=== PATIENT | male | born 1935 | race Caucasian/White ===

== ENCOUNTER 2023-10-07 10:07 | Outpatient (AMB) | payer MEDICARE, OTHER, SELFPAY ==
--- NOTE | 2023-10-07 10:08 | HO.NEPHOV_ITS ---
HPI HPI Comments History of Present Illness Details I had the privilege of seeing Basilio accompanied by his , in the office today in follow-up of his chronic kidney disease on a background of acquired solitary kidney following nephrectomy. He has had history of nosebleeds needing admission. His aspirin was discontinued at that time. He is off Eliquis as well. He has had Procrit injections in the past. He also follows up with Jayden in [facility]. He has no orthostatic symptoms, chest tightness, abdominal distention, weight gain, shortness of breath, paroxysmal nocturnal dyspnea, orthopnea, pedal edema or urinary symptoms. His isosorbide dosage was increased to 90 mg by his cardiology team recently. He is unsure why that was done. He does not consume excessive sodium in the diet. He has no hematuria, night sweats or weight loss. He feels well. 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 Hypertension Chronic kidney disease, stage 3b Vital Signs 10/07/23 10:09 Height 6 ft Weight 160 lb BMI 21.7 BP 108/50 L Blood Pressure Location Lt brachial Position Sitting Pulse 45 L Pulse Source Pulse Oximeter Pulse Oximetry (%) 99 Oxygen Delivery Method Room Air Physical Exam Vital Signs: Last Vital Signs Pulse 45 L 10/07/23 10:09 BP 108/50 L 10/07/23 10:09 Pulse Ox 99 10/07/23 10:09 Oxygen Delivery Method Room Air 10/07/23 10:09 BMI result Body Mass Index 21.7 Const General: comfortable and no acute distress Orientation/consciousness: patient oriented x3 HEENT Head: Yes normocephalic Mouth: Normal oral and palatal mucosa present Eyes EOM: EOMs intact bilaterally Neck Neck: Yes supple Resp Auscultation: clear to auscultation bilaterally Cardio Jugular venous distension: no JVD Rate: regular rate GI Palpation (GI): Soft to palpation Auscultation: normal bowel sounds General: Yes no CVA tenderness Back/Spine/Pelvis Back: no CVA tenderness Skin General skin exam: no rashes or lesions noted Neuro General: patient oriented x3 and moves all extremities Extrem General: Yes no pedal edema Assessment & Plan Assessment & Plan (1) Acquired solitary kidney: Code(s): Z90.5 - Acquired absence of kidney (2) Chronic kidney disease, stage 3b: Code(s): N18.32 - Chronic kidney disease, stage 3b (3) Hypertension: Code(s): I10 - Essential (primary) hypertension Qualifiers: Hypertension type: primary hypertension Qualified Code(s): I10 - Essential (primary) hypertension (4) Anemia in chronic kidney disease: Code(s): N18.9 - Chronic kidney disease, unspecified; D63.1 - Anemia in chronic kidney disease Qualifiers: Chronic kidney disease stage: stage 3 (moderate) Chronic kidney disease stage 3 subtype: stage 3b (GFR 30-44) Qualified Code(s): N18.32 - Chronic kidney disease, stage 3b; D63.1 - Anemia in chronic kidney disease Alyson Richmond had undergone nephrectomy for renal cell cancer. His renal functions had been stable for a long time. He does not have any clinical signs of heart failure. He does not consume excessive sodium in the diet. We shall avoid ZULEMA inhibitor or ARB for now which we could consider reinitiating with time. He had been getting Procrit injections in the past. He does not want any iron infusion or tablets. He is hemodynamically stable and clinically euvolemic. I ordered follow-up blood work and answered all questions. I did not make any medication changes today. Follow-up appointment given. Orders: Orders Calcium Today D63.1 - Anemia in chronic kidney disease, I10 - Essential (primary) hypertension, N18.32 - Chronic kidney disease, stage 3b, N18.9 - Chronic kidney disease, unspecified, Z90.5 - Acquired absence of kidney Blood Urea Nitrogen Today D63.1 - Anemia in chronic kidney disease, I10 - Essential (primary) hypertension, N18.32 - Chronic kidney disease, stage 3b, N18.9 - Chronic kidney disease, unspecified, Z90.5 - Acquired absence of kidney Electrolytes Today D63.1 - Anemia in chronic kidney disease, I10 - Essential (primary) hypertension, N18.32 - Chronic kidney disease, stage 3b, N18.9 - Chronic kidney disease, unspecified, Z90.5 - Acquired absence of kidney Complete Blood Count Auto Diff 2 Months D63.1 - Anemia in chronic kidney disease, I10 - Essential (primary) hypertension, N18.32 - Chronic kidney disease, stage 3b, N18.9 - Chronic kidney disease, unspecified, Z90.5 - Acquired absence of kidney Ferritin Today D63.1 - Anemia in chronic kidney disease, I10 - Essential (primary) hypertension, N18.32 - Chronic kidney disease, stage 3b, N18.9 - Chronic kidney disease, unspecified, Z90.5 - Acquired absence of kidney Vitamin D 25-OH Total Today D63.1 - Anemia in chronic kidney disease, I10 - Essential (primary) hypertension, N18.32 - Chronic kidney disease, stage 3b, N18.9 - Chronic kidney disease, unspecified, Z90.5 - Acquired absence of kidney Phosphorus Today D63.1 - Anemia in chronic kidney disease, I10 - Essential (primary) hypertension, N18.32 - Chronic kidney disease, stage 3b, N18.9 - Chronic kidney disease, unspecified, Z90.5 - Acquired absence of kidney Complete Blood Count Auto Diff Today D63.1 - Anemia in chronic kidney disease, I10 - Essential (primary) hypertension, N18.32 - Chronic kidney disease, stage 3b, N18.9 - Chronic kidney disease, unspecified, Z90.5 - Acquired absence of kidney Creatinine Today D63.1 - Anemia in chronic kidney disease, I10 - Essential (primary) hypertension, N18.32 - Chronic kidney disease, stage 3b, N18.9 - Chronic kidney disease, unspecified, Z90.5 - Acquired absence of kidney IRON PROFILE Today D63.1 - Anemia in chronic kidney disease, I10 - Essential (primary) hypertension, N18.32 - Chronic kidney disease, stage 3b, N18.9 - Chronic kidney disease, unspecified, Z90.5 - Acquired absence of kidney Coding Level of Care Code Est Pt Level 4 (49984) Diagnoses Acquired solitary kidney Z90.5 Chronic kidney disease, stage 3b N18.32 Primary hypertension I10 Hypertension type: primary hypertension Anemia in stage 3b chronic kidney disease N18.32; D63.1 Chronic kidney disease stage: stage 3 (moderate) Chronic kidney disease stage 3 subtype: stage 3b (GFR 30-44)
[2023-10-07 10:09] VITALS: BP 108/50; PULSE 45; O2SAT 99; BMI 21.7
== END 2023-10-07 10:53 | disposition home or self-care (01) ==
PROVIDERS: PCP Internal Medicine Interventional Cardiology; Visit Provider Internal Medicine Nephrology
DX: Z90.5 Acquired absence of kidney (principal); N18.32 Chronic kidney disease, stage 3b; I10 Essential (primary) hypertension; D63.1 Anemia in chronic kidney disease
CPT/HCPCS: 99214

== ENCOUNTER → 2023-10-07 10:07 | Outpatient (BNVA) | payer MEDICARE, OTHER, SELFPAY | PROVIDERS: PCP Internal Medicine Interventional Cardiology; Visit Provider Internal Medicine Nephrology | DX: I11.0 Hypertensive heart disease with heart failure (principal); N18.32 Chronic kidney disease, stage 3b; D63.1 Anemia in chronic kidney disease; Z90.5 Acquired absence of kidney | CPT/HCPCS: 99212 ==

== ENCOUNTER 2023-11-20 11:31 | Outpatient (REF) | payer MEDICARE, OTHER, SELFPAY ==
[2023-11-20 13:05] LABS: Basophils Percent Auto 0.6 % (0-2); Mean Corpuscular Volume 87.4 fL (80.0-98.0); Neutrophils Percent Auto 70.5 % (45-73)
[2023-11-20 13:07] LABS: Eosinophils Absolute Auto 0.1 X10*3/uL (0.0-0.4); Eosinophils Percent Auto 2.6 % (0-4); Hematocrit 38.9 % (42.0-52.0); Hemoglobin 12.6 g/dl (14.0-18.0); Lymphocytes Absolute Auto 0.6 X10*3/uL (1.2-4.9); Mean Corpuscular HGB Conc 32.4 g/dl (31.0-36.0); Mean Corpuscular Hemoglobin 28.3 pg (27.0-33.0); Mean Platelet Volume 11.3 fL (9.4-12.4); Monocytes Absolute Auto 0.4 X10*3/uL (0.1-1.2); Monocytes Percent Auto 10.3 % (2-11); Neutrophils Absolute Auto 2.5 x10*3/uL (2.0-8.3); Red Blood Count 4.45 X10*6/uL (4.60-5.80); Red Cell Distribution Width 17.8 % (11.0-16.0)
[2023-11-20 13:10] LABS: White Blood Count 3.5 X10*3/uL (4.8-10.8)
[2023-11-20 13:11] LABS: Platelet Count 92 X10*3/uL (160-400)
[2023-11-20 13:44] LABS: Anion Gap 11 (12-20); Blood Urea Nitrogen 56 mg/dL (9-16); Calcium 8.9 mg/dL (8.4-10.2); Carbon Dioxide 27 mmol/L (22-29); Chloride 106 mmol/L (96-108); Estimated Glomerular Filt Rate 31; Ferritin 18 ng/mL (20-250); Iron 61 mcg/dL (45-160); Percent Iron Saturation 21 % (15-50); Phosphorus 4.2 mg/dL (2.7-4.5); Potassium 5.1 mmol/L (3.3-5.1); Sodium 139 mmol/L (135-145); Total Iron Binding Capacity 295 mcg/dL (228-428); Unsaturated Iron Binding 234 ug/dL; Vitamin D 25-OH Total 22.3 ng/mL (>30)
== END 2023-11-20 11:32 | disposition home or self-care (01) ==
LOC: HO.10HDL 11:31
PROVIDERS: Visit Provider Internal Medicine Nephrology
DX: I12.9 Hypertensive chronic kidney disease with stage 1 through stage 4 chronic kidney disease, or unspecified chronic kidney disease (principal); N18.32 Chronic kidney disease, stage 3b; D63.1 Anemia in chronic kidney disease; Z90.5 Acquired absence of kidney
CPT/HCPCS: 36415; 80051; 82306; 82310; 82565; 82728; 83540; 84100; 84520; 85025

== ENCOUNTER 2023-11-25 12:10 | Outpatient (AMB) | payer MEDICARE, OTHER, SELFPAY ==
--- NOTE | 2023-11-25 12:23 | HO.NEPHOV ---
HPI HPI Comments History of Present Illness Details I had the privilege of seeing Basilio accompanied by his , in the office today in follow-up of his chronic kidney disease on a background of acquired solitary kidney following nephrectomy. He is on Eliquis for A Fib. He has had Procrit injections in the past. He also follows up with Jayden in [facility]. He has no orthostatic symptoms, chest tightness, abdominal distention, weight gain, shortness of breath, paroxysmal nocturnal dyspnea, orthopnea, pedal edema or urinary symptoms. His isosorbide dosage was increased to 90 mg by his cardiology team recently. He does not consume excessive sodium in the diet. He has no hematuria, night sweats or weight loss. He feels well except for vision issues. 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 Hypertension Chronic kidney disease, stage 3b Vital Signs 11/25/23 12:26 Height 6 ft Weight 161 lb 2 oz BMI 21.9 BP 108/50 L Blood Pressure Location Rt brachial Position Sitting Pulse 45 L Pulse Source Pulse Oximeter Pulse Oximetry (%) 97 Oxygen Delivery Method Room Air Physical Exam Vital Signs: Last Vital Signs Pulse 45 L 11/25/23 12:26 BP 108/50 L 11/25/23 12:26 Pulse Ox 97 11/25/23 12:26 Oxygen Delivery Method Room Air 11/25/23 12:26 BMI result Body Mass Index 21.9 Const General: comfortable and no acute distress Orientation/consciousness: patient oriented x3 HEENT Head: Yes normocephalic Mouth: Normal oral and palatal mucosa present Eyes EOM: EOMs intact bilaterally Neck Neck: Yes supple Resp Auscultation: clear to auscultation bilaterally Cardio Jugular venous distension: no JVD Rate: regular rate Heart sounds: Murmur heart sound present GI Palpation (GI): Soft to palpation Auscultation: normal bowel sounds General: Yes no CVA tenderness Back/Spine/Pelvis Back: no CVA tenderness Skin General skin exam: no rashes or lesions noted Neuro General: patient oriented x3 and moves all extremities Extrem General: Yes no pedal edema Assessment & Plan Assessment & Plan (1) Chronic kidney disease, stage 3b: Code(s): N18.32 - Chronic kidney disease, stage 3b (2) Hypertension: Code(s): I10 - Essential (primary) hypertension Qualifiers: Hypertension type: primary hypertension Qualified Code(s): I10 - Essential (primary) hypertension (3) Anemia in chronic kidney disease: Code(s): N18.9 - Chronic kidney disease, unspecified; D63.1 - Anemia in chronic kidney disease Qualifiers: Chronic kidney disease stage: stage 3 (moderate) Chronic kidney disease stage 3 subtype: stage 3b (GFR 30-44) Qualified Code(s): N18.32 - Chronic kidney disease, stage 3b; D63.1 - Anemia in chronic kidney disease (4) Acquired solitary kidney: Code(s): Z90.5 - Acquired absence of kidney Plan Basilio had undergone nephrectomy for renal cell cancer. His renal functions had been stable for a long time. He does not have any clinical signs of heart failure. He does not consume excessive sodium in the diet. We shall avoid ZULEMA inhibitor or ARB for now( BP borderline with serum creatinine of 2). He had gotten Procrit injections in the past. He does not want any iron infusion or tablets even though there is no indication now. He is hemodynamically stable and clinically euvolemic. I ordered follow-up blood work and answered all questions. I did not make any medication changes today. Follow-up appointment given. Orders: Orders Complete Blood Count Auto Diff Today D63.1 - Anemia in chronic kidney disease, I10 - Essential (primary) hypertension, N18.32 - Chronic kidney disease, stage 3b, Z90.5 - Acquired absence of kidney Creatinine Today D63.1 - Anemia in chronic kidney disease, I10 - Essential (primary) hypertension, N18.32 - Chronic kidney disease, stage 3b, Z90.5 - Acquired absence of kidney Electrolytes Today D63.1 - Anemia in chronic kidney disease, I10 - Essential (primary) hypertension, N18.32 - Chronic kidney disease, stage 3b, Z90.5 - Acquired absence of kidney Blood Urea Nitrogen Today D63.1 - Anemia in chronic kidney disease, I10 - Essential (primary) hypertension, N18.32 - Chronic kidney disease, stage 3b, Z90.5 - Acquired absence of kidney Coding Level of Care Code Est Pt Level 4 (79855) Diagnoses Chronic kidney disease, stage 3b N18.32 Primary hypertension I10 Hypertension type: primary hypertension Anemia in stage 3b chronic kidney disease N18.32; D63.1 Chronic kidney disease stage: stage 3 (moderate) Chronic kidney disease stage 3 subtype: stage 3b (GFR 30-44) Acquired solitary kidney Z90.5 Results Reviewed Nephrology Results: Hgb 12.6 g/dl (14.0-18.0) L 11/20/23 WBC 3.5 X10*3/uL (4.8-10.8) L 11/20/23 Plt Count 92 X10*3/uL (160-400) L 11/20/23 Sodium 139 mmol/L (135-145) 11/20/23 Potassium 5.1 mmol/L (3.3-5.1) 11/20/23 Chloride 106 mmol/L (96-108) 11/20/23 Carbon Dioxide 27 mmol/L (22-29) 11/20/23 BUN 56 mg/dL (9-16) H 11/20/23 Creatinine 2.04 mg/dL (0.5-1.4) H 11/20/23 Calcium 8.9 mg/dL (8.4-10.2) 11/20/23 Phosphorus 4.2 mg/dL (2.7-4.5) 11/20/23
[2023-11-25 12:26] VITALS: BP 108/50; PULSE 45; O2SAT 97; BMI 21.9
== END 2023-11-25 13:11 | disposition home or self-care (01) ==
PROVIDERS: PCP Internal Medicine Interventional Cardiology; Visit Provider Internal Medicine Nephrology
DX: N18.32 Chronic kidney disease, stage 3b (principal); I10 Essential (primary) hypertension; D63.1 Anemia in chronic kidney disease; Z90.5 Acquired absence of kidney
CPT/HCPCS: 99214

== ENCOUNTER → 2023-11-25 12:10 | Outpatient (BNVA) | payer MEDICARE, OTHER, SELFPAY | PROVIDERS: PCP Internal Medicine Interventional Cardiology; Visit Provider Internal Medicine Nephrology | DX: I12.9 Hypertensive chronic kidney disease with stage 1 through stage 4 chronic kidney disease, or unspecified chronic kidney disease (principal); N18.32 Chronic kidney disease, stage 3b; D63.1 Anemia in chronic kidney disease; Z90.5 Acquired absence of kidney | CPT/HCPCS: 99212 ==

== ENCOUNTER 2024-03-17 11:50 | Outpatient (REF) | payer MEDICARE, OTHER, SELFPAY ==
[2024-03-17 13:09] LABS: MANUAL DIFF FLAG NO
[2024-03-17 13:27] LABS: Basophils Percent Auto 0.6 % (0-2); Eosinophils Absolute Auto 0.1 X10*3/uL (0.0-0.4); Eosinophils Percent Auto 3.2 % (0-4); Hematocrit 40.3 % (42.0-52.0); Hemoglobin 12.8 g/dl (14.0-18.0); Imm Gran Abs Auto 0.01 X10*3/uL (0.00-0.03); Imm Gran Pct Auto 0.3 % (0.0-0.4); Lymphocytes Absolute Auto 0.7 X10*3/uL (1.2-4.9); Lymphocytes Percent Auto 21.3 % (20-40); Mean Corpuscular HGB Conc 31.8 g/dl (31.0-36.0); Mean Corpuscular Hemoglobin 28.3 pg (27.0-33.0); Mean Corpuscular Volume 89.2 fL (80.0-98.0); Mean Platelet Volume 10.9 fL (9.4-12.4); Monocytes Absolute Auto 0.4 X10*3/uL (0.1-1.2); Monocytes Percent Auto 11.4 % (2-11); Neutrophils Absolute Auto 2.2 x10*3/uL (2.0-8.3); Neutrophils Percent Auto 63.2 % (45-73); Red Blood Count 4.52 X10*6/uL (4.60-5.80); Red Cell Distribution Width 16.1 % (11.0-16.0); White Blood Count 3.4 X10*3/uL (4.8-10.8)
[2024-03-17 13:29] LABS: Platelet Count 99 X10*3/uL (160-400)
[2024-03-17 13:42] LABS: Anion Gap 10 (12-20); Blood Urea Nitrogen 41 mg/dL (9-16); Carbon Dioxide 29 mmol/L (22-29); Chloride 105 mmol/L (96-108); Estimated Glomerular Filt Rate 32; Potassium 5.1 mmol/L (3.3-5.1); Sodium 139 mmol/L (135-145)
== END 2024-03-17 11:51 | disposition home or self-care (01) ==
LOC: HO.10HDL 11:50
PROVIDERS: Visit Provider Internal Medicine Nephrology
DX: N18.32 Chronic kidney disease, stage 3b (principal); I10 Essential (primary) hypertension; D63.1 Anemia in chronic kidney disease; Z90.5 Acquired absence of kidney
CPT/HCPCS: 36415; 80051; 82565; 84520; 85025

== ENCOUNTER 2024-03-23 10:14 | Outpatient (AMB) | payer MEDICARE, OTHER, SELFPAY ==
--- NOTE | 2024-03-23 10:36 | HO.NEPHOV ---
Vital Signs 03/23/24 10:37 Height 6 ft Weight 159 lb 8 oz BMI 21.6 BP 118/62 Blood Pressure Location Lt brachial Position Sitting Pulse 41 L Pulse Source Pulse Oximeter Pulse Oximetry (%) 95 Oxygen Delivery Method Room Air Intake Visit Reasons: 4 mo w/ labs -CKD / LVM [employer] Technician Required: No Accompanied by: Spouse Allergies No Known Allergies [No Known Allergies*] Allergy (Verified 03/23/24 10:40) HPI Comments Details: I had the privilege of seeing Basilio accompanied by his , in the office today in follow-up of his chronic kidney disease on a background of acquired solitary kidney following nephrectomy. He is on Eliquis for A Fib. He has had Procrit injections in the past. He also follows [place] with Jayden in [facility] He has no orthostatic symptoms, chest tightness, abdominal distention, weight gain, shortness of breath, paroxysmal nocturnal dyspnea, orthopnea, pedal edema or urinary symptoms. He does not consume excessive sodium in the diet. He has no hematuria, night sweats or weight loss. He feels well except for vision issues. 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 Hypertension Chronic kidney disease, stage 3b Review of Systems Const All systems reviewed & are unremarkable except as noted in HPI and below Physical Exam Vital Signs: Last Vital Signs Pulse 41 L 03/23/24 10:37 BP 118/62 03/23/24 10:37 Pulse Ox 95 03/23/24 10:37 Oxygen Delivery Method Room Air 03/23/24 10:37 BMI result Body Mass Index 21.6 Const General: comfortable and no acute distress Orientation/consciousness: patient oriented x3 HEENT Head: Yes normocephalic Mouth: Normal oral and palatal mucosa present Eyes EOM: EOMs intact bilaterally Neck Neck: Yes supple Resp Auscultation: clear to auscultation bilaterally Cardio Jugular venous distension: no JVD Rate: regular rate GI Palpation (GI): Soft to palpation Auscultation: normal bowel sounds General: Yes no CVA tenderness Back/Spine/Pelvis Back: no CVA tenderness Skin General skin exam: no rashes or lesions noted Neuro General: patient oriented x3 and moves all extremities Extrem General: Yes no pedal edema Results Reviewed Nephrology Results: Hgb 12.8 g/dl (14.0-18.0) L 03/17/24 WBC 3.4 X10*3/uL (4.8-10.8) L 03/17/24 Plt Count 99 X10*3/uL (160-400) L 03/17/24 Sodium 139 mmol/L (135-145) 03/17/24 Potassium 5.1 mmol/L (3.3-5.1) 03/17/24 Chloride 105 mmol/L (96-108) 03/17/24 Carbon Dioxide 29 mmol/L (22-29) 03/17/24 BUN 41 mg/dL (9-16) H 03/17/24 Creatinine 2.00 mg/dL (0.5-1.4) H 03/17/24 Calcium 8.9 mg/dL (8.4-10.2) 11/20/23 Phosphorus 4.2 mg/dL (2.7-4.5) 11/20/23 Assessment & Plan Assessment & Plan (1) Chronic kidney disease, stage 3b: Code(s): N18.32 - Chronic kidney disease, stage 3b Category: Medical (2) Hypertension: Code(s): I10 - Essential (primary) hypertension Category: Medical Qualifiers: Hypertension type: primary hypertension Qualified Code(s): I10 - Essential (primary) hypertension (3) Acquired solitary kidney: Code(s): Z90.5 - Acquired absence of kidney Category: Medical Plan Basilio had undergone nephrectomy for renal cell cancer. His renal functions had been stable for a long time. He does not have any clinical signs of heart failure. He does not consume excessive sodium in the diet. We shall avoid ZULEMA inhibitor or ARB for now( BP borderline with serum creatinine of 2). He had gotten Procrit injections in the past. He is hemodynamically stable and clinically euvolemic. I ordered follow-up blood work and answered all questions. I did not make any medication changes today. Follow-up appointment given. Orders: Orders Creatinine 4 Months I10 - Essential (primary) hypertension, N18.32 - Chronic kidney disease, stage 3b, Z90.5 - Acquired absence of kidney Blood Urea Nitrogen 4 Months I10 - Essential (primary) hypertension, N18.32 - Chronic kidney disease, stage 3b, Z90.5 - Acquired absence of kidney Electrolytes 4 Months I10 - Essential (primary) hypertension, N18.32 - Chronic kidney disease, stage 3b, Z90.5 - Acquired absence of kidney Coding Level of Care Code Est Pt Level 4 (80732) Diagnoses Chronic kidney disease, stage 3b N18.32 Primary hypertension I10 Hypertension type: primary hypertension Acquired solitary kidney Z90.5
[2024-03-23 10:37] VITALS: BP 118/62; PULSE 41; O2SAT 95; BMI 21.6
== END 2024-03-23 10:59 | disposition home or self-care (01) ==
PROVIDERS: PCP Internal Medicine Interventional Cardiology; Visit Provider Internal Medicine Nephrology
DX: N18.32 Chronic kidney disease, stage 3b (principal); I10 Essential (primary) hypertension; Z90.5 Acquired absence of kidney
CPT/HCPCS: 99214

== ENCOUNTER → 2024-03-23 10:14 | Outpatient (BNVA) | payer MEDICARE, OTHER, SELFPAY | PROVIDERS: PCP Internal Medicine Interventional Cardiology; Visit Provider Internal Medicine Nephrology | DX: I12.9 Hypertensive chronic kidney disease with stage 1 through stage 4 chronic kidney disease, or unspecified chronic kidney disease (principal); N18.32 Chronic kidney disease, stage 3b; I48.91 Unspecified atrial fibrillation; Z90.5 Acquired absence of kidney; Z79.01 Long term (current) use of anticoagulants | CPT/HCPCS: 99212 ==

== ENCOUNTER 2024-07-15 09:50 | Outpatient (REF) | payer MEDICARE, OTHER, SELFPAY ==
[2024-07-15 10:06] LABS: MANUAL DIFF FLAG NO
[2024-07-15 10:38] LABS: Basophils Percent Auto 0.7 % (0-2); Eosinophils Absolute Auto 0.1 X10*3/uL (0.0-0.4); Eosinophils Percent Auto 2.6 % (0-4); Hematocrit 42.8 % (42.0-52.0); Hemoglobin 13.6 g/dl (14.0-18.0); Imm Gran Abs Auto 0.01 X10*3/uL (0.00-0.03); Imm Gran Pct Auto 0.3 % (0.0-0.4); Lymphocytes Absolute Auto 0.8 X10*3/uL (1.2-4.9); Lymphocytes Percent Auto 24.5 % (20-40); Mean Corpuscular HGB Conc 31.8 g/dl (31.0-36.0); Mean Corpuscular Hemoglobin 28.8 pg (27.0-33.0); Mean Corpuscular Volume 90.5 fL (80.0-98.0); Mean Platelet Volume 10.8 fL (9.4-12.4); Monocytes Absolute Auto 0.4 X10*3/uL (0.1-1.2); Monocytes Percent Auto 11.8 % (2-11); Neutrophils Absolute Auto 1.8 x10*3/uL (2.0-8.3); Neutrophils Percent Auto 60.1 % (45-73); Platelet Count 107 X10*3/uL (160-400); Red Blood Count 4.73 X10*6/uL (4.60-5.80); Red Cell Distribution Width 15.8 % (11.0-16.0); White Blood Count 3.1 X10*3/uL (4.8-10.8)
[2024-07-15 12:03] LABS: Anion Gap 10 (12-20); Blood Urea Nitrogen 48 mg/dL (9-16); Carbon Dioxide 27 mmol/L (22-29); Chloride 108 mmol/L (96-108); Estimated Glomerular Filt Rate 29; Potassium 5.1 mmol/L (3.3-5.1); Sodium 140 mmol/L (135-145)
== END 2024-07-15 09:51 | disposition home or self-care (01) ==
LOC: HO.LAB 09:50
PROVIDERS: Visit Provider Internal Medicine Nephrology
DX: I12.9 Hypertensive chronic kidney disease with stage 1 through stage 4 chronic kidney disease, or unspecified chronic kidney disease (principal); N18.32 Chronic kidney disease, stage 3b; D63.1 Anemia in chronic kidney disease; Z90.5 Acquired absence of kidney
CPT/HCPCS: 36415; 80051; 82565; 84520; 85025

== ENCOUNTER 2024-07-20 10:22 | Outpatient (AMB) | payer MEDICARE, OTHER, SELFPAY ==
--- NOTE | 2024-07-20 10:30 | HO.NEPHOV ---
Vital Signs 07/20/24 10:31 Height 6 ft Weight 167 lb 8 oz BMI 22.7 BP 110/60 Blood Pressure Location Lt brachial Position Sitting Intake Visit Reasons: CKD/ LVM Accompanied by: Spouse Allergies No Known Allergies [No Known Allergies*] Allergy (Verified 07/20/24 10:31) HPI Comments Details: Basilio who was accompanied by his in the office today was seen in follow-up of his chronic kidney disease on a background of acquired solitary kidney following nephrectomy. He is on Eliquis for A Fib. He has had Procrit injections in the past. He has no orthostatic symptoms, chest tightness, abdominal distention, weight gain, shortness of breath, paroxysmal nocturnal dyspnea, orthopnea, pedal edema or urinary symptoms. He does not consume excessive sodium in the diet. He has no hematuria, night sweats or weight loss. He feels well except for vision issues. 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 Hypertension Chronic kidney disease, stage 3b Review of Systems Const All systems reviewed & are unremarkable except as noted in HPI and below Physical Exam Vital Signs: Last Vital Signs BP 110/60 07/20/24 10:31 BMI result Body Mass Index 22.7 Const General: comfortable and no acute distress Orientation/consciousness: patient oriented x3 HEENT Head: Yes normocephalic Mouth: Normal oral and palatal mucosa present Eyes EOM: EOMs intact bilaterally Neck Neck: Yes supple Resp Auscultation: clear to auscultation bilaterally Cardio Jugular venous distension: no JVD Rate: regular rate GI Palpation (GI): Soft to palpation Auscultation: normal bowel sounds General: Yes no CVA tenderness Back/Spine/Pelvis Back: no CVA tenderness Skin General skin exam: no rashes or lesions noted Neuro General: patient oriented x3 and moves all extremities Extrem General: Yes no pedal edema Results Reviewed Nephrology Results: Hgb 13.6 g/dl (14.0-18.0) L 07/15/24 WBC 3.1 X10*3/uL (4.8-10.8) L 07/15/24 Plt Count 107 X10*3/uL (160-400) L 07/15/24 Sodium 140 mmol/L (135-145) 07/15/24 Potassium 5.1 mmol/L (3.3-5.1) 07/15/24 Chloride 108 mmol/L (96-108) 07/15/24 Carbon Dioxide 27 mmol/L (22-29) 07/15/24 BUN 48 mg/dL (9-16) H 07/15/24 Creatinine 2.16 mg/dL (0.5-1.4) H 07/15/24 Calcium 8.9 mg/dL (8.4-10.2) 11/20/23 Phosphorus 4.2 mg/dL (2.7-4.5) 11/20/23 Assessment & Plan Assessment & Plan (1) Chronic kidney disease, stage 3b: Code(s): N18.32 - Chronic kidney disease, stage 3b Category: Medical (2) Hypertension: Code(s): I10 - Essential (primary) hypertension Category: Medical Qualifiers: Hypertension type: primary hypertension Qualified Code(s): I10 - Essential (primary) hypertension (3) Anemia in chronic kidney disease: Code(s): N18.9 - Chronic kidney disease, unspecified; D63.1 - Anemia in chronic kidney disease Category: Medical Qualifiers: Chronic kidney disease stage: stage 3 (moderate) Chronic kidney disease stage 3 subtype: stage 3b (GFR 30-44) Qualified Code(s): N18.32 - Chronic kidney disease, stage 3b; D63.1 - Anemia in chronic kidney disease (4) Acquired solitary kidney: Code(s): Z90.5 - Acquired absence of kidney Category: Medical Plan Basilio had undergone nephrectomy for renal cell cancer. His renal functions had been stable for a long time. He does not have any clinical signs of heart failure. He does not consume excessive sodium in the diet. We shall avoid ZULEMA inhibitor or ARB for now( BP borderline with serum creatinine of 2). He had gotten Procrit injections in the past. He is hemodynamically stable and clinically euvolemic. I ordered follow-up blood work and answered all questions. I did not make any medication changes today. Follow-up appointment given Orders: Orders Blood Urea Nitrogen 4 Months D63.1 - Anemia in chronic kidney disease, I10 - Essential (primary) hypertension, N18.32 - Chronic kidney disease, stage 3b, Z90.5 - Acquired absence of kidney Creatinine 4 Months D63.1 - Anemia in chronic kidney disease, I10 - Essential (primary) hypertension, N18.32 - Chronic kidney disease, stage 3b, Z90.5 - Acquired absence of kidney Electrolytes 4 Months D63.1 - Anemia in chronic kidney disease, I10 - Essential (primary) hypertension, N18.32 - Chronic kidney disease, stage 3b, Z90.5 - Acquired absence of kidney Coding Level of Care Code Est Pt Level 4 (51184) Diagnoses Chronic kidney disease, stage 3b N18.32 Primary hypertension I10 Hypertension type: primary hypertension Anemia in stage 3b chronic kidney disease N18.32; D63.1 Chronic kidney disease stage: stage 3 (moderate) Chronic kidney disease stage 3 subtype: stage 3b (GFR 30-44) Acquired solitary kidney Z90.5
[2024-07-20 10:31] VITALS: BP 110/60; BMI 22.7
--- OUTSIDE RECORDS SUMMARY | 2024-07-21 00:21 | XMS_ITS | Encounter Summary ---
Author Name [facility] [place] [facility] [place] [facility] [place] Address [address] [place] [id number] Care Team Providers Care Digital Photographer Name Role Phone SAUL PEREZ Primary Care [...] PART A Sep 10, 2001 PART A [id number] YENIFER CUI PATIENT MEDICARE (WNR) MEDICARE (M) PART B Sep 10, 2001 PART B [id number] YENIFER CUI PATIENT MEDICARE (WNR) MEDICARE (M) PART A Sep 10, 2001 PART A [id number] [phone] BOBBYAMADOYENIFER CONTRERAS PATIENT MEDICARE (WNR) MEDICARE (M) PART B Sep 10, 2001 PART B [id number] JACKBEN YENIFER PATIENT [facility] MEDICAL EXPENSE (OPT/PROF ) [facility] INDEM N Feb 08, 2012 [id number] RONA CUI SPOUSE [facility] MEDICAL EXPENSE (OPT/PROF ) WELLMelanie OINT Feb 08, 2012 [id number] RONA CUI SPOUSE Selected Encounter This section includes the information on record at [place] for the Encounter. Date/Time Encounter Type Encounter Description Reason Provider Source Nov 23, 2023 08:27 AM QNHP OL DIG ASSMT&MGMT 5-10 CLINICAL PHARMACY ICD-10-CM Z04.89 Encounter for examination and observation for oth reasons MISTI NGUYEN [facility] Encounter Template Text not used by [place] Assessments - Encounter Diagnoses This section includes the primary and secondary diagnoses documented for the Encounter. Date/Time Primary/Secondary Diagnosis Diagnosis Name Provider Source Nov 23, 2023 08:30 AM PRIMARY Encounter for examination and observation for oth reasons [facility] Plan of Treatment: Future Appointments (+ 6 months) and Future Tests (+/- 45 days) The Plan of Treatment section includes future care activities for the patient [facility] [place] [facility] This section includes future appointments and future orders which are active, pending or scheduled. Future Appointments This section includes appointments that were scheduled to occur 6 months from the date of the Encounter, up to a maximum of 20 appointments. The data comes from all [place] treatment facilities. Appointment Date/Time Appointment Type Appointme nt Facility Name Nov 26, 2023 11:00 AM AMBULATORY - MEDICINE [facility] December 24, 2023 01:00 PM [facility] [place] [facility] Jan 13, 2024 11:30 AM [facility]UL[facility] - MEDICINE [facility] Active, Pending, and Scheduled Orders This section includes a listing of several types of active, pending, and scheduled orders, including clinic medications orders, diagnostic test orders, procedure orders and consult orders; where the start date of the order is 45 days before the date of the Encounter or 45 days after the date of theEncounter. The data comes from all [facility]. Test Date/Time Test Type Test Details Facility Name Nov 20, 2023 12:00 AM Laboratory - Chemi stry Order HEPATITIS C ANTIBODY (HCV)-[facility] BLOOD (MARBLED-TOP SERUM) [facility] Lab Results: +/- 30 days of the encounter This section includes the Chemistry and Hematology Lab Results on record with [place] for the patient. Radiology Reports and Pathology Reports are provided separately, in subsequent sections. Lab Results This section contains the Chemistry/Hematology Results that were resulted 30 days before or 30 daysafter the date of the Encounter. Date/Time Source Result Type Result - Unit Interpretation Reference Range Comment Nov 20, 2023 10:55 AM [facility] LIVER FUNCTION Specimen Type: SERUM No comment entered. Ordering Provider: LISA MERCADO Report Released Date/Time: Nov 20, 2023 10:16 AM Reporting Lab: [address] [address] Performing Lab: [address] [address] PROTEIN,TOTAL 7.1 g/dL 6.0-8.3 ALBUMIN 3.5 g/dL 3.5-5.0 ALKALINE PHOSPHATASE 48 U/L 40-150 AST 15 U/L 5-34 ALT 10 U/L BILIRUBIN, TOTAL 0.7 mg/dL 0.2-1.2 Nov 20, 2023 10:55 AM [facility] BASIC METABOLIC PANEL (non-fasting) Spe cimen Type: SERUM No comment entered. Ordering Provider: LISA MERCADO Report Released Date/Time: Nov 20, 2023 10:16 AM Reporting Lab: [address] [address] Performing Lab: [address] [address] UREA NITROGEN 58 mg/dL H 7-25 GLUCOSE 118 mg/dL H 65-100 SODIUM 140 mmol/L 135-145 POTASSIUM 5.1 mmol/L H 3.5-5.0 CHLORIDE 104 mmol/L 100-110 CO2 26 meq/L 20-30 CREATININE, Serum 2.26 mg/dL H 0.50-1.40 eGFR(CKD-EPI 2020) 27 mL/min L >60 Nov 20, 2023 10:55 AM [facility] TSH Specimen Type: SERUM No comment entered. Ordering Provider: LISA MERCADO Report Released Date/Time: Nov 20, 2023 10:16 AM Reporting Lab: [address] [address] Performing Lab: [facility] [address] [address] TSH 3.37 u[IU]/mL 0.35-5.00 Nov 20, 2023 10:55 AM [place] LIPID PANEL, NON FASTING Specimen Type: SERUM No comment entered. Ordering Provider: LISA MERCADO Report Released Date/Time: Nov 20, 2023 10:16 AM Reporting Lab: [facility] [address] [address] Performing Lab: [facility] [address] [address] CHOLESTEROL 188 mg/dL TRIGLYCERIDE 102 mg/dL 0-150 LDL calculated 120 mg/dL 0-129 CHOL/HDL 3.9 HDL CHOLESTEROL 48 mg/dL 40-60 Nov 20, 2023 10:55 AM [facility] HEMOGLOBIN A1C PANEL Specimen Type: BLOOD Comment: Values obtained from A1C measurements can vary. For atypical A1C assays, a reported value of 7.0 could actually be between 6.72 and 7.28 if measured by a reference method. A reported value of 9.0 could actually be between 8.73 and 9.27. Ref: http://www.ngsp. org/CAPdata.asp Ordering Provider: LISA MERCADO Report Released Date/Time: Nov 20, 2023 10:16 AM Reporting Lab: [facility] [address] [address] Performing Lab: [facility] [address] [address] HEMOGLOBIN A1C 5.3 4.0-5.6 Nov 20, 2023 10:55 AM [facility] IRON & TIBC PANEL Specimen Type: SERUM No comment entered. Ordering Provider: LISA MERCADO Report Released Date/Time: Nov 20, 2023 10:16 AM Reporting Lab: [facility] [address] [address] Performing Lab: [facility] [address] [address] TIBC 363 ug/dL 204-475 IRON 66 ug/dL 40-160 Transferrin Saturation 18.2 L 20.0-50.0 Nov 20, 2023 10:55 AM [facility] FERRITIN Specimen Type: SERUM No comment entered. Ordering Provider: LISA MERCADO Report Released Date/Time: Nov 20, 2023 10:16 AM Reporting Lab: [address] [address] Performing Lab: [address] [address] FERRITIN 28 ng/mL 20-300 Nov 20, 2023 10:55 AM [facility] VITAMIN D (25-OH) Specimen Type: SERUM No comment entered. Ordering Provider: LISA MERCADO Report Released Date/Time: Nov 20, 2023 10:16 AM Reporting Lab: [address] [address] Performing Lab: [address] [address] VITAMIN D (25-OH) 22 ng/mL 20-50 Nov 20, 2023 10:55 AM [facility] CBC AND DIFF (AUTO) Specimen Type: BLOOD No comment entered. Ordering Provider: LISA MERCADO Report Released Date/Time: Nov 20, 2023 10:16 AM Reporting Lab: [address] [address] Performing Lab: [address] [address] WBC 3.41 10*3/uL L 4.50-11.00 RBC 4.63 10*6/uL 4.23-5.66 HGB 13.0 g/dL 12.8-17 HCT 40.2 39.2-50.4 MCV 86.8 fL 82-99 MCHC 32.3 g/dL 30.8-35.1 PLT 99 10*3/uL L 140-360 RDW-CV 17.9 H 12.0-16.0 Stafford, Abs 0.33 10*3/uL 0.30-1.10 MCH 28.1 pg 26.2-32.6 Neut % 71.3 43.7-75.8 Lymph % 15.8 14.0-42.3 Stafford % 9.7 5.1-13.7 Eos % 2.6 0.4-6.8 Baso % 0.3 0.1-2.0 Neut, Abs 2.43 10*3/uL 2.20-7.60 Lymph, Abs 0.54 10*3/uL L 1.00-3.20 Eos, Abs 0.09 10*3/uL 0.03-0.44 Baso, Abs 0.01 10*3/uL 0.01-0.13 Immature Gran % 0.3 0.0-0.7 Immature Gran, Abs 0.01 10*3/uL 0.00-0.06 Nov 20, 2023 10:55 AM [facility] METHYLMALONIC ACID (SERUM-QU) Specimen Type: SERUM Comment: This test was developed and its analytical performance characteristics have been determined by [facility] [place], [place]. It has not been cleared or approved by the U.S. Food and Drug Administration. This assay has been validated pursuant to the CLIA regulations and is used for clinical purposes. Test Performed by [facility], [facility], [address] [place] [address] Elliott Calvillo M.D., Ph.D., Director of Laboratories , CLIA [id number] TEST PERFORMED AT: , Ordering Provider: LISA MERCADO Report Released Date/Time: Nov 20, 2023 02:59 PM Reporting Lab: [facility] [address] [facility] [address] Performing Lab: [facility] [address] [address] METHYLMALONIC ACID (SERUM-QU) 555 nmol/L H 87-318 Nov 20, 2023 10:55 AM [facility] FOLATE (WROX) Specimen Type: SERUM No comment entered. Ordering Provider: LISA MERCADO Report Released Date/Time: Nov 20, 2023 02:59 PM Reporting Lab: [facility] [address] [facility] [address] Performing Lab: [facility] [address] [facility] [address] FOLATE (WROX) 8.39 ng/mL >5.2 Nov 20, 2023 10:55 AM [place] VITAMIN B12 Specimen Type: SERUM No comment entered. Ordering Provider: LISA MERCADO Report Released Date/Time: Nov 20, 2023 02:59 PM Reporting Lab: [facility] [address] [facility] [address] Performing Lab: [facility] [address] [facility] [address] VITAMIN B12 438 pg/mL 200-900 Encounter Notes: All associated encounter notes This section contains the clinical notes associated to the Encounter. Date/Time Encounter Note(s) Provider Source Nov 23, 2023 08:27 AM PHARMACY MEDICATIO N MGT NOTE: LOCAL TITLE: PHARMACY ANTICOAGULATION NOTE STANDARD TITLE: PHARMACY MEDICATION MGT NOTE DATE OF NOTE: NOV 23, 2023@08:27 ENTRY DATE: NOV 23, 2023@08:27:57 AUTHOR: HELEN NGUYEN EXP COSIGNER: URGENCY: STATUS: COMPLETED ANTICOAGULATION DOAC MONITORING NOTE SUBJECTIVE: Patient identified through the DOAC population Management Tool based on the following criteria: [ ] Dosing Issue [ ] Critical Drug Interaction [ ] Cancer Treatment [ ] Active NSAID [ ] Labs Overdue [ ] Prosthetic Valve Replacement [ X ] Notable Lab Value [ ] Overdue for Refill [ ] Other: Comments: Pt flagged for review of PLT <100K --------- OBJECTIVE: Indication for anticoagulation: [ X ] Atrial fibrilation [ ] Atrial flutter [ ] VTE (DVT or PE) [ ] Post-op DVT prophylaxis [ ] Other: Most recent lab values include the following: HGB: HGB Collection DT Specimen Test Name Result Units Ref Range 11/20/2023 10:55 BLOOD HGB 13.0 g/dL 12.8 - 17 PLT: WBC Collection DT Specimen Test Name Result Units Ref Range 11/20/2023 10:55 BLOOD WBC 3.41 L K/cmm 4.50 - 11.00 Liver Function Tests Collection DT Spec AST ALT ALK YAMILETH ALBUMIN T BILI T. PROT 11/20/2023 10:55 SERUM 15 10 48 3.5 0.7 7.1 HEIGHT: 72 in [182.9 cm] (05/20/2023 13:40) WEIGHT: 158.2 lb [71.76 kg] (11/20/2023 10:10) BMI: BMI: 21.5 CREATININE-EGFR 11/20/23 10:55 2.26 H 05/20/23 14:23 1.73 H CRCL IBW: CrCl(est): 23.4 mL/min (Creat:2.26 11/20/23) CRCL ACT: 23.42 mL/min CRCL ADJ: 23.4 mL/min (11/20/23) --------- ASSESSMENT: Action required? [ ] Yes [ X ] No Comments: Pt with leukemia, seen by PCP 11/20/23 with labs updated at that time for PCP to review. Pt to continue DOAC therapy without change at this time. --------- PLAN: [ X ] No action required, dismiss flag [ ] Will intervene: [ ] Patient education via phone/letter [ ] Schedule phone/[id number] follow up [ ] Lab ordered [ ] Discontinue interacting medication [ ] Discontinue DOAC [ ] Change to alternative DOAC [ ] Change DOAC dose [ ] Notify PCP [ ] Consult cardiology/hematology [ ] Other: Time spent: 9 mins /damien/ Helen Nguyen, PharmD, BCPS Clinical Barge Engineer Signed: 11/23/2023 08:30 HELEN NGUYEN [facility]
--- OUTSIDE RECORDS SUMMARY | 2024-07-21 00:21 | XMS_ITS ---
Author Name [facility] [place] [facility] [place] Address [address] [place] [address] Care Team Providers Care Meter Attendant Name Role Phone SAUL PEREZ Primary Care [...] PART A Sep 10, 2001 PART A [id number] [phone] YENIFER CUI PATIENT MEDICARE (WNR) MEDICARE (M) PART B Sep 10, 2001 PART B [id number] [phone] YENIFER CUI PATIENT MEDICARE (WNR) MEDICARE (M) PART A Sep 10, 2001 PART A [id number] YENIFER CUI PATIENT MEDICARE (WNR) MEDICARE (M) PART B Sep 10, 2001 PART B [id number] YENIFER CUI PATIENT FORMERLY [facility], [facility] MEDICAL EXPENSE (OPT/PROF ) [facility] IN[facility] N Feb 08, 2012 [id number] RONA [facility]UI [facility]OPT/PROF ) MILI ERNANDEZNT Feb 08, 2012 [id number] RONA CUI SPOUSE Selected Encounter This section includes the information on record at [place] for the Encounter. 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, bi, adv atrpc with subfoveal invl MERHAR,SVETA B [facility] [place] [facility] December 21, 2023 06:03 AM SECONDARY Combined forms of age-related cataract, bilateral MERHAR,SVETA B [facility] [place] [facility] December 21, 2023 06:03 AM SECONDARY Dry eye syndrome of bilateral lacrimal glands MERHAR,SVETA B [facility] [place] [facility] December 21, 2023 06:03 AM SECONDARY Unqualified visual loss, both eyes MERHAR,SVETA B [facility] [place] [facility] Plan of Treatment: Future Appointments (+ 6 months) and Future Tests (+/- 45 days) The Plan of Treatment section includes future care activities for the patient from all [place] treatmentfacilities. This section includes future appointments and future orders which are active, pending or scheduled. Future Appointments This section includes appointments that were scheduled to occur 6 months from the date of the Encounter, up to a maximum of 20 appointments. The data comes from all [place] treatment facilities. Appointment Date/Time Appointment Type Appointme nt Facility Name December 24, 2023 01:00 PM AMBULATORY - REHAB MEDICIN E [facility] [place] [facility] Jan 13, 2024 11:30 AM AMBULATORY - MEDICINE [place] Active, Pending, and Scheduled Orders This section includes a listing of several types of active, pending, and scheduled orders, including clinic medications orders, diagnostic test orders, procedure orders and consult orders; where the start date of the order is 45 days before the date of the Encounter or 45 days after the date of theEncounter. The data comes from all [place] treatment facilities. Test Date/Time Test Type Test Details Facility Name Nov 20, 2023 12:00 AM Laboratory - Chemi stry Order HEPATITIS C ANTIBODY (HCV)-ARC BLOOD (MARBLED-TOP SERUM) [facility] Lab Results: +/- 30 days of the encounter This section includes the Chemistry and Hematology Lab Results on record with [place] for the patient. Radiology Reports and Pathology Reports are provided separately, in subsequent sections. Lab Results This section contains the Chemistry/Hematology Results that were resulted 30 days before or 30 daysafter the date of the Encounter. Date/Time Source Result Type Result - Unit Interpretation Reference Range Comment Nov 20, 2023 10:55 AM [facility] BASIC METABOLIC PANEL (non-fasting) Spe cimen Type: SERUM No comment entered. Ordering Provider: LISA MERCADO Report Released Date/Time: Nov 20, 2023 10:16 AM Reporting Lab: [address] [address] Performing Lab: [address] [address] UREA NITROGEN 58 mg/dL H 7-25 GLUCOSE 118 mg/dL H 65-100 SODIUM 140 mmol/L 135-145 POTASSIUM 5.1 mmol/L H 3.5-5.0 CHLORIDE 104 mmol/L 100-110 CO2 26 meq/L 20-30 CREATININE, Serum 2.26 mg/dL H 0.50-1.40 eGFR(CKD-EPI 2020) 27 mL/min L >60 Nov 20, 2023 10:55 AM [facility] LIVER FUNCTION Specimen Type: SERUM No comment entered. Ordering Provider: LISA MERCADO Report Released Date/Time: Nov 20, 2023 10:16 AM Reporting Lab: [address] [address] Performing Lab: [address] [address] PROTEIN,TOTAL 7.1 g/dL 6.0-8.3 ALBUMIN 3.5 g/dL 3.5-5.0 ALKALINE PHOSPHATASE 48 U/L 40-150 AST 15 U/L 5-34 ALT 10 U/L BILIRUBIN, TOTAL 0.7 mg/dL 0.2-1.2 Nov 20, 2023 10:55 AM [facility] TSH Specimen Type: SERUM No comment entered. Ordering Provider: LISA MERCADO Report Released Date/Time: Nov 20, 2023 10:16 AM Reporting Lab: [facility] [address] [facility] [address] Performing Lab: [address] [address] TSH 3.37 u[IU]/mL 0.35-5.00 Nov 20, 2023 10:55 AM [facility] LIPID PANEL, NON FASTING Specimen Type: SERUM No comment entered. Ordering Provider: LISA MERCADO Report Released Date/Time: Nov 20, 2023 10:16 AM Reporting Lab: [address] [address] Performing Lab: [address] [address] CHOLESTEROL 188 mg/dL TRIGLYCERIDE 102 mg/dL 0-150 LDL calculated 120 mg/dL 0-129 CHOL/HDL 3.9 HDL CHOLESTEROL 48 mg/dL 40-60 Nov 20, 2023 10:55 AM [facility] HEMOGLOBIN A1C PANEL Specimen Type: BLOOD Comment: Values obtained from A1C measurements can vary. For atypical A1C assays, a reported value of 7.0 could actually be between 6.72 and 7.28 if measured by a reference method. A reported value of 9.0 could actually be between 8.73 and 9.27. Ref: http://www.ngsp. org/CAPdata.asp Ordering Provider: LISA MRECADO Report Released Date/Time: Nov 20, 2023 10:16 AM Reporting Lab: [address] [address] Performing Lab: [address] [address] HEMOGLOBIN A1C 5.3 4.0-5.6 Nov 20, 2023 10:55 AM [facility] IRON & TIBC PANEL Specimen Type: SERUM No comment entered. Ordering Provider: LISA MERCADO Report Released Date/Time: Nov 20, 2023 10:16 AM Reporting Lab: [facility] [address] [facility] [address] Performing Lab: [facility] [address] TIBC 363 ug/dL 204-475 IRON 66 ug/dL 40-160 Transferrin Saturation 18.2 L 20.0-50.0 Nov 20, 2023 10:55 AM [facility] FERRITIN Specimen Type: SERUM No comment entered. Ordering Provider: LISA MERCADO Report Released Date/Time: Nov 20, 2023 10:16 AM Reporting Lab: [facility] [address] [address] Performing Lab: [facility] [address] [address] FERRITIN 28 ng/mL 20-300 Nov 20, 2023 10:55 AM [facility] VITAMIN D (25-OH) Specimen Type: SERUM No comment entered. Ordering Provider: LISA MERCADO Report Released Date/Time: Nov 20, 2023 10:16 AM Reporting [facility]: [facility] [address] [address] Performing [facility]: [facility] [address] [address] VITAMIN D (25-OH) 22 ng/mL 20-50 Nov 20, 2023 10:55 AM [facility] CBC AND DIFF (AUTO) Specimen Type: BLOOD No comment entered. Ordering Provider: LISA MERCADO Report Released Date/Time: Nov 20, 2023 10:16 AM Reporting Lab: [facility] [address] Performing Lab: [facility] [address] WBC 3.41 10*3/uL L 4.50-11.00 RBC 4.63 10*6/uL 4.23-5.66 HGB 13.0 g/dL 12.8-17 HCT 40.2 39.2-50.4 MCV 86.8 fL 82-99 MCHC 32.3 g/dL 30.8-35.1 PLT 99 10*3/uL L 140-360 RDW-CV 17.9 H 12.0-16.0 Twiggs, Abs 0.33 10*3/uL 0.30-1.10 MCH 28.1 pg 26.2-32.6 Neut % 71.3 43.7-75.8 Lymph % 15.8 14.0-42.3 Twiggs % 9.7 5.1-13.7 Eos % 2.6 0.4-6.8 Baso % 0.3 0.1-2.0 Neut, Abs 2.43 10*3/uL 2.20-7.60 Lymph, Abs 0.54 10*3/uL L 1.00-3.20 Eos, Abs 0.09 10*3/uL 0.03-0.44 Baso, Abs 0.01 10*3/uL 0.01-0.13 Immature Gran % 0.3 0.0-0.7 Immature Gran, Abs 0.01 10*3/uL 0.00-0.06 Nov 20, 2023 10:55 AM [facility] METHYLMALONIC ACID (SERUM-QU) Specimen Type: SERUM Comment: This test was developed and its analytical performance characteristics have been determined by [employer] [place], [place]. It has not been cleared or approved by the U.S. Food and Drug Administration. This assay has been validated pursuant to the CLIA regulations and is used for clinical purposes. Test Performed by [facility], [employer] [facility], [address] [place], [place] Elliott Calvillo M.D., Ph.D., Director of Laboratories , CLIA [id number] TEST PERFORMED AT: , Ordering Provider: LISA MERCADO Report Released Date/Time: Nov 20, 2023 02:59 PM Reporting Lab: [facility] [address] [facility] [address] Performing Lab: [facility] [address] [address] METHYLMALONIC ACID (SERUM-QU) 555 nmol/L H 87-318 Nov 20, 2023 10:55 AM [facility] FOLATE (WROX) Specimen Type: SERUM No comment entered. Ordering Provider: LISA MERCADO Report Released Date/Time: Nov 20, 2023 02:59 PM Reporting Lab: [facility] [address] [facility] [address] Performing Lab: [facility] [address] [facility] [address] FOLATE (WROX) 8.39 ng/mL >5.2 Nov 20, 2023 10:55 AM [facility] VITAMIN B12 Specimen Type: SERUM No comment entered. Ordering Provider: LISA MERCADO Report Released Date/Time: Nov 20, 2023 02:59 PM Reporting Lab: [facility] [address] [facility] [address] Performing Lab: [address] [address] VITAMIN B12 438 pg/mL 200-900 Social History: Smoking Status (Most current) and Tobacco Use (All prior to encounter date) This section includes the most current, and the historical, smoking and tobacco- related health factors from the [place] facility where the Encounter took place. Current Smoking Status This section includes the most current smoking, or tobacco-related health factor, from the [place] facility where the Encounter took place. Date/Time Current Smoking Status Comment Malinda lopez Nov 20, 2023 10:11 AM [place]-TOBACCO FORMER USER [facility] Tobacco Use History This section includes a history of the smoking, or tobacco-related health factors, that were collected on or before the date of the Encounter. The data comes from the [place] facility where the Encounter took place. Date/Time Smoking Status/Tobacco Use Comment Mg acletha Nov 20, 2023 10:11 AM [place]-TOBACCO QUIT 15 YRS OR MORE [facility] May 27, 2011 12:54 PM QUIT TOBACCO USE 1 -7 YEARS AGO quit 2006 [facility] May 09, 2010 03:17 PM QUIT TOBACCO USE 1 -7 YEARS AGO [facility] Encounter Notes: All associated encounter notes This section contains the clinical notes associated to the Encounter. Date/Time Encounter Note(s) Provider Source Nov 26, 2023 09:07 AM OPTOMETRY NOTE: LOCAL TITLE: OPTOMETRY NOTE STANDARD TITLE: OPTOMETRY NOTE DATE OF NOTE: NOV 26, 2023@09:07 ENTRY DATE: NOV 26, 2023@09:08:07 AUTHOR: ALBA DILL COSIGNER: SVETA FUENTES URGENCY: STATUS: COMPLETED OPTOMETRY NOTE Has ADDENDA Active problems - Computerized Problem List is the source for the followin. Leukopenia 2. Age related macular degeneration 3. Lipoma of knee and popliteal area 4. Exposure to potentially hazardous substance 5. Long-term current use of anticoagulant 6. CAD - Coronary Artery Disease ([facility] [id number]) 7. Neoplasm of kidney 8. HTN - Hypertension ([facility] [id number]) 9. Anemia ([facility] [id number]) 10. AF- Atrial Fibrillation ([facility] [id number]) 11. Hyperlipidemia ([facility] [id number]) 12. Chronic renal failure 13. Depression ([facility] [id number]) 14. History of artificial heart valve 15. Cataract, Unspecified 16. 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 Outpatient Medications (including Supplies): Active Outpatient Medications Status 1) APIXABAN 5MG TAB TAKE ONE-HALF TABLET BY MOUTH TWICE ACTIVE DAILY 2) TORSEMIDE 10MG TAB TAKE ONE TABLET BY MOUTH ONCE ACTIVE DAILY FOR VISIBLE WATER RETENTION Active Non-VA Medications Status 1) Non-VA CARVEDILOL 12.5MG TAB 12.5MG BY MOUTH TWICE ACTIVE DAILY 2) Non-VA ISOSORBIDE MONONITRATE 60MG SA TAB 60MG BY ACTIVE MOUTH ONCE DAILY 3) Non-VA SPIRONOLACTONE 25MG TAB 25MG BY MOUTH ONCE ACTIVE DAILY 5 Total Medications Allergies: Patient has answered NKA All medications including those prescribed by outside VA's, community providers,and all OTC meds were reviewed and reconciled with patient to the best of their abilities. This 88 year old MALE is seen today for comprehensive eye exam Chief Complaint: Patient saw Julieta Parker MA in the fall for new pair of reading glasses and was told about the progression of his cataracts. Patient uses ATs QID for dry eye relief. Patient takes AREDS 2 BID PO. Patient does not wear any form of correction for driving, and he sometimes closes his left eye when driving which seems to help. He was given specialty glasses in low vision clinic but do not like them because they do not make a difference with or without correction. OHx: 1. 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 Combined cataracts OU 3. Refractive error with presbyopia OU (-) Pain: (-) [place]: (-) Diplopia: (-) Flashes: (-) Floaters: (-) Amaurosis Fugax/Tia's: (-) Eye Injury: (+) Eye Surgery: h/o injections (-) TBI FOHx: (-) Glaucoma/ARMD/Blindness (-) Smoker/Length of Time/PPD: Last eye exam: 09-25-21 Current Rx with last BCVA: OD: +0.25 - 0.50 x 090 20/30- OS: [place] sphere CF Add: +2.75 DVA ( x )sc ( x )cc - [place] OD: 20/60 20/50-2, PH: NI OS: 5/400 Pupils: PERRL (-)APD EOMs: SAFE OU, (-)Pain/Diplopia CVF (facial, peripheral): FTFC OU Subjective Refraction: no improvement All the above performed by student, reviewed by attending Anterior segment: Performed by student, repeated by attending Lids: Dermatochalasis OU Conj: white and quiet OU Cornea: clear OU, reduced TBUT OU AC: 4x4 OU Iris: flat and clear OU Lens: 2+ NSC, 2+ ACC OD 3+ NSC 2-3+ ACC OS Tonometry: iCare Performed by student, reviewed by attending OD: 13 mmHg OS: 12 mmHg Time: 11: 20am Last IOP: OD: 18 mmHg OS: 18 mmHg Fundus exam: Dilated: 11:22am Dilating Drops: 1GTT 1 % Tropicamide OU & 1GTT 2.5% Phenylephrine OU (Pt. ed. on side effects, dilation warning given and verbal consent obtained) Patient advised not to drive if they feel they have any symptoms which could affect their ability to drive safely. Patient advised not to engage in any activities which could put themselves or others at risk if they feel they have any symptoms which could affect their ability to perform those activities safely. Performed by student, repeated by attending Vit: PVD OU C/D: 0.35/0.35 with PPA OD, 0.35/0.35 with PPA OS Macula: small patches of geographic atrophy sup nasal and inf alida with pigment mottling OD, large geographic mottling with pigment mottling OS- no SRF/SRH OU PPole: clear A/V: 2/3 Vessels: normal caliber OU Periph: flat and intact (-)holes, tears, detachments 360 OU Assessment/Plan: 1. 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 -Monitor at next visit 2. Combined cataracts OU - mildly visually significant -Pt ed re today's findings and the importance of UV protection -Pt ed cataracts may cause reduction of BCVA and symptoms of glare -RTC sooner if vision declines or interferes with ADLs -[place] repeated back the plan and education. -Monitor 3. Dry eye syndrome OU - Patient was educated and understanding on findings. Currently symptomatic therefore, the use of lubricating drops BID-QID OU, warm compresses and lid hygiene were recommended. - Monitor during next CEE. 3. 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 -Patient advised of future concerns for driving as macular degeneration and cataracst progresses -Referral for low vision consult -No new RX ordered -Monitor Return to Clinic 6 months or earlier PRN Patient Education: Macular Degeneration: Patient was educated regarding macular degeneration including both wet and dry varieties as well as the natural history and prognosis of this condition. Education included the role of amsler grid testing , ocular nutraceutical therapy as well as diet and healthy lifestyle choices when applicable. Exclusion criteria includes extremely reduced acuity or cognitive decline for amsler grid testing and other coexisting systemic contraindication for supplements, diet and exercise. /damien/ ALBA DILL OPTOMETRY STUDENT Signed: 11/26/2023 16:11 /damien/ SVETA FUENTES OD Clear Coat Sprayer Cosigned: 11/27/2023 10:23 11/27/2023 ADDENDUM STATUS: COMPLETED The optometry internet technology manager participated in this exam, I saw this in conjunction with the optometry student. The entrance tests and refraction were performed by the student and reviewed by me. I personally met with the patient, confirmed the history, complaints and the student's findings, and performed slit lamp and fundus evaluation as indicated. I reviewed and agree with the stated findings, assessment and plan. I have added/edited the documentation to reflect my exam findings and changes to the assessment and plan. Discussed that he does not meet state requirements for nighttime driving and should limit driving to daylight hours only. Discussed that he should not be driving with one eye closed due to loss of peripheral vision on that side and he should discontinue driving if he is unable to drive with both eyes open. Discussed that based on progression of AMD in better seeing eye, at some point he may not meet the requirements for daytime only driving. Discussed cataracts and AMD - cataract is more advanced in left eye which also has more extensive geographic atrophy so I agree that at this point to defer surgery. Right eye the cataract is maybe mildly significant and cataract surgery would help with brightness and contrast but would not likely improve acuity. Patient in agreement. Discussed new low vision consult which he agrees to. patient offered and declined printed medication list Medication Reconciliation: Outpatient: Has the patient been taking medications as documented in the EMLR? YES: The patient has been taking medications as documented in the EMLR. Essential Medication List for Review used to complete this medication reconciliation. INCLUDED IN THIS LIST: Alphabetical list of active outpatient prescriptions dispensed from this [facility] (local) and dispensed from another [place] or [facility] facility (remote) as well as inpatient orders (local, pending and active), local clinic medications, locally documented non-VA medications, and local prescriptions that have or been discontinued in the past 90 days. - All changes in medications, including all non-VA/Herbal/OTC medications were entered into CPRS. - If there were any medications the patient should no longer take, they were discontinued. - The patient/caregiver was instructed to update this list, discard old lists, and take this list to the next appointment, whether with a VA or non-VA provider. JLV Link Data on this list may not be complete. Please check JLV. Allergies/ADRs (Tool #5) FACILITY ALLERGY/ADR -------- No Remote Allergy/ADR Data available for this patient [facility] [place] [facility] No Known Allergies Med Recon NoGlossary (Tool #1) INCLUDED IN THIS LIST: Alphabetical list of active outpatient prescriptions dispensed from this [facility] (local) and dispensed from another [place] or [facility] facility (remote) as well as inpatient orders (local pending and active), local clinic medications, locally documented non-VA medications, and local prescriptions that have or been discontinued in the past 90 days. Non-VA Meds Last Documented On: Jun 20, 2021 NOTE The display of VA prescriptions dispensed from another [place] or [facility] facility (remote) is limited to active outpatient prescription entries matched to National Drug File at the originating site and may not include some items such as investigational drugs, compounds, etc. NOT INCLUDED IN THIS LIST: Medications self-entered by the patient into personal health records (i.e. [employer]) are NOT included in this list. Non-VA medications documented outside this [place], remote inpatient orders (regardless of status) and remote clinic medications are NOT included in this list. The patient and provider must always discuss medications the patient is taking, regardless of where the medication was dispensed or obtained. OUTPT APIXABAN 5MG TAB (Status = Active) TAKE ONE-HALF TABLET BY MOUTH TWICE DAILY Rx# [id number] Last Released: 08/25/23 Qty/Days Supply: 90 Rx Expiration Date: 03/03/24 Refills Remainin Non-VA CARVEDILOL 12.5MG TAB TAKE ONE TABLET BY MOUTH TWICE DAILY OUTPT CHLORHEXIDINE GLUCONATE 4% TOP LIQUID (Status = ) APPLY SMALL AMOUNT TOPICALLY TWICE DAILY FOR SKIN CLEANSING Rx# [id number] Last Released: 10/24/22 Qty/Days Supply: 240/30 Rx Expiration Date: 10/25/23 Refills Remainin Indication: FOR SKIN CLEANSING Non-VA ISOSORBIDE MONONITRATE 60MG SA TAB TAKE ONE TABLET BY MOUTH ONCE DAILY OUTPT MUPIROCIN 2% OINT (Status = ) APPLY THIN LAYER TOPICALLY TWICE DAILY FOR SKIN INFECTION Rx# [id number] Last Released: 10/24/22 Qty/Days Supply: Rx Expiration Date: 10/25/23 Refills Remainin Indication: FOR SKIN INFECTION Non-VA SPIRONOLACTONE 25MG TAB TAKE ONE TABLET BY MOUTH ONCE DAILY OUTPT TORSEMIDE 10MG TAB (Status = Active) TAKE ONE TABLET BY MOUTH ONCE DAILY FOR VISIBLE WATER RETENTION Rx# [id number] Last Released: 08/14/23 Qty/Days Supply: Rx Expiration Date: 08/12/24 Refills Remainin Indication: FOR VISIBLE WATER RETENTION SUPPLIES /yissel FUENTES OD Clear Coat Sprayer Signed: 11/27/2023 10:31 ALBA DILL [facility]
--- OUTSIDE RECORDS SUMMARY | 2024-07-21 00:21 | XMS_ITS | Encounter Summary ---
Author Name [facility] [place] Organization [facility] [place] Address [address] [place] [address] Care Team Providers Care Wind Development Director Name Role Phone SAUL PEREZ Primary Care [...] PART A Sep 10, 2001 PART A [id number] YENIFER CUI PATIENT MEDICARE (WNR) MEDICARE (M) PART B Sep 10, 2001 PART B [id number] YENIFER CUI PATIENT MEDICARE (WNR) MEDICARE (M) PART A Sep 10, 2001 PART A [id number] [phone] YENIFER CUI PATIENT MEDICARE (WNR) MEDICARE (M) PART B Sep 10, 2001 PART B [id number] SHAQUILLE CUIMIL [facility]OF ) [facility] N Feb 08, 2012 [id number] RONA CUI SPOUSE [facility] IConnor MEDICAL EXPENSE (OPT/PROF ) MILI WALLER Feb 08, 2012 [id number] RONA CUI SPOUSE Selected Encounter This section includes the information on record at [place] for the Encounter. Date/Time Encounter Type Encounter Description Reason Provider Source Nov 20, 2023 10:00 AM OFFICE O/P EST HI 40 MIN PRIMARY CARE/MEDICINE ICD-10-CM H90.3 Sensorineural hearing loss, bilateral MERCADO,ADIA Richardson Sawyer Encounter Template Text not used by [place] Assessments - Encounter Diagnoses This section includes the primary and secondary diagnoses documented for the Encounter. Date/Time Primary/Secondary Diagnosis Diagnosis Name Provider Source Nov 20, 2023 11:00 AM PRIMARY Sensorineural hearing loss, bilateral MERCADOLISA [facility] Nov 20, 2023 11:00 AM SECONDARY Anemia, unspecified MERCADOLISA [facility] Nov 20, 2023 11:00 AM SECONDARY Athscl heart disease of [place] coronary artery w/o ang pctrs LISA MERCADO [facility] Nov 20, 2023 11:00 AM SECONDARY Chronic kidney disease, stage 3 unspecified MERCADOLISA SANTOS [place] Nov 20, 2023 11:00 AM SECONDARY Decreased white blood cell count, unspecified MERCADOLISA [facility] Nov 20, 2023 11:00 AM SECONDARY Depression, unspecified MERCADOLISA [facility] Nov 20, 2023 11:00 AM SECONDARY Essential (primary) hypertension LISA MERCADO [place] Nov 20, 2023 11:00 AM SECONDARY Hyperlipidemia, unspecified MERCADOLISA [facility] Nov 20, 2023 11:00 AM 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 This section includes future appointments and future orders which are active, pending or scheduled. Future Appointments This section includes appointments that were scheduled to occur 6 months from the date of the Encounter, up to a maximum of 20 appointments. The data comes from all [place] treatment [facility]. Appointment Date/Time Appointment Type Appointme nt Facility Name Nov 26, 2023 11:00 AM [facility] December 24, 2023 01:00 PM [facility] Jan 13, 2024 11:30 AM [facility] - MEDICINE [facility] Active, Pending, and Scheduled Orders This section includes a listing of several types of active, pending, and scheduled orders, including clinic medications orders, diagnostic test orders, procedure orders and consult orders; where the start date of the order is 45 days before the date of the Encounter or 45 days after the date of theEncounter. The data comes from all [facility]. Test Date/Time Test Type Test Details Facility Name Nov 20, 2023 12:00 AM Laboratory - Chemi stry Order HEPATITIS C ANTIBODY (HCV)-ARC BLOOD (MARBLED-TOP SERUM) [facility] Lab Results: +/- 30 days of the encounter This section includes the Chemistry and Hematology Lab Results on record with [place] for the patient. Radiology Reports and Pathology Reports are provided separately, in subsequent sections. Lab Results This section contains the Chemistry/Hematology Results that were resulted 30 days before or 30 daysafter the date of the Encounter. Date/Time Source Result Type Result - Unit Interpretation Reference Range Comment Nov 20, 2023 10:55 AM [place] LIVER FUNCTION Specimen Type: SERUM No comment entered. Ordering Provider: LISA MERCADO Report Released Date/Time: Nov 20, 2023 10:16 AM Reporting Lab: [address] [address] Performing Lab: [address] [address] PROTEIN,TOTAL 7.1 g/dL 6.0-8.3 ALBUMIN 3.5 g/dL 3.5-5.0 ALKALINE PHOSPHATASE 48 U/L 40-150 AST 15 U/L 5-34 ALT 10 U/L BILIRUBIN, TOTAL 0.7 mg/dL 0.2-1.2 Nov 20, 2023 10:55 AM [place] BASIC METABOLIC PANEL (non-fasting) Spe cimen Type: SERUM No comment entered. Ordering Provider: LISA MERCADO Report Released Date/Time: Nov 20, 2023 10:16 AM Reporting Lab: [address] [address] Performing Lab: [address] [address] UREA NITROGEN 58 mg/dL H 7-25 GLUCOSE 118 mg/dL H 65-100 SODIUM 140 mmol/L 135-145 POTASSIUM 5.1 mmol/L H 3.5-5.0 CHLORIDE 104 mmol/L 100-110 CO2 26 meq/L 20-30 CREATININE, Serum 2.26 mg/dL H 0.50-1.40 eGFR(CKD-EPI 2020) 27 mL/min L >60 Nov 20, 2023 10:55 AM [place] TSH Specimen Type: SERUM No comment entered. Ordering Provider: LISA MERCADO Report Released Date/Time: Nov 20, 2023 10:16 AM Reporting Lab: [address] [address] Performing Lab: [address] [address] TSH 3.37 u[IU]/mL 0.35-5.00 Nov 20, 2023 10:55 AM [place] LIPID PANEL, NON FASTING Specimen Type: SERUM No comment entered. Ordering Provider: LISA MERCADO Report Released Date/Time: Nov 20, 2023 10:16 AM Reporting Lab: [address] [address] Performing Lab: [address] [address] CHOLESTEROL 188 mg/dL TRIGLYCERIDE 102 mg/dL 0-150 LDL calculated 120 mg/dL 0-129 CHOL/HDL 3.9 HDL CHOLESTEROL 48 mg/dL 40-60 Nov 20, 2023 10:55 AM [place] HEMOGLOBIN A1C PANEL Specimen Type: BLOOD Comment: [...] Nov 20, 2023 10:16 AM Reporting Lab: [facility] [address] [address] Performing Lab: [facility] [address] HEMOGLOBIN A1C 5.3 4.0-5.6 Nov 20, 2023 10:55 AM [place] IRON & TIBC PANEL Specimen Type: SERUM No comment entered. Ordering Provider: LISA MERCADO Report Released Date/Time: Nov 20, 2023 10:16 AM Reporting Lab: [facility] [address] Performing Lab: [facility] [address] TIBC 363 ug/dL 204-475 IRON 66 ug/dL 40-160 Transferrin Saturation 18.2 L 20.0-50.0 Nov 20, 2023 10:55 AM [place] FERRITIN Specimen Type: SERUM No comment entered. Ordering Provider: LISA MERCADO Report Released Date/Time: Nov 20, 2023 10:16 AM Reporting Lab: [facility] [address] Performing Lab: [facility]ITAL[facility] [address] [address] FERRITIN 28 ng/mL 20-300 Nov 20, 2023 10:55 AM [place] VITAMIN D (25-OH) Specimen Type: SERUM No comment entered. Ordering Provider: LISA MERCADO Report Released Date/Time: Nov 20, 2023 10:16 AM Reporting Lab: [facility] [address] Performing Lab: [facility] [address] VITAMIN D (25-OH) 22 ng/mL 20-50 Nov 20, 2023 10:55 AM [place] CBC AND DIFF (AUTO) Specimen Type: BLOOD No comment entered. Ordering Provider: LISA MERCADO Report Released Date/Time: Nov 20, 2023 10:16 AM Reporting Lab: [facility]ITAL[facility]N [facility] [address] [facility] [address] Performing Lab: [place] CNTRL WSN [facility] [address] [facility] [address] WBC 3.41 10*3/uL L 4.50-11.00 RBC 4.63 10*6/uL 4.23-5.66 HGB 13.0 g/dL 12.8-17 HCT 40.2 39.2-50.4 MCV 86.8 fL 82-99 MCHC 32.3 g/dL 30.8-35.1 PLT 99 10*3/uL L 140-360 RDW-CV 17.9 H 12.0-16.0 [place], Abs 0.33 10*3/uL 0.30-1.10 MCH 28.1 pg 26.2-32.6 Neut % 71.3 43.7-75.8 Lymph % 15.8 14.0-42.3 [place] % 9.7 5.1-13.7 Eos % 2.6 0.4-6.8 Baso % 0.3 0.1-2.0 Neut, Abs 2.43 10*3/uL 2.20-7.60 Lymph, Abs 0.54 10*3/uL L 1.00-3.20 Eos, Abs 0.09 10*3/uL 0.03-0.44 Baso, Abs 0.01 10*3/uL 0.01-0.13 Immature Gran % 0.3 0.0-0.7 Immature Gran, Abs 0.01 10*3/uL 0.00-0.06 Nov 20, 2023 10:55 AM [place] METHYLMALONIC ACID (SERUM-QU) Specimen Type: SERUM Comment: This test was developed and its analytical performance characteristics have been determined by [facility] [place]. It has not been cleared or approved by the U.S. Food and Drug Administration. This assay has been validated pursuant to the CLIA regulations and is used for clinical purposes. Test Performed by Yanna Mendes, [facility] [place], [address] [place] [address] Elliott Calvillo M.D., Ph.D., Director of Laboratories , CLIA [id number] TEST PERFORMED AT: , Ordering Provider: LISA MERCADO Report Released Date/Time: Nov 20, 2023 02:59 PM Reporting Lab: [facility] [address] [facility] [address] Performing Lab: [facility] [address] [place] [address] METHYLMALONIC ACID (SERUM-QU) 555 nmol/L H 87-318 Nov 20, 2023 10:55 AM [place] FOLATE (WROX) Specimen Type: SERUM No comment entered. Ordering Provider: LISA MERCADO Report Released Date/Time: Nov 20, 2023 02:59 PM Reporting Lab: [facility] [address] [facility] [address] Performing Lab: [facility] [address] [facility] [address] FOLATE (WROX) 8.39 ng/mL >5.2 Nov 20, 2023 10:55 AM [place] VITAMIN B12 Specimen Type: SERUM No comment entered. Ordering Provider: LISA MERCADO Report Released Date/Time: Nov 20, 2023 02:59 PM Reporting Lab: [facility] [address] [facility] [address] Performing Lab: [address] [address] VITAMIN B12 438 pg/mL 200-900 Vital Signs: All taken on the encounter date This section contains inpatient and outpatient Vital Signs collected on the date of the Encounter. Date/Time Temperature Pulse Blood Pressure Respiratory Rate SP02 Pain Height Weight Body Mass Index Source Nov 20, 2023 10:10 AM 95.4 65 122/54 95 158.2 22 [place] Social History: Smoking Status (Most current) and Tobacco Use (All prior to encounter date) This section includes the most current, and the historical, smoking and tobacco- related health factors from the [place] facility where the Encounter took place. Current Smoking Status This section includes the most current smoking, or tobacco-related health factor, from the [place] facility where the Encounter took place. Date/Time Current Smoking Status Comment Malinda lopez Nov 17, 2022 01:30 PM PA-TOBACCO QUIT 15 YRS OR MORE [facility] Tobacco Use History This section includes a history of the smoking, or tobacco-related health factors, that were collected on or before the date of the Encounter. The data comes from the [place] facility where the Encounter took place. Date/Time Smoking Status/Tobacco Use Comment Mg estevez Nov 17, 2022 01:30 PM VA-TOBACCO QUIT 15 YRS OR MORE [facility] Jun 19, 2021 11:00 AM VA-TOBACCO FORMER USER [facility] Jun 19, 2021 11:00 AM VA-TOBACCO QUIT 5 TO < 15 YRS [facility] Encounter Notes: All associated encounter notes This section contains the clinical notes associated to the Encounter. Date/Time Encounter Note(s) Provider Source December 17, 2023 06:27 PM PHYSICIAN NOTE: LOCAL TITLE: NOTE STANDARD TITLE: PHYSICIAN NOTE DATE OF NOTE: DECEMBER 17, 2023@18:27 ENTRY DATE: DECEMBER 17, 2023@18:27:30 AUTHOR: LISA MERCADO EXP COSIGNER: URGENCY: STATUS: COMPLETED NOTE Has ADDENDA PLEASE SET UP VISIT TO REVIEW ABNORMAL LAB RESULTS, WITHIN THE NEXT 4-6 WEEKS. IN OFFICE OR VVC IS [facility]ARR[facility] /damien/ LISA MERCADO MD PHYSICIAN Signed: 12/17/2023 18:28 Receipt Acknowledged By: 12/18/2023 12:40 /damien/ JONY RODRIGUEZ 12/18/2023 ADDENDUM STATUS: COMPLETED [facility] unable to reach the [place]. Left message on voicemail to contact PC to schedule appointment in 4/6 weeks to review lab results. Letter sent to the . /damien/ JONY RODRIGUEZ Signed: 12/18/2023 12:28 LISA MERCADO LAITH Nov 20, 2023 10:17 AM PHYSICIAN NOTE: LOCAL TITLE: NOTE STANDARD TITLE: PHYSICIAN NOTE DATE OF NOTE: NOV 20, 2023@10:17 ENTRY DATE: NOV 20, 2023@10:17:45 AUTHOR: LISA MERCADO EXP COSIGNER: URGENCY: STATUS: COMPLETED PRIMARY CARE VISIT EDMIL ETIENNE CUI, is a 88 yo WHITE MALE TYPE OF VISIT: Face to face CHART REVIEWED, PATIENT EXAMINED. HPI: NEW PATIENT TO MY CLINIC very [place] with Cognitive issues. Independent historian present at today's visit to provide information. present reports memory issues wonders if he had a stroke c/o decreasing vision due to Macular degeneration wants to see eye doc at [place] did see general ophth in community back in the fall, ? Dr. Newman? BP good today no longer on atorvastatin or amlodipine no PCP in the community denies cardiopulm sxs Most Recent labs reviewed and all medications were reconciled during this visit. Service Connection/Rated Disabilities: Service Connected Disabilities with % Eligibility: SERVICE CONNECTED 50% to 100% VERIFIED Total S/C %: 60 TINNITUS 10% S/C IMPAIRED HEARING 60% S/C HISTORY: PERIOD OF SERVICE - [employer] FROM May TO Mar COMBAT SERVICE INDICATED: No VITAL SIGNS: Temperature 95.4 F [35.2 C] (11/20/2023 10:10) Blood Pressure 122/54 (11/20/2023 10:10) Pulse 65 (11/20/2023 10:10) Respiration 19 (05/20/2023 13:40) Pain 0 (05/20/2023 13:40) BMI BMI: 21.5 Weight 158.2 lb [71.76 kg] (11/20/2023 10:10) Pulse Oximetry 95% (11/20/2023 10:10) ASSISTIVE DEVICES: REVIEW OF SYSTEMS: All systems are reviewed and are otherwise negative, unless specified in the HPI. PHYSICAL EXAMINATION: General: Well-appearing, in no obvious distress. Mental Status: Alert and oriented x 3. Head: Normocephalic, atraumatic. Eyes: PERRL. EOMI. Anicteric sclerae. ENT: Moist oral mucosa. dentition Neck: Supple. FROM. No JVD. No LAD. No bruit. Thyroid unremarkable. Lungs: CTAB. Normal chest excursion. Eupneic respirations. CV: Heart tones S1, S2. RRR. No M/G/R. No peripheral edema GI: Abdomen is soft and nontender. No palpable mass or organomegaly. Ext: No cyanosis or clubbing. No gross deformities. Neuro: CN II through XII grossly intact. Normal speech. Normal gait. Integument: Skin warm and dry. No rashes or lesions on visible areas. Psych: Normal mood and affect. Normal judgment. Cooperative with exam, follows commands. ALLERGIES: Patient has answered [facility]TENAN[facility] PREVENTIVE MEDICINE GOALS Advance Directive Screen MH AD Nov 18 Hepatitis C Testing DUE NOW Pneumococcal Conjugate Vaccine (PCV15/PCNov Medication Reconciliation DUE NOW COVID-19 Immunization DUE NOW Herpes Zoster (Shingles) Vaccine Aug 14 ASSESSMENT/PLAN: Active problems - Computerized Problem List is the source for the followin. Leukopenia-chronic unclear if stable check labs 2. MCI- discussed with vet and his today could be early dementia vs. other discuss work up for dementia including lab work and Head CT vet declines Head CT will check labs 3. Long-term current use of anticoagulant- denies s/s bleeding 5. CAD - Coronary Artery Disease ([facility] [id number])- stable per vet managed by Cardiology 6. HTN - Hypertension ([facility] [id number])- well controlled on current meds 8. Anemia ([facility] [id number])- Unclear if stable, check lab or test, as discussed. 9. AF- Atrial Fibrillation ([facility] [id number])- h/o Afib. Currently in sinus and stable. denies any current issues. Vet on blood-thinner and aware of risks. 10. Hyperlipidemia ([facility] [id number])- Unclear if stable, check lab or test, as discussed. 11. Chronic renal failure- Followed by Dr. Fry Nephjana in the community Unclear if stable, check lab or test, as discussed. 12. Depression ([facility] [id number])- mild, not interested in MAT 13. Vision, abnormal- MACULAR DEGENERATION WORSENING SXS REFER TO OPHTH PER VET REQUEST 16. Heart Murmurs-? STABLE FOLLOWED REGULARLY BY CARDIOLOGY Total time I spent on this visit was 40 minutes and included a review of chart, labs, notes, physical exam and discussion/education of patient. LAB ORDERS FOR NEXT VISIT: NURSING: PLEASE ORDER APPROPRIATE CHRONIC DISEASE LAB ORDERS FOLLOW UP: Return to clinic as noted below and/or sooner PRN UPCOMING APPOINTMENTS: No data available All medications were reconciled during this visit. No barriers noted; patient understands and agrees to current treatment plan. If patient has any questions, concerns or changes in current health status he/she will call or come in to the VA. PACT TEAM INSTRUCTIONS: Hepatitis C Testing: Patient has given verbal consent for HCV antibody testing. An HCV lab test has been ordered - see orders tab. Medication Reconciliation: Outpatient: Has the patient been taking medications as documented in the EMLR? No: Discrepencies were identified. See below. Essential Medication List for Review used to complete this medication reconciliation. INCLUDED IN THIS LIST: Alphabetical list of active outpatient prescriptions dispensed from this [facility] (local) and dispensed from another [place] or [facility] facility (remote) as well as inpatient orders (local, pending and active), local clinic medications, locally documented non-VA medications, and local prescriptions that have or been discontinued in the past 90 days. - Discrepancies were identified, addressed, and discussed with the patient/caregiver at this encounter. Discrepancies: not on atorvastatin or amlodipine - All changes in medications, including all non-VA/Herbal/OTC medications were entered into CPRS. - If there were any medications the patient should no longer take, they were discontinued. - The patient/caregiver was instructed to update this list, discard old lists, and take this list to the next appointment, whether with a VA or non-VA provider. /damien/ LISA MERCADO MD PHYSICIAN Signed: 11/20/2023 11:00 LISA MERCADO [place] Nov 13, 2023 10:34 AM ADMINISTRATIVE NOT E: LOCAL TITLE: ADMINISTRATIVE NOTE STANDARD TITLE: ADMINISTRATIVE NOTE DATE OF NOTE: NOV 13, 2023@10:34 ENTRY DATE: NOV 13, 2023@10:34:54 AUTHOR: JONY CAPONE COSIGNER: URGENCY: STATUS: COMPLETED [facility] [address] [place] [phone] * YENFIER ETIENNE BOBBYJUANROSHAN [address], [place] [address] Date: NOV 13, 2023 re: This is a reminder of your upcoming PCP appt with LISA MERCADO Appointment Date: Nov@10:00 Appointment Type: In-person visit Fasting blood work NON fasting blood work CONFIRMED WITH THE Sincerely, Office Staff for: LISA MERCADO Primary Care Provider [facility] [address] [address] T [phone] Upcoming Appointments: 11/20/2023 10:00 CWM/SO/PACT 2 APPOINTMENT ABBREVIATION COSTELLO (SPOPC OR SO = [address]) (GOPC OR GO = [address]) ([facility] or NO = [facility]) ([facility] - Video Call) (Tel-X Telephone Visit) (TH - Telehealth) /damien/ JONY RODRIGUEZ Signed: 11/13/2023 10:35 JONY CAPONE [facility]
--- OUTSIDE RECORDS SUMMARY | 2024-07-21 00:21 | XMS_ITS | Continuity of Care Document ---
Author Name [facility] Organization [facility] Care Team Providers Care Cloud Services Architect Name Role Phone [facility] Unavailable Unavailable Problems Combined list of problems from Department of Defense and Veterans Affairs facilities. It does not include entries that were removed or entered in error. Problem Status Onset Date Problem Type Date of Resolution Comments Source Heart Murmurs Active 08/10/19 10 Condition [facility] [place] [facility] Vision, abnormal Active 08/10/19 10 Condition [facility] [place] [facility] AF- Atrial Fibrillation ([facility] [id number]) Active Condition Jun 20, 2021 Entered By: MACO BETANCOURT Comment: on apixaban. 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 Camden Sharif Nephrology [place] Depression ([facility] [id number]) Active Condition [place] Exposure to potentially hazardous substance Active Condition [facility] [place] [facility] History of artificial heart valve Active Condition Jun 20, 2021 Entered By: MACO BETANCOURT Comment: replaced 2006--but pt does not know which valve. Bioprosthetic. 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, 2021 Entered By: MACO BETANCOURT Comment: Right nephrectomy [place] Vitamin D Deficiency ([facility] [id number]) Active Condition [place] Diagnosis: ICD-10-CM R00.1 Bradycardia, unspecified [facility] [place] [facility] Diagnosis: ICD-10-CM Z13.6 Encounter for screening for cardiovascular disorders Active Diagnosis [facility] Diagnosis: ICD-10-CM I25.10 Athscl heart disease of [place] coronary artery w/o ang pctrs Active Diagnosis [place] Diagnosis: ICD-10-CM E55.9 Vitamin D deficiency, unspecified Active Diagnosis [place] Diagnosis: ICD-10-CM Z46.0 Encounter for fit/adjst of spectacles and contact lenses Active Diagnosis [facility] [place] [facility] Diagnosis: ICD-10-CM 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, both eyes Active Diagnosis [facility] [place] [facility] Diagnosis: ICD-10-CM 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, bi, adv atrpc with subfoveal invl Active Diagnosis [facility] Diagnosis: ICD-10-CM Z04.89 Encounter for examination and observation for oth reasons Active Diagnosis [facility] Diagnosis: ICD-10-CM H90.3 Sensorineural hearing loss, bilateral Active Diagnosis [place] Diagnosis: ICD-10-CM 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 Medication Details Route Status Patient Instructions Prescription Expires Prescription Number Last Dispense Date Ordering Provider Order Date Order Qty Source APIXABAN 5MG TAB TAKE ONE-HALF TABLET BY MOUTH TWICE DAILY ORAL SUSPEND ED 07/03/2025 [id number] Robin PEREZ 2024 90 [facility] APIXABAN 5MG TAB TAKE ONE-HALF TABLET BY MOUTH TWICE DAILY ORAL DISCONT INUED 01/13/2025 [id number] ROBERT MERCADO 2023 90 [place] APIXABAN 5MG TAB TAKE ONE-HALF TABLET BY MOUTH TWICE DAILY ORAL DISCONT INUED 03/03/2024 [id number] HELGA SHULTZ RMEN F 2022 90 [facility] CARBOXYMETH YLCELLULOSE NA 0.5% SOLN,OPH INSTILL 1 DROP INTO EACH EYE FOUR TIMES DAILY NEEDED FOR DRY EYE OPHTHA LMIC ACTIVE 03/10/2025 [id number] Vishnu GARCIA ICHELE 2023 45 [facility] CARVEDILOL 12.5MG TAB TAKE ONE TABLET BY MOUTH TWICE DAILY FOR HIGH BLOOD PRESSURE ORAL ACTIVE 06/04/2025 [id number] Robin PEREZD A 2023 180 [place] IPRATROPIUM BR 0.06% SOLN,SPRAY, NASAL INSTILL 1 SPRAY INTO EACH NOSTRIL ONCE DAILY FOR RUNNY NOSE NASAL ACTIVE 06/04/2025 [id number] Robin PEREZ AVID A 2023 15 [facility] ISOSORBIDE MONONITRATE 30MG TAB,SA TAKE THREE TABLETS BY MOUTH ONCE DAILY TO PREVENT ANGINA ORAL ACTIVE 06/04/2025 [id number] Robin PEREZ AVID A 2023 270 [facility] MULTIVIT/OP HTH AREDS2/LUTE IN/ZEAXANTH IN CAP/TAB TAKE 1 CAPSULE BY MOUTH TWICE DAILY IN THE MORNING AND EVENING, WITH FOOD ORAL ACTIVE 11/27/2024 [id number] GRISELDA FUENTES AH B 2023 120 [facility] SPIRONOLACT ONE 25MG TAB TAKE ONE-HALF TABLET BY MOUTH ONCE DAILY FOR FLUID ACCUMULA TION ORAL ACTIVE 06/04/2025 [id number] Robin PEREZ AVID A 2023 45 [place] TORSEMIDE 10MG TAB TAKE ONE TABLET BY MOUTH ONCE DAILY FOR VISIBLE WATER RETENTIO N ORAL ACTIVE 08/12/2024 [id number] ROBERT MERCADO 2023 90 [facility] VITAMIN B COMPLEX CAP TAKE 1 CAPSULE BY MOUTH ONCE DAILY FOR VITAMIN SUPPLEME NTATION ORAL ACTIVE 01/13/2025 [id number] ROBERT MERCADO 2023 100 [facility] Immunizations Combined list of available immunizations from the Department of Defense and Veterans Affairs facilities. Immunization Series Date Given Administered By Site Reaction Lot Number CVX Code Drug Dental Surgeon Status Comments Source INFLUENZA, HIGH-DOSE, TRIVALENT, PF 2023 SHAILA CAIN LEFT DELTO ID [id number] 135 complet ed [facility] INFLUENZA, UNSPECIFIED FORMULATION 2022 88 complet ed [facility] COVID-19 (MODERNA), MRNA, LNP-S, PF, 100 MCG OR 50 MCG DOSE 3 2021 207 complet ed MOD; [id number]; 2 [facility] TDAP 2020 115 complet ed [facility] ZOSTER RECOMBINANT 1 2020 187 complet ed [facility] COVID-19 (MODERNA), MRNA, LNP-S, PF, 100 MCG/0.5 ML DOSE 2 2020 207 complet ed MOD; [id number]; 1 [facility] COVID-19 (MODERNA), MRNA, LNP-S, PF, 100 MCG/0.5 ML DOSE 1 2020 207 complet ed MOD; [id number]; 1 [facility] FLU,3 YRS (HISTORICAL) 2010 88 complet ed [facility] PNEUMOCOCCAL, UNSPECIFIED FORMULATION 2007 109 complet ed [facility] TD(ADULT) UNSPECIFIED FORMULATION 2005 139 [facility] Results Combined list of recent chemistry, hematology and other laboratory results from Department of Defense and Veterans Affairs, ranging from 15 months to all on record, depending upon the facility. Order Name Results Value Reference Range Date Interpretation Specimen Comments Source BASIC METABOLIC PANEL (non-fast ing) UREA NITROGEN [MASS/VOLUM E] IN SERUM OR PLASMA 58 mg/dL 7 - 25 11/19 H Specimen Type: SERUM No comment entered. Ordering Provider: DENTON MERCADO Report Released Date/Time: Nov 20, 2023 10:16 AM Reporting Lab: [address] [address] Performing Lab: [address] [address] [place] BASIC METABOLIC PANEL (non-fast ing) GLUCOSE [MASS/VOLUM E] IN SERUM OR PLASMA 118 mg/dL 65 - 100 11/19 H Specimen Type: SERUM No comment entered. Ordering Provider: DENTON MERCADO Report Released Date/Time: Nov 20, 2023 10:16 AM Reporting Lab: [address] [address] Performing Lab: [address] [address] [place] BASIC METABOLIC PANEL (non-fast ing) SODIUM [MOLES/VOLU ME] IN SERUM OR PLASMA 140 mmol/L 135 - 145 11/19 Specimen Type: SERUM No comment entered. Ordering Provider: DENTON MERCADO J Report Released Date/Time: Nov 20, 2023 10:16 AM Reporting Lab: [address] [address] Performing Lab: [address] [address] [place] BASIC METABOLIC PANEL (non-fast ing) POTASSIUM [MOLES/VOLU ME] IN SERUM OR PLASMA 5.1 mmol/L 3.5 - 5.0 11/19 H Specimen Type: SERUM No comment entered. Ordering Provider: DENTON MERCADO J Report Released Date/Time: Nov 20, 2023 10:16 AM Reporting [facility]: [facility] [address] [facility] [address] Performing [facility]: [facility] [address] [facility] [address] [place] BASIC METABOLIC PANEL (non-fast ing) CHLORIDE [MOLES/VOLU ME] IN SERUM OR PLASMA 104 mmol/L 100 - 110 11/19 Specimen Type: SERUM No comment entered. Ordering Provider: DENTON MERCADO Report Released Date/Time: Nov 20, 2023 10:16 AM Reporting Lab: [address] [address] Performing Lab: [facility] [address] [address] [place] BASIC METABOLIC PANEL (non-fast ing) CARBON DIOXIDE, TOTAL [MOLES/VOLU ME] IN SERUM OR PLASMA 26 meq/L 20 - 30 11/19 Specimen Type: SERUM No comment entered. Ordering Provider: DENTON MERCADO Report Released Date/Time: Nov 20, 2023 10:16 AM Reporting Lab: [address] [address] Performing Lab: [facility] [address] [address] [place] BASIC METABOLIC PANEL (non-fast ing) CREATININE [MASS/VOLUM E] IN SERUM OR PLASMA 2.26 mg/dL 0.50 - 1.40 11/19 H Specimen Type: SERUM No comment entered. Ordering Provider: DENTON MERCADO EVELIN Dylan Report Released Date/Time: Nov 20, 2023 10:16 AM Reporting Lab: [facility] [address] [address] Performing Lab: [address] [address] [place] BASIC METABOLIC PANEL (non-fast ing) GLOMERULAR FILTRATION RATE/1.73 SQ M.PREDICTED [VOLUME RATE/AREA] IN SERUM, PLASMA OR BLOOD BY CREATININE- BASED FORMULA (CKD-EPI 2020) 27 mL/min 60 11/19 L Specimen Type: SERUM No comment entered. Ordering Provider: DENTON MERCADO Report Released Date/Time: Nov 20, 2023 10:16 AM Reporting Lab: [facility] [address] [address] Performing Lab: [address] [address] [place] CBC AND DIFF (AUTO) LEUKOCYTES [#/VOLUME] IN BLOOD BY AUTOMATED COUNT 3.41 10*3/u L 4.50 - 11.00 11/19 L Specimen Type: BLOOD No comment entered. Ordering Provider: DENTON MERCADO Report Released Date/Time: Nov 20, 2023 10:16 AM Reporting Lab: [address] [address] Performing Lab: [facility] [address] [address] [place] CBC AND DIFF (AUTO) ERYTHROCYTE S [#/VOLUME] IN BLOOD BY AUTOMATED COUNT 4.63 10*6/u L 4.23 - 5.66 11/19 Specimen Type: BLOOD No comment entered. Ordering Provider: DENTON MERCADO Report Released Date/Time: Nov 20, 2023 10:16 AM Reporting Lab: [address] [address] Performing Lab: [facility] [address] [address] [place] CBC AND DIFF (AUTO) HEMOGLOBIN [MASS/VOLUM E] IN BLOOD 13.0 g/dL 12.8 - 17 11/19 Specimen Type: BLOOD No comment entered. Ordering Provider: DENTON MERCADO Report Released Date/Time: Nov 20, 2023 10:16 AM Reporting Lab: [facility] [address] [address] Performing Lab: [address] [address] [place] CBC AND DIFF (AUTO) HEMATOCRIT [VOLUME FRACTION] OF BLOOD BY AUTOMATED COUNT 40.2 39.2 - 50.4 11/19 Specimen Type: BLOOD No comment entered. Ordering Provider: DENTON MERCADO Report Released Date/Time: Nov 20, 2023 10:16 AM Reporting Lab: [facility] [address] [address] Performing Lab: [facility] [address] [address] [place] CBC AND DIFF (AUTO) MCV [ENTITIC VOLUME] BY AUTOMATED COUNT 86.8 fL 82 - 99 11/19 Specimen Type: BLOOD No comment entered. Ordering Provider: DENTON MERCADO Report Released Date/Time: Nov 20, 2023 10:16 AM Reporting Lab: [address] [address] Performing Lab: [facility] [address] [address] [place] CBC AND DIFF (AUTO) MCHC [MASS/VOLUM E] BY AUTOMATED COUNT 32.3 g/dL 30.8 - 35.1 11/19 Specimen Type: BLOOD No comment entered. Ordering Provider: DENTON MERCADO Report Released Date/Time: Nov 20, 2023 10:16 AM Reporting Lab: [facility] [address] [address] Performing Lab: [facility] [address] [address] [place] CBC AND DIFF (AUTO) PLATELETS [#/VOLUME] IN BLOOD BY AUTOMATED COUNT 99 10*3/u L 140 - 360 11/19 L Specimen Type: BLOOD No comment entered. Ordering Provider: DENTON MERCADO Report Released Date/Time: Nov 20, 2023 10:16 AM Reporting Lab: [facility] [address] [address] Performing Lab: [facility] [address] [address] [place] CBC AND DIFF (AUTO) ERYTHROCYTE DISTRIBUTIO N WIDTH [RATIO] BY AUTOMATED COUNT 17.9 12.0 - 16.0 11/19 H Specimen Type: BLOOD No comment entered. Ordering Provider: DENTON MERCADO Report Released Date/Time: Nov 20, 2023 10:16 AM Reporting Lab: [facility] [address] [address] Performing Lab: [facility] [address] [address] [place] CBC AND DIFF (AUTO) MONOCYTES [#/VOLUME] IN BLOOD BY AUTOMATED COUNT 0.33 10*3/u L 0.30 - 1.10 11/19 Specimen Type: BLOOD No comment entered. Ordering Provider: DENTON MERCADO Report Released Date/Time: Nov 20, 2023 10:16 AM Reporting Lab: [address] [address] Performing Lab: [address] [address] [place] CBC AND DIFF (AUTO) MCH [ENTITIC MASS] BY AUTOMATED COUNT 28.1 pg 26.2 - 32.6 11/19 Specimen Type: BLOOD No comment entered. Ordering Provider: DENTON MERCADO Report Released Date/Time: Nov 20, 2023 10:16 AM Reporting Lab: [address] [address] Performing Lab: [facility] [address] [address] [place] CBC AND DIFF (AUTO) NEUTROPHILS /100 LEUKOCYTES IN BLOOD BY AUTOMATED COUNT 71.3 43.7 - 75.8 11/19 Specimen Type: BLOOD No comment entered. Ordering Provider: DENTON MERCADO Report Released Date/Time: Nov 20, 2023 10:16 AM Reporting Lab: [facility] [address] [address] Performing Lab: [facility] [address] [address] [place] CBC AND DIFF (AUTO) LYMPHOCYTES /100 LEUKOCYTES IN BLOOD BY AUTOMATED COUNT 15.8 14.0 - 42.3 11/19 Specimen Type: BLOOD No comment entered. Ordering Provider: DENTON MERCADO Report Released Date/Time: Nov 20, 2023 10:16 AM Reporting Lab: [facility] [address] [address] Performing Lab: [facility] [address] [address] [place] CBC AND DIFF (AUTO) MONOCYTES/1 00 LEUKOCYTES IN BLOOD BY AUTOMATED COUNT 9.7 5.1 - 13.7 11/19 Specimen Type: BLOOD No comment entered. Ordering Provider: DENTON MERCADO Report Released Date/Time: Nov 20, 2023 10:16 AM Reporting Lab: [facility] [address] [address] Performing Lab: [facility] [address] [address] [place] CBC AND DIFF (AUTO) EOSINOPHILS /100 LEUKOCYTES IN BLOOD BY AUTOMATED COUNT 2.6 0.4 - 6.8 11/19 Specimen Type: BLOOD No comment entered. Ordering Provider: DENTON MERCADO Report Released Date/Time: Nov 20, 2023 10:16 AM Reporting Lab: [facility] [address] [address] Performing Lab: [facility] [address] [place] CBC AND DIFF (AUTO) BASOPHILS/1 00 LEUKOCYTES IN BLOOD BY AUTOMATED COUNT 0.3 0.1 - 2.0 11/19 Specimen Type: BLOOD No comment entered. Ordering Provider: DENTON MERCADO Report Released Date/Time: Nov 20, 2023 10:16 AM Reporting Lab: [facility] [address] [address] Performing Lab: [facility] [address] [address] [place] CBC AND DIFF (AUTO) NEUTROPHILS [#/VOLUME] IN BLOOD BY AUTOMATED COUNT 2.43 10*3/u L 2.20 - 7.60 11/19 Specimen Type: BLOOD No comment entered. Ordering Provider: DENTON MERCADO Report Released Date/Time: Nov 20, 2023 10:16 AM Reporting Lab: [facility] [address] [address] Performing Lab: [facility] [address] [address] [place] CBC AND DIFF (AUTO) LYMPHOCYTES [#/VOLUME] IN BLOOD BY AUTOMATED COUNT 0.54 10*3/u L 1.00 - 3.20 11/19 L Specimen Type: BLOOD No comment entered. Ordering Provider: DENTON MERCADO Report Released Date/Time: Nov 20, 2023 10:16 AM Reporting Lab: [facility] [address] [address] Performing Lab: [facility] [address] [address] [place] CBC AND DIFF (AUTO) EOSINOPHILS [#/VOLUME] IN BLOOD BY AUTOMATED COUNT 0.09 10*3/u L 0.03 - 0.44 11/19 Specimen Type: BLOOD No comment entered. Ordering Provider: DENTON MERCADO Report Released Date/Time: Nov 20, 2023 10:16 AM Reporting Lab: [facility] [address] [address] Performing Lab: [facility] [address] [address] [place] CBC AND DIFF (AUTO) BASOPHILS [#/VOLUME] IN BLOOD BY AUTOMATED COUNT 0.01 10*3/u L 0.01 - 0.13 11/19 Specimen Type: BLOOD No comment entered. Ordering Provider: DENTON MERCADO Report Released Date/Time: Nov 20, 2023 10:16 AM Reporting Lab: [facility] [address] [address] Performing Lab: [facility] [address] [address] [place] CBC AND DIFF (AUTO) IMMATURE GRANULOCYTE S/100 LEUKOCYTES IN BLOOD BY AUTOMATED COUNT 0.3 0.0 - 0.7 11/19 Specimen Type: BLOOD No comment entered. Ordering Provider: DENTON MERCADO Report Released Date/Time: Nov 20, 2023 10:16 AM Reporting Lab: [address] [address] Performing Lab: [place] [address] [place] CBC AND DIFF (AUTO) IMMATURE GRANULOCYTE S [#/VOLUME] IN BLOOD 0.01 10*3/u L 0.00 - 0.06 11/19 Specimen Type: BLOOD No comment entered. Ordering Provider: DENTON MERCADO Report Released Date/Time: Nov 20, 2023 10:16 AM Reporting Lab: [address] [address] Performing Lab: [address] [address] [place] FERRITIN FERRITIN [MASS/VOLUM E] IN SERUM OR PLASMA 28 ng/mL 20 - 300 11/19 Specimen Type: SERUM No comment entered. Ordering Provider: DENTON MERCADO Report Released Date/Time: Nov 20, 2023 10:16 AM Reporting Lab: [address] [address] Performing Lab: [address] [address] [place] HEMOGLOBI N A1C PANEL HEMOGLOBIN A1C/HEMOGLO BIN.TOTAL IN BLOOD BY HPLC 5.3 4.0 - 5.6 11/19 Specimen Type: BLOOD Comment: Values obtained from A1C measurement s can vary. For atypical A1C assays, a reported value of 7.0 could actually be between 6.72 and 7.28 if measured by a reference method. A reported value of 9.0 could actually be between 8.73 and 9.27. Ref: http://www. ngsp.org/[place] Pdata.asp Ordering Provider: DENTON MERCADO Report Released Date/Time: Nov 20, 2023 10:16 AM Reporting Lab: [facility] [address] [facility] [address] Performing Lab: [facility] [address] [facility] [address] [place] IRON & TIBC PANEL IRON BINDING CAPACITY [MASS/VOLUM E] IN SERUM OR PLASMA 363 ug/dL 204 - 475 11/19 Specimen Type: SERUM No comment entered. Ordering Provider: DENTON MERCADO Report Released Date/Time: Nov 20, 2023 10:16 AM Reporting Lab: [facility] [address] [facility] [address] Performing Lab: [address] [address] [place] IRON & TIBC PANEL IRON [MASS/VOLUM E] IN SERUM OR PLASMA 66 ug/dL 40 - 160 11/19 Specimen Type: SERUM No comment entered. Ordering Provider: DENTON MERCADO Report Released Date/Time: Nov 20, 2023 10:16 AM Reporting Lab: [address] [address] Performing Lab: [address] [address] [place] IRON & TIBC PANEL IRON/IRON BINDING CAPACITY.TO NOLAN [MASS RATIO] IN SERUM OR PLASMA 18.2 20.0 - 50.0 11/19 L Specimen Type: SERUM No comment entered. Ordering Provider: DENTON MERCADO Report Released Date/Time: Nov 20, 2023 10:16 AM Reporting Lab: [address] [address] Performing Lab: [address] [address] [place] LIPID PANEL, NON FASTING CHOLESTEROL [MASS/VOLUM E] IN SERUM OR PLASMA 188 mg/dL 11/19 Specimen Type: SERUM No comment entered. Ordering Provider: DENTON MERCADO Report Released Date/Time: Nov 20, 2023 10:16 AM Reporting Lab: [facility] [address] [facility] [address] Performing Lab: [facility] [address] [address] [place] LIPID PANEL, NON FASTING TRIGLYCERID E [MASS/VOLUM E] IN SERUM OR PLASMA 102 mg/dL 0 - 150 11/19 Specimen Type: SERUM No comment entered. Ordering Provider: DENTON MERCADO Report Released Date/Time: Nov 20, 2023 10:16 AM Reporting Lab: [facility] [address] [facility] [address] Performing Lab: [facility] [address] [address] [place] LIPID PANEL, NON FASTING CHOLESTEROL IN LDL [MASS/VOLUM E] IN SERUM OR PLASMA BY CALCULATION 120 mg/dL 0 - 129 11/19 Specimen Type: SERUM No comment entered. Ordering Provider: DENTON MERCADO Report Released Date/Time: Nov 20, 2023 10:16 AM Reporting Lab: [facility] [address] [address] Performing Lab: [facility] [address] [address] [place] LIPID PANEL, NON FASTING CHOLESTEROL .TOTAL/CHOL ESTEROL IN HDL [MASS RATIO] IN SERUM OR PLASMA 3.9 11/19 Specimen Type: SERUM No comment entered. Ordering Provider: DENTON MERCADO Report Released Date/Time: Nov 20, 2023 10:16 AM Reporting Lab: [facility] [address] [facility] [address] Performing Lab: [facility] [address] [address] [place] LIPID PANEL, NON FASTING CHOLESTEROL IN HDL [MASS/VOLUM E] IN SERUM OR PLASMA 48 mg/dL 40 - 60 11/19 Specimen Type: SERUM No comment entered. Ordering Provider: DENTON MERCADO Report Released Date/Time: Nov 20, 2023 10:16 AM Reporting Lab: [facility] [facility] [address] [facility] [id number] Performing Lab: [facility] [place] [facility] [address] [facility] [address] [place] LIVER FUNCTION PROTEIN [MASS/VOLUM E] IN SERUM OR PLASMA 7.1 g/dL 6.0 - 8.3 11/19 Specimen Type: SERUM No comment entered. Ordering Provider: DENTON MERCADO Report Released Date/Time: Nov 20, 2023 10:16 AM Reporting Lab: [facility] [facility] [address] [facility] [address] Performing Lab: [facility] [address] [place] LIVER FUNCTION ALBUMIN [MASS/VOLUM E] IN SERUM OR PLASMA 3.5 g/dL 3.5 - 5.0 11/19 Specimen Type: SERUM No comment entered. Ordering Provider: DENTON MERCADO Report Released Date/Time: Nov 20, 2023 10:16 AM Reporting Lab: [facility] [address] Performing Lab: [facility] [address] [place] LIVER FUNCTION ALKALINE PHOSPHATASE [ENZYMATIC ACTIVITY/VO LUME] IN SERUM OR PLASMA 48 U/L 40 - 150 11/19 Specimen Type: SERUM No comment entered. Ordering Provider: DENTON MERCADO Report Released Date/Time: Nov 20, 2023 10:16 AM Reporting Lab: [facility] [place] [address] [address] Performing Lab: [facility] [address] [place] LIVER FUNCTION ASPARTATE AMINOTRANSF ERASE [ENZYMATIC ACTIVITY/VO LUME] IN SERUM OR PLASMA 15 U/L 5 - 34 11/19 Specimen Type: SERUM No comment entered. Ordering Provider: DENTON MERCADO EVELIN Dylan Report Released Date/Time: Nov 20, 2023 10:16 AM Reporting Lab: [facility] [place] [facility] [address] [facility] [address] Performing Lab: [facility] [address] [facility] [address] [place] LIVER FUNCTION ALANINE AMINOTRANSF ERASE [ENZYMATIC ACTIVITY/VO LUME] IN SERUM OR PLASMA 10 U/L 11/19 Specimen Type: SERUM No comment entered. Ordering Provider: DENTON MERCADO EVELIN J Report Released Date/Time: Nov 20, 2023 10:16 AM Reporting Lab: [place] [facility] [address] [address] Performing Lab: [facility] [address] [address] [place] LIVER FUNCTION BILIRUBIN.T OTAL [MASS/VOLUM E] IN SERUM OR PLASMA 0.7 mg/dL 0.2 - 1.2 11/19 Specimen Type: SERUM No comment entered. Ordering Provider: DENTON MERCADO Report Released Date/Time: Nov 20, 2023 10:16 AM Reporting Lab: [facility] [address] [address] Performing Lab: [facility] [address] [place] TSH THYROTROPIN [UNITS/VOLU ME] IN SERUM OR PLASMA 3.37 u[IU]/ mL 0.35 - 5.00 11/19 Specimen Type: SERUM No comment entered. Ordering Provider: DENTON MERCADO Report Released Date/Time: Nov 20, 2023 10:16 AM Reporting Lab: [facility] [address] Performing Lab: [facility] [address] [place] VITAMIN D (25-OH) 25-HYDROXYV ITAMIN D3 [MASS/VOLUM E] IN SERUM OR PLASMA 22 ng/mL 20 - 50 11/19 Specimen Type: SERUM No comment entered. Ordering Provider: DENTON MERCADO EVELIN J Report Released Date/Time: Nov 20, 2023 10:16 AM Reporting Lab: [facility] [place] [address] [facility] [address] Performing Lab: [facility] [address] [facility] [address] [facility] METHYLMAL ONIC ACID (SERUM-QU ) METHYLMALON ATE [MOLES/VOLU ME] IN SERUM OR PLASMA 555 nmol/L 87 - 318 11/19 H Specimen Type: SERUM Comment: This test was developed and its analytical performance characteris tics have been determined by [facility] [place]. It has not been cleared or approved by the U.S. Food and Drug Administrat ion. This assay has been validated pursuant to the CLIA regulations and is used for clinical purposes. Test Performed by [facility], [facility], [address] [place] [address] Elliott Calvillo M.D., Ph.D., Director of Laboratorie s , CLIA [id number] TEST PERFORMED AT: , Ordering Provider: DENTON MERCDAO Report Released Date/Time: Nov 20, 2023 02:59 PM Reporting Lab: [facility] [address] [facility] [address] Performing Lab: [facility] [address] [address] [facility] Vital Signs Combined list of inpatient and outpatient Vital Signs from Department of Defense and Veterans Affairs, ranging from 12 months to all on record, depending upon the facility. Vital Sign Value Date Comments Source SYSTOLIC BLOOD PRESSURE 139 06/03/2024 10:37:43 [place] DIASTOLIC BLOOD PRESSURE 63 06/03/2024 10:37:43 [place] PULSE OXIMETRY 97 06/03/2024 10:37:43 [facility] 164.4 06/03/2024 10:37:43 [facility] [facility] BMI 22kg/m2 06/03/2024 10:37:43 [facility] [facility] TEMPERATURE 97.7 06/03/2024 10:37:43 [facility] 45 06/03/2024 10:37:43 [facility] SYSTOLIC BLOOD PRESSURE 140 01/13/2024 12:03:12 [place] DIASTOLIC BLOOD PRESSURE 67 01/13/2024 12:03:12 [place] PULSE OXIMETRY 95 01/13/2024 12:03:12 [place] WEIGHT 163 01/13/2024 12:03:12 [place] BMI 22kg/m2 01/13/2024 12:03:12 [place] PAIN 0 01/13/2024 12:03:12 [place] HEIGHT 72 01/13/2024 12:03:12 [place] TEMPERATURE 97 01/13/2024 12:03:12 [place] PULSE 44 01/13/2024 12:03:12 [place] RESPIRATION 19 01/13/2024 12:03:12 [place] SYSTOLIC BLOOD PRESSURE 122 11/20/2023 10:10:53 [place] DIASTOLIC BLOOD PRESSURE 54 11/20/2023 10:10:53 [place] PULSE OXIMETRY 95 11/20/2023 10:10:53 [place] WEIGHT 158.2 11/20/2023 10:10:53 [place] BMI 22kg/m2 11/20/2023 10:10:53 [place] TEMPERATURE 95.4 11/20/2023 10:10:53 [place] PULSE 65 11/20/2023 10:10:53 [place] Encounters Combined list of: 1) Encounters from Department of Veterans Affairs facilities going back up to thelast 18 months. 2) Encounters from the Department of Defense facilities going back up to 280 months. Location Location Details Encounter Type Encounter Number Reason For Visit Attending Provider ADM Date DC Date Status Disposition Source [facility] En[facility] [id number] 01[facility]20 [facility] En[facility] [id number] 03/02 [facility] Encounter [id number] 03/25 [facility] [place] Outpatient Encounter [id number] 05/04 [place] [facility] En[facility] [id number] 05/10 [facility] QNHP OL DIG ASSMT&MGMT 5-10 [id number] Diagnos is: ICD-10- CM Z51.81 Encount er for therape utic drug level monitor ing<br/ > JAMSHID,CHR ISTINE F 05/15 [facility] Outpatient Encounter [id number] 05/20 [facility] [place] OFF[place] O/P EST MOD 30-39 MIN [id number] Diagnos is: ICD-10- CM 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
MERCADO,VICT ORIA J 11/19 [facility] [place] [facility] Outpatient Encounter [id number] 11/19 [facility] QNHP OL DIG ASSMT&MGMT 5-10 [id number] Diagnos is: ICD-10- CM Z04.89 Encount er for examina tion and observa tion for oth reasons
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
MANTILLA,LACE Y J 12/23 [facility] FIT SPECTACLES BIFOCAL [id number] Diagnos is: ICD-10- CM Z46.0 Encount er for fit/adj st of spectac les and contact lenses< br/> MANTILLA,LACE Y J 12/23 [facility] [place] [facility] [place] OFFICE O/P EST MOD 30 MIN [id number] Diagnos is: ICD-10- CM E55.9 Vitamin D deficie ncy, unspeci fied
MERCADO,VICT ORIA J 01/12 [place] [facility] Outpatient Encounter [id number] 03/08 [facility] [place] [facility] [place] OFFICE O/P EST MOD 30 MIN [id number] Diagnos is: ICD-10- CM I25.10 Athscl heart disease of [place] coronar y artery w/o ang pctrs<b r/> PEREZ,DA VID A 06/03 [facility] [place] [facility] [place] [facility] [place]MMUNIZATI [place] ADMIN [id number] 1. PEREZ,DA VID A 06/03 [facility] [place] [facility] ELECTR[facility]AR DIOGRAM REPORT [id number] Diagnos is: ICD-10- CM Z13.6 Encount er for screeni ng for cardiov ascular disorde rs
Vishnu SARAHN 06/03 [facility] [place] [facility] ELECTROCAR DIOGRAM TRACING [id number] Diagnos is: ICD-10- CM R00.1 Bradyca rdia, unspeci fied
CATHY PEREZ VID A 06/03 [place] [facility] [place] [facility] [place] [facility] Outpatient Encounter [id number] 06[facility]29 [facility] [place] [facility] Social History Combined list of available smoking, tobacco, and other social history from Department of Defense and Veterans Affairs facilities. Social History Type Response Date Comment Sour e Tobacco smoking status [facility]-TOBACCO FORMER USER 11/20/2023 [facility] [place] [facility] [place] [facility] History of tobacco use [place] FORMER [facility] 11/17/2022 [place] History of tobacco use [place] FORMER USER 06/19/2021 [place] History of tobacco use QUIT TOBACCO USE 1-7 YEARS AGO 05/27/2011 quit [facility] History of tobacco use QUIT TOBACCO USE 1-7 YEARS AGO 05/09/2010 [facility] Plan of Care List of future care activities from Department of [facility] Affairs facilities. Additional future care activities may be listed in the Assessment and Plan section. Date/Time Care Activity Care Activity Detail Malindai ty 08/08/2024 AMBULATORY - MEDICINE AMBULATORY - MEDICI [facility] 11/03/2024 AMBULATORY - MEDICINE AMBULATORY - MEDICI [facility]
--- OUTSIDE RECORDS SUMMARY | 2024-07-21 00:21 | XMS_ITS ---
Author Name [facility] [place] Address [address] [place] [id number] Care Team Providers Care Shipping And Receiving Operator Name Role Phone SAUL PEREZ Primary Care [...] PART A Sep 10, 2001 PART A [id number] [phone] SHAQUILLE CUIMIL PATIENT MEDICARE (WNR) MEDICARE (M) PART B Sep 10, 2001 PART B [id number] YENIFER CUI PATIENT MEDICARE (WNR) MEDICARE (M) PART A Sep 10, 2001 PART A [id number] [id number] [phone] BOBBYAMADOSHAQUILLE CONTRERASMIL PATIENT MEDICARE (WNR) MEDICARE (M) PART B Sep 10, 2001 PART B [id number] JACKBEN YENIFER PATIENT [facility] MEDICAL EXPENSE (OPT/PROF ) [facility] Feb 08, 2012 [id number] RONA CUI SPOUSE [facility] MEDICAL EXPENSE (OPT/PROF ) [facility] Feb 08, 2012 [id number] RONA CUI SPOUSE Selected Encounter This section includes the information on record at [place] for the Encounter. Date/Time Encounter Type Encounter Description Reason Pro vider Source Nov 20, 2023 10:11 AM Outpatient Encounter PRIMARY CARE/MEDICINE IHE Encounter Template Text not used by [place] Plan of Treatment: Future Appointments (+ 6 months) and Future Tests (+/- 45 days) The Plan of Treatment section includes future care activities for the patient from all [place] treatmentfacilities. This section includes future appointments and future orders which are active, pending or scheduled. Future Appointments This section includes appointments that were scheduled to occur 6 months from the date of the Encounter, up to a maximum of 20 appointments. The data comes from all [place] treatment facilities. Appointment Date/Time Appointment Type Appointme nt Facility Name Nov 26, 2023 11:00 AM [facility] [place] [facility] December 24, 2023 01[facility]00 PM [facility] Jan 13, 2024 11:30 AM [facility] Active, Pending, and Scheduled Orders This section includes a listing of several types of active, pending, and scheduled orders, including clinic medications orders, diagnostic test orders, procedure orders and consult orders; where the start date of the order is 45 days before the date of the Encounter or 45 days after the date of theEncounter. The data comes from all [place] treatment facilities. Test Date/Time Test Type Test Details Facility Name Nov 20, 2023 12:00 AM Laboratory - Chemi stry Order HEPATITIS C ANTIBODY (HCV)-ARC BLOOD (MARBLED-TOP SERUM) [facility] Lab Results: +/- 30 days of the encounter This section includes the Chemistry and Hematology Lab Results on record with [place] for the patient. Radiology Reports and Pathology Reports are provided separately, in subsequent sections. Lab Results This section contains the Chemistry/Hematology Results that were resulted 30 days before or 30 daysafter the date of the Encounter. Date/Time Source Result Type Result - Unit Interpretation Reference Range Comment Nov 20, 2023 10:55 AM [facility] BASIC METABOLIC PANEL (non-fasting) Spe cimen Type: SERUM No comment entered. Ordering Provider: LISA MERCADO Report Released Date/Time: Nov 20, 2023 10:16 AM Reporting Lab: [address] [address] Performing Lab: [address] [address] UREA NITROGEN 58 mg/dL H 7-25 GLUCOSE 118 mg/dL H 65-100 SODIUM 140 mmol/L 135-145 POTASSIUM 5.1 mmol/L H 3.5-5.0 CHLORIDE 104 mmol/L 100-110 CO2 26 meq/L 20-30 CREATININE, Serum 2.26 mg/dL H 0.50-1.40 eGFR(CKD-EPI 2020) 27 mL/min L >60 Nov 20, 2023 10:55 AM [facility] LIVER FUNCTION Specimen Type: SERUM No comment entered. Ordering Provider: LISA MERCADO Report Released Date/Time: Nov 20, 2023 10:16 AM Reporting Lab: [address] [address] Performing Lab: [address] [address] PROTEIN,TOTAL 7.1 g/dL 6.0-8.3 ALBUMIN 3.5 g/dL 3.5-5.0 ALKALINE PHOSPHATASE 48 U/L 40-150 AST 15 U/L 5-34 ALT 10 U/L BILIRUBIN, TOTAL 0.7 mg/dL 0.2-1.2 Nov 20, 2023 10:55 AM [facility] LIPID PANEL, NON FASTING Specimen Type: SERUM No comment entered. Ordering Provider: LISA MERCADO Report Released Date/Time: Nov 20, 2023 10:16 AM Reporting Lab: [address] [address] Performing Lab: [address] [address] CHOLESTEROL 188 mg/dL TRIGLYCERIDE 102 mg/dL 0-150 LDL calculated 120 mg/dL 0-129 CHOL/HDL 3.9 HDL CHOLESTEROL 48 mg/dL 40-60 Nov 20, 2023 10:55 AM [facility] TSH Specimen Type: SERUM No comment entered. Ordering Provider: LISA MERCADO Report Released Date/Time: Nov 20, 2023 10:16 AM Reporting Lab: [address] [address] Performing Lab: [place] [address] TSH 3.37 u[IU]/mL 0.35-5.00 Nov 20, 2023 10:55 AM [facility] HEMOGLOBIN A1C PANEL Specimen Type: BLOOD Comment: [...] Nov 20, 2023 10:16 AM Reporting Lab: [address] Performing Lab: [place] [address] HEMOGLOBIN A1C 5.3 4.0-5.6 Nov 20, 2023 10:55 AM [facility] IRON & TIBC PANEL Specimen Type: SERUM No comment entered. Ordering Provider: LISA MERCADO Report Released Date/Time: Nov 20, 2023 10:16 AM Reporting Lab: [address] [address] Performing Lab: [address] [address] TIBC 363 ug/dL 204-475 IRON 66 ug/dL 40-160 Transferrin Saturation 18.2 L 20.0-50.0 Nov 20, 2023 10:55 AM [facility] VITAMIN D (25-OH) Specimen Type: SERUM No comment entered. Ordering Provider: LISA MERCADO Report Released Date/Time: Nov 20, 2023 10:16 AM Reporting Lab: [address] [address] Performing Lab: [facility] [address] [address] VITAMIN D (25-OH) 22 ng/mL 20-50 Nov 20, 2023 10:55 AM [facility] FERRITIN Specimen Type: SERUM No comment entered. Ordering Provider: LISA MERCADO Report Released Date/Time: Nov 20, 2023 10:16 AM Reporting Lab: [address] [address] Performing Lab: [address] [address] FERRITIN 28 ng/mL 20-300 Nov 20, 2023 10:55 AM [facility] CBC AND DIFF (AUTO) Specimen Type: BLOOD No comment entered. Ordering Provider: LISA MERCADO Report Released Date/Time: Nov 20, 2023 10:16 AM Reporting Lab: [address] [address] Performing Lab: [address] [address] WBC 3.41 10*3/uL L 4.50-11.00 RBC 4.63 10*6/uL 4.23-5.66 HGB 13.0 g/dL 12.8-17 HCT 40.2 39.2-50.4 MCV 86.8 fL 82-99 MCHC 32.3 g/dL 30.8-35.1 PLT 99 10*3/uL L 140-360 RDW-CV 17.9 H 12.0-16.0 [place], Abs 0.33 10*3/uL 0.30-1.10 MCH 28.1 pg 26.2-32.6 Neut % 71.3 43.7-75.8 Lymph % 15.8 14.0-42.3 [place] % 9.7 5.1-13.7 Eos % 2.6 0.4-6.8 Baso % 0.3 0.1-2.0 Neut, Abs 2.43 10*3/uL 2.20-7.60 Lymph, Abs 0.54 10*3/uL L 1.00-3.20 Eos, Abs 0.09 10*3/uL 0.03-0.44 Baso, Abs 0.01 10*3/uL 0.01-0.13 Immature Gran % 0.3 0.0-0.7 Immature Gran, Abs 0.01 10*3/uL 0.00-0.06 Nov 20, 2023 10:55 AM [facility] METHYLMALONIC ACID (SERUM-QU) Specimen Type: SERUM Comment: This test was developed and its analytical performance characteristics have been determined by [facility] [place], [place]. It has not been cleared or approved by the U.S. Food and Drug Administration. This assay has been validated pursuant to the CLIA regulations and is used for clinical purposes. Test Performed by [facility], [facility], [address] [place] [address] Elliott Calvillo M.D., Ph.D., Director of Laboratories , CLIA [id number] TEST PERFORMED AT: , Ordering Provider: LISA MERCADO Report Released Date/Time: Nov 20, 2023 02:59 PM Reporting Lab: [facility] [address] [facility] [address] Performing Lab: [facility] [address] [address] METHYLMALONIC ACID (SERUM-QU) 555 nmol/L H 87-318 Nov 20, 2023 10:55 AM [facility] FOLATE (WROX) Specimen Type: SERUM No comment entered. Ordering Provider: LISA MERCADO Report Released Date/Time: Nov 20, 2023 02:59 PM Reporting Lab: [facility] [address] [facility] [address] Performing Lab: [facility] [address] [facility] [address] FOLATE (WROX) 8.39 ng/mL >5.2 Nov 20, 2023 10:55 AM [facility] VITAMIN B12 Specimen Type: SERUM No comment entered. Ordering Provider: LISA MERCADO Report Released Date/Time: Nov 20, 2023 02:59 PM Reporting Lab: [facility] [address] [facility] [address] Performing Lab: [address] [place] [address] VITAMIN B12 438 pg/mL 200-900 Social History: Smoking Status (Most current) and Tobacco Use (All prior to encounter date) This section includes the most current, and the historical, smoking and tobacco- related health factors from the [place] facility where the Encounter took place. Current Smoking Status This section includes the most current smoking, or tobacco-related health factor, from the [place] facility where the Encounter took place. Date/Time Current Smoking Status Comment Malinda lopez Nov 20, 2023 10:11 AM [place]-TOBACCO FORMER USER [facility] Tobacco Use History This section includes a history of the smoking, or tobacco-related health factors, that were collected on or before the date of the Encounter. The data comes from the [place] facility where the Encounter took place. Date/Time Smoking Status/Tobacco Use Comment Mg estevez Nov 20, 2023 10:11 AM [place]-TOBACCO QUIT 15 YRS OR MORE [facility] May 27, 2011 12:54 PM QUIT TOBACCO USE 1 -7 YEARS AGO quit 2006 [facility] May 09, 2010 03:17 PM QUIT TOBACCO USE 1 -7 YEARS AGO [facility] Encounter Notes: All associated encounter notes This section contains the clinical notes associated to the Encounter. Date/Time Encounter Note(s) Provider Source Nov 20, 2023 10:11 AM PREVENTIVE MEDICIN E NURSING NOTE: LOCAL TITLE: CLINICAL REMINDERS/NURSING STANDARD TITLE: PREVENTIVE MEDICINE NURSING NOTE DATE OF NOTE: NOV 20, 2023@10:11 ENTRY DATE: NOV 20, 2023@10:11:57 AUTHOR: GABINO CAIN COSIGNER: URGENCY: STATUS: COMPLETED Suicide Screen: C-SSRS Screening [place] Suicide Severity Rating Scale (C-SSRS) screener 1. Over the past month, have you wished you were or wished you could go to sleep and not wake up? No 2. Over the past month, have you had any actual thoughts of killing yourself? No 3. Over the past month, have you been thinking about how you might do this? Response not required due to responses to other questions. 4. Over the past month, have you had these thoughts and had some intention of acting on them? Response not required due to responses to other questions. 5. Over the past month, have you started to work out or worked out the details of how to kill yourself? Response not required due to responses to other questions. 6. If yes, at any time in the past month did you intend to carry out this plan? Response not required due to responses to other questions. 7. In your lifetime, have you ever done anything, started to do anything, or prepared to do anything to end your life (for example, collected pills, obtained a gun, gave away valuables, went to the roof but didn't jump)? No 8. If YES, was this within the past 3 months? Response not required due to responses to other questions. Toxic Exposure Screening: The /caregiver was asked if they believe the experienced any toxic exposure(s), such as Airborne Hazards and Open Burn [place], [place] War related exposures, Agent [place], Radiation, contaminated water at [place] or other such exposures, while serving in the [employer]. has no concerns about toxic exposure(s) while serving in the [employer]. The [place]/caregiver was informed that we will continue to ask this screening question every 5 years. They can contact their provider/healthcare team if they have concerns about exposures and would like to be screened sooner. Printed information was offered and provided if desired. Homelessness/Food Insecurity Screen: In the past 2 months, have you been living in stable housing that you own, rent, or stay in as part of a household? Yes - Living in stable housing. Are you worried or concerned that in the next 2 months you may NOT have stable housing that you own, rent, or stay in as part of a household? No - Not worried about housing near future The [place] reports the following: Within the past 12 months, you worried whether your food would run out before you got money to buy more. Never true Within the past 12 months, the food you bought just didn't last and you didn't have money to get more. Never true Depression Screening: Perform PHQ-2 A PHQ-2 screen was performed. The score was 0 which is a negative screen for depression. Over the past two weeks, how often have you been bothered by the following problems? 1. Little interest or pleasure in doing things Not at all 2. Feeling down, depressed, or hopeless Not at all Falls & Incontinence Screen: Falls Screen: During the past 12 months, did the patient report any falls? 4. No falls within the past year. Incontinence Screen: During the past 12 months, has the patient has any characteristics of incontinence (ability, voiding, leakage, etc.)? No incontinence. Pneumococcal Conjugate Vaccine (PCV15/PCV20): Patient educated on the need for receiving Pneumococcal conjugate vaccine either at [place] or outside facility. Tobacco Use Screening: The patient is a former tobacco user. The patient quit fifteen or more years ago. Influenza Immunization: The patient has received the seasonal influenza vaccine for the current season at another location. Documented: INFLUENZA, UNSPECIFIED FORMULATION Historical Date Administered: May 2023 Exact date unknown Information Source: FROM PATIENT'S RECALL Alcohol Use Screen (AUDIT-C): Alcohol Screen: SCREEN FOR ALCOHOL (AUDIT-C) An alcohol screening test (AUDIT-C) was negative (score=0). 1. How often did you have a drink containing alcohol in the past year? Consider a drink to be a 12 ounce can or bottle of regular beer, 8 ounces of malt liquor, a 5 ounce glass of table wine, or a 1.5 ounce shot of liquor (like scotch, gin, or vodka). Never 2. How many drinks containing alcohol did you have on a typical day when you were drinking in the past year? Response not required due to responses to other questions. 3. How often did you have six or more drinks on one occasion in the past year? Response not required due to responses to other questions. COVID-19 Immunization: Patient educated on the need for receiving COVID-19 (SARS-CoV-2) immunization either at [place] or outside facility. Herpes Zoster (Shingles) Vaccine: Patient educated on the need for receiving Herpes Zoster (Shingles) immunization either at [place] or outside facility. Sexual Orientation: The patient thinks of their sexual orientation as: Straight or Heterosexual RHS Screen: RHS Screen Environmental Check Upon inquiry, the individual reports that the environment is safe to proceed. Informed Consent to Screen and Document The individual consents to proceed with screening. The individual consents to documentation of responses. PRIMARY SCREEN: In the past 12 months, how often did a current or former intimate partner (e.g., boyfriend, girlfriend, , , sexual partner): 1. Scream or curse at you Never 2. Insult or talk down to you Never 3. Threaten you with harm Never 4. Physically hurt you Never 5. Force or pressure you to have sexual contact against your will, or when you were unable to say no Never ?? The HITS tool (items 1-4 above) is [place] copyright protected by Klaus Santos MD, and the user has full rights to use it throughout the [facility] system. PRIMARY SCREEN RESULT: The Primary Screen is NEGATIVE. The individual answered never to all forms of IPV above (i.e., answered never to all 5 items) The individual accepts education and/or resources: No EDUCATION: The individual indicated readiness to learn. Education offered during this session as noted above. The individual indicated understanding by asking relevant questions and making appropriate comments. No barriers to learning were observed or identified. 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 Narr. - Atherosclerotic Heart Disease of [place] Coronary A Action: Referral Ordered: Tele-Eye Screening /damien/ GABINO CAIN LPN LPN Signed: 11/20/2023 10:15 GABINO CAIN [facility]
--- OUTSIDE RECORDS SUMMARY | 2024-07-21 00:22 | XMS_ITS | Encounter Summary ---
Author Name [facility] [place] Organization [place] Address [address] [place] [address] Care Team Providers Care Dough Molder Hand Name Role Phone SAUL PEREZ Primary Care [...] PART A Sep 10, 2001 PART A [id number] [phone] YENIFER CUI PATIENT MEDICARE (WNR) MEDICARE (M) PART B Sep 10, 2001 PART B [id number] YENIFER CUI PATIENT MEDICARE (WNR) MEDICARE (M) PART A Sep 10, 2001 PART A [id number] [phone] YENIFER CUI PATIENT MEDICARE (WNR) MEDICARE (M) PART B Sep 10, 2001 PART B [id number] YENIFER CUI PATIENT [facility] MEDICAL EXPENSE (OPT/PROF ) [facility] Feb 08, 2012 [id number] RONA CUI SPOUSE [facility] MEDICAL EXP[facility] (OPT/PROF ) [facility] Feb 08, 2012 [id number] RONA CUI SPOUSE Selected Encounter This section includes the information on record at [place] for the Encounter. Date/Time Encounter Type Encounter Description Reason Pro vider Source Mar 08, 2024 08:05 PM Outpatient Encounter ADMIN PAT ACTIVTIES (MASNONCT) IHE Encounter Template Text not used by [place] Plan of Treatment: Future Appointments (+ 6 months) and Future Tests (+/- 45 days) The Plan of Treatment section includes future care activities for the patient from all [place] treatment[place]ilities. This section includes future appointments and future orders which are active, pending or scheduled. Future Appointments This section includes appointments that were scheduled to occur 6 months from the date of the Encounter, up to a maximum of 20 appointments. The data comes from all [place] treatment facilities. Appointment Date/Time Appointment Type Appointme nt Facility Name Jun 03, 2024 10:00 AM [facility] Aug 08, 2024 11:00 AM AMBULATORY - MEDICINE [facility] Social History: Smoking Status (Most current) and Tobacco Use (All prior to encounter date) This section includes the most current, and the historical, smoking and tobacco- related health factors from the [place] facility where the Encounter took place. Current Smoking Status This section includes the most current smoking, or tobacco-related health factor, from the [place] facility where the Encounter took place. Date/Time Current Smoking Status Comment Malinda ity Nov 20, 2023 10:11 AM [place]-TOBACCO FORMER USER [facility] Tobacco Use History This section includes a history of the smoking, or tobacco-related health factors, that were collected on or before the date of the Encounter. The data comes from the [place] facility where the Encounter took place. Date/Time Smoking Status/Tobacco Use Comment F acility Nov 20, 2023 10:11 AM [place]-TOBACCO [facility] 15 YRS OR MORE [facility] May 27, 2011 12:54 PM QUIT TOBACCO USE 1 -7 YEARS AGO quit 2006 [facility] May 09, 2010 03:17 PM QUIT TOBACCO USE 1 -7 YEARS AGO [facility] Encounter Notes: All associated encounter notes This section contains the clinical notes associated to the Encounter. Date/Time Encounter Note(s) Provider Source Mar 08, 2024 08:05 PM PHARMACY NOTE: LOCAL TITLE: V1 PHARMACY CUSTOMER CARE MEDICATION RENEWAL STANDARD TITLE: PHARMACY NOTE DATE OF NOTE: MAR 08, 2024@20:05 ENTRY DATE: MAR 08, 2024@20:06 AUTHOR: LALITHA COX EXP COSIGNER: URGENCY: STATUS: COMPLETED Date: Feb Division: [place] Pt referred by Pharmacy Call Center for medication renewal: Non-controlled/maintenance medication Medications requested: [id number] CARBOXYMETHYLCELLULOSE NA 0.5% OPH SOLN Defer to specialty clinic To be mailed . Please review and renew if appropriate. *This note was generated by [facility] Pharmacy Customer Care. If you have any questions or need assistance, do not contact this author. Please refer all questions to your local, on-site pharmacy departments. /damien/ LALITHA COX CPhT [employer], [place]/Pharmacy Customer Care Signed: 03/08/2024 20:06 Receipt Acknowledged By: 03/09/2024 07:56 /damien/ Nathan Taylor OD CHIEF OF OPTOMETRY for LALITHA GONZALEZ [facility]
--- OUTSIDE RECORDS SUMMARY | 2024-07-21 00:22 | XMS_ITS | Encounter Summary ---
Author Name [facility] [place] [facility] [place] Organization [facility] [place] Address [address] [place] [address] Care Team Providers Care External Relations Director Name Role Phone SAUL PEREZ Primary [...] PART A Sep 10, 2001 PART A [id number] [phone] SHAQUILLE CUIMIL PATIENT MEDICARE (WNR) MEDICARE (M) PART B Sep 10, 2001 PART B [id number] YENIFER CUI PATIENT MEDICARE (WNR) MEDICARE (M) PART A Sep 10, 2001 PART A [id number] BOBBYAMADOSHAQUILLE CONTRERASMIL PATIENT MEDICARE (WNR) MEDICARE (M) PART B Sep 10, 2001 PART B [id number] [phone] JACKBEN YENIFER PATIENT [facility]MERLY [facility] MEDICAL EXPENSE (OPT/PROF ) [facility] IN[facility] N Feb 08, 2012 [id number] RONA CUI SPOUSE [facility] MEDICAL EXPENSE (OPT/PROF ) [facility] Feb 08, 2012 [id number] RONA CUI SPOUSE Selected Encounter This section includes the information on record at [place] for the Encounter. Date/Time Encounter Type Encounter Description Reason Pro vider Source December 18, 2023 12:30 PM Outpatient Encounter PRIMARY CARE/MEDICINE IHE Encounter Template Text not used by [place] Plan of Treatment: Future Appointments (+ 6 months) and Future Tests (+/- 45 days) The Plan of Treatment section includes future care activities for the patient from all [place] treatmentfacilities. This section includes future appointments and future orders which are active, pending or scheduled. Future Appointments This section includes appointments that were scheduled to occur 6 months from the date of the Encounter, up to a maximum of 20 appointments. The data comes from all [place] treatment facilities. Appointment Date/Time Appointment Type Appointme nt Facility Name December 24, 2023 01:00 PM AMBULATORY - [place] [facility]IC[facility] [place] [facility] Jan 13, 2024 11:30 AM [facility] - MEDICINE [facility] [place] Jun 03, 2024 10:00 AM [facility] Active, Pending, and Scheduled Orders This section includes a listing of several types of active, pending, and scheduled orders, including clinic medications orders, diagnostic test orders, procedure orders and consult orders; where the start date of the order is 45 days before the date of the Encounter or 45 days after the date of theEncounter. The data comes from all [place] treatment facilities. Test Date/Time Test Type Test Details Facility Name Nov 20, 2023 12:00 AM Laboratory - Chemi stry Order HEPATITIS C ANTIBODY (HCV)-ARC BLOOD (MARBLED-TOP SERUM) [facility] Lab Results: +/- 30 days of the encounter This section includes the Chemistry and Hematology Lab Results on record with [place] for the patient. Radiology Reports and Pathology Reports are provided separately, in subsequent sections. Lab Results This section contains the Chemistry/Hematology Results that were resulted 30 days before or 30 daysafter the date of the Encounter. Date/Time Source Result Type Result - Unit Interpretation Reference Range Comment Nov 20, 2023 10:55 AM [facility] BASIC METABOLIC PANEL (non-fasting) Spe cimen Type: SERUM No comment entered. Ordering Provider: LISA MERCADO Report Released Date/Time: Nov 20, 2023 10:16 AM Reporting Lab: [address] [address] Performing Lab: [address] [address] UREA NITROGEN 58 mg/dL H 7-25 GLUCOSE 118 mg/dL H 65-100 SODIUM 140 mmol/L 135-145 POTASSIUM 5.1 mmol/L H 3.5-5.0 CHLORIDE 104 mmol/L 100-110 CO2 26 meq/L 20-30 CREATININE, Serum 2.26 mg/dL H 0.50-1.40 eGFR(CKD-EPI 2020) 27 mL/min L >60 Nov 20, 2023 10:55 AM [facility] LIVER FUNCTION Specimen Type: SERUM No comment entered. Ordering Provider: LISA MERCADO Report Released Date/Time: Nov 20, 2023 10:16 AM Reporting Lab: [address] [address] Performing Lab: [address] [address] PROTEIN,TOTAL 7.1 g/dL 6.0-8.3 ALBUMIN 3.5 g/dL 3.5-5.0 ALKALINE PHOSPHATASE 48 U/L 40-150 AST 15 U/L 5-34 ALT 10 U/L BILIRUBIN, TOTAL 0.7 mg/dL 0.2-1.2 Nov 20, 2023 10:55 AM [facility] TSH Specimen Type: SERUM No comment entered. Ordering Provider: LISA MERCADO Report Released Date/Time: Nov 20, 2023 10:16 AM Reporting Lab: [address] [address] Performing Lab: [address] [address] TSH 3.37 u[IU]/mL 0.35-5.00 Nov 20, 2023 10:55 AM [facility] LIPID PANEL, NON FASTING Specimen Type: SERUM No comment entered. Ordering Provider: LISA MERCADO Report Released Date/Time: Nov 20, 2023 10:16 AM Reporting Lab: [facility] [address] [address] Performing Lab: [address] [address] CHOLESTEROL 188 mg/dL TRIGLYCERIDE 102 mg/dL 0-150 LDL calculated 120 mg/dL 0-129 CHOL/HDL 3.9 HDL CHOLESTEROL 48 mg/dL 40-60 Nov 20, 2023 10:55 AM [facility] HEMOGLOBIN A1C PANEL Specimen Type: BLOOD Comment: [...] Nov 20, 2023 10:16 AM Reporting Lab: [address] [address] Performing Lab: [address] [address] HEMOGLOBIN A1C 5.3 4.0-5.6 Nov 20, 2023 10:55 AM [facility] IRON & TIBC PANEL Specimen Type: SERUM No comment entered. Ordering Provider: LISA MERCADO Report Released Date/Time: Nov 20, 2023 10:16 AM Reporting Lab: [address] [address] Performing Lab: [address] [address] TIBC 363 ug/dL 204-475 IRON 66 ug/dL 40-160 Transferrin Saturation 18.2 L 20.0-50.0 Nov 20, 2023 10:55 AM [facility] FERRITIN Specimen Type: SERUM No comment entered. Ordering Provider: LISA MERCADO Report Released Date/Time: Nov 20, 2023 10:16 AM Reporting Lab: [address] [address] Performing Lab: [address] [address] FERRITIN 28 ng/mL 20-300 Nov 20, 2023 10:55 AM [facility] VITAMIN D (25-OH) Specimen Type: SERUM No comment entered. Ordering Provider: LISA MERCADO Report Released Date/Time: Nov 20, 2023 10:16 AM Reporting Lab: [address] [address] Performing Lab: [address] [address] VITAMIN D (25-OH) 22 ng/mL 20-50 Nov 20, 2023 10:55 AM [facility] CBC AND DIFF (AUTO) Specimen Type: BLOOD No comment entered. Ordering Provider: LISA MERCADO Report Released Date/Time: Nov 20, 2023 10:16 AM Reporting Lab: [address] [address] Performing Lab: [address] [address] WBC 3.41 10*3/uL L 4.50-11.00 RBC 4.63 10*6/uL 4.23-5.66 HGB 13.0 g/dL 12.8-17 HCT 40.2 39.2-50.4 MCV 86.8 fL 82-99 MCHC 32.3 g/dL 30.8-35.1 PLT 99 10*3/uL L 140-360 RDW-CV 17.9 H 12.0-16.0 [place], Abs 0.33 10*3/uL 0.30-1.10 MCH 28.1 pg 26.2-32.6 Neut % 71.3 43.7-75.8 Lymph % 15.8 14.0-42.3 [place] % 9.7 5.1-13.7 Eos % 2.6 0.4-6.8 Baso % 0.3 0.1-2.0 Neut, Abs 2.43 10*3/uL 2.20-7.60 Lymph, Abs 0.54 10*3/uL L 1.00-3.20 Eos, Abs 0.09 10*3/uL 0.03-0.44 Baso, Abs 0.01 10*3/uL 0.01-0.13 Immature Gran % 0.3 0.0-0.7 Immature Gran, Abs 0.01 10*3/uL 0.00-0.06 Nov 20, 2023 10:55 AM [facility] METHYLMALONIC ACID (SERUM-QU) Specimen Type: SERUM Comment: This test was developed and its analytical performance characteristics have been determined by [facility] [employer] [place], [place]. It has not been cleared or approved by the U.S. Food and Drug Administration. This assay has been validated pursuant to the CLIA regulations and is used for clinical purposes. Test Performed by [facility], [facility], [address] [place] [address] Elliott Calvillo M.D., Ph.D., Director of Laboratories , CLIA [id number] TEST PERFORMED AT: , Ordering Provider: LISA MERCADO Report Released Date/Time: Nov 20, 2023 02:59 PM Reporting Lab: [facility] [address] [facility] [address] Performing Lab: [facility] [address] [address] METHYLMALONIC ACID (SERUM-QU) 555 nmol/L H 87-318 Nov 20, 2023 10:55 AM [facility] FOLATE (WROX) Specimen Type: SERUM No comment entered. Ordering Provider: LISA MERCADO Report Released Date/Time: Nov 20, 2023 02:59 PM Reporting Lab: [facility] [address] [facility] [address] Performing Lab: [facility] [address] [facility] [address] FOLATE (WROX) 8.39 ng/mL >5.2 Nov 20, 2023 10:55 AM [facility] VITAMIN B12 Specimen Type: SERUM No comment entered. Ordering Provider: LISA MERCADO Report Released Date/Time: Nov 20, 2023 02:59 PM Reporting Lab: [facility] [address] [facility] [address] Performing Lab: [facility] [address] [facility] [address] VITAMIN B12 438 pg/mL 200-900 Social History: Smoking Status (Most current) and Tobacco Use (All prior to encounter date) This section includes the most current, and the historical, smoking and tobacco- related health factors from the [place] facility where the Encounter took place. Current Smoking Status This section includes the most current smoking, or tobacco-related health factor, from the [place] facility where the Encounter took place. Date/Time Current Smoking Status Comment Facil ity Nov 20, 2023 10:11 AM [place]-TOBACCO FORMER USER [facility] Tobacco Use History This section includes a history of the smoking, or tobacco-related health factors, that were collected on or before the date of the Encounter. The data comes from the [place] facility where the Encounter took place. Date/Time Smoking Status/Tobacco Use Comment F acletha Nov 20, 2023 10:11 AM VA-TOBACCO QUIT 15 YRS OR MORE [facility] May 27, 2011 12:54 PM QUIT TOBACCO USE 1 -7 YEARS AGO quit 2006 [facility] May 09, 2010 03:17 PM QUIT TOBACCO USE 1 -7 YEARS AGO [facility] Encounter Notes: All associated encounter notes This section contains the clinical notes associated to the Encounter. Date/Time Encounter Note(s) Provider Source December 18, 2023 12:30 PM LETTERS: LOCAL TITLE: PATIENT LETTER (T) STANDARD TITLE: LETTERS DATE OF NOTE: DECEMBER 18, 2023@12:30 ENTRY DATE: DECEMBER 18, 2023@12:30:07 AUTHOR: JONY CAPONE EXP COSIGNER: URGENCY: STATUS: COMPLETED DEPARTMENT OF [facility] [place] Toll Free Number Primary Care Telephone Assistance can be reached at extension [phone] [facility] scheduling can be reached at extension [phone] [facility] scheduling can be reached at ext [phone] YENIFER CUI [address] [place] [address], [address] Date: 12/18/2023 Dear : SEE Thank you for choosing [facility] as your primary choice for health care. As a partner in your health care, we are attempting to contact you because we have been unsuccessful in reaching you by phone. WE ARE ATTEMPTING TO REACH YOU TO SCHEDULE AN APPOINTMENT WITH YOUR PROVIDER TO GO OVER LAB RESULTS. YOU CAN EITHER COME INTO THE CLINIC, OR SCHEDULE A VIDEO APPT, WHICHEVER YOU WOULD LIKE. We want to assure you that we are doing everything possible to schedule veterans for their appointments. Please call us at [phone] to speak with a staff member who can assist you with SCHEDULING your appointment. Thank you for your service and we look forward to hearing from you soon. Sincerely; [facility] staff Primary Care Provider : LISA MERCADO M.D. [address] [place] [address] [phone] Sincerely, Your Primary Care Team [facility] [address] [address] [place] [address] [phone] [facility] [address] [place] [address] [place] [address] [phone] [facility] [address] [facility] [place] [address] [place] [address] [phone] JONY CAPONE [facility]
--- OUTSIDE RECORDS SUMMARY | 2024-07-21 00:22 | XMS_ITS | Encounter Summary ---
Author Name [facility] [place] Address [address] [place] [address] Care Team Providers Care Policeman Name Role Phone SAUL PEREZ Primary Care [...] PART A Sep 10, 2001 PART A [id number] YENIFER CUI PATIENT MEDICARE (WNR) MEDICARE (M) PART B Sep 10, 2001 PART B [id number] YENIFER CUI PATIENT MEDICARE (WNR) MEDICARE (M) PART A Sep 10, 2001 PART A [id number] YENIFER CUI PATIENT MEDICARE (WNR) MEDICARE (M) PART B Sep 10, 2001 PART B [id number] JACKSHAQUILLE CONTRERASMIL PATIENT COUNT INCLUDES THE [facility] MEDICAL EXPENSE (OPT/PROF ) [facility] IN[facility] N Feb 08, 2012 [id number] RONA [facility]SE [facility] MILI WALLER Feb 08, 2012 [id number] RONA CUI SPOUSE Selected Encounter This section includes the information on record at [place] for the Encounter. Date/Time Encounter Type Encounter Description Reason Provider Source December 24, 2023 03:24 PM FIT SPECTACLES BIFOCAL OPTOMETRY ICD-10-CM Z46.0 Encounter for fit/adjst of spectacles and contact lenses LEO MANTILLA Sawyer Encounter Template Text not used by [place] Assessments - Encounter Diagnoses This section includes the primary and secondary diagnoses documented for the Encounter. Date/Time Primary/Secondary Diagnosis Diagnosis Name Provider Source December 24, 2023 03:24 PM PRIMARY Encounter for fit/adjst of spectacles and contact lenses LAURIE CHA [place] [facility] Plan of Treatment: Future Appointments (+ 6 months) and Future Tests (+/- 45 days) The Plan of Treatment section includes future care activities for the patient from all [place] treatmentfacilities. This section includes future appointments and future orders which are active, pending or scheduled. Future Appointments This section includes appointments that were scheduled to occur 6 months from the date of the Encounter, up to a maximum of 20 appointments. The data comes from all [place] treatment facilities. Appointment Date/Time Appointment Type Appointme nt Facility Name Jan 13, 2024 11:30 AM AMBULATORY - MEDICINE [facility] Jun 03, 2024 10:00 AM AMBULATORY [facility] MEDICINE [facility] Active, Pending, and Scheduled Orders This section includes a listing of several types of active, pending, and scheduled orders, including clinic medications orders, diagnostic test orders, procedure orders and consult orders; where the start date of the order is 45 days before the date of the Encounter or 45 days after the date of theEncounter. The data comes from all [place] treatment facilities. Test Date/Time Test Type Test Details Facility Name Nov 20, 2023 12:00 AM Laboratory - Chemi stry Order HEPATITIS C ANTIBODY (HCV)-ARC BLOOD (MARBLED-TOP SERUM) [facility] Social History: Smoking Status (Most current) and Tobacco Use (All prior to encounter date) This section includes the most current, and the historical, smoking and tobacco- related health factors from the [place] facility where the Encounter took place. Current Smoking Status This section includes the most current smoking, or tobacco-related health factor, from the [place] facility where the Encounter took place. Date/Time Current Smoking Status Comment Malinda lopez Nov 20, 2023 10:11 AM VA-TOBACCO FORMER USER [facility] Tobacco Use History This section includes a history of the smoking, or tobacco-related health factors, that were collected on or before the date of the Encounter. The data comes from the [place] facility where the Encounter took place. Date/Time Smoking Status/Tobacco Use Comment Mg estevez Nov 20, 2023 10:11 AM [place]-TOBACCO QUIT 15 YRS OR MORE [facility] May 27, 2011 12:54 PM QUIT TOBACCO USE 1 -7 YEARS AGO quit 2006 [facility] May 09, 2010 03:17 PM QUIT TOBACCO USE 1 -7 YEARS AGO [facility] Encounter Notes: All associated encounter notes This section contains the clinical notes associated to the Encounter. Date/Time Encounter Note(s) Provider Source December 24, 2023 03:24 PM OPTOMETRY NOTE: LOCAL TITLE: OPTOMETRY NOTE STANDARD TITLE: OPTOMETRY NOTE DATE OF NOTE: DECEMBER 24, 2023@15:24 ENTRY DATE: DECEMBER 24, 2023@15:24:12 AUTHOR: GABINO SHIN COSIGNER: URGENCY: STATUS: COMPLETED OPTOMETRY NOTE Has ADDENDA The quote provided below is for informational purposes only. Please verify prior to the creation of a purchase order. YENIFER MORANROSHAN 1518 RX INFORMATION OD +0.25 -1.00 X95 Add:+3.00 Pzm:0.00 Dir: Prz2:0.00 Dir2: OS 0.00 0.00 X Add:+3.00 Pzm:0.00 Dir: Prz2:0.00 Dir2: FITTING INFORMATION FPD:64 NPD:61 [place]:R: L: SEG HT:R:20 L:20 Tint:MARCO ANTONIO Shade:2.5 [place] Billable Items FRAME: FX10 BLACK [id number] Right Lens: PLASTIC BIFOCAL FT28 1.498 PLASTIC CR39 Left Lens: PLASTIC BIFOCAL FT28 1.498 PLASTIC CR39 UV400 BACKSIDE AR SOLID TINT The quote provided below is for informational purposes only. Please verify prior to the creation of a purchase order. YENIFER CUI 1518 RX INFORMATION OD +0.25 -1.00 X95 Add:+3.00 Pzm:0.00 Dir: Prz2:0.00 Dir2: OS 0.00 0.00 X Add:+3.00 Pzm:0.00 Dir: Prz2:0.00 Dir2: FITTING INFORMATION FPD:64 NPD:61 [place]:R: L: SEG HT:R:20 L:20 Tint:None Shade:None [place] Billable Items FRAME: FX10 BLACK [id number] Right Lens: TRIVEX BIFOCAL FT28 TRIVEX Left Lens: TRIVEX BIFOCAL FT28 TRIVEX KLEAR ANTI-REFLECTIVE COATING /damien/ GABINO SHIN TUBE BACKER Signed: 12/24/2023 15:24 Receipt Acknowledged By: 12/25/2023 14:29 /damien/ LAURIE CHA OPTOMETRY TECH 12/25/2023 ADDENDUM STATUS: COMPLETED PDS Courtroom Reporter fit patient with 2 pair(s) of ft28 eyeglasses on 12/24/2023. OPT HT entered consult(s) as requested for provider signature. /damien/ LAURIE CHA OPTOMETRY TECH Signed: 12/25/2023 14:31 GABINO SHIN [place] [facility]
--- OUTSIDE RECORDS SUMMARY | 2024-07-21 00:22 | XMS_ITS ---
Author Name [facility] [place] Organization [facility] [place] Address [address] [place] [id number] Care Team Providers Care Barge Engineer Name Role Phone SAUL PEREZ Primary Care [...] PART A Sep 10, 2001 PART A [id number] YENIFER CUI PATIENT MEDICARE (WNR) MEDICARE (M) PART B Sep 10, 2001 PART B [id number] YENIFER CUI PATIENT MEDICARE (WNR) MEDICARE (M) PART A Sep 10, 2001 PART A [id number] YENIFER CUI PATIENT MEDICARE (WNR) MEDICARE (M) PART B Sep 10, 2001 PART B [id number] YENIFER CUI PATIENT [facility] MED[facility] (OPT/PROF ) [facility] N Feb 08, 2012 [id number] BELLA CUI SPOUSE [facility] MED[facility] (OPT/PROF ) MILI OINT Feb 08, 2012 [id number] BELLA CUI SPOUSE Selected Encounter This section includes the information on record at [place] for the Encounter. Date/Time Encounter Type Encounter Description Reason Provider Source December 24, 2023 01:00 PM OFFICE O/P EST HI 40 MIN LOW VISION CARE ICD-10-CM 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, both eyes LEO MANTILLA Sawyer Encounter Template Text not used by [place] Assessments - Encounter Diagnoses This section includes the primary and secondary diagnoses documented for the Encounter. Date/Time Primary/Secondary Diagnosis Diagnosis Name Provider Source Jan 21, 2024 10:07 AM PRIMARY Unqualified visual loss, both eyes MANTILLA,LEO Richardson [place] [facility] [place] [facility] Jan 21, 2024 10:07 AM SECONDARY Combined forms of age-related cataract, bilateral MANTILLA,LEO Richardson [place] [facility] [place] [facility] Jan 21, 2024 10:07 AM SECONDARY Exudative age-rel mclr degn, left eye, with inactive scar MANTILLA,LEO Richardson [place] [facility] [place] 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 Plan of Treatment: Future Appointments (+ [...] 2024 10:00 AM AMBULATORY - MEDICINE [facility] Active, Pending, and Scheduled Orders This section includes a listing of several types of active, pending, and scheduled orders, including clinic medications orders, diagnostic test orders, procedure orders and consult orders; where the start date of the order is 45 days before the date of the Encounter or 45 days after the date of theEncounter. The data comes from all [place] treatment facilities. Test Date/Time Test Type Test Details Facility Name Nov 20, 2023 12:00 AM Laboratory - Chemi stry Order HEPATITIS C ANTIBODY (HCV)-ARC BLOOD (MARBLED-TOP SERUM) [facility] Social History: Smoking Status (Most current) [...] Facil ity Nov 20, 2023 10:11 AM [place]-TOBACCO FORMER USER [facility] Tobacco Use History This section includes a history of the smoking, or tobacco-related health factors, that were collected on or before the date of the Encounter. The data comes from the [place] facility where the Encounter took place. Date/Time Smoking Status/Tobacco Use Comment F acility Nov 20, 2023 10:11 AM [place]-TOBACCO QUIT 15 YRS OR MORE [facility] May 27, 2011 12:54 PM QUIT TOBACCO USE 1 -7 YEARS AGO quit 2006 [facility] May 09, 2010 03:17 PM QUIT TOBACCO USE 1 -7 YEARS AGO [facility] Encounter Notes: All associated encounter notes This section contains the clinical notes associated to the Encounter. Date/Time Encounter Note(s) Provider Source December 24, 2023 07:19 AM OPTOMETRY CONSULT: LOCAL TITLE: CONSULT REPORT/LOW VISION STANDARD TITLE: OPTOMETRY CONSULT DATE OF NOTE: DECEMBER 24, 2023@07:19 ENTRY DATE: DECEMBER 24, 2023@07:19:56 AUTHOR: LEO MANTILLA EXP COSIGNER: URGENCY: STATUS: COMPLETED Ocular Diagnosis: (x) Unqualified visual loss, both eyes (ICD-10-CM H54.3) (x) Additional: Non-Exudative ARMD,OD,Advanced with subfvl invlv (ICD-10-CM H35.3114) Exudative age-related macular degeneration, left eye, with inactive scar (ICD-10-CM H35.3223) Cataract,Combined Nucl/Cortical,Bilateral (ICD-10-CM H25.813) Appointment Information: (x) Ykdh-np-vfps Verified two identifications: (x) Full name (x) Date of (x)Yes ()No ()No Family/Friends present - Received verbal permission to speak in front of family/friend from Relationship to : Bella, Moss-co-Movp Time documentation: Start time: 1:00pm End time: 2:30pm Total time: 90 minutes minus Refraction time: (-) 3 min minus Special procedures time: (-) 0 min = 87 minutes total time spent with patient *Greater than 50% of the visit spent bzec-vj-apnb with patient was used for patient education and counselling. Patient was educated about permanent nature of vision loss and specific visual limitation from patient's specific etiology. Realistic outcomes of exam discussed at length. Patient educated at length on importance of full-time protection and safety concerns with each recommendation. Patient educated on best use of remaining vision and visual prognosis. Patient educated re proper use and purpose of each device and spectacle. Patient educated on purpose of low vision evaluation and that this does not replace ocular health examinations. Further details of specific education as described above.* Coordination of Care: Prolonged time spent on coordination of care. Extensive record review performed in relation to prior ocular, systemic and mental health as well as VIST/BROS records both at this VA facility and all documentation available from outside providers as well as other VA locations to determine any physical, emotional, cognitive and visual events that may impact patient regarding the low vision evaluation and potential device recommendations. Total time spent (not gqip-zm-scmk): 30 minutes Total Time (Direct + Non-Direct): 87 + 30 = 117 minutes Procedure Codes: Established Patient (1 time) 92718 Est Patient (40-54 minutes) Extended time Procedure Codes Established Patients Prolonged Office or other Outpatient Evaluation and Management Service(s) Beyond the Minimum Required Time of the Primary Procedure which has been Selected using Total Time, Requiring Total Time with or without Direct Patient Contact Beyond the Usual Service, on the Date of the Primary Service, each 15 minutes of Total Time (List Separately in addition to Codes 53128, 83525 for Office or other Outpatient Evaluation and Management Services) (5 times) 22803 (115-129 minutes) Other: (1 time) 04773 Refraction Chief Complaint(s): 1. Low Vision History Review 2. Mnoi-wp-Kqgh Evaluation a. Habitual Rx c comments b. Visual Acuity c. Static Retinoscopy d. Subjective Refraction e. Final RX f. Tint Evaluation g. Near Evaluation: i. Practical Near Evaluation: h. Intermediate Evaluation: i. Optivisor: 3. Ocular Pathology Education 4. Final Recommendations 5. Future LVOD Appointments/RTC Instruction Provided: 1. Low Vision History Review Low Vision Evaluation for: YENIFER CUI, 88 year old MALE Examiner: Leo Mantilla, OD, FAAO Ocular Diagnosis: see above BRIANA: Location: 11.26.23 [facility] 01.23.22 [facility] (x[facility] ()[facility] Low vision instructor: Severino DOBSON Chief Complaint: Reports he can still see pretty good, denies having difficulty doing anything with his vision. Then reports small things like putting a bulb in is difficult to see when to turn it, difficulty with household repairs. Enjoys gardening, denies visual difficulty. Cleans his room and vacuums, no visual difficulty. Chronology of Vision Loss: see prior report Per last ocular health note: Discussed that he does not meet state [...] low vision consult which he agrees to. Adjustment to vision loss: gets frustrated about vision loss and/or blindness? (x) Daily - when driving Driving (x) Drives local streets, daylight, and good weather only. Difficulty when it rains and window fogs up and has to open all windows to clear it. (x) No reported h/o auto accidents or close calls in the past 12 months MISC: Eye Dominancy: OD Hand Dominancy: Right Color Vision: Denies difficulty Ocular Inventory: (+) Photophobia: outside, not using sunglasses currently. Reports sunglasseshe received made vision too dark and needs a director religious education pair. (-) Asthenopia (-) Headaches (-) TBI (-) Raffy Bonnet Syndrome Pt ed re CBS causes and signs. Pt ed to report these symptoms. No olfactory, auditory or gustatory sensation associated. 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 HTN - Hypertension (SCT 63487345) D64.9 Anemia (SCT 648748898) I48.91 AF- Atrial Fibrillation (SCT 42054188) E78.5 Hyperlipidemia (SCT 75044319) N18.30 Chronic renal failure (SCT 84800588) F32.A Depression (SCT 51209153) R69. History of artificial heart valve (SCT 143831722) 366.9 Cataract, Unspecified (ICD-9-CM 366.9) 368.9 Vision, abnormal (ICD-9-CM 368.9) 785.2 Heart Murmurs (ICD-9-CM 785.2) Systemic Medications: Active Outpatient Medications (including Supplies): Active Outpatient Medications Status 1) APIXABAN 5MG TAB TAKE ONE-HALF TABLET BY MOUTH TWICE ACTIVE DAILY 2) MULTIVIT/OPHTH AREDS2/LUTE/ZEAX CAP/TAB TAKE 1 ACTIVE CAPSULE BY MOUTH TWICE DAILY IN THE MORNING AND EVENING, WITH FOOD 3) TORSEMIDE 10MG TAB TAKE ONE TABLET BY MOUTH ONCE ACTIVE DAILY FOR VISIBLE WATER RETENTION Active Non-VA Medications Status 1) Non-VA CARVEDILOL 12.5MG TAB 12.5MG BY MOUTH TWICE ACTIVE DAILY 2) Non-VA ISOSORBIDE MONONITRATE 60MG SA TAB 60MG BY ACTIVE MOUTH ONCE DAILY 3) Non-VA SPIRONOLACTONE 25MG TAB 25MG BY MOUTH ONCE ACTIVE DAILY 6 Total Medications ALLERGIES: Patient has answered NKA PREVIOUS OPTICAL DEVICES 1. Constant Wear Spec.: How Old: 3 mos Where From: Dr. Newman Rx: unknown, did not bring Description: bifocal Tint: none Subjective Comments: only uses when trying to read something, doesn't wear while driving. Reports glasses do not help at distance. 1. Constant Wear Spec.: How Old: 01.23.22 Where From: [facility] OD: +0.25-0.50j558 OS: plano Description: SV Tint: 70% Transmission BLUE Subjective Comments: not using 1. Constant Wear Spec.: How Old: 09.25.21 Where From: [facility] OD: +0.25-0.71g542 OS: plano Add: +2.75 Description: bifocal Tint: none Subjective Comments: not using *Prior Tints: 2. Reading Spec.: 3. Intermediate Spec.: 4. Non-Illuminated HHM: 5. Illuminated HHM: Description: POWERMAG+ 2.5X/6D BRIGHT WHITE How Old: 2021 Where From: [facility] Subjective Comments: uses to help with any small print 6. Monocular/Binocular Telescopes: 7. Spectacle Mounted Telescopes: 8. Sunwear: 30% Transmission BLUE - too dark *Prior Tints: 9. Non-optical Devices: 10. Other Spectacles or Devices: () Optivisor () LuxoMag Lamp () Stand Magnifier () CCTV with/without OCR () Portable Video Magnifier () Head borne Video Magnifier () Other: ILLUMINATION: Indoors/Home: (x) Patient reports lighting in home is comfortable without issue Outdoors: (x) Patient reports vision best on overcast day (x) Patient reports not utilizing sunglasses to reduce glare MOBILITY: In Patient's Home: (x) Patient denies difficulty or recent falls Outdoors: (x) Patient denies difficulty or recent falls GENERAL INFORMATION Marital Status: (x) Living situation: (x) Live with spouse/significant other Living Environment: (x) Multi-level home - 2 family but stays on 1 level Educational Background: (x) Some HS (x) Trade School Employment History: [employer] (x) Retired age 65 DAILY LIVING SKILLS: Continuous Text and Spot Reading: reports not an avid reader and current HHM is meeting spotting needs. Grocery shopping: (x) Not involved; managed by Cooking: (x) All of the meal prep is managed by Cleaning, laundry: cleans his room, manages the rest Household repair: increased difficulty Grooming: (x) Remains independent with all self-care, bathing, dressing, shaving (x) Shaves by feel (x) Reports using electric shaver Medication Management (x) Meds are managed by (x) Reports utilizing pill box Finances: (x) Family and Personal finances are managed by . Will go to back to withdraw money for spending money. Denies difficulty identifying paper and coin money Lawn care/outdoor: (x) Denies difficulty gardening, maintains lawn, hires help for snow removal CO-MORBIDITIES: (for rehab potential purposes) () Severe Arthritis () Hand tremors () Cognition impairment (x) Hearing loss () Depression/anxiety () Physical limitations () Memory loss () Other: INTERESTS/HOBBIES: (x) Reading: (x) Fall tags (x) Labels (x) Intermediate Tasks: (x) Gardening (x) Other: household repairs (x) Distance Viewing (television, theater, sports, etc.) (x) Television watching: Screen Size: 30 Viewing Distance: 8-9' Can see big picture items: yes Can see fine detail and print: yes GOALS (PRIORITIZED): 1. Tint update for sunglasses, current sunglasses too dark 2. Household repairs 2. Snbu-xs-Spig Evaluation a. Habitual Rx c comments: DVAcc: 11.26.23 OD: sc 20/60, cc 20/50-2 PHNI OS: cc LVOD 01.23.22 Final RX VA: EV: Illum: OD: +0.25-0.03E343 20/20-1 PG MOD OS: PLANO 10/600 12 MOD b. Visual acuity Feinbloom/Snellen cc Eccentric View: Illumination: OD: 20/50-1 PG mod OS: 10/600 12 mod Comments: very difficult to prompt into EV and unable to hold for refraction OS. c. Static Retinoscopy VA: EV: Illum: OD: -0.50-0.09v936 20/60-1+2 PG mod OS: n/a d. Subjective Refraction VA: EV: Illum: OD: +0.25-1.60k552 20/40-1 PG mod OS: defer e. Final RX VA: EV: Illum: OD: +0.25-1.92y258 20/40-1 PG mod OS: plano 10/600 12 mod Comments: Patient educated extensively that constant wear glasses and sunglasses will reduce glare and provide protection but will not improve clarity from current glasses and that for best clarity must use PRL. Patient educated multiple times on the importance of full-time protective eyewear. Discussed with the patient the realistic expectations and goal of low vision services in maximizing remaining vision to best meet his visual goals. f. Tint Evaluation Tints trialed: orange, zo, yellow, plum, pickard, blue Tint preferred: Reading: none Constant: none Sun: Zo #2.5 Comments: Patient educated at length regarding the benefit of tints including the benefit of custom tint colors/transmissions based on each individual's ocular and systemic history as well as specific goals and difficulties. Patient educated on purpose of tints in glasses including reducing glare and photophobia as well as increased comfort. Discussed blue-wen tints and benefit based on patient's etiology and that the blue wavelengths of light are shortest causing most scatter and glare. g. Near Evaluation: i. Practical Near Evaluation: Eye: OU Typoscope: N Add [place] +3.00 10Pt c no improvement with increased add Comments: For gross detail at typical working distance and continued use of bifocals will proceed but understands this is not for reading and has no volume reading goals. h. Intermediate Evaluation: i. Optivisor: 2D lenses with 10D loupe and LED light attachments Comments: trialed and despite ability to utilize for simulated home repairs reports he would not utilize device and not interested in utilizing other type of device for this goal currently. 3. Ocular Pathology Education: Patient educated at length regarding natural history of ocular pathology, purpose of treatment, and the impact on functional vision. Patient educated on the importance of continued follow-up with ocular health providers and that low vision rehabilitation in no way replaces ocular health exams. Patient educated on importance of alerting ocular health provider of any changes in vision or new symptoms. Patient educated on permanent nature of vision loss associated with ocular pathology. Patient educated on the differences in refractive error and the impact of ocular pathology. Patient educated on purpose of glasses and adaptive aids. 4. Final Recommendations 1. Constant Wear Spectacles: OD: +0.25-1.08n130 OS: plano Add: +3.00 Tint: NONE -PATIENT WAS EDUCATED TO WEAR CONSTANT WEAR PRESCRIPTION AT ALL TIMES WHILE INDOORS FOR BEST VISION AND PROTECTION. PATIENT WAS EDUCATED REGARDING SAFETY ISSUES WHILE AMBULATING IN THE BIFOCAL DOWN STAIRS AND OFF CURBS. 2. Sunwear Spectacles: OD: +0.25-1.49k804 OS: plano Add: +3.00 Tint: Zo #2.5 -PATIENT WAS EDUCATED TO WEAR HIS SUNWEAR PRESCRIPTION AT ALL TIMES WHILE OUTDOORS FOR BEST VISION AND PROTECTION. PATIENT WAS EDUCATED REGARDING SAFETY ISSUES WHILE AMBULATING IN THE BIFOCAL DOWN STAIRS AND OFF CURBS. 5. Future LVOD Appointments/RTC (x)Low vision evaluation completed at this time, no scheduled follow-up indicated at present RTC as needed Prosthetics Ordered: 1. See Above Next Lesson Objective / Recommendations: 1. The evaluation and training on the use of the recommended aids, processes, and/or techniques is complete, no additional instruction is necessary at this time. 2. The [place] has been provided large print contact information and is aware that he can contact the LVOD, VIST or BROS with any questions from todays lesson or about his vision loss. Comments: How does the patient/client best learn? (x) Observation (x) Repetition () Large Print Directions () Standard Print Directions (x) Audible Directions Does the patient/client have any cultural and yazidi beliefs, emotional barriers, physical or cognitive limitations, and communication barriers which may impact his/her ability to learn? Barrier to Patient Education identified: None() Non-Montserratian speaking() Cognitive () Hearing Impaired (x) Emotional () Spiritual Practices () Visually Impaired (x) Inability to read () Preferred method of learning: x()Verbal ()Written ()Demonstration Patient's response: (x)Could repeat significant material (x)Asked pertinent questions (x)Able to demonstrate skills learned Desire and motivation to learn? () Excellent () Moderate (x) Low Not receptive to learning () Patient Education Education provided on the following topics: see above Education provided to: P Response to Education: VU, RD, PI Rolle Patient P Family F Significant Other SO Verbalizes Understanding VU Returns Demonstration RD Performs Independently PI Lacks Comprehension LC Refused Education RE Not Applicable NA Disclaimer: Because the acuities and cotto in this evaluation were taken using special techniques and lighting NOT contained in the [place] Physician Guide Disability Evaluation Examination, they CANNOT be used for rating purposes. Medication Reconciliation: Outpatient: Has the patient been taking medications as documented in the EMLR? YES: The patient has been taking medications as documented in the EMLR. Essential Medication List for Review used to complete this medication reconciliation. INCLUDED IN THIS LIST: Alphabetical list of active outpatient prescriptions dispensed from this [place] (local) and dispensed from another [place] or DoD facility (remote) as well as [...] whether with a VA or non-VA provider. Medication List: JLV Link Data on this list may not be complete. Please check JLV. Allergies/ADRs (Tool #5) FACILITY ALLERGY/ADR -------- No Remote Allergy/ADR Data available for this patient [facility] [place] [facility] No Known Allergies Med. Reconciliation (Tool #1) INCLUDED IN THIS LIST: Alphabetical list of active outpatient prescriptions dispensed from this VA (local) and dispensed from another VA or DoD facility (remote) as well as inpatient orders (local pending and active), local clinic medications, locally documented non-VA medications, and local prescriptions that have or been discontinued in the past 90 days. Non-VA Meds Last Documented On: Jun 20, 2021 NOTE The display of VA prescriptions dispensed from another VA or DoD facility (remote) is limited to active outpatient prescription entries matched to National Drug File at the originating site and may not include some items such as investigational drugs, compounds, etc. NOT INCLUDED IN THIS LIST: Medications self-entered by the patient into personal health records (i.e. Ideabove) are NOT included in this list. Non-VA medications documented outside this [place], remote inpatient orders (regardless of status) and remote clinic medications are NOT included in this list. The patient and provider must always discuss medications the patient is taking, regardless of where the medication was dispensed or obtained. OUTPT APIXABAN 5MG TAB (Status = Active) TAKE ONE-HALF TABLET BY MOUTH TWICE DAILY Rx# [id number] Last Released: 08/25/23 Qty/Days Supply: 90 Rx Expiration Date: 03/03/24 Refills Remainin Non-VA CARVEDILOL 12.5MG TAB TAKE ONE TABLET BY MOUTH TWICE DAILY OUTPT CHLORHEXIDINE GLUCONATE 4% TOP LIQUID (Status = ) APPLY SMALL AMOUNT TOPICALLY TWICE DAILY FOR SKIN CLEANSING Rx# [id number] Last Released: 10/24/22 Qty/Days Supply: 240/30 Rx Expiration Date: 10/25/23 Refills Remainin Indication: FOR SKIN CLEANSING Non-VA ISOSORBIDE MONONITRATE 60MG SA TAB TAKE ONE TABLET BY MOUTH ONCE DAILY OUTPT MULTIVIT/OPHTH AREDS2/LUTE/ZEAX CAP/TAB (Status = Active) TAKE 1 CAPSULE BY MOUTH TWICE DAILY IN THE MORNING AND EVENING, WITH FOOD Rx# [id number] Last Released: 11/28/23 Qty/Days Supply: 120/60 Rx Expiration Date: 11/27/24 Refills Remainin Indication: FOR VITAMIN SUPPLEMENTATION OUTPT MUPIROCIN 2% OINT (Status = ) APPLY THIN LAYER TOPICALLY TWICE DAILY FOR SKIN INFECTION Rx# [id number] Last Released: 10/24/22 Qty/Days Supply: 44/30 Rx Expiration Date: 10/25/23 Refills Remainin Indication: FOR SKIN INFECTION Non-VA SPIRONOLACTONE 25MG TAB TAKE ONE TABLET BY MOUTH ONCE DAILY OUTPT TORSEMIDE 10MG TAB (Status = Active) TAKE ONE TABLET BY MOUTH ONCE DAILY FOR VISIBLE WATER RETENTION Rx# [id number] Last Released: 08/14/23 Qty/Days Supply: 90 Rx Expiration Date: 08/12/24 Refills Remainin Indication: FOR VISIBLE WATER RETENTION SUPPLIES PHARMACY TERMS AND POSSIBLE PATIENT ACTIONS INPT = [place] inpatient order IV = [place] intravenous medication OUTPT = [place] outpatient prescription PHARMACY POSSIBLE PATIENT TERMS EXPLANATION ACTIONS -------- ----- ACTIVE A prescription that can be If you have refills, filled at the local [place] pharmacy. you may request a refill of this prescription from your [place] pharmacy. CLINIC A medication you received during If you have questions a visit to a [place] clinic or about this medication emergency department. contact your [place] healthcare team. DISCONTINUED A prescription your provider has Contact your VA stopped. It is no longer healthcare team if you available to be sent to you or need more of this picked up at the [place] pharmacy medication. window. A prescription which is too old Contact your VA to fill. This does not refer to healthcare team if you the expiration date of the need more of this medication in the container. medication. NON-VA A medication that came from If this medication someplace other than a VA information is pharmacy. This may be a incorrect or out of prescription from either the VA date, please tell your or non VA providers that was VA healthcare team. filled outside the VA. Or, it may be an ynpn-wuv-vbyogmk (OTC), herbal, dietary supplements or sample medication. ON HOLD An active prescription that will Contact your VA not be filled until pharmacy pharmacy when you need resolves the issue. more of this medication. PARKED An active prescription that will Contact your VA not be filled until the patient pharmacy when you need requests it. this medication. PENDING This prescription order has been If you have been sent to the pharmacy for review instructed to start and is not ready yet. this medication now, contact your VA pharmacy. SUSPENDED An active prescription that is Contact your VA not scheduled to be filled yet. pharmacy if you need You should receive it before this medication now. you run out. 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
--- OUTSIDE RECORDS SUMMARY | 2024-07-21 00:22 | XMS_ITS | Encounter Summary ---
Author Name Department of [facility] Affairs ([place]) Organization [facility] Address [address] [place] [address] Care Team Providers Care Health Care Marketing Specialist Name Role Phone SAUL PEREZ Primary Care [...] Policy [place] MEDICARE (WNR) MEDICARE (M) PART B Sep 10, 2001 PART B [id number] [phone] YENIFER CUI PATIENT MEDICARE (WNR) MEDICARE (M) PART A Sep 10, 2001 PART A [id number] YENIFER CUI PATIENT MEDICARE (WNR) MEDICARE (M) PART A Sep 10, 2001 PART A [id number] YENIFER CUI PATIENT MEDICARE (WNR) MEDICARE (M) PART B Sep 10, 2001 PART B [id number] [phone] SHAQUILLE CUIMIL PATIENT [facility] (OPT/PROF ) [facility] Feb 08, 2012 [id number] RONA CUI SPOUSE [facility] I.. MEDICAL EXPENSE (OPT/PROF ) MILI WALLER Feb 08, 2012 [id number] RONA CUI SPOUSE Selected Encounter This section includes the information on record at MD for the Encounter. Date/Time Encounter Type Encounter Description Reason Provider Source Jan 13, 2024 11:30 AM OFFICE O/P EST MOD 30 MIN PRIMARY CARE/MEDICINE ICD-10-CM E55.9 Vitamin D deficiency, unspecified LISA MERCADO [place] Encounter Template Text not used by MD Assessments - Encounter Diagnoses This section includes the primary and secondary diagnoses documented for the Encounter. 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 This section includes future appointments and future orders which are active, pending or scheduled. Future Appointments This section includes appointments that were scheduled to occur 6 months from the date of the Encounter, up to a maximum of 20 appointments. The data comes from all MD treatment facilities. Appointment Date/Time Appointment Type Appointme nt Facility Name Jun 03, 2024 10:00 AM [facility] Vital Signs: All taken on the encounter date This section contains inpatient and outpatient Vital Signs collected on the date of the Encounter. Date/Time Temperature Pulse Blood Pressure Respiratory Rate SP02 Pain Height Weight Body Mass Index Source Jan 13, 2024 12:03 PM 97 44 140/67 19 95 0 72 163 22 [place] Social History: Smoking Status (Most current) and Tobacco Use (All prior to encounter date) This section includes the most current, and the historical, smoking and tobacco- related health factors from the MD facility where the Encounter took place. Current Smoking Status This section includes the most current smoking, or tobacco-related health factor, from the MD facility where the Encounter took place. Date/Time Current Smoking Status Comment Facil ity Nov 17, 2022 01:30 PM VA-TOBACCO QUIT 15 YRS OR MORE [place] Tobacco Use History This section includes a history of the smoking, or tobacco-related health factors, that were collected on or before the date of the Encounter. The data comes from the MD facility where the Encounter took place. Date/Time Smoking Status/Tobacco Use Comment F acility Nov 17, 2022 01:30 PM VA-TOBACCO QUIT 15 YRS OR MORE [place] Jun 19, 2021 11:00 AM VA-TOBACCO FORMER USER [place] Jun 19, 2021 11:00 AM VA-TOBACCO QUIT 5 TO < 15 YRS [place] Encounter Notes: All associated encounter notes This section contains the clinical notes associated to the Encounter. Date/Time Encounter Note(s) Provider Source Jan 13, 2024 12:09 PM PHYSICIAN NOTE: LOCAL TITLE: MD NOTE STANDARD TITLE: PHYSICIAN NOTE DATE OF NOTE: JAN 13, 2024@12:09 ENTRY DATE: JAN 13, 2024@12:09:40 AUTHOR: LISA MERCADO COSIGNER: URGENCY: STATUS: COMPLETED PRIMARY CARE VISIT YENIFER CUI, is a 88 yo WHITE MALE TYPE OF VISIT: Face to face CHART REVIEWED, PATIENT EXAMINED. HPI: reviewed labs with today +dementia [place] with Cognitive issues. Independent historian present at today's visit to provide information. present at visit today reportedly dx'd with vitamin d def at renal appt approx 3 weeks ago started on daily vitamin d renal func mildly worse platelets lower but denies bleeding Methylmalonic acid elev not on vitam b complex he needs refill of eliquis completely out Most Recent labs reviewed and all medications were reconciled during this visit. Service Connection/Rated Disabilities: Service Connected Disabilities with % Eligibility: SERVICE CONNECTED 50% to 100% VERIFIED Total S/C %: 60 IMPAIRED HEARING 60% S/C TINNITUS 10% S/C HISTORY: PERIOD OF SERVICE - [employer] FROM May TO Mar COMBAT SERVICE INDICATED: No VITAL SIGNS: Temperature 97 F [36.1 C] (01/13/2024 12:03) Blood Pressure 140/67 (01/13/2024 12:03) Pulse 44 (01/13/2024 12:03) Respiration 19 (01/13/2024 12:03) Pain 0 (01/13/2024 12:03) BMI BMI: 22.2 Weight 163 lb [73.94 kg] (01/13/2024 12:03) Pulse Oximetry 95% (01/13/2024 12:03) ASSISTIVE DEVICES: REVIEW OF SYSTEMS: All systems are reviewed and are otherwise negative, unless specified in the HPI. PHYSICAL EXAMINATION: General: Well-appearing, in no obvious distress. Mental Status: Alert Head: Normocephalic, atraumatic. Eyes: PERRL. EOMI. Anicteric sclerae. ENT: Moist oral mucosa. dentition Neck: Supple. FROM. Ext: No cyanosis or clubbing. No gross deformities. Neuro: CN II through XII grossly intact. Normal speech. Normal gait. Integument: Skin warm and dry. No rashes or lesions on visible areas. Psych: Normal mood and affect. Normal judgment. Cooperative with exam, follows commands. ALLERGIES: Patient has answered [facility] PREVENTIVE MEDICINE GOALS Hepatitis C Testing DUE NOW Pneumococcal Conjugate Vaccine (PCV15/PCNov Medication Reconciliation DUE NOW Herpes Zoster (Shingles) Vaccine Aug 14 (Optional) Whole Health Documentation DUE NOW ASSESSMENT/PLAN: Active problems - Computerized Problem List is the source for the followin. Impaired Fasting Glucose ([facility] [id number])-stable 2. Vitamin D Deficiency ([facility] [id number]) now on 1000 iu daily 3. Leukopenia-chronic, stable 4. Long-term current use of anticoagulant- denies s/s bleeding 8. CAD - Coronary Artery Disease ([facility] [id number])- stable 9. HTN - Hypertension ([facility] [id number]) managed by Renal 11. Anemia ([facility] [id number])- presumed due to CKD 12. AF- Atrial Fibrillation ([facility] [id number]) stable 13. Hyperlipidemia ([facility] [id number])- controlled on meds 14. Vitamin B Def- start B complex 15. MCI- given age and co-morbidities this is not unexpected mild sxs start B complex daily re-eval at next visit Total time I spent on this visit was 25 minutes and included a review of chart, labs, notes, physical exam and discussion/education of patient. LAB ORDERS FOR NEXT VISIT: NURSING: PLEASE ORDER APPROPRIATE CHRONIC DISEASE LAB ORDERS FOLLOW UP: Return to clinic as noted below and/or sooner PRN UPCOMING APPOINTMENTS: 05/16/2024 10:00 CWM/SO/PACT 2 08/08/2024 11:00 CWM/NO/OPTOMETRY/MERHAR All medications were reconciled during this visit. No barriers noted; patient understands and agrees to current treatment plan. If patient has any questions, concerns or changes in current health status he/she will call or come in to the [facility]. PACT TEAM INSTRUCTIONS: Medication Reconciliation: Outpatient: Has the patient been taking medications as documented in the EMLR? No: Discrepencies were identified. See below. Essential Medication List for Review used to complete this medication reconciliation. INCLUDED IN THIS LIST: Alphabetical list of active outpatient prescriptions dispensed from this MD (local) and dispensed from another MD or [facility] facility (remote) as well as inpatient orders (local, pending and active), local clinic medications, locally documented non-VA medications, and local prescriptions that have or been discontinued in the past 90 days. - Discrepancies were identified, addressed, and discussed with the patient/caregiver at this encounter. Discrepancies: now on daily vitamin d - All changes in medications, including all non-VA/Herbal/OTC medications were entered into CPRS. - If there were any medications the patient should no longer take, they were discontinued. - The patient/caregiver was instructed to update this list, discard old lists, and take this list to the next appointment, whether with a VA or non-VA provider. /damien/ LISA MERCADO MD PHYSICIAN Signed: 01/13/2024 12:34 LISA MERCADO Jan 13, 2024 12:04 PM PREVENTIVE MEDICIN E NURSING NOTE: LOCAL TITLE: CLINICAL REMINDERS/NURSING STANDARD TITLE: PREVENTIVE MEDICINE NURSING NOTE DATE OF NOTE: JAN 13, 2024@12:04 ENTRY DATE: JAN 13, 2024@12:04:27 AUTHOR: FAITH COUCH EXP COSIGNER: URGENCY: STATUS: COMPLETED Advance Directive Screen MH AD: Patient has an up-to-date Advance Directive at an outside, non-va facility and was asked to forward a copy to his/her clinician. The Med Rec will be completed by the PCP. COVID-19 Immunization: Refused Moderna Monovalent COVID-19 vaccine Immunization: COVID-19 (MODERNA), MRNA, LNP-S, PF, 50 MCG/0.5 ML (AGES 12+ YEARS) Refusal Reason: PATIENT DECISION Patient refuses all immunization(s) in the COVID-19 group Date Documented: 01/13/24 12:08 /damien/ FAITH COUCH LPN LICENSED PRACTICAL NURSE Signed: 02/01/2024 08:07 FAITH COUCH
--- OUTSIDE RECORDS SUMMARY | 2024-07-21 00:22 | XMS_ITS | Encounter Summary ---
Author Name [facility] of [facility] [place] Organization [facility] [place] Address [address] [place] [id number] Care Team Providers Care Audio Visual Engineer Name Role Phone SAUL PEREZ Primary [...] PART A Sep 10, 2001 PART A [id number] SHAQUILLE CUIMIL PATIENT MEDICARE (WNR) MEDICARE (M) PART B Sep 10, 2001 PART B [id number] LUISAYENIFER ISLAS PATIENT MEDICARE (WNR) MEDICARE (M) PART A Sep 10, 2001 PART A [id number] JACKBEN YENIFER PATIENT MEDICARE (WNR) MEDICARE (M) PART B Sep 10, 2001 PART B [id number] SEE YENIFER PATIENT [facility] MEDICAL EXPENSE (OPT/PROF ) [facility] Feb 08, 2012 [id number] [facility]ONA [facility]SE [facility] Feb 08, 2012 [id number] RONA CUI SPOUSE Selected Encounter This section includes the information on record at NE for the Encounter. Date/Time Encounter Type Encounter Description Reason Pro vider Source December 23, 2023 01:42 PM Outpatient Encounter [facility] Encounter Template Text not used by NE Plan of Treatment: Future Appointments (+ 6 months) and Future Tests (+/- 45 days) The Plan of Treatment section includes future care activities for the patient from all [place] treatmentfacilities. This section includes future appointments and future orders which are active, pending or scheduled. Future Appointments This section includes appointments that were scheduled to occur 6 months from the date of the Encounter, up to a maximum of 20 appointments. The data comes from all [place] treatment facilities. Appointment Date/Time Appointment Type Appointme nt Facility Name December 24, 2023 01:00 PM AMBULATORY - [facility] Jan 13, 2024 11:30 AM AM[facility]ORY - MEDICINE [place] Jun 03, 2024 10:00 AM AMBULATORY - MEDICINE [facility] [place] [facility] Active, Pending, and Scheduled Orders This section includes a listing of several types of active, pending, and scheduled orders, including clinic medications orders, diagnostic test orders, procedure orders and consult orders; where the start date of the order is 45 days before the date of the Encounter or 45 days after the date of theEncounter. The data comes from all [place] treatment facilities. Test Date/Time Test Type Test Details Facility Name Nov 20, 2023 12:00 AM Laboratory - Chemi stry Order HEPATITIS C ANTIBODY (HCV)-ARC BLOOD ([facility]) [facility] Social History: Smoking Status (Most current) and Tobacco Use (All prior to encounter date) This section includes the most current, and the historical, smoking and tobacco- related health factors from the NE facility where the Encounter took place. Current Smoking Status This section includes the most current smoking, or tobacco-related health factor, from the [place] facility where the Encounter took place. Date/Time Current Smoking Status Comment Malinda lopez Nov 20, 2023 10:11 AM [facility] Tobacco Use History This section includes a history of the smoking, or tobacco-related health factors, that were collected on or before the date of the Encounter. The data comes from the NE facility where the Encounter took place. Date/Time Smoking Status/Tobacco Use Comment F acility Nov 20, 2023 10:11 AM NE-TOBACCO QUIT 15 YRS OR MORE [facility] May 27, 2011 12:54 PM QUIT TOBACCO USE 1 -7 YEARS AGO quit 2006 [facility] May 09, 2010 03:17 PM QUIT TOBACCO USE 1 -7 YEARS AGO [facility] Encounter Notes: All associated encounter notes This section contains the clinical notes associated to the Encounter. Date/Time Encounter Note(s) Provider Source December 23, 2023 01:42 PM ADMINISTRATIVE NOT E: LOCAL TITLE: ADMINISTRATIVE NOTE STANDARD TITLE: ADMINISTRATIVE NOTE DATE OF NOTE: DECEMBER 23, 2023@13:42 ENTRY DATE: DECEMBER 23, 2023@13:42:46 AUTHOR: GABRIELLE BROWN EXP COSIGNER: URGENCY: STATUS: COMPLETED has been contacted via telephone: () contacted directly () Spoke to caregiver/ (X) Left message to remind pt of appointment () Unable to leave message [place] reminded of the date and time for the following [place] appointment(s): 12/24/2023@1PM CWM/NO/OPTOMETRY LOW VISION Location of appointment(s) verified as: [address](second floor specialty clinic) It was explained that mask wearing is a requirement. [place] advised to come to appointment alone if possible. [place] reminded to bring glasses and portable low vision aids and equipment to this appointment. was encouraged to contact the LOW VISION DEPARTMENT at [phone] if there are additional questions or if they are unable to attend their scheduled appointments. /damien/ GABRIELLE BROWN LEAD ADVANCED RELAY ENGINEER Signed: 12/23/2023 13:43 Receipt Acknowledged By: 12/23/2023 14:17 /es/ LEO MANTILLA OD BUILD AND RELEASE MANAGER GABRIELLE BROWN [facility]
--- OUTSIDE RECORDS SUMMARY | 2024-07-21 00:22 | XMS_ITS ---
Author Name [facility] [place] Organization [place] Address [address] [place] [address] Care Team Providers Care Engagement Executive Name Role Phone SAUL PEREZ Primary Care [...] PART A Sep 10, 2001 PART A [id number] SHAQUILLE CUIMIL PATIENT MEDICARE (WNR) MEDICARE (M) PART B Sep 10, 2001 PART B [id number] LUISAYENIFER ISLAS PATIENT MEDICARE (WNR) MEDICARE (M) PART A Sep 10, 2001 PART A [id number] [phone] JACKBEN YENIFER PATIENT MEDICARE (WNR) MEDICARE (M) PART B Sep 10, 2001 PART B [id number] SEE YENIFER PATIENT FORMERLY [facility] MEDICAL EXPENSE (OPT/PROF ) [facility] Feb 08, 2012 [id number] RONA CUI [facility] (OPT/PROF ) [facility] Feb 08, 2012 [id number] RONA CUI SPOUSE Selected Encounter This section includes the information on record at [place] for the Encounter. Date/Time Encounter Type Encounter Description Reason Pro vider Source Dec 07, 2023 11:30 AM Outpatient Encounter [facility] Encounter Template Text not used by [place] Plan of Treatment: Future Appointments (+ 6 months) and Future Tests (+/- 45 days) The Plan of Treatment section includes future care activities for the patient from all [place] treatmentfacilities. This section includes future appointments and future orders which are active, pending or scheduled. Future Appointments This section includes appointments that were scheduled to occur 6 months from the date of the Encounter, up to a maximum of 20 appointments. The data comes from all [place] treatment facilities. Appointment Date/Time Appointment Type Appointme nt Facility Name December 24, 2023 01:00 PM AMBULATORY - [facility] [place] [facility] Jan 13, 2024 11:30 AM [facility] Jun 03, 2024 10:00 AM [facility] Active, Pending, [...] of theEncounter. The data comes from all [place] treatment facilities. Test Date/Time Test Type Test Details Facility Name Nov 20, 2023 12:00 AM Laboratory - Chemi stry Order HEPATITIS C ANTIBODY (HCV)-ARC BLOOD (MARBLED-TOP SERUM) [facility] Lab Results: +/- 30 days of the encounter This section includes the Chemistry and Hematology Lab Results on record with [place] for the patient. Radiology Reports and Pathology Reports are provided separately, in subsequent sections. Lab Results This section contains the Chemistry/Hematology Results that were resulted 30 days before or 30 daysafter the date of the Encounter. Date/Time Source Result Type Result - Unit Interpretation Reference Range Comment Nov 20, 2023 10:55 AM [facility] BASIC METABOLIC PANEL (non-fasting) Spe cimen Type: SERUM No comment entered. Ordering Provider: LISA MERCADO Report Released Date/Time: Nov 20, 2023 10:16 AM Reporting Lab: [address] [address] Performing Lab: [address] [address] UREA NITROGEN 58 mg/dL H 7-25 GLUCOSE 118 mg/dL H 65-100 SODIUM 140 mmol/L 135-145 POTASSIUM 5.1 mmol/L H 3.5-5.0 CHLORIDE 104 mmol/L 100-110 CO2 26 meq/L 20-30 CREATININE, Serum 2.26 mg/dL H 0.50-1.40 eGFR(CKD-EPI 2020) 27 mL/min L >60 Nov 20, 2023 10:55 AM [facility] LIVER FUNCTION Specimen Type: SERUM No comment entered. Ordering Provider: LISA MERCADO Report Released Date/Time: Nov 20, 2023 10:16 AM Reporting Lab: [address] [address] Performing Lab: [address] [address] PROTEIN,TOTAL 7.1 g/dL 6.0-8.3 ALBUMIN 3.5 g/dL 3.5-5.0 ALKALINE PHOSPHATASE 48 U/L 40-150 AST 15 U/L 5-34 ALT 10 U/L BILIRUBIN, TOTAL 0.7 mg/dL 0.2-1.2 Nov 20, 2023 10:55 AM [facility] LIPID PANEL, NON FASTING Specimen Type: SERUM No comment entered. Ordering Provider: LISA MERCADO Report Released Date/Time: Nov 20, 2023 10:16 AM Reporting Lab: [address] [address] Performing Lab: [address] [address] CHOLESTEROL 188 mg/dL TRIGLYCERIDE 102 mg/dL 0-150 LDL calculated 120 mg/dL 0-129 CHOL/HDL 3.9 HDL CHOLESTEROL 48 mg/dL 40-60 Nov 20, 2023 10:55 AM [facility] TSH Specimen Type: SERUM No comment entered. Ordering Provider: LISA MERCADO Report Released Date/Time: Nov 20, 2023 10:16 AM Reporting Lab: [facility] [address] [address] Performing Lab: [facility] [address] TSH 3.37 u[IU]/mL 0.35-5.00 Nov 20, 2023 10:55 AM [facility] HEMOGLOBIN A1C PANEL Specimen Type: BLOOD Comment: [...] Nov 20, 2023 10:16 AM Reporting Lab: [address] [address] Performing Lab: [facility] [address] [address] HEMOGLOBIN A1C 5.3 4.0-5.6 Nov 20, 2023 10:55 AM [facility] FERRITIN Specimen Type: SERUM No comment entered. Ordering Provider: LISA MERCADO Report Released Date/Time: Nov 20, 2023 10:16 AM Reporting Lab: [facility] [address] [address] Performing Lab: [facility] [address] [address] FERRITIN 28 ng/mL 20-300 Nov 20, 2023 10:55 AM [facility] IRON & TIBC PANEL Specimen Type: SERUM No comment entered. Ordering Provider: LISA MERCADO Report Released Date/Time: Nov 20, 2023 10:16 AM Reporting Lab: [facility] [address] [address] Performing Lab: [facility] [address] [address] TIBC 363 ug/dL 204-475 IRON 66 ug/dL 40-160 Transferrin Saturation 18.2 L 20.0-50.0 Nov 20, 2023 10:55 AM [facility] VITAMIN D (25-OH) Specimen Type: SERUM No comment entered. Ordering Provider: LISA MERCADO Report Released Date/Time: Nov 20, 2023 10:16 AM Reporting Lab: [address] [address] Performing Lab: [address] [address] VITAMIN D (25-OH) 22 ng/mL 20-50 Nov 20, 2023 10:55 AM [facility] CBC AND DIFF (AUTO) Specimen Type: BLOOD No comment entered. Ordering Provider: LISA MERCADO Report Released Date/Time: Nov 20, 2023 10:16 AM Reporting Lab: [address] [address] Performing Lab: [address] [address] WBC 3.41 10*3/uL L 4.50-11.00 RBC 4.63 10*6/uL 4.23-5.66 HGB 13.0 g/dL 12.8-17 HCT 40.2 39.2-50.4 MCV 86.8 fL 82-99 MCHC 32.3 g/dL 30.8-35.1 PLT 99 10*3/uL L 140-360 RDW-CV 17.9 H 12.0-16.0 [place], Abs 0.33 10*3/uL 0.30-1.10 MCH 28.1 pg 26.2-32.6 Neut % 71.3 43.7-75.8 Lymph % 15.8 14.0-42.3 [place] % 9.7 5.1-13.7 Eos % 2.6 0.4-6.8 Baso % 0.3 0.1-2.0 Neut, Abs 2.43 10*3/uL 2.20-7.60 Lymph, Abs 0.54 10*3/uL L 1.00-3.20 Eos, Abs 0.09 10*3/uL 0.03-0.44 Baso, Abs 0.01 10*3/uL 0.01-0.13 Immature Gran % 0.3 0.0-0.7 Immature Gran, Abs 0.01 10*3/uL 0.00-0.06 Nov 20, 2023 10:55 AM [facility] METHYLMALONIC ACID (SERUM-QU) Specimen Type: SERUM Comment: This test was developed and its analytical performance characteristics have been determined by [employer] [place], [place]. It has not been cleared or approved by the U.S. Food and Drug Administration. This assay has been validated pursuant to the CLIA regulations and is used for clinical purposes. Test Performed by [facility], [employer] [facility], [address] [place] [address] Elliott Calvillo M.D., Ph.D., Director of Laboratories , CLIA [id number] TEST PERFORMED AT: , Ordering Provider: LISA MERCADO Report Released Date/Time: Nov 20, 2023 02:59 PM Reporting Lab: [facility] [address] [facility] [address] Performing Lab: [facility] [address] [address] METHYLMALONIC ACID (SERUM-QU) 555 nmol/L H 87-318 Nov 20, 2023 10:55 AM [facility] FOLATE (WROX) Specimen Type: SERUM No comment entered. Ordering Provider: LISA MERCADO Report Released Date/Time: Nov 20, 2023 02:59 PM Reporting Lab: [facility] [address] [facility] [address] Performing Lab: [facility] [address] [facility] [address] FOLATE (WROX) 8.39 ng/mL >5.2 Nov 20, 2023 10:55 AM [facility] VITAMIN B12 Specimen Type: SERUM No comment entered. Ordering Provider: LISA MERCADO Report Released Date/Time: Nov 20, 2023 02:59 PM Reporting Lab: [facility] [address] [facility] [address] Performing Lab: [facility] [address] [facility] [address] VITAMIN B12 438 pg/mL 200-900 Social History: Smoking Status (Most current) and Tobacco Use (All prior to encounter date) This section includes the most current, and the historical, smoking and tobacco- related health factors from the [place] facility where the Encounter took place. Current Smoking Status This section includes the most current smoking, or tobacco-related health factor, from the [place] facility where the Encounter took place. Date/Time Current Smoking Status Comment Malinda ity Nov 20, 2023 10:11 AM [place]-TOBACCO FORMER USER [facility] Tobacco Use History This section includes a history of the smoking, or tobacco-related health factors, that were collected on or before the date of the Encounter. The data comes from the [place] facility where the Encounter took place. Date/Time Smoking Status/Tobacco Use Comment F acletha Nov 20, 2023 10:11 AM VA-TOBACCO QUIT 15 YRS OR MORE [facility] May 27, 2011 12:54 PM QUIT TOBACCO USE 1 -7 YEARS AGO quit 2006 [facility] May 09, 2010 03:17 PM QUIT TOBACCO USE 1 -7 YEARS AGO [facility] Encounter Notes: All associated encounter notes This section contains the clinical notes associated to the Encounter. Date/Time Encounter Note(s) Provider Source Dec 07, 2023 11:30 AM LETTERS: LOCAL TITLE: PATIENT LETTER (B) STANDARD TITLE: LETTERS DATE OF NOTE: DEC 07, 2023@11:30 ENTRY DATE: DEC 07, 2023@11:30:31 AUTHOR: JOSE CRAIG COSIGNER: URGENCY: STATUS: COMPLETED [facility] Toll Free Number [facility] scheduling can be reached at ext. [phone] [facility]- ext. [phone] [facility]- ext. [phone] [facility]- ext. [phone] DEC 07, 2023 YENIFER CUI [address] [place] [address] Dear YENIFER CUI Thank you for choosing [facility] primary choice for health care. As a partner in your health care, we are contacting you in writing since we have been unsuccessful in our attempts to reach you to date. We want to assure you we are doing everything possible to schedule Veterans for their [place] medical care appointments. Our records indicate you are due for an appointment in [facility]. If you would like to be seen, please contact [facility], [facility], and [facility] at ext. [phone] to schedule an appointment. Thank you for your service to our nation, and we look forward to hearing from you soon. JOSE CRAIG [facility]
--- OUTSIDE RECORDS SUMMARY | 2024-07-21 00:23 | XMS_ITS ---
Author Name [facility] [place] Organization [place] Address [address] [place] [address] Care Team Providers Care Leather Sprayer Name Role Phone SAUL PEREZ Primary Care [...] PART B Sep 10, 2001 PART B [id number] [phone] YENIFER CUI PATIENT MEDICARE (WNR) MEDICARE (M) PART A Sep 10, 2001 PART A [id number] YENIFER CUI PATIENT MEDICARE (WNR) MEDICARE (M) PART A Sep 10, 2001 PART A [id number] [phone] YENIFER CUI PATIENT MEDICARE (WNR) MEDICARE (M) PART B Sep 10, 2001 PART B [id number] JACKBEN YENIFER [facility]IENT [facility] MED[facility] (OPT/PROF ) [facility] Feb 08, 2012 [id number] RONA CUI SPOUSE [facility] MEDICAL EXP[facility] (OPT/PROF ) [facility] Feb 08, 2012 [id number] RONA CUI SPOUSE Selected Encounter This section includes the information on record at [place] for the Encounter. Date/Time Encounter Type Encounter Description Reason Provider Source Jun 03, 2024 10:54 AM ELECTROCARDIOGRAM TRACING PRIMARY CARE/MEDICINE ICD-10-CM R00.1 Bradycardia, unspecified MARGAUX PEREZ [facility] Encounter Template Text not used by [place] Assessments - Encounter Diagnoses This section includes the primary and secondary diagnoses documented for the Encounter. Date/Time Primary/Secondary Diagnosis Diagnosis Name Provider Source Jun 03, 2024 10:54 AM PRIMARY Bradycardia, unspecified GABINO CAIN [facility] Plan of Treatment: Future Appointments (+ 6 months) and Future Tests (+/- 45 days) The Plan of Treatment section includes future care activities for the patient from all [place] treatmentfacilities. This section includes future appointments and future orders which are active, pending or scheduled. Future Appointments This section includes appointments that were scheduled to occur 6 months from the date of the Encounter, up to a maximum of 20 appointments. The data comes from all [place] treatment facilities. Appointment Date/Time Appointment Type Appointme nt Facility Name Aug 08, 2024 11:00 AM AMBULATORY - MEDICINE [facility] Nov 03, 2024 11:00 AM AMBULATORY - MEDICINE [facility] Social History: Smoking Status (Most current) and Tobacco Use (All prior to encounter date) This section includes the most current, and the historical, smoking and tobacco- related health factors from the [place] facility where the Encounter took place. Current Smoking Status This section includes the most current smoking, or tobacco-related health factor, from the [place] facility where the Encounter took place. Date/Time Current Smoking Status Comment Facil ity Nov 20, 2023 10:11 AM [place]-TOBACCO FORMER USER [facility] Tobacco Use History This section includes a history of the smoking, or tobacco-related health factors, that were collected on or before the date of the Encounter. The data comes from the [place] facility where the Encounter took place. Date/Time Smoking Status/Tobacco Use Comment F acility Nov 20, 2023 10:11 AM VA-TOBACCO QUIT 15 YRS OR MORE [facility] May 27, 2011 12:54 PM QUIT TOBACCO USE 1 -7 YEARS AGO quit 2006 [facility] May 09, 2010 03:17 PM QUIT TOBACCO USE 1 -7 YEARS AGO [facility] Encounter Notes: All associated encounter notes This section contains the clinical notes associated to the Encounter. Date/Time Encounter Note(s) Provider Source Jun 03, 2024 10:55 AM CARDIOLOGY DIAGNOS TIC STUDY CONSULT: LOCAL TITLE: CONSULT REPORT/EKG STANDARD TITLE: CARDIOLOGY DIAGNOSTIC STUDY CONSULT DATE OF NOTE: JUN 03, 2024@10:55 ENTRY DATE: JUN 03, 2024@10:55:09 AUTHOR: GABINO CAIN COSIGNER: URGENCY: STATUS: COMPLETED EKG tracing was performed for diagnosis of bradycardia ordered by SAUL PEREZ. Current PC Provider: SAUL PEREZ Current PC Team: SO PACT 1 Current Pat. 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 Date: Jun 03, 2024 DST ID: Orderable Item: EKG TRACING/SPOPC OUTPT Consult: Consult Request Provisional Diagnosis: Bradycardia, unspecified(ICD-10-CM R00.1) Reason For Request: Reason for EKG: Bradycardia Age:88 [place] Height:72 in [182.9 cm] (01/13/2024 12:03) [place] Weight:163 lb [73.94 kg] (01/13/2024 12:03) Inter-facility Information This is not an inter-facility consult request. /damien/ GABINO CAIN LPN LPN Signed: 06/03/2024 10:57 GABINO CAIN [place]
--- OUTSIDE RECORDS SUMMARY | 2024-07-21 00:23 | XMS_ITS | Encounter Summary ---
Author Name [facility] [place] Organization [place] Address [address] [place] [address] Care Team Providers Care Human Services Professional Name Role Phone SAUL PEREZ Primary Care [...] PART B Sep 10, 2001 PART B [id number] [phone] YENIFER CUI PATIENT MEDICARE (WNR) MEDICARE (M) PART A Sep 10, 2001 PART A [id number] YENIFER CUI PATIENT MEDICARE (WNR) MEDICARE (M) PART A Sep 10, 2001 PART A [id number] YENIFER CUI PATIENT MEDICARE (WNR) MEDICARE (M) PART B Sep 10, 2001 PART B [id number] [phone] JACKBEN YENIFER [facility]OPT[facility]PROF ) [facility] Feb 08, 2012 [id number] RONA CUI SPOUSE [facility] MED[facility] (OPT/PROF ) [facility] Feb 08, 2012 [id number] RONA CUI SPOUSE Selected Encounter This section includes the information on record at [place] for the Encounter. Date/Time Encounter Type Encounter Description Reason Provider Source Jun 03, 2024 10:38 AM IMMUNIZATION ADMIN PRIMARY CARE/MEDICINE ICD-10-CM Z23. Encounter for immunization SAUL PEREZ [facility] Encounter Template Text not used by [place] Assessments - Encounter Diagnoses This section includes the primary and secondary diagnoses documented for the Encounter. Date/Time Primary/Secondary Diagnosis Diagnosis Name Provider Source Jun 03, 2024 10:38 AM SECONDARY Encounter for immunization SHAILA CAIN [facility] Plan of Treatment: Future Appointments (+ 6 months) and Future Tests (+/- 45 days) The Plan of Treatment section includes future care activities for the patient from all [place] treatmentfacilities. This section includes future appointments and future orders which are active, pending or scheduled. Future Appointments This section includes appointments that were scheduled to occur 6 months from the date of the Encounter, up to a maximum of 20 appointments. The data comes from all [place] treatment facilities. Appointment Date/Time Appointment Type Appointme nt Facility Name Aug 08, 2024 11:00 AM AMBULATORY - MEDICINE [facility] Nov 03, 2024 11:00 AM [facility] Immunizations: All administered on the encounter date This section contains immunizations associated to the Encounter. Immunization Series Date Issued Reaction Comments INFLUENZA, HIGH-DOSE, TRIVALENT, PF Jun 03 Social History: Smoking Status (Most current) and Tobacco Use (All prior to encounter date) This section includes the most current, and the historical, smoking and tobacco- related health factors from the [place] facility where the Encounter took place. Current Smoking Status This section includes the most current smoking, or tobacco-related health factor, from the [place] facility where the Encounter took place. Date/Time Current Smoking Status Comment Malinda lopez Nov 20, 2023 10:11 AM [place]-TOBACCO FORMER USER [facility] Tobacco Use History This section includes a history of the smoking, or tobacco-related health factors, that were collected on or before the date of the Encounter. The data comes from the [place] facility where the Encounter took place. Date/Time Smoking Status/Tobacco Use Comment F acility Nov 20, 2023 10:11 AM [place]-TOBACCO QUIT 15 YRS OR MORE [facility] May 27, 2011 12:54 PM QUIT TOBACCO USE 1 -7 YEARS AGO quit 2006 [facility] May 09, 2010 03:17 PM QUIT TOBACCO USE 1 -7 YEARS AGO [facility] Encounter Notes: All associated encounter notes This section contains the clinical notes associated to the Encounter. Date/Time Encounter Note(s) Provider Source Jun 03, 2024 10:38 AM PREVENTIVE MEDICIN E NURSING NOTE: LOCAL TITLE: CLINICAL REMINDERS/NURSING STANDARD TITLE: PREVENTIVE MEDICINE NURSING NOTE DATE OF NOTE: JUN 03, 2024@10:38 ENTRY DATE: JUN 03, 2024@10:39 AUTHOR: LAZARA CAIN EXP COSIGNER: URGENCY: STATUS: COMPLETED Hepatitis C Testing: Patient declines HCV lab test. Reason: patient choice Pneumococcal Conjugate Vaccine (PCV15/PCV20): Refuses PCV vaccine Immunization: PNEUMOCOCCAL CONJUGATE, UNSPECIFIED FORMULATION Refusal Reason: PATIENT DECISION Patient refuses all immunization(s) in the PneumoPCV group Date Documented: 06/03/24 10:39 Influenza Immunization: Influenza, High-Dose, Trivalent, Preservative Free (Fluzone-Syringe) Administered: INFLUENZA, HIGH-DOSE, TRIVALENT, PF Date Administered: Jun 03, 2024 10:39 Waiter/Waitress Dining Car: SANOFI PASTEUR Lot: [id number] Exp Date: Feb 06, 2025 [facility]: [phone] Admin Route/Site: INTRAMUSCULAR/LEFT DELTOID Dosage: 0.5mL Vaccine Information Statement(s): INFLUENZA(FLU) VACC(INACTIVATED OR RECOMBINANT)VIS Mar 15, 2021 (PERSIAN) Order By: Policy Administered By: Lazara Cain The Influenza Vaccine Information Statement (VIS) was reviewed with the patient/caregiver which lists the benefits and risks of the vaccine and the risks of not receiving the Influenza vaccine. The patient/caregiver denied any prior severe reaction to this vaccine or its components or a severe allergic reaction, such as anaphylaxis, to any vaccine or any injectable therapy. The patient/caregiver gave verbal consent to receive the vaccine. COVID-19 Immunization: Refused Moderna Monovalent COVID-19 vaccine Immunization: COVID-19 (MODERNA), MRNA, LNP-S, PF, 50 MCG/0.5 ML (AGES 12+ YEARS) Refusal Reason: PATIENT DECISION Patient refuses all immunization(s) in the COVID-19 group Date Documented: 06/03/24 10:40 Herpes Zoster (Shingles) Vaccine: The patient declines to receive the recommended dose of zoster (shingles) vaccine. Immunization: ZOSTER RECOMBINANT Refusal Reason: PATIENT DECISION Patient refuses all immunization(s) in the ZOSTER group Date Documented: 06/03/24 10:40 /damien/ LAZARA CAIN LPN DIRECTOR INFORMATICS Signed: 06/03/2024 10:40 LAZARA CAIN [place]
--- OUTSIDE RECORDS SUMMARY | 2024-07-21 00:23 | XMS_ITS | Encounter Summary ---
Author Name [facility] [place] [facility] [place] [facility] [place] [place] Address [address] [place] [id number] Care Team Providers Care Body Coverer Name Role Phone SAUL PEREZ Primary Care [...] PART A Sep 10, 2001 PART A [id number] [phone] YENIFER CUI PATIENT MEDICARE (WNR) MEDICARE (M) PART B Sep 10, 2001 PART B [id number] YENIFER CUI PATIENT MEDICARE (WNR) MEDICARE (M) PART A Sep 10, 2001 PART A [id number] [phone] YENIFER CUI PATIENT MEDICARE (WNR) MEDICARE (M) PART B Sep 10, 2001 PART B [id number] YENIFER CUI PATIENT [facility] MEDICAL EXPENSE (OPT/PROF ) [facility] IN[facility] N Feb 08, 2012 [id number] RONA CUI SPOUSE [facility] MEDICAL EXPENSE (OPT/PROF ) MILI WALLER Feb 08, 2012 [id number] RONA CUI SPOUSE Selected Encounter This section includes the information on record at [place] for the Encounter. Date/Time Encounter Type Encounter Description Reason Provider Source Jun 03, 2024 10:51 AM ELECTROCARDIOGRAM REPORT EKG ICD-10-CM Z13.6 Encounter for screening for cardiovascular disorders ME JONATHAN SARAH Sawyer Encounter Template Text not used by [place] Assessments - Encounter Diagnoses This section includes the primary and secondary diagnoses documented for the Encounter. Date/Time Primary/Secondary Diagnosis Diagnosis Name Provider Source Jun 16, 2024 11:18 AM PRIMARY Encounter for screening for cardiovascular disorders DINO MACIEL [facility] Plan of Treatment: Future Appointments (+ 6 months) and Future Tests (+/- 45 days) The Plan of Treatment section includes future care activities for the patient from all [place] treatmentfacilities. This section includes future appointments and future orders which are active, pending or scheduled. Future Appointments This section includes appointments that were scheduled to occur 6 months from the date of the Encounter, up to a maximum of 20 appointments. The data comes from all [place] treatment facilities. Appointment Date/Time Appointment Type Appointme nt Facility Name Aug 08, 2024 11:00 AM AMBULATORY - MEDICINE [facility] Nov 03, 2024 11:00 AM AMBULATORY - MEDICINE [facility] Encounter Notes: All associated encounter notes This section contains the clinical notes associated to the Encounter. Date/Time Encounter Note(s) Provider Source Jun 16, 2024 11:17 AM CARDIOLOGY PROCEDU RE NOTE: LOCAL TITLE: EKG OUTPATIENT RESULT STANDARD TITLE: CARDIOLOGY PROCEDURE NOTE DATE OF NOTE: JUN 16, 2024@11:17 ENTRY DATE: JUN 16, 2024@11:17:34 AUTHOR: DINO MACILE EXP COSIGNER: URGENCY: STATUS: COMPLETED An EKG was done on: May Please see [facility] for the EKG result. /damien/ DINO MACIEL [employer] COUNTER ASSOCIATE Signed: 06/16/2024 11:18 DINO MACIEL [facility]
--- OUTSIDE RECORDS SUMMARY | 2024-07-21 00:23 | XMS_ITS | Encounter Summary ---
Author Name [facility] [place] [facility] Address [address] [place] [address] Care Team Providers Care Linen Manager Name Role Phone SAUL PEREZ Primary Care [...] PART A Sep 10, 2001 PART A [id number] [id number] [phone] YENIFER CUI PATIENT MEDICARE (WNR) MEDICARE (M) PART B Sep 10, 2001 PART B [id number] YENIFER CUI PATIENT MEDICARE (WNR) MEDICARE (M) PART A Sep 10, 2001 PART A [id number] [phone] YENIFER CUI PATIENT MEDICARE (WNR) MEDICARE (M) PART B Sep 10, 2001 PART B [id number] [id number] [phone] SHAQUILLE CUIMIL [facility] IN[facility] N Feb 08, 2012 [id number] RONA CUI SPOUSE [facility] MEDICAL EXPENSE (OPT/PROF ) MILI WALLER Feb 08, 2012 [id number] RONA CUI SPOUSE Selected Encounter This section includes the information on record at [place] for the Encounter. Date/Time Encounter Type Encounter Description Reason Provider Source Jun 03, 2024 10:00 AM OFFICE O/P EST MOD 30 MIN PRIMARY CARE/MEDICINE ICD-10-CM I25.10 [facility] heart disease of [place] coronary artery w/o SAUL Cruz Sawyer Encounter Template Text not used by [place] Assessments - Encounter Diagnoses This section includes the primary and secondary diagnoses documented for the Encounter. Date/Time Primary/Secondary Diagnosis Diagnosis Name Provider Source Jun 17, 2024 12:18 PM PRIMARY [facility] heart disease of [place] coronary artery w/o SAUL Cruz [place] Jun 17, 2024 12:18 PM SECONDARY Anemia, unspecified SAUL PEREZ [place] Jun 17, 2024 12:18 PM SECONDARY Chronic kidney disease, stage 3b SAUL PEREZ [place] Jun 17, 2024 12:18 PM SECONDARY Decreased white blood cell count, unspecified SAUL PEREZ [place] Jun 17, 2024 12:18 PM SECONDARY Essential (primary) hypertension SAUL PEREZ [place] Jun 17, 2024 12:18 PM SECONDARY Hyperlipidemia, unspecified SAUL PEREZ [place] Jun 17, 2024 12:18 PM SECONDARY Impaired fasting glucose SUAL PEREZ [place] Jun 17, 2024 12:18 PM SECONDARY half-way (current) use of anticoagulants SAUL PEREZ [place] Jun 17, 2024 12:18 PM SECONDARY Unspecified atrial fibrillation SAUL PEREZ [place] Jun 17, 2024 12:18 PM SECONDARY Unspecified macular degeneration SAUL PEREZ [place] Jun 17, 2024 12:18 PM SECONDARY Vitamin D deficiency, unspecified SAUL PEREZ [place] Plan of Treatment: Future Appointments (+ 6 months) and Future Tests (+/- 45 days) The Plan of Treatment section includes future care activities for the patient from all [place] treatmentfacilities. This section includes future appointments and future orders which are active, pending or scheduled. Future Appointments This section includes appointments that were scheduled to occur 6 months from the date of the Encounter, up to a maximum of 20 appointments. The data comes from all [place] treatment facilities. Appointment Date/Time Appointment Type Appointme nt Facility Name Aug 08, 2024 11:00 AM AMBULATORY - MEDICINE [place] C NTRL WILBERT SPENCER [facility] Nov 03, 2024 11:00 AM AMBULATORY - MEDICINE [facility] Vital Signs: All taken on the encounter date This section contains inpatient and outpatient Vital Signs collected on the date of the Encounter. Date/Time Temperature Pulse Blood Pressure Respiratory Rate SP02 Pain Height Weight Body Mass Index Source Jun 03, 2024 10:37 AM 97.7 45 139/63 97 164.4 22 [place] Social History: Smoking Status (Most current) and Tobacco Use (All prior to encounter date) This section includes the most current, and the historical, smoking and tobacco- related health factors from the [place] facility where the Encounter took place. Current Smoking Status This section includes the most current smoking, or tobacco-related health factor, from the [place] facility where the Encounter took place. Date/Time Current Smoking Status Comment Facil ity Nov 17, 2022 01:30 PM VA-TOBACCO QUIT 15 YRS OR MORE [place] Tobacco Use History This section includes a history of the smoking, or tobacco-related health factors, that were collected on or before the date of the Encounter. The data comes from the [place] facility where the Encounter took place. Date/Time Smoking Status/Tobacco Use Comment F acility Nov 17, 2022 01:30 PM VA-TOBACCO QUIT 15 YRS OR MORE [place] Jun 19, 2021 11:00 AM VA-TOBACCO FORMER USER [place] Jun 19, 2021 11:00 AM VA-TOBACCO QUIT 5 TO < 15 YRS [place] Encounter Notes: All associated encounter notes This section contains the clinical notes associated to the Encounter. Date/Time Encounter Note(s) Provider Source Jun 03, 2024 11:35 AM PRIMARY CARE NURSE PRACTITIONER OUTPATIENT NOTE: LOCAL TITLE: NURSE PRACTITIONER OUTPATIENT NOTE STANDARD TITLE: PRIMARY CARE NURSE PRACTITIONER OUTPATIENT NOTE DATE OF NOTE: JUN 03, 2024@11:35 ENTRY DATE: JUN 03, 2024@11:35:50 AUTHOR: SAUL PEREZ COSIGNER: URGENCY: STATUS: COMPLETED PRIMARY CARE VISIT EDMIL CUI, is a 88 yo WHITE MALE [place] who presents at the [place] [facility]. TYPE OF VISIT: Face to face 88-year-old with dementia, CAD, HTN, HLD, CKD stage IIIb, and chronic atrial fibrillation on DOAC presented to the outpatient clinic in regular follow-up. He was last seen here by Dr. Olson in January. He is accompanied by his today who provides much of the background information. No concerns today. No recent illnesses. No falls or ED/UC visits. Labs from November were reviewed with the [place] All medications were reconciled during this visit. HEALTHCARE PROVIDERS: PCP: [place] Cardiology: Dr. Carpenter Nephrology: Dr. Camden Sharif Ophthalmology: [place] Social Hx: He is and lives with his . No tobacco, alcohol, MJ. No regular exercise. 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 06/20/2021 MACO BETANCOURT HTN - Hypertension ([facility]CT 07718905) I 06/20/2021 MACO BETANCOURT Anemia ([facility]CT 956176768) D64.9 06/20/2021 MACO BETANCOURT AF- Atrial Fibrillation (SCT 399479 11/20/2023 MACO BETANCOURT Hyperlipidemia (SCT 03260769) E78.5 06/20/2021 MACO BETANCOURT Chronic renal failure N18.30 11/20/2023 LISA OLSON Depression ([facility] 81843790) F32.A 06/20/2021 MACO BETANCOURT History of artificial heart valve R 06/20/2021 MACO BETANCOURT Cataract, Unspecified 366.9 06/05/2010 LALITHA PEDRAZA Vision, abnormal 368.9, Onset 05/09/2010 IZA MENDEZ Heart Murmurs 785.2, Onset 05/09/2010 IZA MENDEZ VITAL SIGNS: Temperature 97.7 F [36.5 C] (06/03/2024 10:37) Blood Pressure 139/63 (06/03/2024 10:37) Pulse 45 (06/03/2024 10:37) Respiration 19 (01/13/2024 12:03) Pain 0 (01/13/2024 12:03) BMI BMI: 22.3 Weight 164.4 lb [74.57 kg] (06/03/2024 10:37) Pulse Oximetry 97% (06/03/2024 10:37) ASSISTIVE DEVICES: None REVIEW OF SYSTEMS: CONSTITUTIONAL: No fevers, chills, weight loss/gain ENT: No sore throat, sneezing, congestion, rhinorrhea, anosmia, or ageusia. CARDIOVASCULAR: No chest pain, palpitations, or increased pedal edema RESPIRATORY: No SOB, cough, sputum, wheeze. GASTROINTESTINAL: Denies abd pain, N/V/D. No melena or hematochezia. No tenesmus or constipation. GENITOURINARY: No burning micturition. No urinary frequency or urgency. No nocturia. MUSCULOSKELETAL: No myalgias or arthralgias. PSYCHIATRIC: No new anxiety or depression. No sleep disturbance. NEUROLOGIC: No headaches, dizziness, numbness or tingling in the extremities, or unilateral weakness. EXAMINATION General: Older Marks in no obvious distress. Mental Status: Alert, participatory. Head: Normocephalic. Eyes: PERRLA. EOMI. Anicteric sclerae. ENT: Moist oral mucosa. Posterior pharynx unremarkable Neck: Supple. No JVD. No LAD. No bruit appreciated. Lungs: CTA. Normal chest excursion. Eupneic respirations. CV: Heart tones S1, S2. RRR. Grade 3/6 ABDIEL. No peripheral edema. GI: Abdomen is soft and nontender. No HSM or mass. : No CVA tenderness. Ext: No cyanosis or clubbing. No gross deformities. Neuro: CN II through XII grossly intact. Normal speech. Integument: Skin warm and dry. No concerning lesions or rashes. Psych: Normal mood and affect. Judgment somewhat impaired due to underlying dementia. ALLERGIES: ========= Patient has answered NKA >> HEALTH MAINTENANCE PREVENTIVE MEDICINE GOALS Medication Reconciliation DUE NOW (Optional) Whole Health Documentation DUE NOW ASSESSMENT/PLAN: Active problems - Computerized Problem List is the source for the following: Impaired Fasting Glucose ([facility] 842612045): Serum glucose 118 in November, likely nonfasting sample. HbA1c normal. Vitamin D Deficiency ([facility] 38958425): Vitamin D level 22 in November. Not on a supplement but does take a multivitamin at home and drinks cows milk. Leukopenia: Mild. Stable. Age related macular degeneration: Follows with [place] ophthalmology. CAD - Coronary Artery Disease ([facility] 44470757): Long-term current use of anticoagulant: AF- Atrial Fibrillation ([facility] 75793020): Follows with Dr. Carpenter. Requesting recent office visit note and diagnostics. Maintained on apixaban for primary risk reduction and carvedilol for ventricular rate control. Continue. Also continue isosorbide and spironolactone prescribed by him. endorses he takes all medications as prescribed. She manages his medicines. HTN - Hypertension ([facility] 89840328): Blood pressure within target today 139/63. Endorses taking meds as prescribed. Continue torsemide, carvedilol, spironolactone. Anemia ([facility] 262923660): H/H 13/40. Denies any melena or hematochezia. Hyperlipidemia ([facility] 82677401): Lipid panel WNL. LDL 120. Not maintained on a statin. states he is on intolerant. Chronic renal failure: CKD stage IIIb-IV. eGFR 27 in November. Following with Dr. Sharif. Avoid nephrotoxic agents. Drink plenty of water. Continue spironolactone. Not on an ZULEMA or ARB. Upcoming appointment with Dr. Sharif. FOLLOW UP: RTC Below & sooner PRN UPCOMING APPOINTMENTS: 08/08/2024 11:00 CWM/NO/OPTOMETRY/MERHAR 11/03/2024 11:00 CWM/SO/PACT 1 SALES ROUTE DRIVER HELPER 40 minutes spent in patient evaluation, data review, and patient education. All medications were reconciled during this visit. No barriers; Patient understands and agrees to current treatment plan. If pt has any questions, concerns, or changes in current health status he/she will call or come in to the [facility]. Medication Reconciliation: Outpatient: Has the patient been taking medications as documented in the EMLR? YES: The patient has been taking medications as documented in the EMLR. Essential Medication List for Review used to complete this medication reconciliation. INCLUDED IN THIS LIST: Alphabetical list of active outpatient prescriptions dispensed from this [facility] (local) and dispensed from another [place] or [facility] facility (remote) as well as [...] with a VA or non-VA provider. /damien/ SAUL PEREZ NP NURSE PRACTITIONER Signed: 06/05/2024 10:50 SAUL PEREZ
--- OUTSIDE RECORDS SUMMARY | 2024-07-21 00:23 | XMS_ITS | Encounter Summary ---
Author Name [facility] [place] [facility] [place] Address [address] [place] [address] Care Team Providers Care Quality [facility] Assoc Name Role Phone SAUL PEREZ Primary Care [...] PART A Sep 10, 2001 PART A [id number] [phone] YENIFER CUI PATIENT MEDICARE (WNR) MEDICARE (M) PART B Sep 10, 2001 PART B [id number] YENIFER CUI PATIENT MEDICARE (WNR) MEDICARE (M) PART A Sep 10, 2001 PART A [id number] [phone] YENIFER CUI PATIENT MEDICARE (WNR) MEDICARE (M) PART B Sep 10, 2001 PART B [id number] YENIFER CUI PATIENT [facility] MEDICAL EXPENSE (OPT/PROF ) [facility] IN[facility]M N Feb 08, 2012 [id number] RONA CUI SPOUSE [employer] MEDICAL EXPENSE (OPT/PROF ) WELL[facility] Feb 08, 2012 [id number] RONA CUI SPOUSE Selected Encounter This section includes the information on record at [place] for the Encounter. Date/Time Encounter Type Encounter Description Reason Pro vider Source Jun 29, 2024 06:19 PM Outpatient Encounter ADMIN PAT ACTIVTIES ([facility]ASNON[facility]) IHE Encounter Template Text not used by [place] Plan of Treatment: Future Appointments (+ 6 months) and Future Tests (+/- 45 days) The Plan of Treatment section includes future care activities for the patient from all [place] treatmentfacilities. This section includes future appointments and future orders which are active, pending or scheduled. Future Appointments This section includes appointments that were scheduled to occur 6 months from the date of the Encounter, up to a maximum of 20 appointments. The data comes from all [place] treatment facilities. Appointment Date/Time Appointment Type Appointme nt Facility Name Aug 08, 2024 11:00 AM AMBULATORY - MEDICINE [facility] Nov 03, 2024 11:00 AM AMBULATORY - MEDICINE [facility] Social History: Smoking Status (Most current) and Tobacco Use (All prior to encounter date) This section includes the most current, and the historical, smoking and tobacco- related health factors from the [place] facility where the Encounter took place. Current Smoking Status This section includes the most current smoking, or tobacco-related health factor, from the [place] facility where the Encounter took place. Date/Time Current Smoking Status Comment Malinda ity Nov 20, 2023 10:11 AM NH-TOBACCO QUIT 15 YRS OR MORE [facility] Tobacco Use History This section includes a history of the smoking, or tobacco-related health factors, that were collected on or before the date of the Encounter. The data comes from the [place] facility where the Encounter took place. Date/Time Smoking Status/Tobacco Use Comment F acletha Nov 20, 2023 10:11 AM NH-TOBACCO QUIT 15 YRS OR MORE [facility] May 27, 2011 12:54 PM QUIT TOBACCO USE 1 -7 YEARS AGO quit 2006 [facility] May 09, 2010 03:17 PM QUIT TOBACCO USE 1 -7 YEARS AGO [facility] Encounter Notes: All associated encounter notes This section contains the clinical notes associated to the Encounter. Date/Time Encounter Note(s) Provider Source Jun 29, 2024 06:19 PM PHARMACY NOTE: LOCAL TITLE: V1 PHARMACY CUSTOMER CARE MEDICATION RENEWAL STANDARD TITLE: PHARMACY NOTE DATE OF NOTE: JUN 29, 2024@18:19 ENTRY DATE: JUN 29, 2024@18:19:57 AUTHOR: RACHELE FLORES EXP COSIGNER: URGENCY: STATUS: COMPLETED Date: Jun Division: [facility] referred by Pharmacy Call Center for medication renewal: Non-controlled/maintenanc e medication Medications requested: [id number] APIXABAN 5MG TAB Defer to primary care provider To be mailed . Please review and renew if appropriate. *This note was generated by [facility] Customer Care. If you have any questions or need assistance, do not contact this author. Please refer all questions to your local, on-site pharmacy departments. /damien/ RACHELE FLORES CPhT Production [place], [place]/Pharm[facility] Customer Care Signed: 06/29/2024 18:20 Receipt Acknowledged By: 06/30/2024 14:12 /es/ YEIMY OSUNA REGISTERED NURSE 07/02/2024 15:59 /es/ SAUL PEREZ NP NURSE PRACTITIONER RACHELE FLORES [facility]
== END 2024-07-20 11:10 | disposition home or self-care (01) ==
PROVIDERS: PCP Internal Medicine Interventional Cardiology; Visit Provider Internal Medicine Nephrology
DX: I12.9 Hypertensive chronic kidney disease with stage 1 through stage 4 chronic kidney disease, or unspecified chronic kidney disease (principal); N18.32 Chronic kidney disease, stage 3b; D63.1 Anemia in chronic kidney disease; Z90.5 Acquired absence of kidney
CPT/HCPCS: 99214

== ENCOUNTER → 2024-07-20 10:22 | Outpatient (BNVA) | payer MEDICARE, OTHER, SELFPAY | PROVIDERS: PCP Internal Medicine Interventional Cardiology; Visit Provider Internal Medicine Nephrology | DX: I12.9 Hypertensive chronic kidney disease with stage 1 through stage 4 chronic kidney disease, or unspecified chronic kidney disease (principal); N18.32 Chronic kidney disease, stage 3b; D63.1 Anemia in chronic kidney disease; I48.91 Unspecified atrial fibrillation; Z90.5 Acquired absence of kidney; Z79.01 Long term (current) use of anticoagulants | CPT/HCPCS: 99212 ==

== ENCOUNTER 2024-11-10 11:26 | Outpatient (REF) | payer MEDICARE, OTHER, SELFPAY ==
--- OUTSIDE RECORDS SUMMARY | 2024-11-10 12:45 | XMS_ITS | Encounter Summary ---
Author Name [facility] Address [address] [place] [address] Care Team Providers Care Medical Transcription Name Role Phone SAUL PEREZ Primary Care [...] PART A Sep 10, 2001 PART A [id number] YENIFER CUI PATIENT MEDICARE (WNR) MEDICARE (M) PART B Sep 10, 2001 PART B [id number] YENIFER CUI PATIENT MEDICARE (WNR) MEDICARE (M) PART A Sep 10, 2001 PART A [id number] YENIFER CUI PATIENT MEDICARE (WNR) MEDICARE (M) PART B Sep 10, 2001 PART B [id number] YENIFER CUI PATIENT [facility] MEDICAL EXPENSE (OPT/PROF ) WELL[facility] OIFLETCHER Feb 08, 2012 [id number] [phone] RONA CUI SPOUSE [facility] MEDICAL EXPENSE (OPT/PROF ) [facility] N Feb 08, 2012 [id number] RONA CUI SPOUSE [facility] MEDICAL EXP[facility] (OPT/PROF ) JAREDP [place] Feb 08, 2012 [id number] RONA CUI SPOUSE Selected Encounter This [...] PRIMARY Vitamin D deficiency, unspecified LISA MERCADO [place] Feb 06, 2024 07:55 AM SECONDARY Anemia, unspecified MERCADOLISA [place] Feb 06, 2024 07:55 AM SECONDARY Chronic kidney disease, stage 3 unspecified LISA MERCADO [place] Feb 06, 2024 07:55 AM SECONDARY Essential (primary) hypertension LISA MERCADO [place] Feb 06, 2024 07:55 AM SECONDARY Hyperlipidemia, unspecified MERCADOLISA SANTOS [place] Feb 06, 2024 07:55 AM SECONDARY skilled nursing (current) use of anticoagulants LISA MERCADO [place] Feb 06, 2024 07:55 AM SECONDARY Unspecified atrial fibrillation LISA MERCADO [place] Plan of Treatment: Future Appointments (+ 6 [...] [facility] Vital Signs: All taken on the encounter date This section contains inpatient and outpatient Vital Signs collected on the date of the Encounter. Date/Time Temperature Pulse Blood Pressure Respiratory Rate SP02 Pain Height Weight Body Mass Index Source Jan 13, 2024 12:03 PM 97 44 140/67 19 95 0 72 163 22 [facility] [place] Social History: Smoking Status (Most current) and Tobacco Use (All prior to encounter date) This section includes the most current, and the historical, smoking and tobacco- related health factors from the [place] facility where the Encounter took place. Current Smoking Status This section includes the most current smoking, or tobacco-related health factor, from the [place] facility where the Encounter took place. Date/Time Current Smoking Status Comment Facil ity Nov 17, 2022 01:30 PM VA-TOBACCO FORMER USER [place] Tobacco Use History This section includes a history of the smoking, or tobacco-related health factors, that were collected on or before the date of the Encounter. The data comes from the [place] facility where the Encounter took place. Date/Time Smoking Status/Tobacco Use Comment F acility Nov 17, 2022 01:30 PM VA-TOBACCO QUIT 15 YRS OR MORE [place] Jun 19, 2021 11:00 AM VA-TOBACCO FORMER USER [place] Jun 19, 2021 11:00 AM VA-TOBACCO QUIT 5 TO < 15 YRS [place] Encounter Notes: All associated encounter notes This section contains the clinical notes associated to the Encounter. Date/Time Encounter Note(s) Provider Source Jan 13, 2024 12:09 PM PHYSICIAN NOTE: LOCAL TITLE: MD NOTE STANDARD TITLE: PHYSICIAN NOTE DATE OF NOTE: JAN 13, 2024@12:09 ENTRY DATE: JAN 13, 2024@12:09:40 AUTHOR: LISA MERCADO EXP COSIGNER: URGENCY: STATUS: COMPLETED PRIMARY CARE VISIT EDMIL CUI, is a 88 yo WHITE MALE TYPE OF VISIT: Face to face CHART REVIEWED, PATIENT EXAMINED. HPI: reviewed labs with today +dementia with Cognitive issues. Independent historian present at [...] source for the followin. Impaired Fasting Glucose ([facility] 915264835)-stable 2. Vitamin D Deficiency ([facility] 72046227) now on 1000 iu daily 3. Leukopenia-chronic, stable 4. Long-term current use of anticoagulant- denies s/s bleeding 8. CAD - Coronary Artery Disease ([facility] 40591764)- stable 9. HTN - Hypertension ([facility] 56364184) managed by Renal 11. Anemia ([facility] 852533719)- presumed due to CKD 12. AF- Atrial Fibrillation ([facility] 63126719) stable 13. Hyperlipidemia ([facility] 55126714)- controlled on meds 14. Vitamin B Def- [...]
--- OUTSIDE RECORDS SUMMARY | 2024-11-10 12:46 | XMS_ITS | Encounter Summary ---
Author Name [facility] [place] Organization [facility] [place] Address [address] [place] [address] Care Team Providers Care Rig Operator Name Role Phone SAUL PEREZ Primary [...] PART A Sep 10, 2001 PART A [id number] YENIFER CUI PATIENT MEDICARE (WNR) MEDICARE (M) PART B Sep 10, 2001 PART B [id number] YENIFER CUI PATIENT MEDICARE (WNR) MEDICARE (M) PART A Sep 10, 2001 PART A [id number] [phone] YENIFER CUI PATIENT MEDICARE (WNR) MEDICARE (M) PART B Sep 10, 2001 PART B [id number] [id number] [phone] YENIFER CUI PATIENT UNICARE-G. I.C. MEDICAL EXPENSE (OPT/PROF ) WELLP [place] Feb 08, 2012 [id number] RONA CUI SPOUSE [employer] MEDICAL EXPENSE (OPT/PROF ) [place] RE STATE INDEM N Feb 08, 2012 [id number] RONA CUI SPOUSE [employer] MEDICAL EXPENSE (OPT/PROF ) WE[facility]P [place] Feb 08, 2012 [id number] RONA CUI SPOUSE Selected Encounter This section includes the information on record at [place] for the Encounter. Date/Time Encounter Type Encounter Description Reason Pro vider Source Nov 07, 2024 11:55 AM Outpatient Encounter PRIMARY CARE/MEDICINE IHE Encounter Template Text not used by [place] Plan of Treatment: Future Appointments (+ 6 months) and Future Tests (+/- 45 days) The Plan of Treatment section includes future care activities for the patient from all [place] treatmentfacilities. This section includes future appointments and future orders which are active, pending or scheduled. Future Appointments This section includes appointments that were scheduled to occur 6 months from the date of the Encounter, up to a maximum of 20 appointments. The data comes from all [place] treatment facilities. Appointment Date/Time Appointment Type Appointme nt Facility Name Mar 09, 2025 11:30 AM AMBULATORY - MEDICINE [facility] Apr 06, 2025 11:00 AM AMBULATORY - MEDICINE [place] [facility] [place] [facility] Active, Pending, and Scheduled Orders This section includes a listing of several types of active, pending, and scheduled orders, including clinic medications orders, diagnostic test orders, procedure orders and consult orders; where the start date of the order is 45 days before the date of the Encounter or 45 days after the date of theEncounter. The data comes from all [place] treatment facilities. Test Date/Time Test Type Test Details Facility Name Nov 03, 2024 12:37 PM Consult Order [facility]-CARDIOLOGY Cons Embedded Software Developer's Choice [facility] Nov 10, 2024 10:35 AM Laboratory - Chemi stry Order BASIC METABOLIC PANEL (non-fasting) BLOOD (SST-SERUM) [facility] Nov 10, 2024 10:35 AM Laboratory - Chemi stry Order CALCIUM BLOOD (SST-SERUM) [facility] Nov 10, 2024 10:35 AM Laboratory - Chemi stry Order MAGNESIUM BLOOD (SST-SERUM) [facility] Nov 10, 2024 10:35 AM Laboratory - Chemi stry Order PO4 BLOOD (SST-SERUM) [facility] Lab Results: +/- 30 days of the encounter This section includes the Chemistry and Hematology Lab Results on record with [place] for the patient. Radiology Reports and Pathology Reports are provided separately, in subsequent sections. Lab Results This section contains the Chemistry/Hematology Results that were resulted 30 days before or 30 daysafter the date of the Encounter. Date/Time Source Result Type Result - Unit Interpretation Reference Range Comment Oct 28, 2024 10:19 AM [facility] BASIC METABOLIC PANEL (non-fasting) Spe cimen Type: SERUM No comment entered. Ordering Provider: SAUL PEREZ Report Released Date/Time: Oct 28, 2024 10:18 AM Reporting Lab: [address] [address] Performing Lab: [address] [address] UREA NITROGEN 69 mg/dL H 7-25 GLUCOSE 122 mg/dL H 65-100 SODIUM 137 mmol/L 135-145 POTASSIUM 5.8 mmol/L H 3.5-5.0 CHLORIDE 110 mmol/L 100-110 CO2 22 meq/L 20-30 CALCIUM 8.2 mg/dL L 8.5-10.2 CREATININE, Serum 2.35 mg/dL H 0.50-1.40 eGFR(CKD-EPI 2020) 26 mL/min L >60 Oct 28, 2024 10:19 AM [facility] [facility] LIPID PANEL, NON FASTING Specimen Type: SERUM No comment entered. Ordering Provider: SAUL PEREZ Report Released Date/Time: Oct 28, 2024 10:18 AM Reporting Lab: [address] [address] Performing Lab: [address] [address] CHOLESTEROL 159 mg/dL TRIGLYCERIDE 108 mg/dL 0-150 LDL calculated 101 mg/dL 0-129 CHOL/HDL 4.4 HDL CHOLESTEROL 36 mg/dL L 40-60 Oct 28, 2024 10:19 AM [facility] LIVER FUNCTION Specimen Type: SERUM No comment entered. Ordering Provider: SAUL PEREZ Report Released Date/Time: Oct 28, 2024 10:18 AM Reporting Lab: [facility] [address] [address] Performing Lab: [facility] [address] [address] PROTEIN,TOTAL 7.0 g/dL 6.0-8.3 ALBUMIN 3.4 g/dL L 3.5-5.0 ALKALINE PHOSPHATASE 53 U/L 40-150 AST 15 U/L 5-34 ALT 13 U/L BILIRUBIN, TOTAL 0.7 mg/dL 0.2-1.2 Oct 28, 2024 10:19 AM [facility] [facility] HEMOGLOBIN A1C PANEL Specimen Type: BLOOD Comment: Values obtained from A1C measurements can vary. For atypical A1C assays, a reported value of 7.0 could actually be between 6.72 and 7.28 if measured by a reference method. A reported value of 9.0 could actually be between 8.73 and 9.27. Ref: http://www.ngs p.org/CAPdata. asp Ordering Provider: SAUL PEREZ Report Released Date/Time: Oct 28, 2024 10:18 AM Reporting [facility]: [facility] [address] [address] Performing Lab: [facility] [address] [address] HEMOGLOBIN A1C 5.5 4.0-5.6 Oct 28, 2024 10:19 AM [facility] [facility] TSH Specimen Type: SERUM No comment entered. Ordering Provider: SAUL PEREZ Report Released Date/Time: Oct 28, 2024 10:18 AM Reporting [facility]: [facility] [address] [address] [facility]forming [facility] [address] TSH 4.07 u[IU]/mL 0.35-5.00 Oct 28, 2024 10:19 AM [facility] CBC AND DIFF (AUTO) Specimen Type: BLOOD No comment entered. Ordering Provider: SAUL PEREZ Report Released Date/Time: Oct 28, 2024 10:18 AM Reporting Lab: [facility] [address] [address] Performing Lab: [facility] [address] [address] WBC 2.84 10*3/uL L 4.50-11.00 RBC 4.30 10*6/uL 4.23-5.66 HGB 12.7 g/dL L 12.8-17 HCT 39.7 39.2-50.4 MCV 92.3 fL 82-99 MCHC 32.0 g/dL 30.8-35.1 PLT 81 10*3/uL L 140-360 RDW-CV 15.2 12.0-16.0 MONO, ABS 0.33 10*3/uL 0.30-1.10 MCH 29.5 pg 26.2-32.6 NEUT % 61.6 43.7-75.8 LYMPH % 22.9 14.0-42.3 MONO % 11.6 5.1-13.7 EOS % 2.8 0.4-6.8 BASO % 0.4 0.1-2.0 NEUT, ABS 1.75 10*3/uL L 2.20-7.60 LYMPH, ABS 0.65 10*3/uL L 1.00-3.20 EOS, ABS 0.08 10*3/uL 0.03-0.44 BASO, ABS 0.01 10*3/uL 0.01-0.13 IMMATURE GRAN % 0.7 0.0-0.7 IMMATURE GRAN, ABS 0.02 10*3/uL 0.00-0.06 NRBC % 0.0 0.0-0.0 NRBC, ABS 0.00 10*3/uL 0.00-0.00 Social History: Smoking Status (Most current) and Tobacco Use (All prior to encounter date) This section includes the most current, and the historical, smoking and tobacco- related health factors from the [place] facility where the Encounter took place. Current Smoking Status This section includes the most current smoking, or tobacco-related health factor, from the [place] facility where the Encounter took place. Date/Time Current Smoking Status Comment Facil ity Nov 03, 2024 11:09 AM [place]-TOBACCO USE FOR JAQUELINE CIGARETTES [facility] Tobacco Use History This section includes a history of the smoking, or tobacco-related health factors, that were collected on or before the date of the Encounter. The data comes from the [place] facility where the Encounter took place. Date/Time Smoking Status/Tobacco Use Comment F acility Nov 03, 2024 11:09 AM VA-TOBACCO USE FOR JAQUELINE CIGARETTES [facility] Nov 20, 2023 10:11 AM [facility] Nov 20, 2023 10:11 AM [place]-TOBACCO QUIT 15 YRS OR MORE [facility] May 27, 2011 12:54 PM QUIT TOBACCO USE 1 -7 YEARS AGO quit 2006 [facility] May 09, 2010 03:17 PM QUIT TOBACCO USE 1 -7 YEARS AGO [facility] Encounter Notes: All associated encounter notes This section contains the clinical notes associated to the Encounter. Date/Time Encounter Note(s) Provider Source Nov 07, 2024 11:55 AM ADMINISTRATIVE NOT E: LOCAL TITLE: ADMINISTRATIVE NOTE STANDARD TITLE: ADMINISTRATIVE NOTE DATE OF NOTE: NOV 07, 2024@11:55 ENTRY DATE: NOV 07, 2024@11:55:29 AUTHOR: YEIMY OSUNA EXP COSIGNER: URGENCY: STATUS: COMPLETED [facility] Notes placed in HIMS folder to scan into 's chart. /damien/ YEIMY OSUNA REGISTERED NURSE Signed: 11/07/2024 12:01 YEIMY OSUNA
--- OUTSIDE RECORDS SUMMARY | 2024-11-10 12:46 | XMS_ITS | Encounter Summary ---
Author Name [facility] Organization [facility] [place] Address [address] [place] [address] Care Team Providers Care Record Center Coordinator Name Role Phone SAUL PEREZ Primary Care [...] PART A Sep 10, 2001 PART A [id number] [phone] YENIFER CUI PATIENT MEDICARE (WNR) MEDICARE (M) PART B Sep 10, 2001 PART B [id number] YENIFER CUI PATIENT MEDICARE (WNR) MEDICARE (M) PART A Sep 10, 2001 PART A [id number] [phone] YENIFER CUI PATIENT MEDICARE (WNR) MEDICARE (M) PART B Sep 10, 2001 PART B [id number] [phone] YENIFER CUI PATIENT UNICARE-G. I.C. MEDICAL EXPENSE (OPT/PROF ) WELLP [place] Feb 08, 2012 [id number] RONA CUI SPOUSE [employer] MEDICAL EXPENSE (OPT/PROF ) [place] RE [employer] INDEM N Feb 08, 2012 [id number] RONA CUI SPOUSE [employer] MEDICAL EXPENSE (OPT/PROF ) WE[employer] [place] Feb 08, 2012 [id number] RONA CUI SPOUSE Selected Encounter This section includes the information on record at [place] for the Encounter. 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 SAUL Cruz [place] Jun 17, 2024 12:18 PM SECONDARY Anemia, unspecified SAUL PEREZ [place] Jun 17, 2024 12:18 PM SECONDARY Chronic kidney disease, stage 3b SAUL PEREZ [place] Jun 17, 2024 12:18 PM SECONDARY Decreased white blood cell count, unspecified SAUL PEREZ [place] Jun 17, 2024 12:18 PM SECONDARY Essential (primary) hypertension SAUL PEREZ [place] Jun 17, 2024 12:18 PM SECONDARY Hyperlipidemia, unspecified SAUL PEREZ [place] Jun 17, 2024 12:18 PM SECONDARY Impaired fasting glucose SAUL PEREZ [place] Jun 17, 2024 12:18 PM SECONDARY senior living (current) use of anticoagulants SAUL PEREZ [place] Jun 17, 2024 12:18 PM SECONDARY Unspecified atrial fibrillation SAUL PEREZ [place] Jun 17, 2024 12:18 PM SECONDARY Unspecified macular degeneration SAUL PEREZ [place] Jun 17, 2024 12:18 PM SECONDARY Vitamin D deficiency, unspecified SAUL PEREZ [place] Plan of Treatment: Future Appointments (+ 6 months) and Future Tests (+/- 45 days) The Plan of Treatment section includes future care activities for the [facility] [place] [facility] This section includes future appointments and future orders which are active, pending or scheduled. Future Appointments This section includes appointments that were scheduled to occur 6 months from the date of the Encounter, up to a maximum of 20 appointments. The data comes from all [facility] facilities. Appointment Date/Time Appointment Type Appointme nt Facility Name Aug 08, 2024 11:00 AM AMBULATORY - [place]ICINE [place] [facility] [place] [facility] Aug 08, 2024 01:00 PM AM[place]ULATORY - [place]ICINE [place] [facility] [place] [facility] Sep 05, 2024 12:30 PM AM[place]ULATORY - MEDICINE [place] [facility] [place] [facility] Sep 05, 2024 01:00 PM AM[place]ORY - [place]ICINE [place] [facility] [place] [facility] Nov 03, 2024 11:00 AM [facility] Vital Signs: All [...] and tobacco- related health factors from the [place] facility where the Encounter took place. Current Smoking Status This section includes the most current smoking, or tobacco-related health factor, from the [place] facility where the Encounter took place. Date/Time Current Smoking Status Comment Facil ity Nov 17, 2022 01:30 PM VA-TOBACCO FORMER USER [place] Tobacco Use History This section includes a history of the smoking, or tobacco-related health factors, that were collected on or before the date of the Encounter. The data comes from the [place] facility where the Encounter took place. Date/Time Smoking Status/Tobacco Use Comment F acility Nov 17, 2022 01:30 PM VA-TOBACCO QUIT 15 YRS OR MORE [place] Jun 19, 2021 11:00 AM VA-TOBACCO FORMER USER [place] Jun 19, 2021 11:00 AM [place]-TOBACCO QUIT 5 TO < 15 YRS [place] Encounter Notes: All associated encounter notes This [...] CUI, is a 88 yo WHITE MALE [place] who [facility] the [place] [facility]. TYPE OF VISIT: Face to face [...] Labs from November were reviewed with the All medications were reconciled during this visit. HEALTHCARE PROVIDERS: PCP: [place] Cardiology: Dr. Carpenter Nephrology: Dr. Camden Sharif Ophthalmology: [place] Social Hx: He is and lives with his . No tobacco, alcohol, MJ. No regular exercise. HISTORY: PERIOD OF SERVICE - [employer] FROM May TO Mar COMBAT SERVICE INDICATED: No MEDICAL HISTORY Active Problem Impaired Fasting Glucose (SCT 35891 01/13/2024 LISA OLSON Vitamin D Deficiency (SCT 10688597) 01/13/2024 LISA OLSON Leukopenia D72.819 11/20/2023 LISA OLSON Age related macular degeneration H3 11/20/2023 LISA OLSON Lipoma of knee and popliteal area D 11/18/2022 BRAD WHITAKER Exposure to potentially hazardous s 11/18/2022 BRAD WHITAKER Long-term current use of anticoagul 04/15/2022 EVELIN BREEN CAD - Coronary Artery Disease ([facility] 06/20/2021 MACO BETANCOURT 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 EXAMINATION General: Older in no obvious distress. Mental Status: Alert, [...] source for the following: Impaired Fasting Glucose ([facility] [id number]): Serum glucose 118 in November, likely nonfasting sample. HbA1c normal. Vitamin D Deficiency ([facility] 96964858): Vitamin D level 22 in November. Not on a supplement but does take a multivitamin at home and drinks cows milk. Leukopenia: Mild. Stable. Age related macular degeneration: Follows with [place] ophthalmology. CAD - Coronary Artery Disease ([facility] [id number]): Long-term current use of anticoagulant: AF- Atrial Fibrillation ([facility] 20729026): Follows with Dr. Carpenter. Requesting recent office visit note and diagnostics. Maintained on apixaban for primary risk reduction and carvedilol for ventricular rate control. Continue. Also continue isosorbide and spironolactone prescribed by him. endorses he takes all medications as prescribed. She manages his medicines. HTN - Hypertension ([facility] 69930428): Blood pressure within target today 139/63. Endorses taking meds as prescribed. Continue torsemide, carvedilol, spironolactone. Anemia ([facility] 835200582): H/H 13/40. Denies any melena or hematochezia. Hyperlipidemia ([facility] 50106500): Lipid panel WNL. LDL 120. Not maintained [...] 08/08/2024 11:00 CWM/NO/OPTOMETRY/MERHAR 11/03/2024 11:00 CWM/SO/PACT 1 COMPUTER INFORMATION SCIENCE PROFESSOR 40 minutes spent in patient evaluation, data [...] NURSE PRACTITIONER Signed: 06/05/2024 10:50 SAUL PEREZ [place]
--- OUTSIDE RECORDS SUMMARY | 2024-11-10 12:46 | XMS_ITS | Encounter Summary ---
Author Name [facility] [place] Organization [facility] [place] Address [address] [place] [address] Care Team Providers Care Clinical Trial Leader Name Role Phone SAUL PEREZ Primary Care [...] PART A Sep 10, 2001 PART A [id number] [phone] YENIFER CUI PATIENT MEDICARE (WNR) MEDICARE (M) PART B Sep 10, 2001 PART B [id number] YENIFER CUI PATIENT MEDICARE (WNR) MEDICARE (M) PART A Sep 10, 2001 PART A [id number] YENIFER CUI PATIENT MEDICARE (WNR) MEDICARE (M) PART B Sep 10, 2001 PART B [id number] [phone] YENIFER CUI PATIENT UNICARE-G. I.C. MEDICAL EXPENSE (OPT/PROF ) [employer]P [place] Feb 08, 2012 [id number] RONA CUI SPOUSE [employer] MEDICAL EXPENSE (OPT/PROF ) [place] RE [employer] IN[place]M N Feb 08, 2012 [id number] RONA CUI SPOUSE [employer] MEDICAL EXPENSE (OPT/PROF ) [place] [place] Feb 08, 2012 [id number] RONA CUI SPOUSE Selected Encounter This section includes the information on record at [place] for the Encounter. Date/Time Encounter Type Encounter Description Reason Pro vider Source Mar 08, 2024 08:05 PM Outpatient Encounter ADMIN PAT ACTIVTIES (MASNONCT) IHE Encounter Template Text not used by [place] Plan of Treatment: Future Appointments (+ 6 months) and Future Tests (+/- 45 days) The Plan of Treatment section includes future care activities for the patient from all [place] treatmentfacilities. This section includes future appointments and future orders which are active, pending or scheduled. Future Appointments This section includes appointments that were scheduled to occur 6 months from the date of the Encounter, up to a maximum of 20 appointments. The data comes from all [place] treatment facilities. Appointment Date/Time Appointment Type Appointme nt Facility Name Jun 03, 2024 10:00 AM AMBULATORY - MEDICINE [facility] Aug 08, 2024 11:00 AM AMBULATORY - MEDICINE [facility] Aug 08, 2024 01:00 PM AMBULATORY - MEDICINE [facility] Sep 05, 2024 12:30 PM AMBULATORY - MEDICINE [facility] Sep 05, 2024 01:00 PM AMBULATORY - MEDICINE [facility] Social History: Smoking Status (Most current) and Tobacco Use (All prior to encounter date) This section includes the most current, and the historical, smoking and tobacco- related health factors from the [place] facility where the Encounter took place. Current Smoking Status This section includes the most current smoking, or tobacco-related health factor, from the [place] facility where the Encounter took place. Date/Time Current Smoking Status Lazaro lopez Nov 20, 2023 10:11 AM [place]-TOBACCO QUIT 15 YRS OR MORE [facility] Tobacco Use History This section includes a history of the smoking, or tobacco-related health factors, that were collected on or before the date of the Encounter. The data comes from the [place] facility where the Encounter took place. Date/Time Smoking Status/Tobacco Use Comment F acility Nov 20, 2023 10:11 AM VA-TOBACCO QUIT 15 YRS OR MORE [facility] May 27, 2011 12:54 PM QUIT TOBACCO USE 1 -7 YEARS AGO quit 2006 [facility] May 09, 2010 03:17 PM QUIT TOBACCO USE 1 -7 YEARS AGO [facility] Encounter Notes: All associated encounter notes This section contains the clinical notes associated to the Encounter. Date/Time Encounter Note(s) Provider Source Mar 08, 2024 08:05 PM PHARMACY NOTE: LOCAL TITLE: PHARMACY CUSTOMER CARE MEDICATION RENEWAL STANDARD TITLE: PHARMACY NOTE DATE OF NOTE: MAR 08, 2024@20:05 ENTRY DATE: MAR 08, 2024@20:06 AUTHOR: LALITHA COX EXP COSIGNER: URGENCY: STATUS: COMPLETED Date: Feb Division: [place] Pt referred by Pharmacy Call Center for medication renewal: Non-controlled/maintenance medication Medications requested: [id number] CARBOXYMETHYLCELLULOSE NA 0.5% OPH SOLN Defer to specialty clinic To be mailed . Please review and renew if appropriate. *This note was generated by [facility] Pharmacy Customer Care. If you have any questions or need assistance, do not contact this author. Please refer all questions to your local, on-site pharmacy departments. /damien/ LALITHA COX CPhT Oracle Database Manager, [place]/Pharmacy Customer Care Signed: 03/08/2024 20:06 Receipt Acknowledged By: 03/09/2024 07:56 /damien/ Nathan Taylor OD CHIEF OF OPTOMETRY for LALITHA GONZALEZ [facility]
--- OUTSIDE RECORDS SUMMARY | 2024-11-10 12:46 | XMS_ITS ---
Author Name [facility] [place] Organization [place] Address [address] [place] [id number] Care Team Providers Care Bank Secrecy Act Officer Name Role Phone SAUL PEREZ Primary Care [...] PART A Sep 10, 2001 PART A [id number] YENIFER CUI PATIENT MEDICARE (WNR) MEDICARE (M) PART B Sep 10, 2001 PART B [id number] YENIFER CUI PATIENT MEDICARE (WNR) MEDICARE (M) PART A Sep 10, 2001 PART A [id number] YENIFER CUI PATIENT MEDICARE (WNR) MEDICARE (M) PART B Sep 10, 2001 PART B [id number] [phone] YENIFER CUI PATIENT UNICARE-G. I.C. MEDICAL EXPENSE (OPT/PROF ) WELLP [place] Feb 08, 2012 [id number] RONA CUI SPOUSE [employer] MEDICAL EXPENSE (OPT/PROF ) [place] RE STATE INDEM N Feb 08, 2012 [id number] RONA CUI SPOUSE [employer] MEDICAL EXPENSE (OPT/PROF ) [facility] [place] Feb 08, 2012 [id number] RONA CUI SPOUSE Selected Encounter This section includes the information on record at [place] for the Encounter. Date/Time Encounter Type Encounter Description Reason Pro vider Source Oct 02, 2024 11:34 PM Outpatient Encounter ADMIN PAT ACTIVTIES (MASNONCT) IHE Encounter Template Text not used by [place] Plan of Treatment: Future Appointments (+ 6 [...] Appointment Type Appointme nt Facility Name Nov 03, 2024 11:00 AM AMBULATORY - MEDICINE [facility] Mar 09, 2025 11:30 AM [facility] Active, Pending, and Scheduled Orders This section includes a listing of several types of active, pending, and scheduled orders, including clinic medications orders, diagnostic test orders, procedure orders and consult orders; where the start date of the order is 45 days before the date of the Encounter or 45 days after the date of theEncounter. The data comes from all [facility]. Test Date/Time Test Type Test Details Facility Name Nov 03, 2024 12:37 PM Consult Order COMMUNITY CARE-CARDIOLOGY Cons [employer] [facility] Nov 10, 2024 10:35 AM Laboratory - Chemi stry Order BASIC METABOLIC PANEL (non-fasting) BLOOD (SST-SERUM) [facility] Nov 10, 2024 10:35 AM Laboratory - Chemi stry Order CALCIUM BLOOD (SST-SERUM) [facility] Nov 10, 2024 10:35 AM Laboratory - Chemi stry Order MAGNESIUM BLOOD (SST-SERUM) [facility] Nov 10, 2024 10:35 AM Laboratory - Chemi stry Order PO4 BLOOD (SST-SERUM) [facility] Lab Results: +/- 30 days of [...] Range Comment Oct 28, 2024 10:19 AM [facility] BASIC METABOLIC PANEL (non-fasting) Spe cimen Type: SERUM No comment entered. Ordering Provider: SAUL PEREZ Report Released Date/Time: Oct 28, 2024 10:18 AM Reporting Lab: [address] [address] Performing Lab: [address] [address] UREA NITROGEN 69 mg/dL H 7-25 GLUCOSE 122 mg/dL H 65-100 SODIUM 137 mmol/L 135-145 POTASSIUM 5.8 mmol/L H 3.5-5.0 CHLORIDE 110 mmol/L 100-110 CO2 22 meq/L 20-30 CALCIUM 8.2 mg/dL L 8.5-10.2 CREATININE, Serum 2.35 mg/dL H 0.50-1.40 eGFR(CKD-EPI 2020) 26 mL/min L >60 Oct 28, 2024 10:19 AM [facility] LIPID PANEL, NON FASTING Specimen Type: SERUM No comment entered. Ordering Provider: SAUL PEREZ Report Released Date/Time: Oct 28, 2024 10:18 AM Reporting Lab: [address] [address] Performing Lab: [address] [address] CHOLESTEROL 159 mg/dL TRIGLYCERIDE 108 mg/dL 0-150 LDL calculated 101 mg/dL 0-129 CHOL/HDL 4.4 HDL CHOLESTEROL 36 mg/dL L 40-60 Oct 28, 2024 10:19 AM [facility] LIVER FUNCTION Specimen Type: SERUM No comment entered. Ordering Provider: SAUL PEREZ Report Released Date/Time: Oct 28, 2024 10:18 AM Reporting Lab: [facility] [facility] [address] [facility] [address] Performing [facility]: [facility] [place] [facility] [address] [facility] [address] PROTEIN,TOTAL 7.0 g/dL 6.0-8.3 ALBUMIN 3.4 g/dL L 3.5-5.0 ALKALINE PHOSPHATASE 53 U/L 40-150 AST 15 U/L 5-34 ALT 13 U/L BILIRUBIN, TOTAL 0.7 mg/dL 0.2-1.2 Oct 28, 2024 10:19 AM [facility] HEMOGLOBIN A1C PANEL Specimen Type: BLOOD Comment: [...] Oct 28, 2024 10:18 AM Reporting Lab[facility] [address] Performing Lab: [place] [facility] [place] [address] [address] HEMOGLOBIN A1C 5.5 4.0-5.6 Oct 28, 2024 10:19 AM [facility] TSH Specimen Type: SERUM No comment entered. Ordering Provider: SAUL PEREZ Report Released Date/Time: Oct 28, 2024 10:18 AM Reporting Lab: [facility] [place] [address] [address] Performing Lab: [place] [facility] [place] [address] [address] TSH 4.07 u[IU]/mL 0.35-5.00 Oct 28, 2024 10:19 AM [facility] CBC AND DIFF (AUTO) Specimen Type: BLOOD No comment entered. Ordering Provider: SAUL PEREZ Report Released Date/Time: Oct 28, 2024 10:18 AM Reporting Lab: [facility] [address] [address] Performing Lab: [facility] [address] [facility] [address] WBC 2.84 10*3/uL L 4.50-11.00 RBC 4.30 [...] 20, 2023 10:11 AM VA-TOBACCO FORMER USER [facility] Tobacco Use History This section includes a history of the smoking, or tobacco-related health factors, that were collected on or before the date of the Encounter. The data comes from the [place] facility where the Encounter took place. Date/Time Smoking Status/Tobacco Use Comment F acility Nov 20, 2023 10:11 AM VA-TOBACCO QUIT 15 YRS OR MORE [facility] May 27, 2011 12:54 PM QUIT TOBACCO USE 1 -7 YEARS AGO quit 2006 [facility] May 09, 2010 03:17 PM QUIT TOBACCO USE 1 -7 YEARS AGO [facility] Encounter Notes: All associated encounter notes This section contains the clinical notes associated to the Encounter. Date/Time Encounter Note(s) Provider Source Oct 02, 2024 11:34 PM PHARMACY NOTE: LOCAL TITLE: PHARMACY CUSTOMER CARE MEDICATION RENEWAL STANDARD TITLE: PHARMACY NOTE DATE OF NOTE: OCT 02, 2024@23:34 ENTRY DATE: OCT 02, 2024@23:34:22 AUTHOR: EMIR HERNANDEZ I EXP COSIGNER: URGENCY: STATUS: COMPLETED Date: Sep Division: [place] Pt referred by Pharmacy Call Center for medication renewal: Non-controlled/maintenanc e medication Medications requested: [id number] TORSEMIDE 10MG TAB Defer to primary care provider To be mailed . Please review and renew if appropriate. *This note was generated by [facility]/[place] Pharmacy Customer Care. If you have any questions or need assistance, do not contact this author. Please refer all questions to your local, on-site pharmacy departments. /damien/ Emir Hernandez CPhT Wound Nurse, [place]/Pharmacy Customer Care Signed: 10/02/2024 23:34 Receipt Acknowledged By: 10/04/2024 08:01 /damien/ YEIMY OSUNA REGISTERED NURSE 10/05/2024 12:08 /damien/ SAUL PEREZ NP NURSE PRACTITIONER EMIR HERNANDEZ I [facility]
--- OUTSIDE RECORDS SUMMARY | 2024-11-10 12:46 | XMS_ITS | Encounter Summary ---
Author Name [place] Address [address] [place] [address] Care Team Providers Care Pulper Tender Name Role Phone SAUL PEREZ Primary Care [...] PART A Sep 10, 2001 PART A [id number] YENIFER CUI PATIENT MEDICARE (WNR) MEDICARE (M) PART B Sep 10, 2001 PART B [id number] YENIFER CUI PATIENT MEDICARE (WNR) MEDICARE (M) PART A Sep 10, 2001 PART A [id number] [phone] YENIFER CUI PATIENT MEDICARE (WNR) MEDICARE (M) PART B Sep 10, 2001 PART B [id number] YENIFER CUI PATIENT UNICARE-G. I.C. MEDICAL EXPENSE (OPT/PROF ) WELLP O[place]ER Feb 08, 2012 [id number] RONA CUI SPOUSE [employer] MEDICAL EXPENSE (OPT/PROF ) [place] RE [employer] IN[place]M N Feb 08, 2012 [id number] RONA CUI SPOUSE [employer] MEDICAL EXPENSE (OPT/PROF ) [facility] [place] Feb 08, 2012 [id number] RONA CUI SPOUSE Selected Encounter This section includes the information on record at [place] for the Encounter. Date/Time Encounter Type Encounter Description Reason Provider Source Nov 20, 2023 10:00 AM OFFICE O/P EST HI 40 MIN PRIMARY CARE/MEDICINE ICD-10-CM H90.3 Sensorineural hearing loss, bilateral MERCADO,ADIA Richardson [facility] Encounter Template Text not used by [place] Assessments - Encounter Diagnoses This section includes the primary and secondary diagnoses documented for the Encounter. Date/Time Primary/Secondary Diagnosis Diagnosis Name Provider Source Nov 20, 2023 11:00 AM PRIMARY Sensorineural hearing loss, bilateral LISA MERCADO [facility] Nov 20, 2023 11:00 AM SECONDARY Anemia, unspecified MERCADOLISA SANTOS [facility] Nov 20, 2023 11:00 AM SECONDARY Athscl heart disease of [place] coronary artery w/o ang pctrs LISA MERCADO [facility] Nov 20, 2023 11:00 AM SECONDARY Chronic kidney disease, stage 3 unspecified LISA MERCADO [facility] Nov 20, 2023 11:00 AM SECONDARY Decreased white blood cell count, unspecified MERCADOLISA SANTOS [facility] Nov 20, 2023 11:00 AM SECONDARY Depression, unspecified MERCADOLISA [facility] Nov 20, 2023 11:00 AM SECONDARY Essential (primary) hypertension LISA MERCADO [facility] Nov 20, 2023 11:00 AM SECOND[facility] Hyperlipidemia, unspecified MERCADOLSIA [facility] Nov 20, 2023 11:00 AM 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 This section includes future appointments and [...] 26, 2023 11:00 AM AMBULATORY [facility]IC[facility] December 24, 2023 01:00 PM [facility] Jan 13, 2024 11:30 AM [facility] Active, Pending, and Scheduled Orders This section includes a listing of several types of active, pending, and scheduled orders, including clinic medications orders, diagnostic test orders, procedure orders and consult orders; where the start date of the order is 45 days before the date of the Encounter or 45 days after the date of theEncounter. The data comes from all [facility]. Test Date/Time Test Type Test Details Facility Name Nov 20, 2023 12:00 AM Laboratory - Chemi stry Order HEPATITIS C ANTIBODY (HCV)-[facility] BLOOD ([facility] SER[facility]) [facility] Lab Results: +/- 30 days of the encounter This section includes the Chemistry and Hematology Lab Results on record with [place] for the patient. Radiology Reports and Pathology Reports are provided separately, in subsequent sections. Lab Results This section contains the Chemistry/Hematology Results that were resulted 30 days before or 30 daysafter the date of the Encounter. Date/Time Source Result Type Result - Unit Interpretation Reference Range Comment Nov 20, 2023 10:55 AM [facility] BASIC METABOLIC PANEL (non-fasting) Spe cimen Type: SERUM No comment entered. Ordering Provider: LISA MERCADO Report Released Date/Time: Nov 20, 2023 10:16 AM Reporting Lab: [address] [address] Performing Lab: [address] [address] UREA NITROGEN 58 mg/dL H 7-25 GLUCOSE 118 mg/dL H 65-100 SODIUM 140 mmol/L 135-145 POTASSIUM 5.1 mmol/L H 3.5-5.0 CHLORIDE 104 mmol/L 100-110 CO2 26 meq/L 20-30 CREATININE, Serum 2.26 mg/dL H 0.50-1.40 eGFR(CKD-EPI 2020) 27 mL/min L >60 Nov 20, 2023 10:55 AM [facility] LIVER FUNCTION Specimen Type: SERUM No comment entered. Ordering Provider: LISA MERCADO Report Released Date/Time: Nov 20, 2023 10:16 AM Reporting Lab: [address] [address] Performing Lab: [address] [address] PROTEIN,TOTAL 7.1 g/dL 6.0-8.3 ALBUMIN 3.5 g/dL 3.5-5.0 ALKALINE PHOSPHATASE 48 U/L 40-150 AST 15 U/L 5-34 ALT 10 U/L BILIRUBIN, TOTAL 0.7 mg/dL 0.2-1.2 Nov 20, 2023 10:55 AM [facility] TSH Specimen Type: SERUM No comment entered. Ordering Provider: LISA MERCADO Report Released Date/Time: Nov 20, 2023 10:16 AM Reporting Lab: [address] [address] Performing Lab: [address] [address] TSH 3.37 u[IU]/mL 0.35-5.00 Nov 20, 2023 10:55 AM [facility] LIPID PANEL, NON FASTING Specimen Type: SERUM No comment entered. Ordering Provider: LISA MERCADO Report Released Date/Time: Nov 20, 2023 10:16 AM Reporting Lab: [address] [address] Performing Lab: [address] [address] CHOLESTEROL 188 mg/dL TRIGLYCERIDE 102 mg/dL 0-150 LDL calculated 120 mg/dL 0-129 CHOL/HDL 3.9 HDL CHOLESTEROL 48 mg/dL 40-60 Nov 20, 2023 10:55 AM [facility] HEMOGLOBIN A1C PANEL Specimen Type: BLOOD Comment: [...] Nov 20, 2023 10:16 AM Reporting [facility] [address] [address] Performing Lab: [facility] [address] [address] HEMOGLOBIN A1C 5.3 4.0-5.6 Nov 20, 2023 10:55 AM [facility] IRON & TIBC PANEL Specimen Type: SERUM No comment entered. Ordering Provider: LISA MERCADO Report Released Date/Time: Nov 20, 2023 10:16 AM Reporting Lab[facility] [address] [address] Performing Lab: [address] [address] TIBC 363 ug/dL 204-475 IRON 66 ug/dL 40-160 Transferrin Saturation 18.2 L 20.0-50.0 Nov 20, 2023 10:55 AM [facility] FERRITIN Specimen Type: SERUM No comment entered. Ordering Provider: LISA MERCADO Report Released Date/Time: Nov 20, 2023 10:16 AM Reporting Lab: [facility] [address] [address] Performing Lab: [address] [address] FERRITIN 28 ng/mL 20-300 Nov 20, 2023 10:55 AM [facility] VITAMIN D (25-OH) Specimen Type: SERUM No comment entered. Ordering Provider: LISA MERCADO Report Released Date/Time: Nov 20, 2023 10:16 AM Reporting Lab: [facility] [address] [address] Performing Lab: [address] [address] VITAMIN D (25-OH) 22 ng/mL 20-50 Nov 20, 2023 10:55 AM [facility] CBC AND DIFF (AUTO) Specimen Type: BLOOD No comment entered. Ordering Provider: LISA MERCADO Report Released Date/Time: Nov 20, 2023 10:16 AM Reporting Lab: [facility] [address] [facility] [address] Performing Lab: [facility] [address] [facility] [address] WBC 3.41 10*3/uL L 4.50-11.00 RBC 4.63 10*6/uL 4.23-5.66 HGB 13.0 g/dL 12.8-17 HCT 40.2 39.2-50.4 MCV 86.8 fL 82-99 MCHC 32.3 g/dL 30.8-35.1 PLT 99 10*3/uL L 140-360 RDW-CV 17.9 H 12.0-16.0 [place], Abs 0.33 10*3/uL 0.30-1.10 MCH 28.1 pg 26.2-32.6 Neut % 71.3 43.7-75.8 Lymph % 15.8 14.0-42.3 [place] % 9.7 5.1-13.7 Eos % 2.6 0.4-6.8 Baso % 0.3 0.1-2.0 Neut, Abs 2.43 10*3/uL 2.20-7.60 Lymph, Abs 0.54 10*3/uL L 1.00-3.20 Eos, Abs 0.09 10*3/uL 0.03-0.44 Baso, Abs 0.01 10*3/uL 0.01-0.13 Immature Gran % 0.3 0.0-0.7 Immature Gran, Abs 0.01 10*3/uL 0.00-0.06 Nov 20, 2023 10:55 AM [facility] METHYLMALONIC ACID (SERUM-QU) Specimen Type: SERUM Comment: This test was developed and its analytical performance characteristics have been determined by [facility]. It has not been cleared or approved by the U.S. Food and Drug Administration. This assay has been validated pursuant to the CLIA regulations and is used for clinical purposes. Test Performed by Yanna Mendes, [facility], [address] [place] [address] Elliott Calvillo M.D., Ph.D., Director of Laboratories , [place] [id number] TEST PERFORMED AT: , Ordering Provider: LISA MERCADO Report Released Date/Time: Nov 20, 2023 02:59 PM Reporting Lab: [facility] [address] [facility] [address] Performing Lab: [facility] [address] [address] METHYLMALONIC ACID (SERUM-QU) 555 nmol/L H 87-318 Nov 20, 2023 10:55 AM [facility] FOLATE (WROX) Specimen Type: SERUM No comment entered. Ordering Provider: LISA MERCADO Report Released Date/Time: Nov 20, 2023 02:59 PM Reporting Lab: [facility] [address] [facility] [address] Performing Lab: [facility] [address] [facility] [address] FOLATE (WROX) 8.39 ng/mL >5.2 Nov 20, 2023 10:55 AM [facility] VITAMIN B12 Specimen Type: SERUM No comment entered. Ordering Provider: LISA MERCADO Report Released Date/Time: Nov 20, 2023 02:59 PM Reporting Lab: [facility] [address] [facility] [address] Performing Lab: [address] [address] VITAMIN B12 438 pg/mL 200-900 Vital Signs: [...] Current Smoking Status Comment Malinda ity Nov 17, 2022 01:30 PM VA-TOBACCO FORMER USER [facility] Tobacco Use History This section includes a history of the smoking, or tobacco-related health factors, that were collected on or before the date of the Encounter. The data comes from the [place] facility where the Encounter took place. Date/Time Smoking Status/Tobacco Use Comment F acility Nov 17, 2022 01:30 PM VA-TOBACCO QUIT 15 YRS OR MORE [facility] Jun 19, 2021 11:00 AM VA-TOBACCO FORMER USER [facility] Jun 19, 2021 11:00 AM VA-TOBACCO QUIT 5 TO < 15 YRS [facility] Encounter Notes: All associated encounter notes This [...] 4-6 WEEKS. IN OFFICE OR VVC IS FINE /damien/ LISA MERCADO MD PHYSICIAN Signed: 12/17/2023 18:28 Receipt Acknowledged By: 12/18/2023 12:40 /damien/ JONY RODRIGUEZ 12/18/2023 ADDENDUM STATUS: COMPLETED [facility] unable to reach the [place]. Left message on voicemail to contact PC to schedule appointment in 4/6 weeks to review lab results. Letter sent to the . /damien/ JONY RODRIGUEZ Signed: 12/18/2023 12:28 LISA MERCADO Nov 20, 2023 10:17 AM PHYSICIAN NOTE: LOCAL TITLE: NOTE STANDARD TITLE: PHYSICIAN NOTE DATE OF NOTE: NOV 20, 2023@10:17 ENTRY DATE: NOV 20, 2023@10:17:45 AUTHOR: LISA MERCADO EXP COSIGNER: URGENCY: STATUS: COMPLETED PRIMARY CARE VISIT YENIFER CUI, is a 88 yo WHITE MALE TYPE OF VISIT: Face to face CHART REVIEWED, PATIENT EXAMINED. HPI: NEW PATIENT TO MY CLINIC very [place] with Cognitive issues. Independent historian present at today's visit to provide information. present reports memory issues wonders if he had a stroke c/o decreasing vision due to Macular degeneration wants to see eye doc at [place] did see general ophth in community back [...] bleeding 5. CAD - Coronary Artery Disease ([facility] [id number])- stable per vet managed by Cardiology 6. HTN - Hypertension ([facility] [id number])- well controlled on current meds 8. Anemia ([facility] [id number])- Unclear if stable, check lab or test, as discussed. 9. AF- Atrial Fibrillation ([facility] [id number])- h/o Afib. Currently in sinus and stable. denies any current issues. Vet on blood-thinner and aware of risks. 10. Hyperlipidemia ([facility] [id number])- Unclear if stable, check lab or test, as discussed. 11. Chronic renal failure- Followed by Miguelina Huang in the community Unclear if stable, check lab or test, as discussed. 12. Depression ([facility] [id number])- mild, not interested in MAT 13. Vision, [...] whether with a VA or non-VA provider. /es/ LISA MERCADO MD PHYSICIAN Signed: 11/20/2023 11:00 LISA MERCADO [facility] Nov 13, 2023 10:34 AM ADMINISTRATIVE NOT E: LOCAL TITLE: ADMINISTRATIVE NOTE STANDARD TITLE: ADMINISTRATIVE NOTE DATE OF NOTE: NOV 13, 2023@10:34 ENTRY DATE: NOV 13, 2023@10:34:54 AUTHOR: JONY CAPONE COSIGNER: URGENCY: STATUS: COMPLETED [facility] [address] [place] [phone] * YENIFER CUI [address] [place] [id number] Date: NOV 13, 2023 re: This is a reminder of your upcoming PCP appt with LISA MERCADO. Appointment Date: Nov@10:00 Appointment Type: In-person visit Fasting blood work NON fasting blood work CONFIRMED WITH THE Sincerely, Office Staff for: LISA MERCADO Primary Care Provider [facility] [address] [address] T [phone] F [phone] Upcoming Appointments: 11/20/2023 10:00 CWM/SO/PACT 2 APPOINTMENT ABBREVIATION COSTELLO (SPOPC OR SO = [facility] [address] [facility]) (GOPC OR GO = [address]) (OHM or NO = [facility]) (VVC - Video Call) (Tel-X Telephone Visit) (TH - Telehealth) /damien/ JONY RODRIGUEZ Signed: 11/13/2023 10:35 JONY CAPONE
--- OUTSIDE RECORDS SUMMARY | 2024-11-10 12:46 | XMS_ITS ---
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 EXPENSE (OPT/PROF ) [facility] Feb 08, 2012 [id number] RONA CUI SPOUSE [employer] (OPT/PROF ) [place] RE STATE INDEM N Feb 08, 2012 [id number] RONA CUI SPOUSE [employer] (OPT/PROF ) [facility] Feb 08, 2012 [id number] RONA CUI SPOUSE Selected Encounter This section includes the information on record at [place] for the Encounter. 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, bi, adv atrpc with subfoveal invl MERHAR,SVETA B [facility] December 21, 2023 06:03 AM SECONDARY Combined forms of age-related cataract, bilateral MERHAR,SVETA B [facility] December 21, 2023 06:03 AM SECONDARY Dry eye syndrome of bilateral lacrimal glands MERHAR,SVETA B [facility] December 21, 2023 06:03 AM SECONDARY Unqualified visual loss, both eyes MERROLANDO,SVETA B [facility] Plan of Treatment: Future Appointments (+ 6 months) and Future Tests (+/- 45 days) The Plan of Treatment section includes future care activities for the patient from all [place] treatmentfacilities. This section includes future appointments and future orders which are active, pending or scheduled. Future Appointments This section includes appointments that were scheduled to occur 6 months from the date of the Encounter, up to a maximum of 20 appointments. The data comes from all [place] treatment facilities. Appointment Date/Time Appointment Type Appointme nt Facility Name December 24, 2023 01:00 PM AMBULATORY - REHAB MEDICIN E [facility] Jan 13, 2024 11:30 AM AMBULATORY - MEDICINE [facility] Active, Pending, and Scheduled Orders This section includes a listing of several types of active, pending, and scheduled orders, including clinic medications orders, diagnostic test orders, procedure orders and consult orders; where the start date of the order is 45 days before the date of the Encounter or 45 days after the date of theEncounter. The data comes from all [place] treatment facilities. Test Date/Time Test Type Test Details Facility Name Nov 20, 2023 12:00 AM Laboratory - Chemi stry Order HEPATITIS C ANTIBODY (HCV[facility] BLOOD (MARBLED-TOP SERUM) [facility] Lab Results: +/- 30 days of the encounter This section includes the Chemistry and Hematology Lab Results on record with [place] for the patient. Radiology Reports and Pathology Reports are provided separately, in subsequent sections. Lab Results This section contains the Chemistry/Hematology Results that were resulted 30 days before or 30 daysafter the date of the Encounter. Date/Time Source Result Type Result - Unit Interpretation Reference Range Comment Nov 20, 2023 10:55 AM [facility] BASIC METABOLIC PANEL (non-fasting) Spe cimen Type: SERUM No comment entered. Ordering Provider: LISA MERCADO Report Released Date/Time: Nov 20, 2023 10:16 AM Reporting Lab: [address] [address] Performing Lab: [address] [address] UREA NITROGEN 58 mg/dL H 7-25 GLUCOSE 118 mg/dL H 65-100 SODIUM 140 mmol/L 135-145 POTASSIUM 5.1 mmol/L H 3.5-5.0 CHLORIDE 104 mmol/L 100-110 CO2 26 meq/L 20-30 CREATININE, Serum 2.26 mg/dL H 0.50-1.40 eGFR(CKD-EPI 2020) 27 mL/min L >60 Nov 20, 2023 10:55 AM [facility] LIVER FUNCTION Specimen Type: SERUM No comment entered. Ordering Provider: LISA MERCADO Report Released Date/Time: Nov 20, 2023 10:16 AM Reporting Lab: [address] [address] Performing Lab: [address] [address] PROTEIN,TOTAL 7.1 g/dL 6.0-8.3 ALBUMIN 3.5 g/dL 3.5-5.0 ALKALINE PHOSPHATASE 48 U/L 40-150 AST 15 U/L 5-34 ALT 10 U/L BILIRUBIN, TOTAL 0.7 mg/dL 0.2-1.2 Nov 20, 2023 10:55 AM [facility] TSH Specimen Type: SERUM No comment entered. Ordering Provider: LISA MERCADO Report Released Date/Time: Nov 20, 2023 10:16 AM Reporting Lab: [address] [address] Performing Lab: [address] [address] TSH 3.37 u[IU]/mL 0.35-5.00 Nov 20, 2023 10:55 AM [facility] LIPID PANEL, NON FASTING Specimen Type: SERUM No comment entered. Ordering Provider: LISA MERCADO Report Released Date/Time: Nov 20, 2023 10:16 AM Reporting Lab: [address] [address] Performing Lab: [address] [address] CHOLESTEROL 188 mg/dL TRIGLYCERIDE 102 mg/dL 0-150 LDL calculated 120 mg/dL 0-129 CHOL/HDL 3.9 HDL CHOLESTEROL 48 mg/dL 40-60 Nov 20, 2023 10:55 AM [facility] HEMOGLOBIN A1C PANEL Specimen Type: BLOOD Comment: [...] Nov 20, 2023 10:16 AM Reporting Lab: [address] [address] Performing Lab: [address] [address] HEMOGLOBIN A1C 5.3 4.0-5.6 Nov 20, 2023 10:55 AM [facility] IRON & TIBC PANEL Specimen Type: SERUM No comment entered. Ordering Provider: LISA MERCADO Report Released Date/Time: Nov 20, 2023 10:16 AM Reporting Lab: [address] [address] Performing Lab: [address] [address] TIBC 363 ug/dL 204-475 IRON 66 ug/dL 40-160 Transferrin Saturation 18.2 L 20.0-50.0 Nov 20, 2023 10:55 AM [facility] FERRITIN Specimen Type: SERUM No comment entered. Ordering Provider: LISA MERCADO Report Released Date/Time: Nov 20, 2023 10:16 AM Reporting Lab: [address] [address] Performing Lab: [address] [address] FERRITIN 28 ng/mL 20-300 Nov 20, 2023 10:55 AM [facility] VITAMIN D (25-OH) Specimen Type: SERUM No comment entered. Ordering Provider: LISA MERCADO Report Released Date/Time: Nov 20, 2023 10:16 AM Reporting Lab: [address] [address] Performing Lab: [address] [address] VITAMIN D (25-OH) 22 ng/mL 20-50 Nov 20, 2023 10:55 AM [facility] CBC AND DIFF (AUTO) Specimen Type: BLOOD No comment entered. Ordering Provider: LISA MERCADO Report Released Date/Time: Nov 20, 2023 10:16 AM Reporting Lab: [address] [address] Performing Lab: [address] [address] WBC 3.41 10*3/uL L 4.50-11.00 RBC 4.63 10*6/uL 4.23-5.66 HGB 13.0 g/dL 12.8-17 HCT 40.2 39.2-50.4 MCV 86.8 fL 82-99 MCHC 32.3 g/dL 30.8-35.1 PLT 99 10*3/uL L 140-360 RDW-CV 17.9 H 12.0-16.0 Alexander, Abs 0.33 10*3/uL 0.30-1.10 MCH 28.1 pg 26.2-32.6 Neut % 71.3 43.7-75.8 Lymph % 15.8 14.0-42.3 Alexander % 9.7 5.1-13.7 Eos % 2.6 0.4-6.8 Baso % 0.3 0.1-2.0 Neut, Abs 2.43 10*3/uL 2.20-7.60 Lymph, Abs 0.54 10*3/uL L 1.00-3.20 Eos, Abs 0.09 10*3/uL 0.03-0.44 Baso, Abs 0.01 10*3/uL 0.01-0.13 Immature Gran % 0.3 0.0-0.7 Immature Gran, Abs 0.01 10*3/uL 0.00-0.06 Nov 20, 2023 10:55 AM [facility] METHYLMALONIC ACID (SERUM-QU) Specimen Type: SERUM Comment: This test was developed and its analytical performance characteristics have been determined by [place] It has not been cleared or approved by the U.S. Food and Drug Administration. This assay has been validated pursuant to the CLIA regulations and is used for clinical purposes. Test Performed by [facility], [facility], [address] [place] [address] Elliott Calvillo M.D., Ph.D., Director of Laboratories , CLIA [id number] TEST PERFORMED AT: , Ordering Provider: LISA MERCADO Report Released Date/Time: Nov 20, 2023 02:59 PM Reporting Lab: [address] [address] Performing Lab: [facility] [address] [facility], [address] [place] [address] METHYLMALONIC ACID (SERUM-QU) 555 nmol/L H 87-318 Nov 20, 2023 10:55 AM [facility] FOLATE (WROX) Specimen Type: SERUM No comment entered. Ordering Provider: LISA MERCADO Report Released Date/Time: Nov 20, 2023 02:59 PM Reporting Lab: [facility] [address] [facility] [address] Performing Lab: [facility] [address] [facility] [address] FOLATE (WROX) 8.39 ng/mL >5.2 Nov 20, 2023 10:55 AM [facility] VITAMIN B12 Specimen Type: SERUM No comment entered. Ordering Provider: LISA MERCADO Report Released Date/Time: Nov 20, 2023 02:59 PM Reporting Lab: [facility] [address] [facility] [address] Performing Lab: [facility] [address] [facility] [address] VITAMIN B12 438 pg/mL 200-900 Social History: Smoking Status (Most current) and Tobacco Use (All prior to encounter date) This section includes the most current, and the historical, smoking and tobacco- related health factors from the [place] facility where the Encounter took place. Current Smoking Status This section includes the most current smoking, or tobacco-related health factor, from the [place] facility where the Encounter took place. Date/Time Current Smoking Status Comment Malinda lopez Nov 20, 2023 10:11 AM [facility]-TOBACCO FORMER USER [facility] Tobacco Use History This section includes a history of the smoking, or tobacco-related health factors, that were collected on or before the date of the Encounter. The data comes from the [place] facility where the Encounter took place. Date/Time Smoking Status/Tobacco Use Comment Mg estevez Nov 20, 2023 10:11 AM [place]-TOBACCO QUIT 15 YRS OR MORE [facility] May 27, 2011 12:54 PM QUIT TOBACCO USE 1 -7 YEARS AGO quit 2006 [facility] May 09, 2010 03:17 PM QUIT TOBACCO USE 1 -7 YEARS AGO [place] [facility] Encounter Notes: All associated encounter notes [...] anticoagulant 6. CAD - Coronary Artery Disease ([facility] [id number]) 7. Neoplasm of kidney 8. HTN - Hypertension ([facility] [id number]) 9. Anemia ([facility] [id number]) 10. AF- Atrial Fibrillation ([facility] [id number]) 11. Hyperlipidemia ([facility] [id number]) 12. Chronic renal failure 13. Depression ([facility] [id number]) 14. History of artificial heart valve 15. [...] +0.25 - 0.50 x 090 20/30- OS: [place] sphere CF Add: +2.75 D[facility] ( x [...] if vision declines or interferes with ADLs - repeated back the plan and education. 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 Cosigned: 11/27/2023 10:23 11/27/2023 ADDENDUM STATUS: COMPLETED The optometry hr intern participated in this exam, I saw this [...] Remote Allergy/ADR Data available for this patient [facility] No Known Allergies Med [facility] (Tool #1) INCLUDED IN THIS LIST: Alphabetical list of active outpatient prescriptions dispensed from this [place] (local) and dispensed from another [place] or [facility] facility (remote) as well as inpatient orders (local pending and active), local clinic medications, locally documented non-VA medications, and local prescriptions that have or been discontinued in the past 90 days. Non-VA Meds Last Documented On: Jun 20, 2021 NOTE The display of VA prescriptions dispensed from another [place] or [facility] facility (remote) is limited to active outpatient prescription entries matched to National Drug File at the originating site and may not include some items such as investigational drugs, compounds, etc. NOT INCLUDED IN THIS LIST: Medications self-entered by the patient into personal health records (i.e. All At Home) are NOT included in this list. Non-VA medications documented outside this [place], remote inpatient orders (regardless of status) and remote clinic medications are NOT included in this list. The patient and provider must always discuss medications the patient is taking, regardless of where the medication was dispensed or obtained. OUTPT APIXABAN 5MG TAB (Status = Active) TAKE ONE-HALF TABLET BY MOUTH TWICE DAILY Rx# [id number] Last Released: 08/25/23 Qty/Days Supply: Rx Expiration Date: 03/03/24 Refills Remainin Non-VA CARVEDILOL 12.5MG TAB TAKE ONE TABLET BY MOUTH TWICE DAILY OUTPT CHLORHEXIDINE GLUCONATE 4% TOP LIQUID (Status = ) APPLY SMALL AMOUNT TOPICALLY TWICE DAILY FOR SKIN CLEANSING Rx# [id number] Last Released: 10/24/22 Qty/Days Supply: 240/30 Rx Expiration Date: 10/25/23 Refills Remainin Indication: FOR SKIN CLEANSING Non-VA ISOSORBIDE MONONITRATE 60MG SA TAB TAKE ONE TABLET BY MOUTH ONCE DAILY OUTPT MUPIROCIN 2% OINT (Status = ) APPLY THIN LAYER TOPICALLY TWICE DAILY FOR SKIN INFECTION Rx# [id number] Last Released: 10/24/22 Qty/Days Supply: 44/30 Rx Expiration Date: 10/25/23 Refills Remainin Indication: FOR SKIN INFECTION Non-VA SPIRONOLACTONE 25MG TAB TAKE ONE TABLET BY MOUTH ONCE DAILY OUTPT TORSEMIDE 10MG TAB (Status = Active) TAKE ONE TABLET BY MOUTH ONCE DAILY FOR VISIBLE WATER RETENTION Rx# [id number] Last Released: 08/14/23 Qty/Days Supply: 9090 Rx Expiration Date: 08/12/24 Refills Remainin Indication: FOR VISIBLE WATER RETENTION SUPPLIES /damien/ 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
--- OUTSIDE RECORDS SUMMARY | 2024-11-10 12:46 | XMS_ITS | Encounter Summary ---
Author Name [facility] Organization [facility] Address [address] [place] [id number] Care Team Providers Care Boxcar Weigher Name Role Phone SAUL PEREZ Primary Care [...] PART A Sep 10, 2001 PART A [id number] [phone] YENIFER CUI PATIENT MEDICARE (WNR) MEDICARE (M) PART B Sep 10, 2001 PART B [id number] YENIFER CUI PATIENT MEDICARE (WNR) MEDICARE (M) PART A Sep 10, 2001 PART A [id number] YENIFER CUI PATIENT MEDICARE (WNR) MEDICARE (M) PART B Sep 10, 2001 PART B [id number] [phone] YENIFER CUI PATIENT [employer] MEDICAL EXPENSE (OPT/PROF ) [facility] Feb 08, 2012 [id number] [phone] BELLA CUI SPOUSE [employer] EXP[employer] (OPT/PROF ) [place] RE [facility] INDEM N Feb 08, 2012 [id number] BELLA CUI SPOUSE [employer] (OPT/PROF ) [facility] Feb 08, 2012 [id number] BELLA CUI SPOUSE Selected Encounter This section includes the information on record at [place] for the Encounter. Date/Time Encounter Type Encounter Description Reason Provider Source December 24, 2023 01:00 PM OFFICE O/P EST HI 40 MIN LOW VISION CARE ICD-10-CM 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, both eyes LEO MANTILLA Sawyer Encounter Template Text not used by [place] Assessments - Encounter Diagnoses This section includes the primary and secondary diagnoses documented for the Encounter. 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 This section includes future appointments and future orders which are active, pending or scheduled. Future Appointments This section includes appointments that were scheduled to occur 6 months from the date of the Encounter, up to a maximum of 20 appointments. The data comes from all [place] treatment facilities. Appointment Date/Time Appointment Type Appointme nt Facility Name Jan 13, 2024 11:30 AM [facility] Jun 03, 2024 10:00 AM [facility]ATORY - [facility] Active, [...] of theEncounter. The data comes from all [place] treatment facilities. Test Date/Time Test Type Test Details Facility Name Nov 20, 2023 12:00 AM Laboratory - Chemi stry Order HEPATITIS C ANTIBODY (HCV)-ARC BLOOD (MARBLED-TOP SERUM) [facility] Social History: Smoking Status (Most current) and Tobacco Use (All prior to encounter date) This section includes the most current, and the historical, smoking and tobacco- related health factors from the [place] facility where the Encounter took place. Current Smoking Status This section includes the most current smoking, or tobacco-related health factor, from the [place] facility where the Encounter took place. Date/Time Current Smoking Status Comment Facil ity Nov 20, 2023 10:11 AM VA-TOBACCO FORMER USER [facility] Tobacco Use History This section includes a history of the smoking, or tobacco-related health factors, that were collected on or before the date of the Encounter. The data comes from the [place] facility where the Encounter took place. Date/Time Smoking Status/Tobacco Use Comment F acility Nov 20, 2023 10:11 AM [place]-TOBACCO QUIT 15 YRS OR MORE [facility] May 27, 2011 12:54 PM QUIT TOBACCO USE 1 -7 YEARS AGO quit 2006 [facility] May 09, 2010 03:17 PM QUIT TOBACCO USE 1 -7 YEARS AGO [facility] Encounter Notes: All associated encounter notes This section contains the clinical notes associated to the Encounter. Date/Time Encounter Note(s) Provider Source December 24, 2023 07:19 AM OPTOMETRY CONSULT: LOCAL TITLE: CONSULT REPORT/LOW VISION STANDARD TITLE: OPTOMETRY CONSULT DATE OF NOTE: DECEMBER 24, 2023@07:19 ENTRY DATE: DECEMBER 24, 2023@07:19:56 AUTHOR: LOE MANTILLA EXP COSIGNER: URGENCY: STATUS: COMPLETED Ocular Diagnosis: (x) Unqualified visual loss, both eyes (ICD-10-CM H54.3) (x) Additional: Non-Exudative ARMD,OD,Advanced with subfvl invlv (ICD-10-CM H35.3114) Exudative age-related macular degeneration, left eye, with inactive scar (ICD-10-CM H35.3223) Cataract,Combined Nucl/Cortical,Bilateral (ICD-10-CM H25.813) Appointment Information: (x) Bbpq-fi-uzcz Verified two identifications: (x) Full name (x) Date of (x)Yes ()No ()No Family/Friends present - Received verbal permission to speak in front of family/friend from Relationship to : Bella, Lkdo-ah-Cpov Time documentation: Start time: 1:00pm End time: 2:30pm Total time: 90 minutes minus Refraction time: (-) 3 min minus Special procedures time: (-) 0 min = 87 minutes total time spent with patient *Greater than 50% of the visit spent swnt-rv-ilty with patient was used for patient education [...] potential device recommendations. Total time spent (not ejbl-yk-ymko): 30 minutes Total Time (Direct + Non-Direct): 87 + 30 = 117 minutes Procedure Codes: Established Patient (1 time) 29885 Est Patient (40-54 minutes) Extended time Procedure [...] Time (List Separately in addition to Codes 52991, 91455 for Office or other Outpatient Evaluation and Management Services) (5 times) 60548 (115-129 minutes) Other: (1 time) 29249 Refraction Chief Complaint(s): 1. Low Vision History Review 2. Cfty-wy-Xjfy Evaluation a. Habitual Rx c comments b. [...] Ocular Diagnosis: see above BRIANA: Location: 11.26.23 [facility] 01.23.22 [facility] (x)[facility] [...] he agrees to. Adjustment to vision loss: Thomson gets frustrated about vision loss and/or blindness? [...] made vision too dark and needs a dials supervisor pair. (-) Asthenopia (-) Headaches (-) TBI (-) Raffy Bonnet Syndrome Pt ed re CBS causes and signs. Pt ed to report these symptoms. No olfactory, auditory or gustatory sensation associated. 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 HTN - Hypertension ([facility] 59548801) D64.9 Anemia ([facility] 685205860) I48.91 AF- Atrial Fibrillation ([facility] 51913811) E78.5 Hyperlipidemia ([facility] 69299782) N18.30 Chronic renal failure ([facility] 97107217) F32.A Depression ([facility] 07584746) R69. History of artificial heart valve ([facility] 674272040) 366.9 Cataract, Unspecified (ICD-9-CM 366.9) 368.9 Vision, [...] Wear Spec.: How Old: 01.23.22 Where From: [facility] OD: +0.25-0.20c090 OS: plano Description: SV Tint: 70% Transmission BLUE Subjective Comments: not using 1. Constant Wear Spec.: How Old: 09.25.21 Where From: [facility] OD: +0.25-0.91l679 OS: plano Add: +2.75 Description: bifocal Tint: none Subjective Comments: not using *Prior Tints: 2. Reading Spec.: 3. Intermediate Spec.: 4. Non-Illuminated HHM: 5. 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 Household repairs 2. Ngws-ip-Ccol Evaluation a. Habitual Rx c comments: DVAcc: 4.18.24 OD: sc 20/60, cc 20/50-2 PHNI OS: cc 5/400 LVOD 6.16.22 Final RX VA: EV: Illum: OD: +0.25-0.20A153 20/20-1 PG MOD OS: PLANO 10/600 12 MOD b. Visual acuity Feinbloom/Snellen cc Eccentric View: Illumination: OD: 20/50-1 PG mod OS: 10/600 12 mod Comments: very difficult to prompt into EV and unable to hold for refraction OS. c. Static Retinoscopy VA: EV: Illum: OD: -0.50-0.71d018 20/60-1+2 PG mod OS: n/a d. Subjective Refraction VA: EV: Illum: OD: +0.25-1.82f010 20/40-1 PG mod OS: defer e. Final RX VA: EV: Illum: OD: +0.25-1.29j093 20/40-1 PG mod OS: plano 10/600 12 [...] Final Recommendations 1. Constant Wear Spectacles: OD: +0.25-1.10g097 OS: plano Add: +3.00 Tint: NONE -PATIENT WAS EDUCATED TO WEAR CONSTANT WEAR PRESCRIPTION AT ALL TIMES WHILE INDOORS FOR BEST VISION AND PROTECTION. PATIENT WAS EDUCATED REGARDING SAFETY ISSUES WHILE AMBULATING IN THE BIFOCAL DOWN STAIRS AND OFF CURBS. 2. Sunwear Spectacles: OD: +0.25-1.99x088 OS: plano Add: +3.00 Tint: Zo #2.5 [...] is necessary at this time. 2. The Thomson has been provided large print contact information and is aware that he can contact the [facility], [facility] or [facility] with any questions from todays lesson or about his vision loss. Comments: How does the patient/client best learn? (x) Observation (x) Repetition () Large Print Directions () Standard Print Directions (x) Audible Directions Does the patient/client have any cultural and taoism beliefs, emotional barriers, physical or cognitive limitations, and communication barriers which may impact his/her ability to learn? Barrier to Patient Education identified: None() Non-Romansh speaking() Cognitive () Hearing Impaired (x) Emotional [...] Education provided to: P Response to Education: JOAQUIN SHAH, PI Rolle Patient P Family F Significant Other SO Verbalizes Understanding VU Returns Demonstration RD Performs Independently PI Lacks Comprehension LC Refused Education RE Not Applicable NA Disclaimer: Because the acuities and cotto in this evaluation were taken using special techniques and lighting NOT contained in the [place] Physician Guide Disability Evaluation Examination, they CANNOT [...] this [facility] (local) and dispensed from another [place] or DoD facility (remote) as well as [...] Remote Allergy/ADR Data available for this patient [facility] [place] [facility] No Known Allergies Med. Reconciliation (Tool #1) [...] the patient into personal health records (i.e. [employer]) are NOT included in this list. Non-VA medications documented outside this [place], remote inpatient orders (regardless of status) and remote clinic medications are NOT included in this list. The patient and provider must always discuss medications the patient is taking, regardless of where the medication was dispensed or obtained. OUTPT APIXABAN 5MG TAB (Status = Active) TAKE ONE-HALF TABLET BY MOUTH TWICE DAILY Rx# [id number] Last Released: 08/25/23 Qty/Days Supply: 9090 Rx Expiration Date: 03/03/24 Refills Remainin Non-VA CARVEDILOL 12.5MG TAB TAKE ONE TABLET BY MOUTH TWICE DAILY OUTPT CHLORHEXIDINE GLUCONATE 4% TOP LIQUID (Status = ) APPLY SMALL AMOUNT TOPICALLY TWICE DAILY FOR SKIN CLEANSING Rx# [id number] Last Released: 10/24/22 Qty/Days Supply: 240/30 Rx Expiration Date: 10/25/23 Refills Remainin Indication: FOR SKIN CLEANSING Non-VA ISOSORBIDE MONONITRATE 60MG SA TAB TAKE ONE TABLET BY MOUTH ONCE DAILY OUTPT MULTIVIT/OPHTH AREDS2/LUTE/ZEAX CAP/TAB (Status = Active) TAKE 1 CAPSULE BY MOUTH TWICE DAILY IN THE MORNING AND EVENING, WITH FOOD Rx# [id number] Last Released: 11/28/23 Qty/Days Supply: 120/60 Rx Expiration Date: 11/27/24 Refills Remainin Indication: FOR VITAMIN SUPPLEMENTATION OUTPT MUPIROCIN 2% OINT (Status = ) APPLY THIN LAYER TOPICALLY TWICE DAILY FOR SKIN INFECTION Rx# [id number] Last Released: 10/24/22 Qty/Days Supply: 44/30 Rx Expiration Date: 10/25/23 Refills Remainin Indication: FOR SKIN INFECTION Non-VA SPIRONOLACTONE 25MG TAB TAKE ONE TABLET BY MOUTH ONCE DAILY OUTPT TORSEMIDE 10MG TAB (Status = Active) TAKE ONE TABLET BY MOUTH ONCE DAILY FOR VISIBLE WATER RETENTION Rx# [id number] Last Released: 08/14/23 Qty/Days Supply: 90/90 Rx Expiration Date: 08/12/24 Refills Remainin Indication: FOR VISIBLE WATER RETENTION SUPPLIES PHARMACY TERMS AND POSSIBLE PATIENT ACTIONS INPT = [place] inpatient order IV = [place] intravenous medication OUTPT = [place] outpatient prescription PHARMACY POSSIBLE PATIENT TERMS EXPLANATION ACTIONS -------- ----- ACTIVE A prescription that can be If you have refills, filled at the local [place] pharmacy. you may request a refill of this prescription from your [place] pharmacy. CLINIC A medication you received during If you have questions a visit to a [place] clinic or about this medication emergency department. contact your [place] healthcare team. DISCONTINUED A prescription your provider has Contact your [place] stopped. It is no longer healthcare team if you available to be sent to you or need more of this picked up at the [place] pharmacy medication. window. A prescription which is [...] the VA. Or, it may be an bonj-yel-kmsblml (OTC), herbal, dietary supplements or sample medication. 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
--- OUTSIDE RECORDS SUMMARY | 2024-11-10 12:46 | XMS_ITS | Encounter Summary ---
Author Name [facility] Organization [facility] Address [address] [place] [address] Care Team Providers Care Patient Resource Specialist Name Role Phone SAUL PEREZ Primary [...] PART A Sep 10, 2001 PART A [id number] YENIFER CIU PATIENT MEDICARE (WNR) MEDICARE (M) PART B Sep 10, 2001 PART B [id number] YENIFER CUI PATIENT MEDICARE (WNR) MEDICARE (M) PART A Sep 10, 2001 PART A [id number] [phone] YENIFER CUI PATIENT MEDICARE (WNR) MEDICARE (M) PART B Sep 10, 2001 PART B [id number] YENIFER CUI PATIENT UNICARE-[employer] MEDICAL EXPENSE (OPT/PROF ) WELLP OIF[place]CHER Feb 08, 2012 [id number] [phone] RONA CUI SPOUSE [employer] EXPENSE (OPT/PROF ) [place] RE [facility] INDEM N Feb 08, 2012 [id number] [phone] RONA CUI SPOUSE [employer] EXP[employer] (OPT/PROF ) WELLP O[place] Feb 08, 2012 [id number] RONA CUI SPOUSE Selected Encounter This section includes the information on record at [facility] for the Encounter. Date/Time Encounter Type Encounter Description Reason Provider Source Nov 03, 2024 11:00 AM OFFICE O/P EST [facility] 40 MIN PRIMARY CARE/MEDICINE ICD-10-CM I48.91 Unspecified atrial fibrillation SAUL PEREZ [facility] Encounter Template Text not used by [facility] Assessments - Encounter Diagnoses This section includes the primary and secondary diagnoses documented for the Encounter. Date/Time Primary/Secondary Diagnosis Diagnosis Name Provider Source Nov 03, 2024 12:37 PM PRIMARY Unspecified atrial fibrillation SAUL PEREZ [facility] Nov 03, 2024 12:37 PM SECONDARY Anemia, unspecified SAUL PEREZ [facility] Nov 03, 2024 12:37 PM SECONDARY Athscl heart disease of [place] coronary artery w/o ang pctrs SAUL PEREZ [facility] Nov 03, 2024 12:37 PM SECONDARY Chronic kidney disease, stage 3b SAUL PEREZ [facility] Nov 03, 2024 12:37 PM SECONDARY Decreased white blood cell count, unspecified SAUL PEREZ [facility] Nov 03, 2024 12:37 PM SECONDARY Essential (primary) hypertension SAUL PEREZ [facility] Nov 03, 2024 12:37 PM SECONDARY Hyperkalemia SAUL PEREZ [facility] Nov 03, 2024 12:37 PM SECONDARY Hyperlipidemia, unspecified SAUL PEREZ [facility] Nov 03, 2024 12:37 PM SECONDARY Impaired fasting glucose SAUL PEREZ [facility] Nov 03, 2024 12:37 PM SECONDARY half-way (current) use of anticoagulants SAUL PEREZ [facility] Nov 03, 2024 12:37 PM SECONDARY Vitamin D deficiency, unspecified SAUL PEREZ [facility] Plan of Treatment: Future Appointments (+ 6 months) and Future Tests (+/- 45 days) The Plan of Treatment section includes future care activities for the patient from all [facility] treatmentfacilities. This section includes future appointments and future orders which are active, pending or scheduled. Future Appointments This section includes appointments that were scheduled to occur 6 months from the date of the Encounter, up to a maximum of 20 appointments. The data comes from all [facility]. Appointment Date/Time Appointment Type Appointme nt Facility Name Mar 09, 2025 11:30 AM [facility] Apr 06, 2025 11:00 AM [facility] - MEDICINE [facility] Active, Pending, and Scheduled Orders This section includes a listing of several types of active, pending, and scheduled orders, including clinic medications orders, diagnostic test orders, procedure orders and consult orders; where thestart date of the order is 45 days before the date of the Encounter or 45 days after the date of the Encounter. The data comes from all [facility]. Test Date/Time Test Type Test Details Facility Name Nov 03, 2024 12:37 PM Consult Order [facility]-CARDIOLOG[facility] Cons Operations And Maintenance Supervisor's Choice [facility] Nov 10, 2024 10:35 AM Laboratory - Chemi stry Order BASIC METABOLIC PANEL (non-fasting) BLOOD (SST-SERUM) [facility] Nov 10, 2024 10:35 AM Laboratory - Chemi stry Order CALCIUM BLOOD (SST-SERUM) [facility] Nov 10, 2024 10:35 AM Laboratory - Chemi stry Order MAGNESIUM BLOOD (SST-SERUM) [facility] Nov 10, 2024 10:35 AM Laboratory - Chemi stry Order PO4 BLOOD (SST-SERUM) [facility] Lab Results: +/- 30 days of the encounter This section includes the Chemistry and Hematology Lab Results on record with [facility] for the patient. Radiology Reports and Pathology Reports are provided separately, in subsequent sections. Lab Results This section contains the Chemistry/Hematology Results that were resulted 30 days before or 30 daysafter the date of the Encounter. Date/Time Source Result Type Result - Unit Interpretation Reference Range Comment Oct 28, 2024 10:19 AM [facility] BASIC METABOLIC PANEL (non-fasting) Spe cimen Type: SERUM No comment entered. Ordering Provider: SAUL PEREZ Report Released Date/Time: Oct 28, 2024 10:18 AM Reporting Lab: [address] [address] Performing Lab: [address] [place] [address] UREA NITROGEN 69 mg/dL H 7-25 GLUCOSE 122 mg/dL H 65-100 SODIUM 137 mmol/L 135-145 POTASSIUM 5.8 mmol/L H 3.5-5.0 CHLORIDE 110 mmol/L 100-110 CO2 22 meq/L 20-30 CALCIUM 8.2 mg/dL L 8.5-10.2 CREATININE, Serum 2.35 mg/dL H 0.50-1.40 eGFR(CKD-EPI 2020) 26 mL/min L >60 Oct 28, 2024 10:19 AM [facility] LIPID PANEL, NON FASTING Specimen Type: SERUM No comment entered. Ordering Provider: SAUL PEREZ Report Released Date/Time: Oct 28, 2024 10:18 AM Reporting Lab: [address] [address] Performing Lab: [place] [id number] CHOLESTEROL 159 mg/dL TRIGLYCERIDE 108 mg/dL 0-150 LDL calculated 101 mg/dL 0-129 CHOL/HDL 4.4 HDL CHOLESTEROL 36 mg/dL L 40-60 Oct 28, 2024 10:19 AM [facility] LIVER FUNCTION Specimen Type: SERUM No comment entered. Ordering Provider: SAUL PEREZ Report Released Date/Time: Oct 28, 2024 10:18 AM Reporting Lab: [address] [address] Performing Lab: [address] [address] PROTEIN,TOTAL 7.0 g/dL 6.0-8.3 ALBUMIN 3.4 g/dL L 3.5-5.0 ALKALINE PHOSPHATASE 53 U/L 40-150 AST 15 U/L 5-34 ALT 13 U/L BILIRUBIN, TOTAL 0.7 mg/dL 0.2-1.2 Oct 28, 2024 10:19 AM [facility] HEMOGLOBIN A1C PANEL Specimen Type: BLOOD Comment: [...] Oct 28, 2024 10:18 AM Reporting [facility] [address] [address] Performing Lab: [address] [address] HEMOGLOBIN A1C 5.5 4.0-5.6 Oct 28, 2024 10:19 AM [facility] TSH Specimen Type: SERUM No comment entered. Ordering Provider: SAUL PEREZ Report Released Date/Time: Oct 28, 2024 10:18 AM Reporting Lab: [address] [address] Performing Lab: [address] [address] TSH 4.07 u[IU]/mL 0.35-5.00 Oct 28, 2024 10:19 AM [facility] CBC AND DIFF (AUTO) Specimen Type: BLOOD No comment entered. Ordering Provider: SAUL PEREZ Report Released Date/Time: Oct 28, 2024 10:18 AM Reporting Lab: [address] [address] Performing Lab: [address] [address] WBC 2.84 10*3/uL L 4.50-11.00 RBC 4.30 [...] 0.0 0.0-0.0 NRBC, ABS 0.00 10*3/uL 0.00-0.00 Vital Signs: All taken on the encounter date This section contains inpatient and outpatient Vital Signs collected on the date of the Encounter. Date/Time Temperature Pulse Blood Pressure Respiratory Rate SP02 Pain Height Weight Body Mass Index Source Nov 03, 2024 11:08 AM 97.3 45 112/55 94 170.8 23 [facility] Social History: Smoking Status (Most current) and Tobacco Use (All prior to encounter date) This section includes the most current, and the historical, smoking and tobacco- related health factors from the [facility] facility where the Encounter took place. Current Smoking Status This section includes the most current smoking, or tobacco-related health factor, from the [facility] facility where the Encounter took place. Date/Time Current Smoking Status Comment Facil ity Nov 17, 2022 01:30 PM VA-TOBACCO FORMER USER [facility] Tobacco Use History This section includes a history of the smoking, or tobacco-related health factors, that were collected on or before the date of the Encounter. The data comes from the [facility] facility where the Encounter took place. Date/Time Smoking Status/Tobacco Use Comment F acility Nov 17, 2022 01:30 PM VA-TOBACCO QUIT 15 YRS OR MORE [facility] Jun 19, 2021 11:00 AM VA-TOBACCO FORMER USER [facility] Jun 19, 2021 11:00 AM VA-TOBACCO QUIT 5 TO < 15 YRS [facility] Encounter Notes: All associated encounter notes This section contains the clinical notes associated to the Encounter. Date/Time Encounter Note(s) Provider Source Nov 03, 2024 12:38 PM ADDENDUM: LOCAL TITLE: Addendum STANDARD TITLE: ADDENDUM DATE OF NOTE: NOV 03, 2024@12:38:32 ENTRY DATE: NOV 03, 2024@12:38:32 AUTHOR: SAUL PEREZ EXP COSIGNER: URGENCY: STATUS: COMPLETED Please request most recent office visit note from Dr. Camden Sharif. Thank you. /damien/ SAUL PEREZ NP NURSE PRACTITIONER Signed: 11/03/2024 12:38 Receipt Acknowledged By: 11/03/2024 16:11 /damien/ DMITRY MAS [place] CHIEF OF ANESTHESIOLOGY ======== --- Original Document --- 11/03/24 NURSE PRACTITIONER OUTPATIENT NOTE: PRIMARY CARE VISIT YENIFER CUI, is a 89 yo WHITE MALE [place] who [facility]. TYPE OF VISIT: Face to face 89-year-old with dementia, CAD, HTN, HLD, CKD stage IIIb, and chronic atrial fibrillation on DOAC presented to the outpatient clinic in regular follow-up. He is accompanied by his today who provides much of the background information. He has been taking an kvsn-lrs-rfqajnj supplement for male enhancement. is requesting a prescription for sildenafil for him. Recent labs reviewed noting significantly elevated serum potassium to 5.8, rising serum creatinine now 2.35 with falling EGFR to 26 with concomitant azotemia/(BUN 69). Drinks very little so he does not have to void often. All medications were reconciled during this visit. HEALTHCARE PROVIDERS: PCP: [facility] Cardiology: Dr. Carpenter Nephrology: Dr. Camden Sharif Ophthalmology: [facility] Social Hx: He is and lives with his . No tobacco, alcohol, MJ. No regular exercise. HISTORY: PERIOD OF SERVICE - [employer] FROM May TO Mar COMBAT SERVICE INDICATED: No MEDICAL HISTORY Active Problem Impaired Fasting Glucose (SCT 09162 01/13/2024 LISA MERCADO Vitamin D Deficiency (RUST [id number]) 01/13/2024 LISA MERCADO Leukopenia D72.819 11/20/2023 LISA MERCADO Age related macular degeneration H3 11/20/2023 LISA MERCADO Lipoma of knee and popliteal area D 11/18/2022 BRAD WHITAKER Exposure to potentially hazardous s 11/18/2022 BRAD WHITAKER Long-term current use of anticoagul 04/15/2022 EVELIN BREEN CAD - Coronary Artery Disease (SCT 06/20/2021 MACO BETANCOURT Neoplasm of kidney D49.519 06/20/2021 MACO BETANCOURT HTN - Hypertension (RUST [id number]) I 06/20/2021 MACO BETANCOURT Anemia (RUST [id number]) D64.9 06/20/2021 MACO BETANCOURT AF- Atrial Fibrillation (RUST [id number] 11/20/2023 MACO BETANCOURT Hyperlipidemia (RUST [id number]) E78.5 06/20/2021 MACO BETANCOURT Chronic kidney disease stage 3B N18 06/05/2024 SAUL PEREZ Depression (RUST [id number]) F32.A 06/20/2021 MACO BETANCOURT History of artificial heart valve R 06/20/2021 MACO EBTANCOURT Cataract, Unspecified 366.9 06/05/2010 LALITHA PEDRAZA Vision, [...] the extremities, or unilateral weakness. EXAMINATION General: Well-appearing older [place] in no obvious distress. Mental Status: Alert. Oriented to self and circumstance. Head: Normocephalic. Eyes: PERRLA. EOMI. Anicteric sclerae. ENT: Moist oral mucosa. Neck: Supple. No JVD. No thyromegaly or LAD. Lungs: CTA. Normal chest excursion. Eupneic respirations. CV: Heart tones S1, S2. RRR, bradycardic. No M/G/R. No peripheral edema. Appears dry. GI: Abdomen is soft and nontender. No palpable mass. : No CVA tenderness. Ext: No cyanosis or clubbing. No gross deformities. Neuro: CN II through XII grossly intact. Normal speech. Normal gait. Integument: Skin warm and dry. Poor turgor. No concerning lesions or rashes. Psych: Normal mood and affect. ALLERGIES: ========= Patient has answered NKA >> HEALTH MAINTENANCE PREVENTIVE MEDICINE GOALS Advance Directive Screen MH AD Jul 14 Suicide Screen Nov 19 Depression Screening Nov 19 Falls & Incontinence Screen Nov 19 Pneumococcal Conjugate Vaccine (PCV15/PCNov Tobacco Use Screening Nov 19 Medication Reconciliation DUE NOW Alcohol Use Screen (AUDIT-C) Nov 19 COVID-19 Immunization DUE NOW Herpes Zoster (Shingles) Vaccine Aug 14 RSV Immunization DUE NOW Sexual Orientation Nov 19 (Optional) Whole Health Documentation DUE NOW ASSESSMENT/PLAN: Active problems - Computerized Problem List is the source for the following: Age related macular degeneration[facility] CAD - Coronary Artery Disease (RUST [id number]): Long-term current use of anticoagulant: AF- Atrial Fibrillation (RUST [id number]): Lost to follow-up with Dr. Carpenter for more than a year. We have requested office visit notes with no response. Reconsulting today. He is maintained on apixaban half dose for primary risk reduction and carvedilol for ventricular rate control. Continue. Also continue isosorbide and spironolactone originally prescribed by cardiology. endorses he takes all medications as prescribed as she manages his medicines. Given significant hyperkalemia, stop the spironolactone. Considering significant bradycardia, decrease carvedilol to 6.25 mg twice daily. Instructions are written down and provided to his who voiced understanding. HTN - Hypertension (RUST [id number]): Blood pressure within target today endorses him taking meds as prescribed. Continue torsemide and carvedilol as noted above. Discussed heart healthy diet including avoidance of added salt at the table and increased exercise as gaffney components of overall CV health. Anemia (SCT [id number]): Stable. He denies any melena or hematochezia. Hyperlipidemia (RUST [id number]): Lipid panel WNL. He is not maintained on a statin. states he is intolerant. Discussed heart healthy diet including reduction of animal fats and increased exercise as gaffney components of overall CV health. They voiced understanding. Impaired Fasting Glucose (RUST [id number]): Serum glucose 118 in November, likely nonfasting sample. HbA1c normal. Vitamin D Deficiency (RUST [id number]): Vitamin D level 22 in November. Not on a supplement but does take a multivitamin at home and drinks cow's milk. Leukopenia: Mild. Stable. Thrombocytopenia: Longstanding. Stable with PLT 81K. Denies melena or hematochezia. Chronic renal failure: CKD stage IIIb-IV. Stable renal function with EGFR now 26 from last November. There is concomitant hyperkalemia and uremia but bicarb is normal. No uremic symptoms. Following with Dr. Sharif. Knows to avoid NSAIDs and Short 2. Encouraged to drink more fluids. Stop spironolactone; continue torsemide. Not on an ZULEMA or ARB. Hyperkalemia: Serum potassium 5.8 with worsening renal function (eGFR 26). Maintained on spironolactone. Advised him to stop. Drink more water. Return to clinic next week for BMP, Phos, calcium, mag. We will share those results with nephrology. 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 No barriers; Patient understands and agrees to [...] /damien/ SAUL PEREZ NP NURSE PRACTITIONER Signed: 11/03/2024 12:35 11/03/2024 ADDENDUM STATUS: COMPLETED per [facility] last cardiology O/V at [facility] 09/17/23 seen by ARI Morris, copy and paste below: Provider Clinical Summary Primary Heart Failure Deck Officer Dr. 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 Echo TTE 07/27/23: LVEDD 4.38 centimeters LV wall thickness mildly increased with mild flattening of interventricular septum during systole consistent with RV pressure overload LVEF 55 to 60%, grade 3 severe diastolic dysfunction LA severely dilated RV moderately dilated, systolic function moderately reduced Moderate TR PASP 80-90 mmHg Echo 10/03/2019: LV low nml function, RV mildly to moderate depressed with moderate TR and severe PH with estimated PASP 85mmHg. PA pressure higher than previous echo when it was in the 45-50mmHg range. Heart Failure Specific Device Therapy Not indicated Heart Failure Specific Medical Therapy Carvedilol 12.5 mg twice daily Isosorbide mononitrate 90mg daily (60 + 30mg) Spironolactone 12.5 mg daily Torsemide 10mg daily Assessment Presents for follow-up with his after his isosorbide mononitrate was increased secondary to hypertensive urgency. BP 158/59 today, patient reports he feels relatively well. No symptoms of dizziness/lightheadedness. Appears euvolemic/dry on exam. Patient's weight slightly lower than baseline at 70 kg. Reports he took extra Eliquis by accident last night and had a bloody nose which resolved with pressure. Labs show slight increase to his creatinine at 2.4, likely related to dehydration. On exam: Irregular rhythm, controlled rate. Lungs are clear to bases. No lower extremity edema, JVD is flat. Functional Status: NYHA class III (moderate functional limitations related to heart failure) Volume Status: Hypovolemic Plan ~Decrease torsemide to 10 mg every other day Follow Up Return to see Dr. Carpenter in November 2023 (on waiting list) Billing MODERATE - chronic illness w/ exac, progression, or AE of Tx, 2+ stable chronic illnesses, 1 new prob w/ ? prognosis, 1 acute w/ systemic Sx or comp injury; 2 of (note / test / order / indep historian = 3), interpretation / discussion; MOD risk +SDOH Physical Exam Vitals & Measurements HR: 50 (Peripheral) BP: 158/59 SpO2: 100% HT: 183.0 cm WT: 70.4 kg BMI: 21.02 Weight lb/oz: 155 lb 3 oz Assessment/Plan 1. (HFpEF) heart failure with preserved ejection fraction 2. Cardiomyopathy 3. CAD (coronary artery disease) 4. Atrial fibrillation 5. Pulmonary hypertension 6. Status post aortic valve repair 7. TR (tricuspid regurgitation) 8. Anemia 9. Hypertension 10. Renal mass, right /es/ NESHA ZAMBRANO RN Referral Coordination Initiative Nurse Signed: 11/03/2024 14:25 11/03/2024 ADDENDUM STATUS: COMPLETED it appears per [facility] the last Nephrology OV with Dr. Camden Sharif was 04/14/23 /damien/ NESHA ZAMBRANO RN Referral Coordination Initiative Nurse Signed: 11/03/2024 14:31 11/03/2024 ADDENDUM STATUS: COMPLETED THIS PUBLIC TRANSIT TROLLEY DRIVER SET FAX REQUEST FOR RECORDS TO DR PAOLO ALVARADO [phone] /damien/ DMITRY MAS [facility] CHIEF OF ANESTHESIOLOGY Signed: 11/03/2024 16:11 SAUL PEREZ Nov 03, 2024 10:57 AM PRIMARY CARE NURSE PRACTITIONER OUTPATIENT NOTE: LOCAL TITLE: NURSE PRACTITIONER OUTPATIENT NOTE STANDARD TITLE: PRIMARY CARE NURSE PRACTITIONER OUTPATIENT NOTE DATE OF NOTE: NOV 03, 2024@10:57 ENTRY DATE: NOV 03, 2024@10:57:07 AUTHOR: SAUL PEREZ EXP COSIGNER: URGENCY: STATUS: COMPLETED NURSE PRACTITIONER OUTPATIENT NOTE Has ADDENDA PRIMARY CARE VISIT YENIFER CUI, is a 89 yo WHITE MALE [place] who [facility]. TYPE OF VISIT: Face to face 89-year-old with dementia, CAD, HTN, HLD, CKD stage IIIb, and chronic atrial fibrillation on DOAC presented to the outpatient clinic in regular follow-up. He is accompanied by his today who provides much of the background information. He has been taking an rqjp-fun-scuwvrg supplement for male enhancement. is requesting a prescription for sildenafil for him. Recent labs reviewed noting significantly elevated serum potassium to 5.8, rising serum creatinine now 2.35 with falling EGFR to 26 with concomitant azotemia/(BUN 69). Drinks very little so he does not have to void often. All medications were reconciled during this visit. HEALTHCARE PROVIDERS: PCP: [facility]iology: Dr. Carpenter Nephrology: Dr. Camden Sharif Ophthalmology: [facility] Social Hx: He is and lives with his . No tobacco, alcohol, MJ. No regular exercise. HISTORY: PERIOD OF SERVICE - [employer] FROM May TO Mar COMBAT SERVICE INDICATED: No MEDICAL HISTORY Active Problem Impaired Fasting Glucose (SCT 58743 01/13/2024 LISA MERCADO Vitamin D Deficiency (SCT [id number]) 01/13/2024 LISA MERCADO Leukopenia D72.819 11/20/2023 LISA MERCADO Age related macular degeneration H3 11/20/2023 LISA MERCADO Lipoma of knee and popliteal area D 11/18/2022 BRAD WHITAKER Exposure to potentially hazardous s 11/18/2022 BRAD WHITAKER Long-term current use of anticoagul 04/15/2022 EVELIN BREEN CAD - Coronary Artery Disease (SCT 06/20/2021 MACO BETANCOURT Neoplasm of kidney D49.519 06/20/2021 MACO BETANCOURT HTN - Hypertension (RUST [id number]) I 06/20/2021 MACO BETANCOURT Anemia (RUST [id number]) D64.9 06/20/2021 MACO BETANCOURT AF- Atrial Fibrillation (RUST [id number] 11/20/2023 MACO BETANCOURT Hyperlipidemia (RUST [id number]) E78.5 06/20/2021 MACO BETANCOURT Chronic kidney disease stage 3B N18 06/05/2024 SAUL PEREZ Depression (RUST [id number]) F32.A 06/20/2021 MACO BETANCOURT History of artificial [...] the extremities, or unilateral weakness. EXAMINATION General: Well-appearing older in no obvious distress. Mental Status: Alert. Oriented to self and circumstance. Head: Normocephalic. Eyes: PERRLA. EOMI. Anicteric sclerae. ENT: Moist oral mucosa. Neck: Supple. No JVD. No thyromegaly or LAD. Lungs: CTA. Normal chest excursion. Eupneic respirations. CV: Heart tones S1, S2. RRR, bradycardic. No M/G/R. No peripheral edema. Appears dry. GI: Abdomen is soft and nontender. No palpable mass. : No CVA tenderness. Ext: No cyanosis or clubbing. No gross deformities. Neuro: CN II through XII grossly intact. Normal speech. Normal gait. Integument: Skin warm and dry. Poor turgor. No concerning lesions or rashes. Psych: Normal mood and affect. ALLERGIES: ========= Patient has answered NKA >> HEALTH MAINTENANCE PREVENTIVE MEDICINE GOALS Advance Directive Screen AD Jul 14 Suicide Screen Nov 19 Depression Screening Nov 19 Falls & Incontinence Screen Nov 19 Pneumococcal Conjugate Vaccine (PCV15/PCNov Tobacco Use Screening Nov 19 Medication Reconciliation DUE NOW Alcohol Use Screen (AUDIT-C) Nov 19 COVID-19 Immunization DUE NOW Herpes Zoster (Shingles) Vaccine Aug 14 RSV Immunization DUE NOW Sexual Orientation Nov 19 (Optional) Whole Health Documentation DUE NOW ASSESSMENT/PLAN: Active problems - Computerized Problem List is the source for the following: Age related macular degeneration: [facility] CAD - Coronary Artery Disease (RUST [id number]): Long-term current use of anticoagulant: AF- Atrial Fibrillation (SCT [id number]): Lost to follow-up with Dr. Carpenter for more than a year. We have requested office visit notes with no response. Reconsulting today. He is maintained on apixaban half dose for primary risk reduction and carvedilol for ventricular rate control. Continue. Also continue isosorbide and spironolactone originally prescribed by cardiology. endorses he takes all medications as prescribed as she manages his medicines. Given significant hyperkalemia, stop the spironolactone. Considering significant bradycardia, decrease carvedilol to 6.25 mg twice daily. Instructions are written down and provided to his who voiced understanding. HTN - Hypertension (RUST [id number]): Blood pressure within target today endorses him taking meds as prescribed. Continue torsemide and carvedilol as noted above. Discussed heart healthy diet including avoidance of added salt at the table and increased exercise as gaffney components of overall CV health. Anemia (SCT [id number]): Stable. He denies any melena or hematochezia. Hyperlipidemia (RUST [id number]): Lipid panel WNL. He is not maintained on a statin. states he is intolerant. Discussed heart healthy diet including reduction of animal fats and increased exercise as gaffney components of overall CV health. They voiced understanding. Impaired Fasting Glucose (RUST [id number]): Serum glucose 118 in November, likely nonfasting sample. HbA1c normal. Vitamin D Deficiency (RUST [id number]): Vitamin D level 22 in November. Not on a supplement but does take a multivitamin at home and drinks cow's milk. Leukopenia: Mild. Stable. Thrombocytopenia: Longstanding. Stable with PLT 81K. Denies melena or hematochezia. Chronic renal failure: CKD stage IIIb-IV. Stable renal function with EGFR now 26 from November. There is concomitant hyperkalemia and uremia but bicarb is normal. No uremic symptoms. Following with Dr. Sharif. Knows to avoid NSAIDs and Short 2. Encouraged to drink more fluids. Stop spironolactone; continue torsemide. Not on an ZULEMA or ARB. Hyperkalemia: Serum potassium 5.8 with worsening renal function (eGFR 26). Maintained on spironolactone. Advised him to stop. Drink more water. Return to clinic next week for BMP, Phos, calcium, mag. We will share those results with nephrology. 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 No barriers; Patient understands and agrees to [...] /damien/ SAUL PEREZ NP NURSE PRACTITIONER Signed: 11/03/2024 12:35 11/03/2024 ADDENDUM STATUS: COMPLETED Please request most recent office visit note from Dr. Camden Sharif. Thank you. /damien/ SAUL PEREZ NP NURSE PRACTITIONER Signed: 11/03/2024 12:38 Receipt Acknowledged By: 11/03/2024 16:11 /damien/ DMITRY MAS [facility] CHIEF OF ANESTHESIOLOGY 11/03/2024 ADDENDUM STATUS: COMPLETED per [facility] cardiology O/V at [facility] 09/17/23 seen by ARI Morris, copy and paste below: Provider Clinical Summary Primary Heart Failure Deck Officer Dr. 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 Echo TTE 07/27/23: LVEDD 4.38 centimeters LV wall thickness mildly increased with mild flattening of interventricular septum during systole consistent with RV pressure overload LVEF 55 to 60%, grade 3 severe diastolic dysfunction LA severely dilated RV moderately dilated, systolic function moderately reduced Moderate TR PASP 80-90 mmHg Echo 10/03/2019: LV low nml function, RV mildly to moderate depressed with moderate TR and severe PH with estimated PASP 85mmHg. PA pressure higher than previous echo when it was in the 45-50mmHg range. Heart Failure Specific Device Therapy Not indicated Heart Failure Specific Medical Therapy Carvedilol 12.5 mg twice daily Isosorbide mononitrate 90mg daily (60 + 30mg) Spironolactone 12.5 mg daily Torsemide 10mg daily Assessment Presents for follow-up with his after his isosorbide mononitrate was increased secondary to hypertensive urgency. BP 158/59 today, patient reports he feels relatively well. No symptoms of dizziness/lightheadedness. Appears euvolemic/dry on exam. Patient's weight slightly lower than baseline at 70 kg. Reports he took extra Eliquis by accident last night and had a bloody nose which resolved with pressure. Labs show slight increase to his creatinine at 2.4, likely related to dehydration. On exam: Irregular rhythm, controlled rate. Lungs are clear to bases. No lower extremity edema, JVD is flat. Functional Status: NYHA class III (moderate functional limitations related to heart failure) Volume Status: Hypovolemic Plan ~Decrease torsemide to 10 mg every other day Follow Up Return to see Dr. Carpenter in November 2023 (on waiting list) Billing MODERATE - chronic illness w/ exac, progression, or AE of Tx, 2+ stable chronic illnesses, 1 new prob w/ ? prognosis, 1 acute w/ systemic Sx or comp injury; 2 of (note / test / order / indep historian = 3), interpretation / discussion; MOD risk +SDOH Physical Exam Vitals & Measurements HR: 50 (Peripheral) BP: 158/59 SpO2: 100% HT: 183.0 cm WT: 70.4 kg BMI: 21.02 Weight lb/oz: 155 lb 3 oz Assessment/Plan 1. (HFpEF) heart failure with preserved ejection fraction 2. Cardiomyopathy 3. CAD (coronary artery disease) 4. Atrial fibrillation 5. Pulmonary hypertension 6. Status post aortic valve repair 7. TR (tricuspid regurgitation) 8. Anemia 9. Hypertension 10. Renal mass, right /damien/ NESHA ZAMBRANO RN Referral Coordination Initiative Nurse Signed: 11/03/2024 14:25 11/03/2024 ADDENDUM STATUS: COMPLETED it appears per [facility] the last Nephrology OV with Dr. 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
--- OUTSIDE RECORDS SUMMARY | 2024-11-10 12:46 | XMS_ITS | Encounter Summary ---
Author Name [facility] Organization [facility] Address [address] [place] [id number] Care Team Providers Care Scientific Investigator Name Role Phone SAUL PEREZ Primary Care [...] PART A Sep 10, 2001 PART A [id number] YENIFER CUI PATIENT MEDICARE (WNR) MEDICARE (M) PART B Sep 10, 2001 PART B [id number] YENIFER CUI PATIENT MEDICARE (WNR) MEDICARE (M) PART A Sep 10, 2001 PART A [id number] [phone] YENIFER CUI PATIENT MEDICARE (WNR) MEDICARE (M) PART B Sep 10, 2001 PART B [id number] YENIFER CUI PATIENT [employer] (OPT/PROF ) [employer] [employer] Feb 08, 2012 [id number] RONA CUI SPOUSE [employer] (OPT/PROF ) [employer] [employer] [facility] N Feb 08, 2012 [id number] RONA CUI SPOUSE [employer] (OPT/PROF ) [employer] Feb 08, 2012 [id number] RONA CUI SPOUSE Selected Encounter This section includes the information on record at MD for the Encounter. Date/Time Encounter Type Encounter Description Reason Pro vider Source Jun 29, 2024 06:19 PM Outpatient Encounter ADMIN PAT ACTIVTIES (MASNONCT) IHE Encounter Template Text not used by MD Plan of Treatment: Future Appointments (+ 6 [...] 08, 2024 11:00 AM AMBULATORY - MEDICINE [facility] Aug 08, 2024 01:00 PM AMBULATORY - MEDICINE [facility] Sep 05, 2024 12:30 PM [facility] Sep 05, 2024 01:00 [facility] Nov 03, 2024 11:00 AM AMBULATORY - MEDICINE [facility] Social History: Smoking Status (Most current) [...] Lazaro lopez Nov 20, 2023 10:11 AM VA-TOBACCO FORMER USER [facility] Tobacco Use History This section includes a history of the smoking, or tobacco-related health factors, that were collected on or before the date of the Encounter. The data comes from the [place] facility where the Encounter took place. Date/Time Smoking Status/Tobacco Use Comment Mg estevez Nov 20, 2023 10:11 AM VA-TOBACCO QUIT 15 YRS OR MORE [facility] May 27, 2011 12:54 PM QUIT TOBACCO USE 1 -7 YEARS AGO quit 2006 [facility] May 09, 2010 03:17 PM QUIT TOBACCO USE 1 -7 YEARS AGO [facility] Encounter Notes: All associated encounter notes This section contains the clinical notes associated to the Encounter. Date/Time Encounter Note(s) Provider Source Jun 29, 2024 06:19 PM PHARMACY NOTE: LOCAL TITLE: PHARMACY CUSTOMER CARE MEDICATION RENEWAL STANDARD TITLE: PHARMACY NOTE DATE OF NOTE: JUN 29, 2024@18:19 ENTRY DATE: JUN 29, 2024@18:19:57 AUTHOR: RACHELE FLORES EXP COSIGNER: URGENCY: STATUS: COMPLETED Date: Jun Division: [place] [facility] referred by Pharmacy Call Center for medication renewal: Non-controlled/maintenanc e medication Medications requested: [id number] APIXABAN 5MG TAB Defer to primary care provider To be mailed . Please review and renew if appropriate. *This note was generated by [facility]/[place] Pharmacy Customer Care. If you have any questions or need assistance, do not contact this author. Please refer all questions to your local, on-site pharmacy departments. /damien/ RACHELE FLORES CPhT Combine Inspector, [place]/Pharmacy Customer Care Signed: 06/29/2024 18:20 Receipt Acknowledged By: 06/30/2024 14:12 /damien/ YEIMY OSUNA REGISTERED NURSE 07/02/2024 15:59 /es/ SAUL PEREZ NP NURSE PRACTITIONER RACHELE FLORES [facility]
--- OUTSIDE RECORDS SUMMARY | 2024-11-10 12:46 | XMS_ITS | Continuity of Care Document ---
Author Name [facility] Organization [facility] Care Team Providers Care Necktie Maker Name Role Phone [facility] Unavailable Unavailable Problems Combined list of problems from Department of Defense and Veterans Affairs facilities. It does not include entries that were removed or entered in error. Problem Status Onset Date Problem Type Date of Resolution Comments Source Heart Murmurs Active 08/10/19 10 Condition [facility] Vision, abnormal Active 08/10/19 10 Condition [facility] AF- Atrial Fibrillation ([facility] [id number]) Active Condition Jun 20, 2021 Entered By: MACO BETANCOURT Comment: on apixaban. 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 Camden Sharif Nephrology [place] Depression ([facility] [id number]) Active Condition [place] Exposure to potentially hazardous substance Active Condition [facility] Frailty Active Condition [facility] History of artificial heart valve Active Condition Jun 20, 2021 Entered By: MACO BETANCOURT Comment: replaced 2006--but pt does not know which valve. Bioprosthetic. 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, 2021 Entered By: MACO BETANCOURT Comment: Right nephrectomy [place] Vitamin D Deficiency ([facility] [id number]) Active Condition [place] Diagnosis: ICD-10-CM I48.91 Unspecified atrial fibrillation Active Diagnosis [place] Diagnosis: ICD-10-CM Z02.4 Encounter for examination for driving license Active Diagnosis [facility] Diagnosis: ICD-10-CM 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, both eyes Active Diagnosis [facility] [place] [facility] Diagnosis: ICD-10-CM 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, bi, adv atrpc with subfoveal invl Active [facility] [place] [facility] Diagnosis: ICD-10-CM R00.1 Bradycardia, unspecified Active Diagnosis [facility] [place] [facility] Diagnosis: ICD-10-CM Z13.6 Encounter for screening for cardiovascular disorders Active Diagnosis [facility] Diagnosis: ICD-10-CM I25.10 Athscl heart disease of [place] coronary artery w/o ang pctrs Active Diagnosis [place] Diagnosis: ICD-10-CM E55.9 Vitamin D deficiency, unspecified Active Diagnosis [place] Diagnosis: ICD-10-CM Z46.0 Encounter for fit/adjst of spectacles and contact lenses Active Diagnosis [facility] Diagnosis: ICD-10-CM Z04.89 Encounter for examination and observation for oth reasons Active Diagnosis [facility] Diagnosis: ICD-10-CM H90.3 Sensorineural hearing loss, bilateral Active Diagnosis [place] Diagnosis: ICD-10-CM 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 Medication Details Route Status Patient Instructions Prescription Expires Prescription Number Last Dispense Date Ordering Provider Order Date Order Qty Source APIXABAN 5MG TAB TAKE ONE-HALF TABLET BY MOUTH TWICE DAILY ORAL ACTIVE 07/03/2025 [id number] Robin PEREZ A 2024 90 [place] APIXABAN 5MG TAB TAKE ONE-HALF TABLET BY MOUTH TWICE DAILY ORAL DISCONT INUED 01/13/2025 [id number] ROBERT MERCADO 2023 90 [place] APIXABAN 5MG TAB TAKE ONE-HALF TABLET BY MOUTH TWICE DAILY ORAL DISCONT INUED 03/03/2024 [id number] HELGA SHULTZ F 2022 90 [place] CARBOXYMETH YLCELLULOSE NA 0.5% SOLN,OPH INSTILL 1 DROP INTO EACH EYE FOUR TIMES DAILY NEEDED FOR DRY EYE OPHTHA LMIC ACTIVE 03/10/2025 [id number] Vishnu GARCIA ICHELE 2023 45 [facility] CARVEDILOL 12.5MG TAB TAKE ONE TABLET BY MOUTH TWICE DAILY FOR HIGH BLOOD PRESSURE ORAL DISCONT INUED (EDIT) 06/04/2025 [id number] Robin PEREZ 2023 180 [place] CARVEDILOL 6.25MG TAB TAKE ONE TABLET BY MOUTH TWICE DAILY FOR HIGH BLOOD PRESSURE ORAL ACTIVE 11/04/2025 [id number] Robin PEREZ A 2024 180 [place] CYCLOSPORIN E 0.05% (PF) EMULSION,OP H,0.4ML INSTILL 1 DROP INTO EACH EYE TWICE DAILY FOR DRY EYE OPHTHA LMIC ACTIVE 09/06/2025 [id number] GRISELDA FUENTES 2024 180 [facility] IPRATROPIUM BR 0.06% SOLN,SPRAY, NASAL INSTILL 1 SPRAY INTO EACH NOSTRIL ONCE DAILY FOR RUNNY NOSE NASAL ACTIVE 06/04/2025 [id number] Robin PEREZ A 2023 15 [facility] [place] ISOSORBIDE MONONITRATE 30MG TAB,SA TAKE THREE TABLETS BY MOUTH ONCE DAILY TO PREVENT ANGINA ORAL ACTIVE 06/04/2025 [id number] Robin PEREZ AVID A 2023 270 [facility] [place] MULTIVIT/OP HTH AREDS2/LUTE IN/ZEAXANTH IN CAP/TAB TAKE 1 CAPSULE BY MOUTH TWICE DAILY IN THE MORNING AND EVENING, WITH FOOD ORAL ACTIVE 11/27/2024 [id number] MERHAR,NO AH B 2023 120 [facility] SPIRONOLACT ONE 25MG TAB TAKE ONE-HALF TABLET BY MOUTH ONCE DAILY FOR FLUID ACCUMULA TION ORAL DISCONT INUED BY PROVIDE R 06/04/2025 [id number] Robin PEREZ AVID A 2023 45 [facility] [place] TORSEMIDE 10MG TAB TAKE ONE TABLET BY MOUTH ONCE DAILY FOR VISIBLE WATER RETENTIO N ORAL ACTIVE 10/06/2025 [id number] 5 Robin PEREZ AVID A 2024 90 [facility] [place] TORSEMIDE 10MG TAB TAKE ONE TABLET BY MOUTH ONCE DAILY FOR VISIBLE WATER RETENTIO N ORAL DISCONT INUED 08/12/2024 [id number] ROBERT MERCADO 2023 90 [facility] [place] VITAMIN B COMPLEX CAP TAKE 1 CAPSULE BY MOUTH ONCE DAILY FOR VITAMIN SUPPLEME NTATION ORAL ACTIVE 01/13/2025 [id number] ROBERT MERCADO 2023 100 [facility] [place] Immunizations Combined list of available immunizations from the Department of Defense and Veterans Affairs facilities. 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 Status Comments Source INFLUENZA, HIGH-DOSE, TRIVALENT, PF 2023 SHAILA CAIN LEFT DELTO ID [id number] 135 complet ed [facility] INFLUENZA, UNSPECIFIED FORMULATION 2022 88 complet ed [facility] COVID-19 (MODERNA), MRNA, LNP-S, PF, 100 MCG OR 50 MCG DOSE 3 2021 207 complet ed MOD; [id number]; 2 [facility] TDAP 2020 115 complet ed [facility] ZOSTER RECOMBINANT 1 2020 187 complet ed [facility] COVID-19 (MODERNA), MRNA, LNP-S, PF, 100 MCG/0.5 ML DOSE 2 2020 207 complet ed MOD; [id number]; 1 [facility] COVID-19 (MODERNA), MRNA, LNP-S, PF, 100 MCG/0.5 ML DOSE 1 2020 207 complet ed MOD; [id number]; 1 [facility] FLU,3 YRS (HISTORICAL) 2010 88 complet ed [facility] PNEUMOCOCCAL, UNSPECIFIED FORMULATION 2007 109 complet ed [facility] TD(ADULT) UNSPECIFIED FORMULATION 2005 139 complet ed [facility] Results Combined list of recent chemistry, hematology and other laboratory results from Department of Defense and Veterans Affairs, ranging from 15 months to all on record, depending upon the facility. Order Name Results Value Reference Range Date Interpretation Specimen Comments Source LIPID PANEL, NON FASTING CHOLESTEROL [MASS/VOLUM E] IN SERUM OR PLASMA 159 mg/dL 10/28 Specimen Type: SERUM No comment entered. Ordering Provider: MICHELLE PEREZ Report Released Date/Time: Oct 28, 2024 10:18 AM Reporting Lab: [facility] [address] [facility] [address] [facility]forming Lab[facility] [address] [facility] [address] [place] LIPID PANEL, NON FASTING TRIGLYCERID E [MASS/VOLUM E] IN SERUM OR PLASMA 108 mg/dL 0 - 150 10/28 Specimen Type: SERUM No comment entered. Ordering Provider: MICHELLE PEREZ A Report Released Date/Time: Oct 28, 2024 10:18 AM Reporting Lab: [facility] [address] Performing Lab: [facility] [address] [place] LIPID PANEL, NON FASTING CHOLESTEROL IN LDL [MASS/VOLUM E] IN SERUM OR PLASMA BY CALCULATION 101 mg/dL 0 - 129 10/28 Specimen Type: SERUM No comment entered. Ordering Provider: MICHELLE PEREZ A Report Released Date/Time: Oct 28, 2024 10:18 AM Reporting [facility] [address] [address] [facility]forming Lab[facility] [address] [address] [place] LIPID PANEL, NON FASTING CHOLESTEROL .TOTAL/CHOL ESTEROL IN HDL [MASS RATIO] IN SERUM OR PLASMA 4.4 10/28 Specimen Type: SERUM No comment entered. Ordering Provider: MICHELLE PEREZ A Report Released Date/Time: Oct 28, 2024 10:18 AM Reporting Lab[facility] [address] [address] Performing Lab: [facility] [address] [place] LIPID PANEL, NON FASTING CHOLESTEROL IN HDL [MASS/VOLUM E] IN SERUM OR PLASMA 36 mg/dL 40 - 60 10/28 L Specimen Type: SERUM No comment entered. Ordering Provider: MICHELLE PEREZ A Report Released Date/Time: Oct 28, 2024 10:18 AM Reporting [facility] [address] [address] Performing Lab: [facility] [address] [address] [place] BASIC METABOLIC PANEL (non-fast ing) UREA NITROGEN [MASS/VOLUM E] IN SERUM OR PLASMA 69 mg/dL 7 - 25 10/28 H Specimen Type: SERUM No comment entered. Ordering Provider: MICHELLE PEREZ A Report Released Date/Time: Oct 28, 2024 10:18 AM Reporting Lab: [facility] [address] [facility] [address] Performing Lab: [facility] [address] [facility] [address] [place] BASIC METABOLIC PANEL (non-fast ing) GLUCOSE [MASS/VOLUM E] IN SERUM OR PLASMA 122 mg/dL 65 - 100 10/28 H Specimen Type: SERUM No comment entered. Ordering Provider: MICHELLE PEREZ A Report Released Date/Time: Oct 28, 2024 10:18 AM Reporting Lab: [address] [address] Performing Lab: [address] [address] [place] BASIC METABOLIC PANEL (non-fast ing) SODIUM [MOLES/VOLU ME] IN SERUM OR PLASMA 137 mmol/L 135 - 145 10/28 Specimen Type: SERUM No comment entered. Ordering Provider: MICHELLE PEREZ A Report Released Date/Time: Oct 28, 2024 10:18 AM Reporting Lab: [facility] [address] [facility] [address] Performing Lab: [address] [address] [place] BASIC METABOLIC PANEL (non-fast ing) POTASSIUM [MOLES/VOLU ME] IN SERUM OR PLASMA 5.8 mmol/L 3.5 - 5.0 10/28 H Specimen Type: SERUM No comment entered. Ordering Provider: MICHELLE PEREZ A Report Released Date/Time: Oct 28, 2024 10:18 AM Reporting Lab: [facility] [address] [facility] [address] Performing Lab: [address] [address] [place] BASIC METABOLIC PANEL (non-fast ing) CHLORIDE [MOLES/VOLU ME] IN SERUM OR PLASMA 110 mmol/L 100 - 110 10/28 Specimen Type: SERUM No comment entered. Ordering Provider: MICHELLE PEREZ A Report Released Date/Time: Oct 28, 2024 10:18 AM Reporting Lab: [facility] [address] [facility] [address] Performing Lab: [facility] [address] [facility] [address] [place] BASIC METABOLIC PANEL (non-fast ing) CARBON DIOXIDE, TOTAL [MOLES/VOLU ME] IN SERUM OR PLASMA 22 meq/L 20 - 30 10/28 Specimen Type: SERUM No comment entered. Ordering Provider: MICHELLE PEREZ A Report Released Date/Time: Oct 28, 2024 10:18 AM Reporting [facility] [address] [address] [facility]forming Lab[facility] [address] [address] [place] BASIC METABOLIC PANEL (non-fast ing) CALCIUM [MASS/VOLUM E] IN SERUM OR PLASMA 8.2 mg/dL 8.5 - 10.2 10/28 L Specimen Type: SERUM No comment entered. Ordering Provider: MICHELLE PEREZ A Report Released Date/Time: Oct 28, 2024 10:18 AM Reporting Lab: [facility] [address] [address] Performing Lab: [facility] [address] [address] [place] BASIC METABOLIC PANEL (non-fast ing) CREATININE [MASS/VOLUM E] IN SERUM OR PLASMA 2.35 mg/dL 0.50 - 1.40 10/28 H Specimen Type: SERUM No comment entered. Ordering Provider: MICHELLE PEREZ A Report Released Date/Time: Oct 28, 2024 10:18 AM Reporting Lab: [facility] [address] [facility] [address] Performing Lab: [facility] [address] [address] [place] BASIC METABOLIC PANEL (non-fast ing) GLOMERULAR FILTRATION RATE/1.73 SQ M.PREDICTED [VOLUME RATE/AREA] IN SERUM, PLASMA OR BLOOD BY CREATININE- BASED FORMULA (CKD-EPI 2020) 26 mL/min 60 10/28 L Specimen Type: SERUM No comment entered. Ordering Provider: MICHELLE PEREZ A Report Released Date/Time: Oct 28, 2024 10:18 AM Reporting Lab: [facility] [address] [facility] [address] Performing Lab: [facility] [address] [facility] [address] [place] LIVER FUNCTION PROTEIN [MASS/VOLUM E] IN SERUM OR PLASMA 7.0 g/dL 6.0 - 8.3 10/28 Specimen Type: SERUM No comment entered. Ordering Provider: MICHELLE PEREZ A Report Released Date/Time: Oct 28, 2024 10:18 AM Reporting Lab: [facility] [address] [address] Performing Lab: [facility] [address] [address] [place] LIVER FUNCTION ALBUMIN [MASS/VOLUM E] IN SERUM OR PLASMA 3.4 g/dL 3.5 - 5.0 10/28 L Specimen Type: SERUM No comment entered. Ordering Provider: MICHELLE PEREZ A Report Released Date/Time: Oct 28, 2024 10:18 AM Reporting Lab: [facility] [address] [address] Performing Lab: [facility] [address] [address] [place] LIVER FUNCTION ALKALINE PHOSPHATASE [ENZYMATIC ACTIVITY/VO LUME] IN SERUM OR PLASMA 53 U/L 40 - 150 10/28 Specimen Type: SERUM No comment entered. Ordering Provider: MICHELLE PEREZ A Report Released Date/Time: Oct 28, 2024 10:18 AM Reporting Lab: [facility] [address] [address] Performing Lab: [facility] [address] [address] [place] LIVER FUNCTION ASPARTATE AMINOTRANSF ERASE [ENZYMATIC ACTIVITY/VO LUME] IN SERUM OR PLASMA 15 U/L 5 - 34 10/28 Specimen Type: SERUM No comment entered. Ordering Provider: MICHELLE PEREZ A Report Released Date/Time: Oct 28, 2024 10:18 AM Reporting Lab: [place] [facility] [address] [address] Performing Lab: [facility] [address] [address] [place] LIVER FUNCTION ALANINE AMINOTRANSF ERASE [ENZYMATIC ACTIVITY/VO LUME] IN SERUM OR PLASMA 13 U/L 10/28 Specimen Type: SERUM No comment entered. Ordering Provider: MICHELLE PEREZ A Report Released Date/Time: Oct 28, 2024 10:18 AM Reporting Lab: [facility] [address] [address] Performing [facility]: [facility] [address] [address] [place] FUN[place] BILIRUBIN.T OTAL [MASS/VOLUM E] IN SERUM OR PLASMA 0.7 mg/dL 0.2 - 1.2 10/28 Specimen Type: SERUM No comment entered. Ordering Provider: MICHELLE PEREZ A Report Released Date/Time: Oct 28, 2024 10:18 AM Reporting Lab: [facility] [address] [address] Performing Lab: [facility] [address] [address] [place] HEMOGLOBI N A1C PANEL HEMOGLOBIN A1C/HEMOGLO BIN.TOTAL IN BLOOD BY HPLC 5.5 4.0 - 5.6 10/28 Specimen Type: BLOOD Comment: Values obtained from A1C measurement s can vary. For atypical A1C assays, a reported value of 7.0 could actually be between 6.72 and 7.28 if measured by a reference method. A reported value of 9.0 could actually be between 8.73 and 9.27. Ref: http://www. ngsp.org/[place] Pdata.asp Ordering Provider: MICHELLE PEREZ A Report Released Date/Time: Oct 28, 2024 10:18 AM Reporting Lab: [facility] [place] [facility] [address] [facility] [address] Performing Lab: [facility] [address] [address] [place] CBC AND DIFF (AUTO) LEUKOCYTES [#/VOLUME] IN BLOOD BY AUTOMATED COUNT 2.84 10*3/u L 4.50 - 11.00 10/28 L Specimen Type: BLOOD No comment entered. Ordering Provider: MICHELLE PEREZ A Report Released Date/Time: Oct 28, 2024 10:18 AM Reporting Lab: [facility] [address] [address] Performing Lab: [facility] [address] [place] CBC AND DIFF (AUTO) ERYTHROCYTE S [#/VOLUME] IN BLOOD BY AUTOMATED COUNT 4.30 10*6/u L 4.23 - 5.66 10/28 Specimen Type: BLOOD No comment entered. Ordering Provider: MICHELLE PEREZ A Report Released Date/Time: Oct 28, 2024 10:18 AM Reporting Lab: [facility] [address] [address] Performing Lab: [facility] [address] [address] [place] CBC AND DIFF (AUTO) HEMOGLOBIN [MASS/VOLUM E] IN BLOOD 12.7 g/dL 12.8 - 17 10/28 L Specimen Type: BLOOD No comment entered. Ordering Provider: MICHELLE PEREZ A Report Released Date/Time: Oct 28, 2024 10:18 AM Reporting Lab: [facility] [place] [address] [address] Performing Lab: [facility] [address] [place] CBC AND DIFF (AUTO) HEMATOCRIT [VOLUME FRACTION] OF BLOOD BY AUTOMATED COUNT 39.7 39.2 - 50.4 10/28 Specimen Type: BLOOD No comment entered. Ordering Provider: MICHELLE PEREZ A Report Released Date/Time: Oct 28, 2024 10:18 AM Reporting Lab: [facility] [address] [facility] [address] Performing Lab: [place] [facility] [facility] [address] [facility] [address] [place] CBC AND DIFF (AUTO) MCV [ENTITIC VOLUME] BY AUTOMATED COUNT 92.3 fL 82 - 99 10/28 Specimen Type: BLOOD No comment entered. Ordering Provider: MICHELLE PEREZ A Report Released Date/Time: Oct 28, 2024 10:18 AM Reporting Lab: [facility] [address] [facility] [address] Performing Lab: [facility] [address] [place] CBC AND DIFF (AUTO) MCHC [MASS/VOLUM E] BY AUTOMATED COUNT 32.0 g/dL 30.8 - 35.1 10/28 Specimen Type: BLOOD No comment entered. Ordering Provider: MICHELLE PEREZ A Report Released Date/Time: Oct 28, 2024 10:18 AM Reporting Lab: [facility] [address] [facility] [address] Performing Lab: [facility] [address] [address] [place] CBC AND DIFF (AUTO) PLATELETS [#/VOLUME] IN BLOOD BY AUTOMATED COUNT 81 10*3/u L 140 - 360 10/28 L Specimen Type: BLOOD No comment entered. Ordering Provider: MICHELLE PEREZ A Report Released Date/Time: Oct 28, 2024 10:18 AM Reporting Lab: [facility] [address] [facility] [address] Performing Lab: [facility] [address] [address] [place] CBC AND DIFF (AUTO) ERYTHROCYTE DISTRIBUTIO N WIDTH [RATIO] BY AUTOMATED COUNT 15.2 12.0 - 16.0 10/28 Specimen Type: BLOOD No comment entered. Ordering Provider: MIHCELLE PEREZ A Report Released Date/Time: Oct 28, 2024 10:18 AM Reporting Lab: [place] [facility] [place] [facility] [address] [facility] [address] Performing Lab: [place] [facility] [place] [facility] [address] [facility] [address] [place] CBC AND DIFF (AUTO) MONOCYTES [#/VOLUME] IN BLOOD BY AUTOMATED COUNT 0.33 10*3/u L 0.30 - 1.10 10/28 Specimen Type: BLOOD No comment entered. Ordering Provider: MICHELLE PEREZ A Report Released Date/Time: Oct 28, 2024 10:18 AM Reporting Lab: [facility] [place] [facility] [address] [facility] [address] Performing Lab: [place] [facility] [place] [address] [address] [place] CBC AND DIFF (AUTO) MCH [ENTITIC MASS] BY AUTOMATED COUNT 29.5 pg 26.2 - 32.6 10/28 Specimen Type: BLOOD No comment entered. Ordering Provider: MICHELLE PEREZ A Report Released Date/Time: Oct 28, 2024 10:18 AM Reporting Lab: [facility] [place] [address] [address] Performing Lab: [place] [facility] [place] [facility] [address] [facility] [address] [place] CBC AND DIFF (AUTO) NEUTROPHILS /100 LEUKOCYTES IN BLOOD BY AUTOMATED COUNT 61.6 43.7 - 75.8 10/28 Specimen Type: BLOOD No comment entered. Ordering Provider: MICHELLE PEREZ A Report Released Date/Time: Oct 28, 2024 10:18 AM Reporting Lab: [place] [facility] [place] [facility] [address] [facility] [address] Performing Lab: [place] [facility] [place] [address] [address] [place] CBC AND DIFF (AUTO) LYMPHOCYTES /100 LEUKOCYTES IN BLOOD BY AUTOMATED COUNT 22.9 14.0 - 42.3 10/28 Specimen Type: BLOOD No comment entered. Ordering Provider: MICHELLE PEREZ A Report Released Date/Time: Oct 28, 2024 10:18 AM Reporting Lab: [place] [facility] [address] [facility] [address] Performing Lab[facility] [place] [facility] [address] [address] [place] CBC AND DIFF (AUTO) MONOCYTES/1 00 LEUKOCYTES IN BLOOD BY AUTOMATED COUNT 11.6 5.1 - 13.7 10/28 Specimen Type: BLOOD No comment entered. Ordering Provider: MICHELLE PEREZ A Report Released Date/Time: Oct 28, 2024 10:18 AM Reporting Lab: [place] [facility] [address] [address] Performing Lab: [place] [facility] [address] [address] [place] CBC AND DIFF (AUTO) EOSINOPHILS /100 LEUKOCYTES IN BLOOD BY AUTOMATED COUNT 2.8 0.4 - 6.8 10/28 Specimen Type: BLOOD No comment entered. Ordering Provider: MICHELLE PEREZ A Report Released Date/Time: Oct 28, 2024 10:18 AM Reporting Lab: [place] [facility] [address] [address] Performing Lab: [place] [facility] [address] [address] [place] CBC AND DIFF (AUTO) BASOPHILS/1 00 LEUKOCYTES IN BLOOD BY AUTOMATED COUNT 0.4 0.1 - 2.0 10/28 Specimen Type: BLOOD No comment entered. Ordering Provider: MICHELLE PEREZ A Report Released Date/Time: Oct 28, 2024 10:18 AM Reporting Lab: [place] [facility] [address] [address] Performing Lab: [place] [facility] [facility] [address] [address] [place] CBC AND DIFF (AUTO) NEUTROPHILS [#/VOLUME] IN BLOOD BY AUTOMATED COUNT 1.75 10*3/u L 2.20 - 7.60 10/28 L Specimen Type: BLOOD No comment entered. Ordering Provider: MICHELLE PEREZ A Report Released Date/Time: Oct 28, 2024 10:18 AM Reporting Lab: [place] [facility] [address] [address] Performing Lab: [place] [facility] [address] [address] [place] CBC AND DIFF (AUTO) LYMPHOCYTES [#/VOLUME] IN BLOOD BY AUTOMATED COUNT 0.65 10*3/u L 1.00 - 3.20 10/28 L Specimen Type: BLOOD No comment entered. Ordering Provider: MICHELLE PEREZ A Report Released Date/Time: Oct 28, 2024 10:18 AM Reporting [facility] [address] [address] Performing Lab: [facility] [address] [place] CBC AND DIFF (AUTO) EOSINOPHILS [#/VOLUME] IN BLOOD BY AUTOMATED COUNT 0.08 10*3/u L 0.03 - 0.44 10/28 Specimen Type: BLOOD No comment entered. Ordering Provider: MICHELLE PEREZ A Report Released Date/Time: Oct 28, 2024 10:18 AM Reporting Lab[facility] [address] [address] Performing Lab: [facility] [address] [address] [place] CBC AND DIFF (AUTO) BASOPHILS [#/VOLUME] IN BLOOD BY AUTOMATED COUNT 0.01 10*3/u L 0.01 - 0.13 10/28 Specimen Type: BLOOD No comment entered. Ordering Provider: MICHELLE PEREZ A Report Released Date/Time: Oct 28, 2024 10:18 AM Reporting Lab: [facility] [address] [address] Performing Lab: [facility] [address] [address] [place] CBC AND DIFF (AUTO) IMMATURE GRANULOCYTE S/100 LEUKOCYTES IN BLOOD BY AUTOMATED COUNT 0.7 0.0 - 0.7 10/28 Specimen Type: BLOOD No comment entered. Ordering Provider: PEREZ,MICHELLE ID A Report Released Date/Time: Oct 28, 2024 10:18 AM Reporting Lab: [place] [facility] [facility] [address] [facility] [address] Performing Lab: [facility] [address] [address] [place] CBC AND DIFF (AUTO) IMMATURE GRANULOCYTE S [#/VOLUME] IN BLOOD BY AUTOMATED COUNT 0.02 10*3/u L 0.00 - 0.06 10/28 Specimen Type: BLOOD No comment entered. Ordering Provider: MICHELLE PEREZ A Report Released Date/Time: Oct 28, 2024 10:18 AM Reporting Lab: [place] [facility] [address] [address] Performing Lab: [place] [facility] [facility] [address] [address] [place] CBC AND DIFF (AUTO) NUCLEATED ERYTHROCYTE S/100 LEUKOCYTES [RATIO] IN BLOOD BY AUTOMATED COUNT 0.0 0.0 - 0.0 10/28 Specimen Type: BLOOD No comment entered. Ordering Provider: MICHELLE PEREZ A Report Released Date/Time: Oct 28, 2024 10:18 AM Reporting Lab: [place] [facility] [facility] [address] [address] Performing Lab: [facility] [address] [address] [place] CBC AND DIFF (AUTO) NUCLEATED ERYTHROCYTE S [#/VOLUME] IN BLOOD BY AUTOMATED COUNT 0.00 10*3/u L 0.00 - 0.00 10/28 Specimen Type: BLOOD No comment entered. Ordering Provider: MICHELLE PEREZ A Report Released Date/Time: Oct 28, 2024 10:18 AM Reporting Lab: [place] [facility] [address] [address] Performing Lab: [place] [facility] [address] [address] [place] TSH THYROTROPIN [UNITS/VOLU ME] IN SERUM OR PLASMA 4.07 u[IU]/ mL 0.35 - 5.00 10/28 Specimen Type: SERUM No comment entered. Ordering Provider: MICHELLE PEREZ Report Released Date/Time: Oct 28, 2024 10:18 AM Reporting [facility] [address] [facility] [address] [facility]forming Lab[facility] [address] [facility] [address] [place] BASIC METABOLIC PANEL (non-fast ing) UREA NITROGEN [MASS/VOLUM E] IN SERUM OR PLASMA 58 mg/dL 7 - 25 11/19 H Specimen Type: SERUM No comment entered. Ordering Provider: DENTON MERCADO EVELIN J Report Released Date/Time: Nov 20, 2023 10:16 AM Reporting Lab: [address] [address] Performing Lab: [address] [address] [place] BASIC METABOLIC PANEL (non-fast ing) GLUCOSE [MASS/VOLUM E] IN SERUM OR PLASMA 118 mg/dL 65 - 100 11/19 H Specimen Type: SERUM No comment entered. Ordering Provider: DENTON MERCADO J Report Released Date/Time: Nov 20, 2023 10:16 AM Reporting Lab: [address] [address] Performing Lab: [address] [address] [place] BASIC METABOLIC PANEL (non-fast ing) SODIUM [MOLES/VOLU ME] IN SERUM OR PLASMA 140 mmol/L 135 - 145 11/19 Specimen Type: SERUM No comment entered. Ordering Provider: DENTON MERCADO EVELIN J Report Released Date/Time: Nov 20, 2023 10:16 AM Reporting Lab: [facility] [address] [address] Performing Lab: [facility] [address] [address] [place] BASIC METABOLIC PANEL (non-fast ing) POTASSIUM [MOLES/VOLU ME] IN SERUM OR PLASMA 5.1 mmol/L 3.5 - 5.0 11/19 H Specimen Type: SERUM No comment entered. Ordering Provider: DENTON MERCADO Report Released Date/Time: Nov 20, 2023 10:16 AM Reporting Lab: [address] [address] Performing Lab: [address] [address] [place] BASIC METABOLIC PANEL (non-fast ing) CHLORIDE [MOLES/VOLU ME] IN SERUM OR PLASMA 104 mmol/L 100 - 110 11/19 Specimen Type: SERUM No comment entered. Ordering Provider: DENTON MERCADO Report Released Date/Time: Nov 20, 2023 10:16 AM Reporting Lab: [address] [address] Performing Lab: [address] [address] [place] BASIC METABOLIC PANEL (non-fast ing) CARBON DIOXIDE, TOTAL [MOLES/VOLU ME] IN SERUM OR PLASMA 26 meq/L 20 - 30 11/19 Specimen Type: SERUM No comment entered. Ordering Provider: DENTON MERCADO Report Released Date/Time: Nov 20, 2023 10:16 AM Reporting Lab: [address] [address] Performing Lab: [address] [address] [place] BASIC METABOLIC PANEL (non-fast ing) CREATININE [MASS/VOLUM E] IN SERUM OR PLASMA 2.26 mg/dL 0.50 - 1.40 11/19 H Specimen Type: SERUM No comment entered. Ordering Provider: DENTON MERCADO Report Released Date/Time: Nov 20, 2023 10:16 AM Reporting Lab: [address] [address] Performing Lab: [address] [address] [place] BASIC METABOLIC PANEL (non-fast ing) GLOMERULAR FILTRATION RATE/1.73 SQ M.PREDICTED [VOLUME RATE/AREA] IN SERUM, PLASMA OR BLOOD BY CREATININE- BASED FORMULA (CKD-EPI 2020) 27 mL/min 60 11/19 L Specimen Type: SERUM No comment entered. Ordering Provider: DENTON MERCADO Report Released Date/Time: Nov 20, 2023 10:16 AM Reporting Lab: [facility] [address] [address] Performing Lab: [facility] [address] [address] [place] LIVER FUNCTION PROTEIN [MASS/VOLUM E] IN SERUM OR PLASMA 7.1 g/dL 6.0 - 8.3 11/19 Specimen Type: SERUM No comment entered. Ordering Provider: DENTON MERCADO Report Released Date/Time: Nov 20, 2023 10:16 AM Reporting Lab: [facility] [address] [address] Performing Lab: [facility] [address] [address] [place] LIVER FUNCTION ALBUMIN [MASS/VOLUM E] IN SERUM OR PLASMA 3.5 g/dL 3.5 - 5.0 11/19 Specimen Type: SERUM No comment entered. Ordering Provider: DENTON MERCADO Report Released Date/Time: Nov 20, 2023 10:16 AM Reporting Lab: [facility] [address] [address] Performing Lab: [facility] [address] [place] LIVER FUNCTION ALKALINE PHOSPHATASE [ENZYMATIC ACTIVITY/VO LUME] IN SERUM OR PLASMA 48 U/L 40 - 150 11/19 Specimen Type: SERUM No comment entered. Ordering Provider: DENTON MERCADO Report Released Date/Time: Nov 20, 2023 10:16 AM Reporting Lab: [facility] [address] [address] Performing Lab: [facility] [address] [address] [place] LIVER FUNCTION ASPARTATE AMINOTRANSF ERASE [ENZYMATIC ACTIVITY/VO LUME] IN SERUM OR PLASMA 15 U/L 5 - 34 11/19 Specimen Type: SERUM No comment entered. Ordering Provider: DENTON MERCADO Report Released Date/Time: Nov 20, 2023 10:16 AM Reporting Lab: [place] [facility] [address] [address] Performing Lab: [facility] [place] [facility] [address] [facility] [address] [place] LIVER FUNCTION ALANINE AMINOTRANSF ERASE [ENZYMATIC ACTIVITY/VO LUME] IN SERUM OR PLASMA 10 U/L 11/19 Specimen Type: SERUM No comment entered. Ordering Provider: DENTON MERCADO Report Released Date/Time: Nov 20, 2023 10:16 AM Reporting Lab: [place] [facility] [facility] [address] [address] Performing Lab: [place] [facility] [facility] [facility] [address] [place] LIVER FUNCTION BILIRUBIN.T OTAL [MASS/VOLUM E] IN SERUM OR PLASMA 0.7 mg/dL 0.2 - 1.2 11/19 Specimen Type: SERUM No comment entered. Ordering Provider: DENTON MERCADO Report Released Date/Time: Nov 20, 2023 10:16 AM Reporting Lab: [place] [facility] [facility] [address] [address] Performing Lab: [place] [facility] [facility] [address] [address] [place] TSH THYROTROPIN [UNITS/VOLU ME] IN SERUM OR PLASMA 3.37 u[IU]/ mL 0.35 - 5.00 11/19 Specimen Type: SERUM No comment entered. Ordering Provider: DENTON MERCADO Report Released Date/Time: Nov 20, 2023 10:16 AM Reporting Lab: [facility] [address] Performing Lab: [place] [facility] [address] [place] LIPID PANEL, NON FASTING CHOLESTEROL [MASS/VOLUM E] IN SERUM OR PLASMA 188 mg/dL 11/19 Specimen Type: SERUM No comment entered. Ordering Provider: DENTON MERCADO Report Released Date/Time: Nov 20, 2023 10:16 AM Reporting Lab: [facility] [address] [facility] [address] Performing Lab: [address] [address] [place] LIPID PANEL, NON FASTING TRIGLYCERID E [MASS/VOLUM E] IN SERUM OR PLASMA 102 mg/dL 0 - 150 11/19 Specimen Type: SERUM No comment entered. Ordering Provider: DENTON MERCADO Report Released Date/Time: Nov 20, 2023 10:16 AM Reporting Lab: [address] [address] Performing Lab: [address] [address] [place] LIPID PANEL, NON FASTING CHOLESTEROL IN LDL [MASS/VOLUM E] IN SERUM OR PLASMA BY CALCULATION 120 mg/dL 0 - 129 11/19 Specimen Type: SERUM No comment entered. Ordering Provider: DENTON MERCADO Report Released Date/Time: Nov 20, 2023 10:16 AM Reporting Lab: [address] [address] Performing Lab: [address] [address] [place] LIPID PANEL, NON FASTING CHOLESTEROL .TOTAL/CHOL ESTEROL IN HDL [MASS RATIO] IN SERUM OR PLASMA 3.9 11/19 Specimen Type: SERUM No comment entered. Ordering Provider: DENTON MERCADO Report Released Date/Time: Nov 20, 2023 10:16 AM Reporting Lab: [address] [address] Performing Lab: [address] [address] [place] LIPID PANEL, NON FASTING CHOLESTEROL IN HDL [MASS/VOLUM E] IN SERUM OR PLASMA 48 mg/dL 40 - 60 11/19 Specimen Type: SERUM No comment entered. Ordering Provider: DENTON MERCADO Report Released Date/Time: Nov 20, 2023 10:16 AM Reporting Lab: [facility] [address] [facility] [address] Performing Lab: [facility] [address] [facility] [address] [facility] Vital Signs Combined list of inpatient and outpatient Vital Signs from Department of Defense and Veterans Affairs, ranging from 12 months to all on record, depending upon the facility. Vital Sign Value Date Comments Source SYSTOLIC BLOOD PRESSURE 112 11/03/2024 11:08:18 [place] DIASTOLIC BLOOD PRESSURE 55 11/03/2024 11:08:18 [place] PULSE OXIMETRY 94 11/03/2024 11:08:18 [place] WEIGHT 170.8 11/03/2024 11:08:18 [place] BMI 23 kg/m2 11/03/2024 11:08:18 [place] TEMPERATURE 97.3 11/03/2024 11:08:18 [place] PULSE 45 11/03/2024 [facility] SYSTOLIC BLOOD PRESSURE 139 06/03/2024 10:37:43 [place] DIASTOLIC BLOOD PRESSURE 63 06/03/2024 10:37:43 [place] PULSE OXIMETRY 97 06/03/2024 10:37:43 [place] WEIGHT 164.4 06/03/2024 10:37:43 [place] BMI 22 kg/m2 06/03/2024 10:37:43 [place] TEMPERATURE 97.7 06/03/2024 10:37:43 [place] PULSE 45 06/03/2024 10:37:[facility] SYSTOLIC BLOOD PRESSURE 140 01/13/2024 12:03:12 [place] DIASTOLIC BLOOD PRESSURE 67 01/13/2024 12:03:12 [place] PULSE OXIMETRY 95 01/13/2024 12:03:12 [place] WEIGHT 163 01/13/2024 12:03:12 [place] BMI 22 kg/m2 01/13/2024 12:03:12 [place] PAIN 0 01/13/2024 12:03:12 [place] HEIGHT 72 01/13/2024 12:03:12 [place] TEMPERATURE 97 01/13/2024 12:03:12 [place] PULSE 44 01/13/2024 12:03:12 [place] RESPIRATION 19 01/13/2024 12:03:12 [place] SYSTOLIC BLOOD PRESSURE 122 11/20/2023 10:10:53 [place] DIASTOLIC BLOOD PRESSURE 54 11/20/2023 10:10:53 [place] PULSE OXIMETRY 95 11/20/2023 10:10:53 [place] WEIGHT 158.2 11/20/2023 10:10:53 [place] BMI 22 kg/m2 11/20/2023 10:10:53 [place] TEMPERATURE 95.4 11/20/2023 10:10:53 [place] PULSE 65 11/20/2023 10:10:53 [place] Encounters Combined list of: 1) Encounters from Department of [facility] Affairs facilities going backup to the last 18 months, not all [place] inpatient encounters are included; 2) Encounters from the Department of [facility] facilities going backup to 280 months. 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, subcu of left leg JULIANNE,MATTHEW PAO S 05/20 [facility] [place] OFFICE O/P EST HI 40 MIN [id number] Diagnos is: ICD-10- CM H90.3 Sensori neural hearing loss, bilater al MERCADO,VICT ORIA J 11/19 [place] [facility] En[facility] [id number] 11/19 [facility] QNHP OL DIG ASSMT&MGMT 5-10 [id number] Diagnos is: ICD-10- CM Z04.89 Encount er for examina tion and observa tion for oth reasons ZIKAHLIL RAMÍREZ ISTIE J 11/22 [facility] [place] 1 [id number] Diagnos is: ICD-10- CM 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, bi, adv atrpc with subfove al invl MERHAR,TRAVIS H B 11/25 [facility] En[facility] [id number] 12/06 [facility] Encounter [id number] 12/17 [facility] Encounter [id number] 12/22 [facility] OFFICE O/P EST HI 40 MIN [id number] Diagnos is: ICD-10- CM 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, both eyes MANTILLA,JEANINEE Y J 12/23 [facility] FIT SPECTACLES BIFOCAL [id number] Diagnos is: ICD-10- CM Z46.0 Encount er for fit/adj st of spectac les and contact lenses DYAN MANTILLA J 12/23 [facility] [place] [facility] MOD 30 MIN [id number] Diagnos is: ICD-10- CM E55.9 Vitamin D deficie ncy, unspeci fied MERCADO,VICT ORIA J 01/12 [place] [facility] Outpatient Encounter [id number] 1.03/08 [facility] [place] [facility] OFFICE O/P EST MOD 30 MIN [id number] Diagnos is: ICD-10- CM I25.10 Athscl heart disease of [place] coronar y artery w/o ang pctrs ANADA VID A 06/03 [place] [facility] [place]UNIZ[facility] ADMIN [id number] 1. ANADA VID A 06/03 [facility] [place] [facility] ELECTROCAR DIOGRAM REPORT [id number] Diagnos is: ICD-10- CM Z13.6 Encount er for screeni ng for cardiov ascular disorde rs Vishnu SARAH 06/03 [place] [facility] ELECTROCAR DIOGRAM TRACING [id number] Diagnos is: ICD-10- CM R00.1 Bradyca rdia, unspeci fied ANA,DA VID A 06/03 [facility] [place] [facility] [place] [facility] Outpatient Encounter [id number] 06/29 [facility] [place] [facility] [place] [facility] INTRM OPH EXAM EST PATIENT [id number] Diagnos is: ICD-10- CM 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, bi, adv atrpc with subfove al invl MERHAR,TRAVIS H B 08/08 [facility] [place] FUNDUS PHOTOGRAPH Y W/I&R [id number] Diagnos is: ICD-10- CM 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, bi, adv atrpc with subfove al invl MERHAR,TRAVIS H B 08/08 [facility] [place] [place] Outpatient Encounter [id number] 09/02 [facility] [place] [place] INTRM OPH EXAM EST PATIENT [id number] Diagnos is: ICD-10- CM 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, both eyes MERHAR,TRAVIS H B 09/05 [facility] [place] [facility] [place] [facility] LIMITED VISUAL FIELD XM [id number] Diagnos is: ICD-10- CM Z02.4 Encount er for examina tion for driving license MERROLANDO,TRAVIS H B 09/05 [facility] [place] [facility] [place] [facility] Outpatient Encounter [id number] 10/02 [facility] [place] [facility] [place] OFFICE O/P [place] HI 40 MIN [id number] Diagnos is: ICD-10- CM I48.91 Unspeci fied atrial fibrill ation PEREZ,DA VID A 11/03 [place] [facility] Outpatient Encounter [id number] 11/03 [facility] [place] [facility] [place] [facility] Outpatient Encounter [id number] 11[facility] [place] [facility] Social History Combined list of available smoking, tobacco, and other social history from Department of Defense and Veterans Affairs facilities. Social History Type Response Date Comment Sourc e Tobacco smoking status NHIS VA-TOBACCO NEVER USED OTHER TYPE 11/03/2024 [place] [facility] [place] [facility] History of tobacco use TX-TOBACCO USE FORMER CIGARETTES 11/03/2024 [facility] [place] [facility] History of tobacco use TX-TOBACCO FORMER USER 11/20/2023 [facility] [place] [facility] History of tobacco use [place]-TOBACCO FORMER USER 11/17/2022 [place] History of tobacco use [place]-TOBACCO FORMER USER 06/19/2021 [place] History of tobacco use QUIT TOBACCO USE 1-7 YEARS AGO 05/27/2011 quit 2007 [facility] [place] [facility] History of tobacco use QUIT TOBACCO USE 1-7 YEARS AGO 05/09/2010 [facility] [place] [facility] Plan of Care List of future care activities from Department of Veterans Affairs facilities. Additional future care activities may be listed in the Assessment and Plan section. Date/Time Care Activity Care Activity Detail Facili ty 03/09/2025 AMBULATORY - MEDICINE AMBULATORY - [facility]
--- OUTSIDE RECORDS SUMMARY | 2024-11-10 12:46 | XMS_ITS | Clinical Summary ---
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 Name Role Phone Duong Pradhan Primary Care Provider [phone] Allergies No known active allergies Medications apixaban (ELIQUIS) 2.5 MG tablet Take 1 tablet by mouth 2 (two) times a day Active carvedilol (COREG) 12.5 MG tablet Take 1 tablet by mouth 2 (two) times a day Active Multiple Vitamins-Mineral s (PreserVision AREDS) tablet Take 1 tablet by mouth 1 (one) time each day Active atorvastatin (LIPITOR) 40 MG tablet Take 40 mg by mouth 1 (one) time each day Active spironolactone (ALDACTONE) 25 MG tablet TAKE 1 TABLET BY MOUTH EVERY DAY 90 tablet 3 09/23/2021 Active isosorbide mononitrate (IMDUR) 60 MG 24 hr tablet TAKE 1 TABLET BY MOUTH EVERY DAY 90 tablet 5 09/30/2022 Active Hospital, Clinic, or Other Facility Administered Medication Ordered Dose Route Frequency Start Date End Date Status Epoetin Adolfo-epbx solution 40,000 UnitsIndications:Anemia of chronic renal failure,Stage 3b chronic kidney disease (HCC),Hypertension,Hyperk alemia 67292 Units IJ Every 14 days 05/16/2021 Active Epoetin Adolfo-epbx solution 40,000 UnitsIndications:Anemia of chronic renal failure 70922 Units IJ Once 02/24/2022 Active Active Problems Problem Noted Date Diagnosed Date Unqualified visual loss, both eyes 07/17/2023 07/17/2023 Long-term current use of anticoagulant 3 07/17/2023 Localized swelling, mass and lump, left lower li mb 07/17/2023 07/17/2023 Lipomatosis 07/17/2023 07/17/2023 Lipoma of knee and popliteal area 07/17/2023 07/17/2023 Hyperlipidemia 07/17/2023 07/17/2023 H/O: artificial heart valve 07/17/202303/2023 Overview (07/17/2023): Jun 20, 2021 Entered By: MACO BETANCOURT Comment: replaced 2006--but pt does not know which valve. Bioprosthetic. Exposure to potentially hazardous substance 03/202307/17/2023 Encounter for therapeutic drug level monitoring 07/17/2023 07/17/2023 Encounter for fitting and ad justment of spectacles and contact lenses 07/17/2023 07/17/2023 Encounter for other administrative examination 1 09/17/2022 07/17/2023 Depressive disorder 07/17/2023 07/17/2023 Cataract 07/17/2023 07/17/2023 Benign lipomatous neoplasm o f skin and subcutaneous tissue of left leg 07/17/2023 07/17/2023 Abrasion, left thigh, initial encounter 07/17/2007/17/2023 Anemia 10/28/2021 Overview (07/17/2023): Jun 20, 2021 Entered By: MACO BETANCOURT Comment: severe iron deficiency + renal Atrial fibrillation 10/28/2021 Overview (07/17/2023): Jun 20, 2021 Entered By: MACO BETANCOURT Comment: on apixaban. 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 Overview (07/17/2023): Jun 20, 2021 Entered By: MACO BETANCOURT Comment: Right nephrectomy Visual disturbance 08/10/2009 07/17/2023 Undiagnosed cardiac murmurs 08/10/2009 12/0 03/2023 Resolved Problems Problem Noted Date Diagnosed Date Resolved Date Dyslipidemia 10/28/2021 10/28/2021 Gastritis 10/28/2021 10/28/2021 Heart failure with normal ejection fraction 10/28/2021 10/28/2021 Hyperkalemia 01/17/2021 01/30/2022 Blood in urine 11/19/2020 01/30/2022 Family History Medical History Relation Comments Hypertension Father Hypertension Sibling 1 Heart disease Sibling 2 Relation Status Comments Father Sibling 1 Sibling 2 Social History Tobacco Use Types Packs/Day Years Used Date Smoking Tobacco: Never Smokeless Tobacco: Never Alcohol Use Standard Drinks/Week Comments No 0 (1 standard drink = 0.6 oz pur e alcohol) Sex and Gender Information Value Date Recorded Sex Assigned at Not on file Legal Sex Male 4:43 PM EST Gender Identity Not on file Sexual Orientation Not on file Last Filed Vital Signs Vital Sign Reading Time Taken Comments Blood Pressure 118/70 04/14/2023 1:02 PM EDT Pulse 42 04/14/2023 1:02 PM EDT Temperature - - Respiratory Rate 22 06/18/2022 3:10 PM EST Oxygen Saturation 93% 08/05/2022 2:26 PM EST Inhaled Oxygen Concentration - - Weight 74.2 kg (163 lb 9.6 oz) 04/14/2023 1:02 P M EDT Height 180.3 cm (5' 11 ) 09/14/2020 12:00 PM EST Body Mass Index 22.82 09/14/2020 12:00 PM EST Plan of Treatment Health Maintenance Due Date Last Done Comments Pneumococcal Vaccine: 65+ Ye ars (1 of 2 - PCV) 1941 06/10/2008 Influenza Vaccine (#1) 2024 04/10/2011 Hepatitis B Vaccine Aged Out No longe r eligible based on patient's age to complete this topic Insurance MEDICARE [facility] MEDICARE UN[employer] [place] [id number] Care Teams Powder Truck Driver Relationship Specialty Start Date End Date Duong Pradhan PCP - General Family Medicine 11/18/22
--- OUTSIDE RECORDS SUMMARY | 2024-11-10 12:46 | XMS_ITS | Encounter Summary ---
Author Name [facility] Organization [facility] [place] Address [address] [place] [address] Care Team Providers Care Copier And Printer Field Technician Name Role Phone SAUL PEREZ Primary Care [...] PART A Sep 10, 2001 PART A [id number] YENIFER CUI PATIENT MEDICARE (WNR) MEDICARE (M) PART B Sep 10, 2001 PART B [id number] YENIFER CUI PATIENT MEDICARE (WNR) MEDICARE (M) PART A Sep 10, 2001 PART A [id number] YENIFER CUI PATIENT MEDICARE (WNR) MEDICARE (M) PART B Sep 10, 2001 PART B [id number] [phone] YENIFER CUI PATIENT [employer] MEDICAL EXPENSE (OPT/PROF ) [employer] Feb 08, 2012 [id number] [phone] RONA CUI SPOUSE [employer] (OPT/PROF ) [employer] N Feb 08, 2012 [id number] RONA CUI SPOUSE [employer] (OPT/PROF ) [employer] Feb 08, 2012 [id number] RONA CUI SPOUSE Selected Encounter This section includes the information on record at [place] for the Encounter. 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 Date/Time Primary/Secondary Diagnosis Diagnosis Name Provider Source Sep 28, 2024 12:04 PM PRIMARY Unqualified visual loss, both eyes SVETA FUENTES [place] [facility] [place] [facility] Sep 28, 2024 12:04 PM SECONDARY Dry eye syndrome of bilateral lacrimal glands JAQUELINEROLANDOSVETA Godwin [place] [facility] [place] [facility] Plan of Treatment: Future [...] 03, 2024 11:00 AM AMBULATORY - MEDICINE [facility] Social History: Smoking Status (Most current) and Tobacco Use (All prior to encounter date) This section includes the most current, and the historical, smoking and tobacco- related health factors from the VA facility where the Encounter took place. Current Smoking Status This section includes the most current smoking, or tobacco-related health factor, from the VA facility where the Encounter took place. Date/Time Current Smoking Status Lazaro lopez Nov 20, 2023 10:11 AM VA-TOBACCO FORMER USER [facility] Tobacco Use History This section includes a history of the smoking, or tobacco-related health factors, that were collected on or before the date of the Encounter. The data comes from the [place] facility where the Encounter took place. Date/Time Smoking Status/Tobacco Use Comment Mg estevez Nov 20, 2023 10:11 AM VA-TOBACCO QUIT 15 YRS OR MORE [facility] May 27, 2011 12:54 PM QUIT TOBACCO USE 1 -7 YEARS AGO quit 2006 [facility] May 09, 2010 03:17 PM QUIT TOBACCO USE 1 -7 YEARS AGO [facility] Encounter Notes: All associated encounter notes This section contains the clinical notes associated to the Encounter. Date/Time Encounter Note(s) Provider Source Sep 05, 2024 12:24 PM OPTOMETRY NOTE: LOCAL TITLE: OPTOMETRY NOTE STANDARD TITLE: OPTOMETRY NOTE DATE OF NOTE: SEP 05, 2024@12:24 ENTRY DATE: SEP 05, 2024@12:24:43 AUTHOR: SVETA FUENTES EXP COSIGNER: URGENCY: STATUS: COMPLETED 88 WHITE MALE NOT OR Last eye exam: 08/08/2024 Reason for Visit/CC: patient here to have vision screening completed for RMV. He reports no changes in vision. He wants to know why he was given drops for dry eyes since he has wet eyes and wants to know if there is something better. 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 Dry eyes 4. Unqualified vision Loss OS > OD (-) Pain: (-) [place]: (-) Diplopia: (-) Flashes: (-) Floaters: (-) Amaurosis Fugax/Tia's: (-) Eye Injury: (-) Eye Surgery: (-) TBI (-) FOHx: MHx: Code Description R73.01 Impaired Fasting Glucose ([facility] 827421647) E55.9 Vitamin D Deficiency ([facility] 81230495) D72.819 Leukopenia ([facility] 36368041) H35.30 Age related macular degeneration ([facility] 349897413) D17.24 Lipoma of knee and popliteal area ([facility] 929607910) Z77.29 Exposure to potentially hazardous substance ([facility] [id number]) Z79.01 Long-term current use of anticoagulant ([facility] 762262749) I25.10 CAD - Coronary Artery Disease ([facility] 08616388) 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 History of artificial heart valve ([facility] 652395543) 366.9 Cataract, Unspecified (ICD-9-CM 366.9) 368.9 Vision, abnormal (ICD-9-CM 368.9) 785.2 Heart Murmurs (ICD-9-CM 785.2) Other: SYSTEMIC MEDICATIONS/OCULAR MEDICATIONS: Active and Recently Outpatient Medications (excluding Supplies): Active Outpatient Medications Status 1) APIXABAN 5MG TAB TAKE ONE-HALF TABLET BY MOUTH TWICE DAILY ACTIVE (S) 2) CARBOXYMETHYLCELLULOSE NA 0.5% OPH SOLN INSTILL 1 DROP INTO ACTIVE EACH EYE FOUR TIMES DAILY NEEDED Indication: FOR DRY EYE 3) CARVEDILOL 12.5MG TAB TAKE ONE TABLET BY MOUTH TWICE DAILY ACTIVE Indication: FOR HIGH BLOOD PRESSURE 4) IPRATROPIUM BR 0.06% NASAL SPRAY INSTILL 1 SPRAY INTO EACH ACTIVE NOSTRIL ONCE DAILY Indication: FOR RUNNY NOSE 5) ISOSORBIDE MONONITRATE 30MG SA TAB TAKE THREE TABLETS BY ACTIVE MOUTH ONCE DAILY Indication: TO PREVENT ANGINA 6) MULTIVIT/OPHTH AREDS2/LUTE/ZEAX CAP/TAB TAKE 1 CAPSULE BY ACTIVE MOUTH TWICE DAILY IN THE MORNING AND EVENING, WITH FOOD Indication: FOR VITAMIN SUPPLEMENTATION 7) SPIRONOLACTONE 25MG TAB TAKE ONE-HALF TABLET BY MOUTH ONCE ACTIVE DAILY Indication: FOR FLUID ACCUMULATION 8) VITAMIN B COMPLEX CAP TAKE 1 CAPSULE BY MOUTH ONCE DAILY ACTIVE Indication: FOR VITAMIN SUPPLEMENTATION Inactive Outpatient Medications Status 1) TORSEMIDE 10MG TAB TAKE ONE TABLET BY MOUTH ONCE DAILY Indication: FOR VISIBLE WATER RETENTION 9 Total Medications ALLERGIES: Patient has answered NKA LAST BP: 139/63 (06/03/2024 10:37) PERTINENT LABS: HEMOGLOBIN A1C; BLOOD Arleen. Date: 11/20/23 10:55 10/15/22 07:55 Test Name Result Units Range HEMOGLOBIN A1C 5.3 5.5 % 4.0 - 5.6 Current Rx with last BCVA: OD: +0.25-1.85g411 20/40-1 OS: PLANO 10/600 Add: DVA ( x )sc ( x )cc OD 20/70-2 20/60-2 OS 5/600 OU 20/80 20/70 can distinguish red, green and yellow Assessment/Plan: 1. unqualified vision loss OU - patient ed that he is borderline for meeting daylight only requirements. Discussed that I will complete his vision screening for daylight only and requiring that he wears his glasses for driving. I recommend that he is re-evaluated in 6 months not 5 years. Discussed that he very likely will not pass at that time and will need to stop driving completely. He voiced understanding and agrees with this plan. RMV form completed 2. dry eye OU - discussed, he requests to try restasis - ordered restasis BID OU, can continue Refresh tears prn RTC as previously scheduled or earlier PRN patient offered and declined printed medication list [...] (local) and dispensed from another [place] or [place] facility (remote) as well as [...] Remote Allergy/ADR Data available for this patient [place] [facility] [place] [facility] No Known Allergies Med Recon NoGlossary (Tool #1) INCLUDED IN THIS LIST: Alphabetical list of active outpatient prescriptions dispensed from this [place] (local) and dispensed from another [place] or [place] facility (remote) as well as inpatient orders (local pending and active), local clinic medications, locally documented non-VA medications, and local prescriptions that have or been discontinued in the past 90 days. Non-VA Meds Last Documented On: Jun 20, 2021 NOTE The display of VA prescriptions dispensed from another [place] or [place] facility (remote) is limited to active outpatient prescription entries matched to National Drug File at the originating site and may not include some items such as investigational drugs, compounds, etc. NOT INCLUDED IN THIS LIST: Medications self-entered by the patient into personal health records (i.e. [employer]) are NOT included in this list. Non-VA medications documented outside this [place], remote inpatient orders (regardless of status) and remote clinic medications are NOT included in this list. The patient and provider must always discuss medications the patient is taking, regardless of where the medication was dispensed or obtained. -------- OUTPT APIXABAN 5MG TAB (Status = Discontinued) TAKE ONE-HALF TABLET BY MOUTH TWICE DAILY Rx# [id number] Last Released: 06/28/24 Qty/Days Supply: Rx Expiration Date: 01/13/25 Refills Remainin OUTPT APIXABAN 5MG TAB (Status = Active/Suspended) TAKE ONE-HALF TABLET BY MOUTH TWICE DAILY Rx# [id number] Last Released: Supply: Rx Expiration Date: 07/03/25 Refills Remainin OUTPT CARBOXYMETHYLCELLULOSE NA 0.5% OPH SOLN (Status = Active) INSTILL 1 DROP INTO EACH EYE FOUR TIMES DAILY NEEDED FOR DRY EYE Rx# [id number] Last Released: 08/16/24 Qty/Days Supply: Rx Expiration Date: 03/10/25 Refills Remainin Indication: FOR DRY EYE OUTPT CARVEDILOL 12.5MG TAB (Status = Active) TAKE ONE TABLET BY MOUTH TWICE DAILY FOR HIGH BLOOD PRESSURE Rx# [id number] Last Released: 06/03/24 Qty/Days Supply: 180 Rx Expiration Date: 06/04/25 Refills Remainin Indication: FOR HIGH BLOOD PRESSURE OUTPT IPRATROPIUM BR 0.06% NASAL SPRAY (Status = Active) INSTILL 1 SPRAY INTO EACH NOSTRIL ONCE DAILY FOR RUNNY NOSE Rx# [id number] Last Released: 08/25/24 Qty/Days Supply: Rx Expiration Date: 06/04/25 Refills Remainin Indication: FOR RUNNY NOSE OUTPT ISOSORBIDE MONONITRATE 30MG SA TAB (Status = Active) TAKE THREE TABLETS BY MOUTH ONCE DAILY TO PREVENT ANGINA Rx# [id number] Last Released: 06/06/24 Qty/Days Supply: Rx Expiration Date: 06/04/25 Refills Remainin Indication: TO PREVENT ANGINA OUTPT MULTIVIT/OPHTH AREDS2/LUTE/ZEAX CAP/TAB (Status = Active) TAKE 1 CAPSULE BY MOUTH TWICE DAILY IN THE MORNING AND EVENING, WITH FOOD Rx# [id number] Last Released: 08/16/24 Qty/Days Supply: 120/60 Rx Expiration Date: 11/27/24 Refills Remainin Indication: FOR VITAMIN SUPPLEMENTATION OUTPT SPIRONOLACTONE 25MG TAB (Status = Active) TAKE ONE-HALF TABLET BY MOUTH ONCE DAILY FOR FLUID ACCUMULATION Rx# [id number] Last Released: 06/03/24 Qty/Days Supply: 45 Rx Expiration Date: 06/04/25 Refills Remainin Indication: FOR FLUID ACCUMULATION OUTPT TORSEMIDE 10MG TAB (Status = ) TAKE ONE TABLET BY MOUTH ONCE DAILY FOR VISIBLE WATER RETENTION Rx# [id number] Last Released: 08/14/23 Qty/Days Supply: Rx Expiration Date: 08/12/24 Refills Remainin Indication: FOR VISIBLE WATER RETENTION OUTPT VITAMIN B COMPLEX CAP (Status = Active) TAKE 1 CAPSULE BY MOUTH ONCE DAILY FOR VITAMIN SUPPLEMENTATION Rx# [id number] Last Released: 07/04/24 Qty/Days Supply: 100/90 Rx Expiration Date: 01/13/25 Refills Remainin Indication: FOR VITAMIN SUPPLEMENTATION -------- SUPPLIES -------- /damien/ SVETA FUENTES OD Military Education Coordinator Signed: 09/05/2024 13:37 SVETA FUENTES [facility] [place] [facility]
--- OUTSIDE RECORDS SUMMARY | 2024-11-10 12:46 | XMS_ITS | Encounter Summary ---
Author Name [facility] [place] [facility] [place] Organization [facility] [place] Address [address] [place] [address] Care Team Providers Care Dishroom Attendant Name Role Phone SUAL PEREZ Primary Care Provider Unavailabl e Insurance [...] PART A Sep 10, 2001 PART A [id number] YENIFER CUI PATIENT MEDICARE (WNR) MEDICARE (M) PART B Sep 10, 2001 PART B [id number] [phone] YENIFER CUI PATIENT MEDICARE (WNR) MEDICARE (M) PART A Sep 10, 2001 PART A [id number] [phone] YENIFER CUI PATIENT MEDICARE (WNR) MEDICARE (M) PART B Sep 10, 2001 PART B [id number] YENIFER CUI PATIENT [employer] MEDICAL EXPENSE (OPT/PROF ) [employer] Feb 08, 2012 [id number] [phone] RONA CUI SPOUSE [employer] (OPT/PROF ) [employer] N Feb 08, 2012 [id number] RONA CUI SPOUSE [employer] (OPT/PROF ) [employer] Feb 08, 2012 [id number] RONA CUI SPOUSE Selected Encounter This section includes the information on record at [place] for the Encounter. 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 This section includes future appointments and future orders which are active, pending or scheduled. Future Appointments This section includes appointments that were scheduled to occur 6 months from the date of the Encounter, up to a maximum of 20 appointments. The data comes from all [place] treatment facilities. Appointment Date/Time Appointment Type Appointme nt Facility Name Sep 05, 2024 12:30 PM [facility] Sep 05, 2024 01:00 PM [facility] Nov 03, 2024 11:00 AM AMBULATORY - MEDICINE [facility] Social History: Smoking Status (Most current) and Tobacco Use (All prior to encounter date) This section includes the most current, and the historical, smoking and tobacco- related health factors from the VA facility where the Encounter took place. Current Smoking Status This section includes the most current smoking, or tobacco-related health factor, from the [place] facility where the Encounter took place. Date/Time Current Smoking Status Comment Malinda ity Nov 20, 2023 10:11 AM VA-TOBACCO FORMER USER [facility] Tobacco Use History This section includes a history of the smoking, or tobacco-related health factors, that were collected on or before the date of the Encounter. The data comes from the [place] facility where the Encounter took place. Date/Time Smoking Status/Tobacco Use Comment F acility Nov 20, 2023 10:11 AM VA-TOBACCO QUIT 15 YRS OR MORE [facility] May 27, 2011 12:54 PM QUIT TOBACCO USE 1 -7 YEARS AGO quit 2006 [facility] May 09, 2010 03:17 PM QUIT TOBACCO USE 1 -7 YEARS AGO [facility] Encounter Notes: All associated encounter notes This section contains the clinical notes associated to the Encounter. Date/Time Encounter Note(s) Provider Source Aug 08, 2024 12:13 PM OPTOMETRY CONSULT: LOCAL TITLE: CONSULT REPORT/OPTOMETRY FUNDUS PHOTO STANDARD TITLE: OPTOMETRY CONSULT DATE OF NOTE: AUG 08, 2024@12:13 ENTRY DATE: AUG 08, 2024@12:14:07 AUTHOR: LALITHA DELAROSA EXP COSIGNER: SVETA FUENTES URGENCY: STATUS: COMPLETED CONSULT REPORT/OPTOMETRY FUNDUS PHOTO Has ADDENDA Fundus photo report: Fundus photos reviewed for patient with Nonexudative age-related macular degeneration, bilateral, advanced atrophic with subfoveal involvement OD: optic disc shows normal cupping with distinct margins and healthy rim tissue. The vasculature is of normal caliber. There is patchy atrophy inferior nasal to fovea and superior to the fovea. OS: optic disc shows normal cupping with distinct margins and healthy rim tissue. The vasculature is of normal caliber. There is Atrophy throughout the entire posterior pole with pigment scars. A/P: Nonexudative age-related macular degeneration, bilateral, advanced atrophic with subfoveal involvement - Photos taken today to monitor for progression - Patchy scaring OD and Diffuse atrophy from arcade to arcade OS - Central atrophy OS cause for reduced vision OS - Monitor /es/ LALITHA DELAROSA OPTOMETRY STUDENT Signed: 08/08/2024 13:42 /damien/ SVETA FUENTES OD Vulcanized Fiber Unit Operator Cosigned: 08/08/2024 13:58 08/08/2024 ADDENDUM STATUS: COMPLETED The optometry lab intern participated in this exam, I saw this [place] in conjunction with the optometry student. The visual images were captured by the optometry health photo technician. Results of testing assessed by the student and reviewed by myself. I agree with the stated findings, assessment and plan. I have added/edited the documentation to reflect my exam findings and changes to the assessment and plan. /damien/ SVETA FUENTES OD Vulcanized Fiber Unit Operator Signed: 08/08/2024 13:59 LALITHA DELAROSA [place] [facility]
--- OUTSIDE RECORDS SUMMARY | 2024-11-10 12:46 | XMS_ITS ---
Author Name [facility] Organization [facility] Address [address] [place] [id number] Care Team Providers Care Plastic Card Grader Cardroom Name Role Phone SAUL PEREZ Primary Care [...] PART A Sep 10, 2001 PART A [id number] [phone] YENIFER CUI PATIENT MEDICARE (WNR) MEDICARE (M) PART B Sep 10, 2001 PART B [id number] [phone] YENIFER CUI PATIENT MEDICARE (WNR) MEDICARE (M) PART A Sep 10, 2001 PART A [id number] [phone] YENIFER CUI PATIENT MEDICARE (WNR) MEDICARE (M) PART B Sep 10, 2001 PART B [id number] YENIFER CUI PATIENT [employer] EXPENSE (OPT/PROF ) [employer] Feb 08, 2012 [id number] RONA CUI SPOUSE [employer] (OPT/PROF ) [place] RE STATE INDEM N Feb 08, 2012 [id number] RONA CUI SPOUSE [employer] (OPT/PROF ) [employer] Feb 08, 2012 [id number] ROAN CUI SPOUSE Selected Encounter This section includes the information on record at [place] for the Encounter. 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, bi, adv atrpc with subfoveal invl MERHAR,SVETA B [place] [facility] [place] [facility] Aug 30, 2024 03:14 PM SECONDARY Combined forms of age-related cataract, bilateral MERHAR,SVETA B [facility] [place] [facility] Aug 30, 2024 03:14 PM SECONDARY Dry eye syndrome of bilateral lacrimal glands MERHAR,SVETA B [facility] [place] [facility] Aug 30, 2024 03:14 PM SECONDARY Unqualified visual loss, both eyes [facility] [place] [facility] Plan of Treatment: Future Appointments (+ [...] 05, 2024 12:30 PM AMBULATORY - MEDICINE [place] [facility] [place] [facility] Sep 05, 2024 01:00 PM [facility] Nov 03, 2024 11:00 AM AMBULATORY - MEDICINE [facility] Social History: Smoking Status (Most current) [...] 20, 2023 10:11 AM VA-TOBACCO FORMER USER [facility] Tobacco Use History This section includes a history of the smoking, or tobacco-related health factors, that were collected on or before the date of the Encounter. The data comes from the [place] facility where the Encounter took place. Date/Time Smoking Status/Tobacco Use Comment F acility Nov 20, 2023 10:11 AM VA-TOBACCO QUIT 15 YRS OR MORE [facility] May 27, 2011 12:54 PM QUIT TOBACCO USE 1 -7 YEARS AGO quit 2006 [facility] May 09, 2010 03:17 PM QUIT TOBACCO USE 1 -7 YEARS AGO [facility] Encounter Notes: All associated encounter notes This section contains the clinical notes associated to the Encounter. Date/Time Encounter Note(s) Provider Source Aug 08, 2024 07:25 AM OPTOMETRY NOTE: LOCAL TITLE: OPTOMETRY NOTE STANDARD TITLE: OPTOMETRY NOTE DATE OF NOTE: AUG 08, 2024@07:25 ENTRY DATE: AUG 08, 2024@07:25:19 AUTHOR: LALITHA DELAROSA EXP COSIGNER: SVETA FUENTES URGENCY: STATUS: COMPLETED OPTOMETRY NOTE Has ADDENDA Active problems - Computerized Problem List is the source for the followin. Impaired Fasting Glucose ([facility] [id number]) 2. Vitamin D Deficiency ([facility] [id number]) 3. Leukopenia 4. Age related macular degeneration 5. Lipoma of knee and popliteal area 6. Exposure to potentially hazardous substance 7. Long-term current use of anticoagulant 8. CAD - Coronary Artery Disease ([facility] [id number]) 9. Neoplasm of kidney 10. HTN - Hypertension ([facility] [id number]) 11. Anemia ([facility] [id number]) 12. AF- Atrial Fibrillation ([facility] [id number]) 13. Hyperlipidemia ([facility] [id number]) 14. Chronic kidney disease stage 3B 15. Depression ([facility] [id number]) 16. History of artificial heart valve 17. Cataract, Unspecified 18. Vision, abnormal 19. Heart Murmurs Active Outpatient Medications (including Supplies): Active Outpatient Medications Status = 1) APIXABAN 5MG TAB TAKE ONE-HALF TABLET [...] ACTIVE DAILY Indication: FOR FLUID ACCUMULATION 8) TORSEMIDE 10MG TAB TAKE ONE TABLET BY MOUTH ONCE DAILY ACTIVE Indication: FOR VISIBLE WATER RETENTION 9) VITAMIN B COMPLEX CAP TAKE 1 CAPSULE BY MOUTH ONCE DAILY ACTIVE Indication: FOR VITAMIN SUPPLEMENTATION Allergies: Patient has answered NKA All medications including those prescribed by outside VA's, community providers, and all OTC meds were reviewed and reconciled with patient to the best of their abilities. This 88 year old MALE is seen today for DFE BRIANA: 11/26/23 LV: 12/24/23 w/ Dr. Sue Chief Complaint: Patient reports no changes to vision since last appointment. Patient reposrts only driving during the day and only short trips. 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 Dry eyes 4. Unqualified vision Loss OS > OD Ocular Medications: Preservition OU (-) Pain: (-) [place]: (-) Diplopia: (-) Flashes: (-) Floaters: (-) Amaurosis Fugax/Tia's: (-) Eye Injury: (-) Eye Surgery: (-) TBI FOHx: (-) Glaucoma/ARMD/Blindness VITALS (most recent, as listed in the electronic record): B/P: 139/63 (06/03/2024 10:37) Pulse: 45 (06/03/2024 10:37) Temperature: 97.7 F [36.5 C] (06/03/2024 10:37) Weight: 164.4 lb [74.57 kg] (06/03/2024 10:37) Height: 72 in [182.9 cm] (01/13/2024 12:03) BMI: BMI: 22.3 PERTINENT LABS: HEMOGLOBIN A1C TREND Collection DT Spec HGBA1c 11/20/2023 10:55 BLOOD 5.3 10/15/2022 07:55 BLOOD 5.5 06/14/2021 08:07 BLOOD 5.3 (-) Smoker/Length of Time/PPD: Current Rx with last BCVA: OD: +0.25-1.93s057 20/40-1 OS: PLANO 10600 Add: DVA ( )sc (X )cc - Trialframe OD: 20/40-2 OS: 5600 Pupils: PERRL (+)APD OS EOMs: SAFE OU, (-)Pain/Diplopia CVF (facial, peripheral): FTFC OU All the above performed by student, reviewed by attending Anterior segment: Performed by student, repeated by attending Lids: +1-2 MGD, Dermatochalasis OU Conj: white and quiet OU Cornea: clear OU AC: D&Q OU Angles: 4x4 OU Iris: flat and clear OU Lens: 2+ NSC, 2+ ACC OD 3+ NSC 2-3+ ACC OS Tonometry: Performed by student, reviewed by attending [ X ] GAT [ ] iCare OD 14 mmHg OS 13 mmHg Time: Fundus exam: Dilated: XXXX Non dilated: Dilating Drops: 1GTT 1 % Tropicamide OU [...] repeated by attending Vit: PVD OU C/D: 0.35 OD, 0.35 OS Macula: - small patches of geographic atrophy sup nasal and inf alida with pigment mottling OD, - large geographic mottling with pigment mottling OS - no SRF/SRH OU PPole: clear A/V: 2/3 Vessels: normal caliber OU Periph: flat and intact (-)holes, tears, detachments 360 OU Cobblestone degneration IN/I/ IT OU Assessment/Plan: 1. 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 ed on todays findings - Pt. ed on using Home Amsler grid for monitoring the progression of AMD or any changes in vision - Pt. ed on ocular neutraceutical therapy/diet/healthy lifestyle/sun protection - Fundus Photos taken today. - Advised Patient to continue to take Preservision BID PO - Monitor 2.Combined Form Cataracts OU - Pt. ed. on findings - cataracts are not visually significant - surgery is not necessary at this time - Ed. on importance of UV protection and on symptoms of glare - Monitor 3. Dry eyes OU; Asymptomatic - Pt. ed. on todays findings - Ordering Refresh - Ed. pt. to use BID-QID OU even on days when eyes are not feeling dry - Monitor in 1 year 4. Unqualified visual loss, both eyes - Caused by Amd, majority, and cataracts, minority - Patient educated on daylight driving only with current vision and importance of eyewear protection especially for the right eye. - Patient advised of future concerns for driving as macular degeneration and cataract progression - Patient deferred a referral to Low vision at this time - Monitor Return to Clinic 6 months for DFE or earlier PRN Patient Education: Macular Degeneration: [...] contraindication for supplements, diet and exercise. /damien/ LALITHA DELAROSA OPTOMETRY STUDENT Signed: 08/08/2024 13:42 /es/ SVETA FUENTES OD Jd Edwards Developer Cosigned: 08/08/2024 13:59 08/08/2024 ADDENDUM STATUS: COMPLETED The optometry finance accounting internship participated in this exam, I saw this [place] in conjunction with the optometry student. The [...] and changes to the assessment and plan. patient offered and declined printed medication list [...] (local) and dispensed from another [place] or DoD facility (remote) as well as [...] Remote Allergy/ADR Data available for this patient [place] [facility] [place] [facility] No Known Allergies [...] the patient into personal health records (i.e. [employer]) are NOT included in this list. Non-VA medications documented outside this VA, remote inpatient orders (regardless of status) and remote clinic medications are NOT included in this list. The patient and provider must always discuss medications the patient is taking, regardless of where the medication was dispensed or obtained. OUTPT APIXABAN 5MG TAB (Status = Discontinued) TAKE ONE-HALF TABLET BY MOUTH TWICE DAILY Rx# [id number] Last Released: 06/28/24 Qty/Days Supply: Rx Expiration Date: 01/13/25 Refills Remainin OUTPT APIXABAN 5MG TAB (Status = Active/Suspended) TAKE ONE-HALF TABLET BY MOUTH TWICE DAILY Rx# [id number] Last Released: QtDays Supply: Rx Expiration Date: 07/03/25 Refills Remainin OUTPT CARBOXYMETHYLCELLULOSE NA 0.5% OPH SOLN (Status = Active/Suspended) INSTILL 1 DROP INTO EACH EYE FOUR TIMES DAILY NEEDED FOR DRY EYE Rx# [id number] Last Released: 03/11/24 Qty/Days Supply: Rx Expiration Date: 03/10/25 Refills Remainin Indication: FOR DRY EYE OUTPT CARVEDILOL 12.5MG TAB (Status = Active) TAKE ONE TABLET BY MOUTH TWICE DAILY FOR HIGH BLOOD PRESSURE Rx# [id number] Last Released: 06/03/24 Qty/Days Supply: Rx Expiration Date: 06/04/25 Refills Remainin Indication: FOR HIGH BLOOD PRESSURE OUTPT IPRATROPIUM BR 0.06% NASAL SPRAY (Status = Active) INSTILL 1 SPRAY INTO EACH NOSTRIL ONCE DAILY FOR RUNNY NOSE Rx# [id number] Last Released: 06/03/24 Qty/Days Supply: Rx Expiration Date: 06/04/25 Refills Remainin Indication: FOR RUNNY NOSE OUTPT ISOSORBIDE MONONITRATE 30MG SA TAB (Status = Active) TAKE THREE TABLETS BY MOUTH ONCE DAILY TO PREVENT ANGINA Rx# [id number] Last Released: 06/06/24 Qty/Days Supply: 270/90 Rx Expiration Date: 06/04/25 Refills Remainin Indication: TO PREVENT ANGINA OUTPT MULTIVIT/OPHTH AREDS2/LUTE/ZEAX CAP/TAB (Status = Active/Suspended) TAKE 1 CAPSULE BY MOUTH TWICE DAILY IN THE MORNING AND EVENING, WITH FOOD Rx# [id number] Last Released: 03/11/24 Qty/Days Supply: 120/60 Rx Expiration Date: 11/27/24 Refills Remainin Indication: FOR VITAMIN SUPPLEMENTATION OUTPT SPIRONOLACTONE 25MG TAB (Status = Active) TAKE ONE-HALF TABLET BY MOUTH ONCE DAILY FOR FLUID ACCUMULATION Rx# [id number] Last Released: 06/03/24 Qty/Days Supply: 45/90 Rx Expiration Date: 06/04/25 Refills Remainin Indication: FOR FLUID ACCUMULATION OUTPT TORSEMIDE 10MG TAB (Status = Active) TAKE ONE TABLET BY MOUTH ONCE DAILY FOR VISIBLE WATER RETENTION Rx# [id number] Last Released: 08/14/23 Qty/Days Supply: 90 Rx Expiration Date: 08/12/24 Refills Remainin Indication: FOR VISIBLE WATER RETENTION OUTPT VITAMIN B COMPLEX CAP (Status = Active) TAKE 1 CAPSULE BY MOUTH ONCE DAILY FOR VITAMIN SUPPLEMENTATION Rx# [id number] Last Released: 07/04/24 Qty/Days Supply: 100/90 Rx Expiration Date: 01/13/25 Refills Remainin Indication: FOR VITAMIN SUPPLEMENTATION SUPPLIES /yissel FUENTES OD Jd Edwards Developer Signed: 08/08/2024 14:00 LALITHA DELAROSA [facility]
[2024-11-10 13:51] LABS: Anion Gap 11 (12-20); Blood Urea Nitrogen 62 mg/dL (9-16); Carbon Dioxide 23 mmol/L (22-29); Chloride 110 mmol/L (96-108); Estimated Glomerular Filt Rate 31; Potassium 5.4 mmol/L (3.3-5.1); Sodium 139 mmol/L (135-145)
== END 2024-11-10 11:27 | disposition home or self-care (01) ==
LOC: HO.10HDL 11:26
PROVIDERS: Visit Provider Internal Medicine Nephrology
DX: I10 Essential (primary) hypertension (principal); N18.32 Chronic kidney disease, stage 3b; D63.1 Anemia in chronic kidney disease; Z90.5 Acquired absence of kidney; I12.9 Hypertensive chronic kidney disease with stage 1 through stage 4 chronic kidney disease, or unspecified chronic kidney disease
CPT/HCPCS: 36415; 80051; 82565; 84520

== ENCOUNTER 2024-11-16 11:34 | Outpatient (AMB) | payer MEDICARE, OTHER, SELFPAY ==
--- NOTE | 2024-11-16 11:52 | HO.NEPHOV_ITS ---
Vital Signs 11/16/24 11:59 Height 6 ft Weight 173 lb 8 oz BMI 23.5 BP 138/70 Blood Pressure Location Lt brachial Position Sitting Pulse 44 L Pulse Source Pulse Oximeter Pulse Oximetry (%) 98 Oxygen Delivery Method Room Air Intake Visit Reasons: CKD-LM [employer] Required: No Accompanied by: Spouse Allergies No Known Allergies [No Known Allergies*] Allergy (Verified 11/16/24 11:59) HPI Comments Details: Basilio who was accompanied by his in the office today was seen in follow-up of his chronic kidney disease on a background of acquired solitary kidney following nephrectomy. He is on Eliquis for A Fib. He has had Procrit injections in the past. He has no orthostatic symptoms, chest tightness, abdominal distention, weight gain, shortness of breath, paroxysmal nocturnal dyspnea, orthopnea, pedal edema or urinary symptoms. He does not consume excessive sodium in the diet. He has no hematuria, night sweats or weight loss. He feels well except for vision issues. 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 He had low BP with mild hyperkalemia and his Spironolactone was D/Carlos & his carvedilol was reduced. 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 Hypertension Chronic kidney disease, stage 3b Review of Systems Const All systems reviewed & are unremarkable except as noted in HPI and below Physical Exam Vital Signs: Last Vital Signs Pulse 44 L 11/16/24 11:59 BP 138/70 11/16/24 11:59 Pulse Ox 98 11/16/24 11:59 Oxygen Delivery Method Room Air 11/16/24 11:59 BMI result Body Mass Index 23.5 Const General: comfortable and no acute distress Orientation/consciousness: patient oriented x3 HEENT Head: Yes normocephalic Mouth: Normal oral and palatal mucosa present Eyes EOM: EOMs intact bilaterally Neck Neck: Yes supple Resp Auscultation: clear to auscultation bilaterally Cardio Jugular venous distension: no JVD Rate: regular rate GI Palpation (GI): Soft to palpation Auscultation: normal bowel sounds General: Yes no CVA tenderness Back/Spine/Pelvis Back: no CVA tenderness Skin General skin exam: no rashes or lesions noted Neuro General: patient oriented x3 and moves all extremities Extrem General: Yes no pedal edema Results Reviewed Nephrology Results: Sodium 139 mmol/L (135-145) 11/10/24 Potassium 5.4 mmol/L (3.3-5.1) H 11/10/24 Chloride 110 mmol/L (96-108) H 11/10/24 Carbon Dioxide 23 mmol/L (22-29) 11/10/24 BUN 62 mg/dL (9-16) H 11/10/24 Creatinine 2.04 mg/dL (0.5-1.4) H 11/10/24 Calcium 8.9 mg/dL (8.4-10.2) 11/20/23 Phosphorus 4.2 mg/dL (2.7-4.5) 11/20/23 Assessment & Plan Assessment & Plan (1) Chronic kidney disease, stage 3b: Code(s): N18.32 - Chronic kidney disease, stage 3b Category: Medical (2) Hypertension: Code(s): I10 - Essential (primary) hypertension Category: Medical Qualifiers: Hypertension type: primary hypertension Qualified Code(s): I10 - Essential (primary) hypertension (3) Anemia in chronic kidney disease: Code(s): N18.9 - Chronic kidney disease, unspecified; D63.1 - Anemia in chronic kidney disease Category: Medical Qualifiers: Chronic kidney disease stage: stage 3 (moderate) Chronic kidney disease stage 3 subtype: stage 3b (GFR 30-44) Qualified Code(s): N18.32 - Chronic kidney disease, stage 3b; D63.1 - Anemia in chronic kidney disease (4) Acquired solitary kidney: Code(s): Z90.5 - Acquired absence of kidney Category: Medical Plan Basilio had undergone nephrectomy for renal cell cancer. His renal functions had been stable for a long time. He does not have any clinical signs of heart failure. He does not consume excessive sodium in the diet. We shall avoid ZULEMA inhibitor or ARB for now( BP borderline with serum creatinine of 2). He had gotten Procrit injections in the past. He is hemodynamically stable and clinically euvolemic. I ordered follow-up blood work and answered all questions. I did not make any medication changes today. Follow-up appointment given Orders: Orders Blood Urea Nitrogen 6 Weeks D63.1 - Anemia in chronic kidney disease, I10 - Essential (primary) hypertension, N18.32 - Chronic kidney disease, stage 3b, Z90.5 - Acquired absence of kidney Creatinine 6 Weeks D63.1 - Anemia in chronic kidney disease, I10 - Essential (primary) hypertension, N18.32 - Chronic kidney disease, stage 3b, Z90.5 - Acquired absence of kidney Electrolytes 6 Weeks D63.1 - Anemia in chronic kidney disease, I10 - Essential (primary) hypertension, N18.32 - Chronic kidney disease, stage 3b, Z90.5 - Acquired absence of kidney Coding Level of Care Code Est Pt Level 4 (24532) Diagnoses Chronic kidney disease, stage 3b N18.32 Primary hypertension I10 Hypertension type: primary hypertension Anemia in stage 3b chronic kidney disease N18.32; D63.1 Chronic kidney disease stage: stage 3 (moderate) Chronic kidney disease stage 3 subtype: stage 3b (GFR 30-44) Acquired solitary kidney Z90.5
[2024-11-16 11:59] VITALS: BP 138/70; PULSE 44; O2SAT 98; BMI 23.5
--- OUTSIDE RECORDS SUMMARY | 2024-11-16 13:44 | XMS_ITS | Continuity of Care Document ---
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 It does not include entries that were removed or entered in error. Problem Status Onset Date Problem Type Date of Resolution Comments Source Heart Murmurs Active 08/10/19 10 Condition [facility] Vision, abnormal Active 08/10/19 10 Condition [facility] AF- Atrial Fibrillation ([facility] [id number]) Active Condition Jun 20, 2021 Entered By: MACO BETANCOURT Comment: on apixaban. 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 Camden Sharif Nephrology [place] Depression ([facility] [id number]) Active Condition [place] Exposure to potentially hazardous substance Active Condition [facility] Frailty Active Condition [facility] History of artificial heart valve Active Condition Jun 20, 2021 Entered By: MACO BETANCOURT Comment: replaced 2006--but pt does not know which valve. Bioprosthetic. 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, 2021 Entered By: MACO BETANCOURT Comment: Right nephrectomy [place] Vitamin D Deficiency ([facility] [id number]) Active Condition [place] Diagnosis: ICD-10-CM I48.91 Unspecified atrial fibrillation Active Diagnosis [place] Diagnosis: ICD-10-CM Z02.4 Encounter for examination for driving license Active Diagnosis [facility] Diagnosis: ICD-10-CM 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 Diagnosis: ICD-10-CM I25.10 Athscl heart disease of [place] coronary artery w/o ang pctrs Active Diagnosis [place] Diagnosis: ICD-10-CM E55.9 Vitamin D deficiency, unspecified Active Diagnosis [place] Diagnosis: ICD-10-CM Z46.0 Encounter for fit/adjst of spectacles and contact lenses [facility] Diagnosis: ICD-10-CM Z04.89 Encounter for examination and observation for oth reasons Active Diagnosis [facility] Diagnosis: ICD-10-CM H90.3 Sensorineural hearing loss, bilateral Active Diagnosis [place] Diagnosis: ICD-10-CM 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 Medication Details Route Status Patient Instructions Prescription Expires Prescription Number Last Dispense Date Ordering Provider Order Date Order Qty Source APIXABAN 5MG TAB TAKE ONE-HALF TABLET BY MOUTH TWICE DAILY ORAL ACTIVE 07/03/2025 [id number] Robin PEREZ A 2024 90 [place] APIXABAN 5MG TAB TAKE ONE-HALF TABLET BY MOUTH TWICE DAILY ORAL DISCONT INUED 01/13/2025 [id number] ROBERT MERCADO Dylan 2023 90 [place] APIXABAN 5MG TAB TAKE ONE-HALF TABLET BY MOUTH TWICE DAILY ORAL DISCONT INUED 03/03/2024 [id number] HELGA SHULTZ F 2022 90 [place] CARBOXYMETH YLCELLULOSE NA 0.5% SOLN,OPH INSTILL 1 DROP INTO EACH EYE FOUR TIMES DAILY NEEDED FOR DRY EYE OPHTHA LMIC ACTIVE 03/10/2025 [id number] Vishnu GARCIA ICHELE 2023 45 [facility] CARVEDILOL 12.5MG TAB TAKE ONE TABLET BY MOUTH TWICE DAILY FOR HIGH BLOOD PRESSURE ORAL DISCONT INUED (EDIT) 06/04/2025 [id number] Robin PEREZ A 2023 180 [place] CARVEDILOL 6.25MG TAB TAKE ONE TABLET BY MOUTH TWICE DAILY FOR HIGH BLOOD PRESSURE ORAL ACTIVE 11/04/2025 [id number] 5 Robin PEREZ A 2024 180 [place] CYCLOSPORIN E 0.05% (PF) EMULSION,OP H,0.4ML INSTILL 1 DROP INTO EACH EYE TWICE DAILY FOR DRY EYE OPHTHA LMIC ACTIVE 09/06/2025 [id number] GRISELDA FUENTES AH B 2024 180 [facility] IPRATROPIUM BR 0.06% SOLN,SPRAY, NASAL INSTILL 1 SPRAY INTO EACH NOSTRIL ONCE DAILY FOR RUNNY NOSE NASAL ACTIVE 06/04/2025 [id number] Robin PEREZ A 2023 15 [place] ISOSORBIDE MONONITRATE 30MG TAB,SA TAKE THREE TABLETS BY MOUTH ONCE DAILY TO PREVENT ANGINA ORAL ACTIVE 06/04/2025 [id number] Robin PEREZ AVID A 2023 270 [facility] IELD MULTIVIT/OP HTH AREDS2/LUTE IN/ZEAXANTH IN CAP/TAB TAKE 1 CAPSULE BY MOUTH TWICE DAILY IN THE MORNING AND EVENING, WITH FOOD ORAL ACTIVE 11/27/2024 [id number] MERROLANDO,NO AH B 2023 120 [facility] SPIRONOLACT ONE 25MG TAB TAKE ONE-HALF TABLET BY MOUTH ONCE DAILY FOR FLUID ACCUMULA TION ORAL DISCONT INUED BY PROVIDE R 06/04/2025 [id number] Robin PEREZ AVID A 2023 45 [facility] IELD TORSEMIDE 10MG TAB TAKE ONE TABLET BY MOUTH ONCE DAILY FOR VISIBLE WATER RETENTIO N ORAL ACTIVE 10/06/2025 [id number] 5 Robin PEREZ AVID A 2024 90 [facility] IELD VITAMIN B COMPLEX CAP TAKE 1 CAPSULE BY MOUTH ONCE DAILY FOR VITAMIN SUPPLEME NTATION ORAL ACTIVE 01/13/2025 [id number] ROBERT MERCADO 2023 100 [facility] Immunizations Combined list of available immunizations from the Department of Defense and Veterans Affairs facilities. 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 Status Comments Source INFLUENZA, HIGH-DOSE, TRIVALENT, PF 2023 SHAILA CAIN LEFT DELTO ID [id number] 135 complet ed [facility] INFLUENZA, UNSPECIFIED FORMULATION 2022 88 complet ed [facility] COVID-19 (MODERNA), MRNA, LNP-S, PF, 100 MCG OR 50 MCG DOSE 3 2021 207 complet ed MOD; [id number]; 2 [facility] TDAP 2020 115 complet ed [facility] ZOSTER RECOMBINANT 1 2020 187 complet ed [facility] COVID-19 (MODERNA), MRNA, LNP-S, PF, 100 MCG/0.5 ML DOSE 2 2020 207 complet ed MOD; [id number]; 1 [facility] COVID-19 (MODERNA), MRNA, LNP-S, PF, 100 MCG/0.5 ML DOSE 1 2020 207 complet ed MOD; [id number]; 1 [facility] [...] Reference Range Date Interpretation Specimen Comments Source CALCIUM CALCIUM [MASS/VOLUM E] IN SERUM OR PLASMA 8.3 mg/dL 8.5 - 10.2 11/10 L Specimen Type: SERUM No comment entered. Ordering Provider: MICHELLE PREEZ A Report Released Date/Time: Nov 03, 2024 11:04 AM Reporting Lab: [facility] [address] Performing Lab: [facility] [place] [facility] [address] [facility] [address] [place] BASIC METABOLIC PANEL (non-fast ing) UREA NITROGEN [MASS/VOLUM E] IN SERUM OR PLASMA 65 mg/dL 7 - 25 11/10 H Specimen Type: SERUM No comment entered. Ordering Provider: MICHELLE PEREZ A Report Released Date/Time: Nov 03, 2024 11:04 AM Reporting Lab: [facility] [place] [facility] [address] [facility] [address] Performing Lab: [facility] [address] [facility] [address] [place] BASIC METABOLIC PANEL (non-fast ing) GLUCOSE [MASS/VOLUM E] IN SERUM OR PLASMA 97 mg/dL 65 - 100 11/10 Specimen Type: SERUM No comment entered. Ordering Provider: MICHELLE PEREZ A Report Released Date/Time: Nov 03, 2024 11:04 AM Reporting Lab: [address] [address] Performing Lab: [address] [address] [place] [employer] BASIC METABOLIC PANEL (non-fast ing) SODIUM [MOLES/VOLU ME] IN SERUM OR PLASMA 137 mmol/L 135 - 145 11/10 Specimen Type: SERUM No comment entered. Ordering Provider: MICHELLE PEREZ A Report Released Date/Time: Nov 03, 2024 11:04 AM Reporting Lab: [address] [address] Performing Lab: [address] [address] [place] [employer] BASIC METABOLIC PANEL (non-fast ing) POTASSIUM [MOLES/VOLU ME] IN SERUM OR PLASMA 5.0 mmol/L 3.5 - 5.0 11/10 Specimen Type: SERUM No comment entered. Ordering Provider: MICHELLE PEREZ A Report Released Date/Time: Nov 03, 2024 11:04 AM Reporting Lab: [address] [address] Performing Lab: [address] [address] [place] BASIC METABOLIC PANEL (non-fast ing) CHLORIDE [MOLES/VOLU ME] IN SERUM OR PLASMA 109 mmol/L 100 - 110 11/10 Specimen Type: SERUM No comment entered. Ordering Provider: MICHELLE PEREZ A Report Released Date/Time: Nov 03, 2024 11:04 AM Reporting Lab: [address] [address] Performing Lab: [address] [address] [place] BASIC METABOLIC PANEL (non-fast ing) CARBON DIOXIDE, TOTAL [MOLES/VOLU ME] IN SERUM OR PLASMA 22 meq/L 20 - 30 11/10 Specimen Type: SERUM No comment entered. Ordering Provider: MICHELLE PEREZ A Report Released Date/Time: Nov 03, 2024 11:04 AM Reporting Lab: [address] [address] Performing Lab: [facility] [address] [address] [place] BASIC METABOLIC PANEL (non-fast ing) CALCIUM [MASS/VOLUM E] IN SERUM OR PLASMA 8.3 mg/dL 8.5 - 10.2 11/10 L Specimen Type: SERUM No comment entered. Ordering Provider: MICHELLE PEREZ A Report Released Date/Time: Nov 03, 2024 11:04 AM Reporting Lab: [facility] [address] [address] Performing Lab: [facility] [address] [address] [place] BASIC METABOLIC PANEL (non-fast ing) CREATININE [MASS/VOLUM E] IN SERUM OR PLASMA 2.17 mg/dL 0.50 - 1.40 11/10 H Specimen Type: SERUM No comment entered. Ordering Provider: MICHELLE PEREZ A Report Released Date/Time: Nov 03, 2024 11:04 AM Reporting Lab: [facility] [address] [address] Performing Lab: [facility] [address] [address] [place] BASIC METABOLIC PANEL (non-fast ing) GLOMERULAR FILTRATION RATE/1.73 SQ M.PREDICTED [VOLUME RATE/AREA] IN SERUM, PLASMA OR BLOOD BY CREATININE- BASED FORMULA (CKD-EPI 2020) 29 mL/min 60 11/10 L Specimen Type: SERUM No comment entered. Ordering Provider: MICHELLE PEREZ A Report Released Date/Time: Nov 03, 2024 11:04 AM Reporting Lab: [facility] [address] [facility] [address] Performing Lab: [facility] [address] [address] [place] MAGNESIUM MAGNESIUM [MASS/VOLUM E] IN SERUM OR PLASMA 2.5 mg/dL 1.6 - 2.6 11/10 Specimen Type: SERUM No comment entered. Ordering Provider: MICHELLE PEREZ A Report Released Date/Time: Nov 03, 2024 11:04 AM Reporting Lab: [facility] [address] [address] Performing Lab: [address] [address] [place] PO4 PHOSPHATE [MASS/VOLUM E] IN SERUM OR PLASMA 4.0 mg/dL 2.5 - 5.0 11/10 Specimen Type: SERUM No comment entered. Ordering Provider: MICHELLE PEREZ A Report Released Date/Time: Nov 03, 2024 11:04 AM Reporting Lab: [address] [address] Performing Lab: [address] [address] [place] LIPID PANEL, NON FASTING CHOLESTEROL [MASS/VOLUM E] IN SERUM OR PLASMA 159 mg/dL 10/28 Specimen Type: SERUM No comment entered. Ordering Provider: MICHELLE PEREZ A Report Released Date/Time: Oct 28, 2024 10:18 AM Reporting Lab: [address] [address] Performing Lab: [address] [address] [place] LIPID PANEL, NON FASTING TRIGLYCERID E [MASS/VOLUM E] IN SERUM OR PLASMA 108 mg/dL 0 - 150 10/28 Specimen Type: SERUM No comment entered. Ordering Provider: MICHELLE PEREZ A Report Released Date/Time: Oct 28, 2024 10:18 AM Reporting Lab: [address] [address] Performing Lab: [facility] [address] [facility] [address] [place] LIPID PANEL, NON FASTING CHOLESTEROL IN LDL [MASS/VOLUM E] IN SERUM OR PLASMA BY CALCULATION 101 mg/dL 0 - 129 10/28 Specimen Type: SERUM No comment entered. Ordering Provider: MICHELLE PEREZ A Report Released Date/Time: Oct 28, 2024 10:18 AM Reporting Lab: [facility]N [facility] [address] [facility] [address] Performing Lab: [facility]EN[facility]ETS [address] [address] [place] LIPID PANEL, NON FASTING CHOLESTEROL .TOTAL/CHOL ESTEROL IN HDL [MASS RATIO] IN SERUM OR PLASMA 4.4 10/28 Specimen Type: SERUM No comment entered. Ordering Provider: MICHELLE PEREZ A Report Released Date/Time: Oct 28, 2024 10:18 AM Reporting Lab: [facility]N [facility] [address] [address] Performing Lab: [facility] [address] [address] [place] LIPID PANEL, NON FASTING CHOLESTEROL IN HDL [MASS/VOLUM E] IN SERUM OR PLASMA 36 mg/dL 40 - 60 10/28 L Specimen Type: SERUM No comment entered. Ordering Provider: MICHELLE PEREZ A Report Released Date/Time: Oct 28, 2024 10:18 AM Reporting Lab: [facility]STRN [facility]US[facility] [address] [address] Performing Lab: [facility]N [facility] [address] [address] [place] BASIC METABOLIC PANEL (non-fast ing) UREA NITROGEN [MASS/VOLUM E] IN SERUM OR PLASMA 69 mg/dL 7 - 25 10/28 H Specimen Type: SERUM No comment entered. Ordering Provider: MICHELLE PEREZ A Report Released Date/Time: Oct 28, 2024 10:18 AM Reporting Lab: [facility]N [facility]ENUSE[address] [address] Performing Lab: [facility] [address] [address] [place] BASIC METABOLIC PANEL (non-fast ing) GLUCOSE [MASS/VOLUM E] IN SERUM OR PLASMA 122 mg/dL 65 - 100 10/28 H Specimen Type: SERUM No comment entered. Ordering Provider: MICHELLE PEREZ A Report Released Date/Time: Oct 28, 2024 10:18 AM Reporting Lab: [facility] [address] [facility] [address] Performing Lab: [facility] [address] [facility] [address] [place] BASIC METABOLIC PANEL (non-fast ing) SODIUM [MOLES/VOLU ME] IN SERUM OR PLASMA 137 mmol/L 135 - 145 10/28 Specimen Type: SERUM No comment entered. Ordering Provider: MICHELLE PEREZ A Report Released Date/Time: Oct 28, 2024 10:18 AM Reporting Lab: [facility] [address] [facility] [address] Performing Lab: [facility] [address] [address] [place] BASIC METABOLIC PANEL (non-fast ing) POTASSIUM [MOLES/VOLU ME] IN SERUM OR PLASMA 5.8 mmol/L 3.5 - 5.0 10/28 H Specimen Type: SERUM No comment entered. Ordering Provider: MICHELLE PEREZ A Report Released Date/Time: Oct 28, 2024 10:18 AM Reporting Lab: [facility] [address] [facility] [address] Performing Lab: [facility] [address] [address] [place] BASIC METABOLIC PANEL (non-fast ing) CHLORIDE [MOLES/VOLU ME] IN SERUM OR PLASMA 110 mmol/L 100 - 110 10/28 Specimen Type: SERUM No comment entered. Ordering Provider: MICHELEL PEREZ A Report Released Date/Time: Oct 28, 2024 10:18 AM Reporting Lab: [facility] [address] [address] Performing Lab: [facility] [address] [facility] [address] [place] BASIC METABOLIC PANEL (non-fast ing) CARBON DIOXIDE, TOTAL [MOLES/VOLU ME] IN SERUM OR PLASMA 22 meq/L 20 - 30 10/28 Specimen Type: SERUM No comment entered. Ordering Provider: MICHELLE PEREZ A Report Released Date/Time: Oct 28, 2024 10:18 AM Reporting Lab: [facility] [address] [facility] [address] Performing Lab: [address] [address] [place] BASIC METABOLIC PANEL (non-fast ing) CALCIUM [MASS/VOLUM E] IN SERUM OR PLASMA 8.2 mg/dL 8.5 - 10.2 10/28 L Specimen Type: SERUM No comment entered. Ordering Provider: MICHELLE PEREZ A Report Released Date/Time: Oct 28, 2024 10:18 AM Reporting Lab: [facility] [address] [facility] [address] Performing Lab: [address] [address] [place] BASIC METABOLIC PANEL (non-fast ing) CREATININE [MASS/VOLUM E] IN SERUM OR PLASMA 2.35 mg/dL 0.50 - 1.40 10/28 H Specimen Type: SERUM No comment entered. Ordering Provider: MICHELLE PEREZ A Report Released Date/Time: Oct 28, 2024 10:18 AM Reporting Lab: [facility] [address] [facility] [address] Performing Lab: [address] [address] [place] BASIC METABOLIC PANEL (non-fast ing) GLOMERULAR FILTRATION RATE/1.73 SQ M.PREDICTED [VOLUME RATE/AREA] IN SERUM, PLASMA OR BLOOD BY CREATININE- BASED FORMULA (CKD-EPI 2020) 26 mL/min 60 10/28 L Specimen Type: SERUM No comment entered. Ordering Provider: MICHELLE PEREZ A Report Released Date/Time: Oct 28, 2024 10:18 AM Reporting Lab: [facility] [place] [facility] [address] [facility] [address] Performing Lab: [facility] [place] [facility] [address] [address] [place] LIVER FUNCTION PROTEIN [MASS/VOLUM E] IN SERUM OR PLASMA 7.0 g/dL 6.0 - 8.3 10/28 Specimen Type: SERUM No comment entered. Ordering Provider: MICHELLE PEREZ A Report Released Date/Time: Oct 28, 2024 10:18 AM Reporting Lab: [facility] [place] [facility] [address] [facility] [address] Performing Lab: [facility]STRN [facility] [address] [address] [place] LIVER FUNCTION ALBUMIN [MASS/VOLUM E] IN SERUM OR PLASMA 3.4 g/dL 3.5 - 5.0 10/28 L Specimen Type: SERUM No comment entered. Ordering Provider: MICHELLE PEREZ A Report Released Date/Time: Oct 28, 2024 10:18 AM Reporting Lab: [facility] [address] [address] Performing Lab: [facility] [address] [address] [place] LIVER FUNCTION ALKALINE PHOSPHATASE [ENZYMATIC ACTIVITY/VO LUME] IN SERUM OR PLASMA 53 U/L 40 - 150 10/28 Specimen Type: SERUM No comment entered. Ordering Provider: MICHELLE PEREZ A Report Released Date/Time: Oct 28, 2024 10:18 AM Reporting Lab: [facility] [address] [address] Performing Lab: [facility]N [facility] [address] [address] [place] LIVER FUNCTION ASPARTATE AMINOTRANSF ERASE [ENZYMATIC ACTIVITY/VO LUME] IN SERUM OR PLASMA 15 U/L 5 - 34 10/28 Specimen Type: SERUM No comment entered. Ordering Provider: MICHELLE PEREZ A Report Released Date/Time: Oct 28, 2024 10:18 AM Reporting Lab: [facility] [address] [facility] [address] Performing Lab: [facility] [address] [facility] [address] [place] ALANINE AMINOTRANSF ERASE [ENZYMATIC ACTIVITY/VO LUME] IN SERUM OR PLASMA 13 U/L 10/28 Specimen Type: SERUM No comment entered. Ordering Provider: MICHELLE PEREZ A Report Released Date/Time: Oct 28, 2024 10:18 AM Reporting Lab: [facility] [address] [address] Performing Lab: [facility]ENUSE[address] [address] [facility] BILIRUBIN.T OTAL [MASS/VOLUM E] IN SERUM OR PLASMA 0.7 mg/dL 0.2 - 1.2 10/28 Specimen Type: SERUM No comment entered. Ordering Provider: MICHELLE PEREZ A Report Released Date/Time: Oct 28, 2024 10:18 AM Reporting Lab: [facility] [address] [facility] [address] Performing Lab: [facility] [address] [facility] [facility] [address] [facility] HEMOGLOBI N A1C PANEL HEMOGLOBIN A1C/HEMOGLO BIN.TOTAL [...] Oct 28, 2024 10:18 AM Reporting Lab: [facility] [address] [address] Performing Lab: [facility] [address] [address] [place] TSH THYROTROPIN [UNITS/VOLU ME] IN SERUM OR PLASMA 4.07 u[IU]/ mL 0.35 - 5.00 10/28 Specimen Type: SERUM No comment entered. Ordering Provider: MICHELLE PEREZ A Report Released Date/Time: Oct 28, 2024 10:18 AM Reporting Lab: [facility]ICESTRN [address] [address] Performing Lab: [facility] [address] [address] [place] CBC AND DIFF (AUTO) LEUKOCYTES [#/VOLUME] IN BLOOD BY AUTOMATED COUNT 2.84 10*3/u L 4.50 - 11.00 10/28 L Specimen Type: BLOOD No comment entered. Ordering Provider: MICHELLE PEREZ A Report Released Date/Time: Oct 28, 2024 10:18 AM Reporting Lab: [facility] [address] [address] Performing Lab: [facility] [address] [address] [place] CBC AND DIFF (AUTO) ERYTHROCYTE S [#/VOLUME] IN BLOOD BY AUTOMATED COUNT 4.30 10*6/u L 4.23 - 5.66 10/28 Specimen Type: BLOOD No comment entered. Ordering Provider: MICHELLE PEREZ A Report Released Date/Time: Oct 28, 2024 10:18 AM Reporting [facility] [address] [address] [facility]forming [facility]: [facility] [address] [address] [place] CBC AND DIFF (AUTO) HEMOGLOBIN [MASS/VOLUM E] IN BLOOD 12.7 g/dL 12.8 - 17 10/28 L Specimen Type: BLOOD No comment entered. Ordering Provider: MICHELLE PEREZ A Report Released Date/Time: Oct 28, 2024 10:18 AM Reporting [facility] [address] [address] [facility]forming [facility]: [facility] [address] [facility] [address] [place] CBC AND DIFF (AUTO) HEMATOCRIT [VOLUME FRACTION] OF BLOOD BY AUTOMATED COUNT 39.7 39.2 - 50.4 10/28 Specimen Type: BLOOD No comment entered. Ordering Provider: MICHELLE PEREZ A Report Released Date/Time: Oct 28, 2024 10:18 AM Reporting [facility] [address] [facility] [address] [facility]forming [facility]: [facility] [address] [facility] [address] [place] CBC AND DIFF (AUTO) MCV [ENTITIC VOLUME] BY AUTOMATED COUNT 92.3 fL 82 - 99 10/28 Specimen Type: BLOOD No comment entered. Ordering Provider: MICHELLE PEREZ A Report Released Date/Time: Oct 28, 2024 10:18 AM Reporting [facility] [place] [facility] [address] [address] Performing Lab: [facility] [address] [address] [place] CBC AND DIFF (AUTO) MCHC [MASS/VOLUM E] BY AUTOMATED COUNT 32.0 g/dL 30.8 - 35.1 10/28 Specimen Type: BLOOD No comment entered. Ordering Provider: MICHELLE PEREZ A Report Released Date/Time: Oct 28, 2024 10:18 AM Reporting Lab: [facility] [address] [address] Performing Lab: [facility] [address] [address] [place] CBC AND DIFF (AUTO) PLATELETS [#/VOLUME] IN BLOOD BY AUTOMATED COUNT 81 10*3/u L 140 - 360 10/28 L Specimen Type: BLOOD No comment entered. Ordering Provider: MICHELLE PEREZ A Report Released Date/Time: Oct 28, 2024 10:18 AM Reporting Lab: [facility] [address] [address] Performing Lab: [facility] [address] [facility] [address] [place] CBC AND DIFF (AUTO) ERYTHROCYTE DISTRIBUTIO N WIDTH [RATIO] BY AUTOMATED COUNT 15.2 12.0 - 16.0 10/28 Specimen Type: BLOOD No comment entered. Ordering Provider: MICHELLE PEREZ A Report Released Date/Time: Oct 28, 2024 10:18 AM Reporting Lab: [facility] [place] [facility] [address] [facility] [address] Performing Lab: [facility] [place] [address] [address] [place] CBC AND DIFF (AUTO) MONOCYTES [#/VOLUME] IN BLOOD BY AUTOMATED COUNT 0.33 10*3/u L 0.30 - 1.10 10/28 Specimen Type: BLOOD No comment entered. Ordering Provider: MICHELLE PEREZ A Report Released Date/Time: Oct 28, 2024 10:18 AM Reporting Lab: [facility] [place] [address] [address] Performing Lab: [facility] [place] [address] [address] [place] CBC AND DIFF (AUTO) MCH [ENTITIC MASS] BY AUTOMATED COUNT 29.5 pg 26.2 - 32.6 10/28 Specimen Type: BLOOD No comment entered. Ordering Provider: MICHELLE PEREZ A Report Released Date/Time: Oct 28, 2024 10:18 AM Reporting Lab: [facility] [place] [address] [address] Performing Lab: [facility] [place] [address] [address] [place] CBC AND DIFF (AUTO) NEUTROPHILS /100 LEUKOCYTES IN BLOOD BY AUTOMATED COUNT 61.6 43.7 - 75.8 10/28 Specimen Type: BLOOD No comment entered. Ordering Provider: MICHELLE PEREZ A Report Released Date/Time: Oct 28, 2024 10:18 AM Reporting Lab: [facility] [place] [address] [address] Performing Lab: [facility] [place] [facility] [address] [address] [place] CBC AND DIFF (AUTO) LYMPHOCYTES /100 LEUKOCYTES IN BLOOD BY AUTOMATED COUNT 22.9 14.0 - 42.3 10/28 Specimen Type: BLOOD No comment entered. Ordering Provider: MICHELLE PEREZ A Report Released Date/Time: Oct 28, 2024 10:18 AM Reporting Lab: [facility] [place] [address] [address] Performing Lab: [facility] [place] [address] [address] [place] CBC AND DIFF (AUTO) MONOCYTES/1 00 LEUKOCYTES IN BLOOD BY AUTOMATED COUNT 11.6 5.1 - 13.7 10/28 Specimen Type: BLOOD No comment entered. Ordering Provider: MICHELLE PEREZ A Report Released Date/Time: Oct 28, 2024 10:18 AM Reporting Lab: [facility] [address] [address] Performing Lab: [facility] [place] [address] [address] [place] CBC AND DIFF (AUTO) EOSINOPHILS /100 LEUKOCYTES IN BLOOD BY AUTOMATED COUNT 2.8 0.4 - 6.8 10/28 Specimen Type: BLOOD No comment entered. Ordering Provider: MICHELLE PEREZ A Report Released Date/Time: Oct 28, 2024 10:18 AM Reporting Lab: [facility] [place] [address] [address] Performing Lab: [facility] [place] [address] [address] [place] CBC AND DIFF (AUTO) BASOPHILS/1 00 LEUKOCYTES IN BLOOD BY AUTOMATED COUNT 0.4 0.1 - 2.0 10/28 Specimen Type: BLOOD No comment entered. Ordering Provider: MICHELLE PEREZ A Report Released Date/Time: Oct 28, 2024 10:18 AM Reporting Lab: [facility] [address] [address] Performing Lab: [facility] [place] [address] [address] [place] CBC AND DIFF (AUTO) NEUTROPHILS [#/VOLUME] IN BLOOD BY AUTOMATED COUNT 1.75 10*3/u L 2.20 - 7.60 10/28 L Specimen Type: BLOOD No comment entered. Ordering Provider: MICHELLE PEREZ A Report Released Date/Time: Oct 28, 2024 10:18 AM Reporting Lab: [facility] [address] [address] Performing Lab: [facility] [place] [address] [address] [place] CBC AND DIFF (AUTO) LYMPHOCYTES [#/VOLUME] IN BLOOD BY AUTOMATED COUNT 0.65 10*3/u L 1.00 - 3.20 10/28 L Specimen Type: BLOOD No comment entered. Ordering Provider: MICHELLE PEREZ A Report Released Date/Time: Oct 28, 2024 10:18 AM Reporting Lab: [facility] [address] [address] Performing Lab: [facility] [place] [address] [address] [place] CBC AND DIFF (AUTO) EOSINOPHILS [#/VOLUME] IN BLOOD BY AUTOMATED COUNT 0.08 10*3/u L 0.03 - 0.44 10/28 Specimen Type: BLOOD No comment entered. Ordering Provider: MICHELLE PEREZ A Report Released Date/Time: Oct 28, 2024 10:18 AM Reporting Lab: [facility] [place] [address] [address] Performing Lab: [facility] [address] [address] [place] CBC AND DIFF (AUTO) BASOPHILS [#/VOLUME] IN BLOOD BY AUTOMATED COUNT 0.01 10*3/u L 0.01 - 0.13 10/28 Specimen Type: BLOOD No comment entered. Ordering Provider: MICHELLE PEREZ A Report Released Date/Time: Oct 28, 2024 10:18 AM Reporting Lab: [facility] [address] [address] Performing Lab: [facility] [place] [facility] [address] [facility] [address] [place] CBC AND DIFF (AUTO) IMMATURE GRANULOCYTE S/100 LEUKOCYTES IN BLOOD BY AUTOMATED COUNT 0.7 0.0 - 0.7 10/28 Specimen Type: BLOOD No comment entered. Ordering Provider: MICHELLE PEREZ A Report Released Date/Time: Oct 28, 2024 10:18 AM Reporting Lab: [facility] [place] [facility] [address] [facility] [address] Performing Lab: [facility] [address] [address] [place] CBC AND DIFF (AUTO) IMMATURE GRANULOCYTE S [#/VOLUME] IN BLOOD BY AUTOMATED COUNT 0.02 10*3/u L 0.00 - 0.06 10/28 Specimen Type: BLOOD No comment entered. Ordering Provider: MICHELLE PEREZ A Report Released Date/Time: Oct 28, 2024 10:18 AM Reporting Lab: [facility] [facility] [address] [facility] [address] Performing Lab: [facility] [place] [address] [address] [place] CBC AND DIFF (AUTO) NUCLEATED ERYTHROCYTE S/100 LEUKOCYTES [RATIO] IN BLOOD BY AUTOMATED COUNT 0.0 0.0 - 0.0 10/28 Specimen Type: BLOOD No comment entered. Ordering Provider: MICHELLE PEREZ A Report Released Date/Time: Oct 28, 2024 10:18 AM Reporting Lab: [facility] [facility] [address] [facility] [address] Performing Lab: [facility] [address] [address] [place] CBC AND DIFF (AUTO) NUCLEATED ERYTHROCYTE S [#/VOLUME] IN BLOOD BY AUTOMATED COUNT 0.00 10*3/u L 0.00 - 0.00 10/28 Specimen Type: BLOOD No comment entered. Ordering Provider: MICHELLE PEREZ A Report Released Date/Time: Oct 28, 2024 10:18 AM Reporting Lab: [facility] [address] [facility] [address] Performing Lab: [facility] [address] [facility] [address] [facility] Vital Signs Combined list of inpatient and outpatient Vital Signs from Department of Defense and Veterans Affairs, ranging from 12 months to all on record, depending upon the facility. Vital Sign Value Date Comments Source SYSTOLIC BLOOD PRESSURE 112 11/03/2024 11:08:18 [place] DIASTOLIC BLOOD PRESSURE 55 11/03/2024 11:08:18 [place] PULSE OXIMETRY 94 11/03/2024 11:08:18 [place] WEIGHT 170.8 11/03/2024 11:08:18 [place] BMI 23 kg/m2 11/03/2024 11:08:18 [place] TEMPERATURE 97.3 11/03/2024 11:08:18 [place] PULSE 45 11/03/2024 11:08:18 [facility] SYSTOLIC BLOOD PRESSURE 139 06/03/2024 10:37:43 [place] DIASTOLIC BLOOD PRESSURE 63 06/03/2024 10:37:43 [place] PULSE OXIMETRY 97 06/03/2024 10:37:43 [place] WEIGHT 164.4 06/03/2024 10:37:43 [place] BMI 22 kg/m2 06/03/2024 10:37:43 [place] TEMPERATURE 97.7 06/03/2024 10:37:43 [place] PULSE 45 06/03/2024 10:37:43 [place] SYSTOLIC BLOOD PRESSURE 140 01/13/2024 12:03:12 [place] DIASTOLIC BLOOD PRESSURE 67 01/13/2024 12:03:12 [place] PULSE OXIMETRY 95 01/13/2024 12:03:12 [place] WEIGHT 163 01/13/2024 12:03:12 [place] BMI 22 kg/m2 01/13/2024 12:03:12 [place] PAIN 0 01/13/2024 12:03:12 [place] HEIGHT 72 01/13/2024 12:03:12 [place] TEMPERATURE 97 01/13/2024 12:03:12 [place] PULSE 44 01/13/2024 12:03:12 [place] RESPIRATION 19 01/13/2024 12:03:12 [facility] SYSTOLIC BLOOD PRESSURE 122 11/20/2023 10:10:53 [place] DIASTOLIC BLOOD PRESSURE 54 11/20/2023 10:10:53 [place] PULSE OXIMETRY 95 11/20/2023 10:10:53 [place] WEIGHT 158.2 11/20/2023 10:10:53 ASHLEY CROCKER BMI 22 kg/m2 11/20/2023 10:10:53 ASHLEY CROCKER TEMPERATURE 95.4 11/20/2023 10:10:53 [place] RIG[place] PULSE 65 11/20/2023 10:10:53 ASHLEY CROCKER Encounters Combined list of: 1) Encounters from Department of Veterans Affairs facilities going backup to the last 18 months, not all [place] inpatient encounters are included; 2) Encounters from the Department of [facility] facilities going backup to 280 months. 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, subcu of left leg MATTHEW WHITAKER S 05/20 [facility] [place] OFF[place] 40 MIN [id number] Diagnos is: ICD-10- CM H90.3 Sensori neural hearing loss, bilater al MERCADO,VICT ORIA J 11/19 [facility] [place] [facility] Outpatient Encounter [id number] 11/19 [facility] [place] QNHP OL DIG ASSMT&MGMT 5-10 [id number] Diagnos is: ICD-10- CM Z04.89 Encount er for examina tion and observa tion for oth reasons KAHLIL CROWDER 11/22 [facility] [place] [id number] Diagnos is: ICD-10- CM 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, bi, adv atrpc with subfove al invl MERHAR,TRAVIS H B 11/25 [facility] [place] [facility] En[facility] [id number] 12/06 [facility] [place] [facility] En[facility] [id number] 12/17 [facility] [place] [facility] [facility] [place] [facility] Outpatient Encounter [id number] 12/22 [facility] [place] [facility] [place] [facility] OFFICE O/[place] HI 40 MIN [id number] Diagnos is: ICD-10- CM 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, both eyes MANTILLA,LACE Y J 12/23 [facility] [place] [facility] [place] FIT SPECTACLES BIFOCAL [id number] Diagnos is: ICD-10- CM Z46.0 Encount er for fit/adj st of spectac les and contact lenses MANTILLA,LACE Y J 12/23 [facility] [place] [facility] [place] OFF[place] O/P EST MOD 30 MIN [id number] Diagnos is: ICD-10- CM E55.9 Vitamin D deficie ncy, unspeci fied MERCADO,VICT ORIA J 01/12 [place] [facility] Out[facility] Encounter [id number] 03/08 [facility] [place] [facility] OFFICE O/P EST MOD 30 MIN [id number] Diagnos is: ICD-10- CM I25.10 Aths[place] heart disease [place] coronar y artery w/o ang pctrs ANADA VID A 06/03 [place] [facility] [place] [facility] [place] AD[place] [id number] 1. ANADA VID A 06/03 [facility] [place] [facility] ELECTROCAR DIOGRAM REPORT [id number] Diagnos is: ICD-10- CM Z13.6 Encount er for screeni ng for cardiov ascular disorde rs JOHNSON THENJEANNIE,M ERILYN 06/03 [facility] [facility] [place] [facility] ELECTROCAR DIOGRAM TRACING [id number] 1. 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, bi, adv atrpc with subfove al invl MERHAR,TRAVIS H B 08/08 [facility] [place] [facility] [place] [facility] FUNDUS PHOTOGRAPH Y W/I&R [id number] Diagnos is: ICD-10- CM 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, bi, adv atrpc with subfove al invl MERHAR,TRAVSI H B 08/08 [facility] [place] [facility] Out[facility] Encounter [id number] 09/02 [facility] [place] [facility] [place] [facility] INTRM OPH EXAM EST PATIENT [id number] Diagnos is: ICD-10- CM 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, both eyes TRAVIS FUENTES H B 09/05 [facility] [place] [facility] [facility] [place] [facility] LIMITED VISUAL FIELD XM [id number] Diagnos is: ICD-10- CM Z02.4 Encount er for examina tion for driving license TRAVIS FUENTES H B 09/05 [facility] [place] [facility] [place] [facility] Outpatient Encounter [id number] 10/02 [facility] [place] [facility] [place] HI 40 MIN [id number] Diagnos is: ICD-10- CM I48.91 Unspeci fied atrial fibrill ation ANADA VID A 11/03 [place] [facility] [place] [facility] Outpatient Encounter [id number] 11/03 [facility] [place] [facility] [facility] [place] [facility] Outpatient Encounter [id number] 11/07 [facility] [place] [facility] Social History Combined list of available smoking, tobacco, and other social history from Department of Defense and Veterans Affairs facilities. Social History Type Response Date Comment Sourc e Tobacco smoking status [place] VA-TOBACCO USE FORMER CIGARETTES 11/03/2024 [facility] [place] [facility] History of tobacco use VA-TOBACCO NEVER USED OTHER TYPE 11/03/2024 [facility] History of tobacco use [place] FORMER US[place] 11/20/2023 [facility] History of tobacco use [place] FOR[place] US[place] 11/17/2022 [facility] of [facility]2021 [place] History of tobacco use QUIT TOBACCO USE 1-7 YEARS AGO 05/27/2011 quit 2006 [facility] History of tobacco use QUIT TOBACCO USE 1-7 YEARS AGO 05/09/2010 [facility] Plan of Care List of future care activities from Department of Veterans Affairs facilities. Additional future care activities may be listed in the Assessment and Plan section. Date/Time Care Activity Care Activity Detail Facili ty 12/21/2024 AMBULATORY - MEDICINE AM[facility]ATORY [facility] MEDICI [facility]
--- OUTSIDE RECORDS SUMMARY | 2024-11-16 13:44 | XMS_ITS | Clinical Summary ---
Author Organization [facility] Address [address] [place] [address] Phone Care Team Providers Care Regulatory Submissions Associate Name Role Phone Duong Pradhan Primary Care Provider Allergies No known active allergies Medications apixaban [...] failure,Stage 3b chronic kidney disease (HCC),Hypertension,Hyperk alemia 59545 Units IJ Every 14 days 05/16/2021 Active Epoetin Adolfo-epbx solution 40,000 UnitsIndications:Anemia of chronic renal failure 29046 Units IJ Once 02/24/2022 Active Active Problems [...] 2 - PCV) 1942 06/10/2008 Influenza Vaccine (Season Ended) 2025 04/10/20 11 Hepatitis B Vaccine Aged Out No longe r eligible based on patient's age to complete this topic Insurance [facility] MEDICARE [employer] [place] [place] [id number] Care Teams Regulatory Submissions Associate Relationship Specialty Start Date End Date Duong Pradhan PCP - General Family Medicine 11/18/22
== END 2024-11-16 12:19 | disposition home or self-care (01) ==
LOC: HO.HKA 11:36
PROVIDERS: PCP Internal Medicine Interventional Cardiology; Visit Provider Internal Medicine Nephrology
DX: N18.32 Chronic kidney disease, stage 3b (principal); I10 Essential (primary) hypertension; D63.1 Anemia in chronic kidney disease; Z90.5 Acquired absence of kidney
CPT/HCPCS: 99214

== ENCOUNTER → 2024-11-16 11:34 | Outpatient (BNVA) | payer MEDICARE, OTHER, SELFPAY | PROVIDERS: PCP Internal Medicine Interventional Cardiology; Visit Provider Internal Medicine Nephrology | DX: I12.9 Hypertensive chronic kidney disease with stage 1 through stage 4 chronic kidney disease, or unspecified chronic kidney disease (principal); N18.32 Chronic kidney disease, stage 3b; D63.1 Anemia in chronic kidney disease; Z90.5 Acquired absence of kidney | CPT/HCPCS: 99212 ==

== ENCOUNTER 2024-12-30 09:13 | Outpatient (REF) | payer MEDICARE, OTHER, SELFPAY ==
--- OUTSIDE RECORDS SUMMARY | 2024-12-30 09:29 | XMS_ITS | Encounter Summary ---
Author Name [facility] [place] Organization [facility] Address [address] [place] [address] Care Team Providers Care Fish Agent Name Role Phone SAUL PEREZ Primary Care [...] PART A Sep 10, 2001 PART A [id number] YENIFER CUI PATIENT MEDICARE (WNR) MEDICARE (M) PART B Sep 10, 2001 PART B [id number] YENIFER CUI PATIENT MEDICARE (WNR) MEDICARE (M) PART A Sep 10, 2001 PART A [id number] [phone] YENIFER CUI PATIENT MEDICARE (WNR) MEDICARE (M) PART B Sep 10, 2001 PART B [id number] [phone] [place] CUIIML PATIENT [employer] MED[employer] EXPENSE (OPT/PROF ) WELLP OIFLETCHER Feb 08, 2012 [id number] [phone] RONA CUI SPOUSE [employer] EXP[employer] (OPT/PROF ) [place] RE STATE INDEM N Feb 08, 2012 [id number] RONA CUI SPOUSE [employer] (OPT/PROF ) JAREDP OINT Feb 08, 2012 [id number] RONA CUI SPOUSE Selected Encounter This section includes the information on record at [place] for the Encounter. Date/Time Encounter Type Encounter Description Reason Provider Source Jan 13, 2024 11:30 AM OFFICE O/P EST MOD 30 MIN PRIMARY CARE/MEDICINE ICD-10-CM E55.9 Vitamin D deficiency, unspecified LISA MERCADO Sawyer Encounter Template Text not used by [place] Assessments - Encounter Diagnoses This section includes the primary and secondary diagnoses documented for the Encounter. Date/Time Primary/Secondary Diagnosis Diagnosis Name Provider Source Feb 06, 2024 07:55 AM PRIMARY Vitamin D deficiency, unspecified LISA MERCADO CALL Feb 06, 2024 07:55 AM SECONDARY Anemia, unspecified MERCADOLISA CALL Feb 06, 2024 07:55 AM SECONDARY Chronic kidney disease, stage 3 unspecified LISA MERCADO CALL Feb 06, 2024 07:55 AM SECONDARY Essential (primary) hypertension LISA MERCADO CALL Feb 06, 2024 07:55 AM SECONDARY Hyperlipidemia, unspecified MERCADOLISA SANTOS CALL Feb 06, 2024 07:55 AM SECONDARY senior living (current) use of anticoagulants LISA MERCADO CALL Feb 06, 2024 07:55 AM SECONDARY Unspecified atrial fibrillation LISA MERCADO CALL Plan of Treatment: Future Appointments (+ 6 months) and Future Tests (+/- 45 days) The Plan of Treatment section includes future care activities for the patient from all [place] treatmentfacilities. This section includes future appointments and future orders which are active, pending or scheduled. Future Appointments This section includes appointments that were scheduled to occur 6 months from the date of the Encounter, up to a maximum of 20 appointments. The data comes from all [place] treatment facilities. Appointment Date/Time Appointment Type Appointme nt Facility Name Jun 03, 2024 10:00 AM [facility] Vital Signs: All taken on the encounter date This section contains inpatient and outpatient Vital Signs collected on the date of the Encounter. Date/Time Temperature Pulse Blood Pressure Respiratory Rate SP02 Pain Height Weight Body Mass Index Source Jan 13, 2024 12:03 PM 97 44 140/67 19 95 0 72 163 22 [facility] Social History: Smoking Status (Most current) and Tobacco Use (All prior to encounter date) This section includes the most current, and the historical, smoking and tobacco- related health factors from the [place] facility where the Encounter took place. Current Smoking Status This section includes the most current smoking, or tobacco-related health factor, from the [place] facility where the Encounter took place. Date/Time Current Smoking Status Comment Facil ity Nov 17, 2022 01:30 PM VA-TOBACCO FORMER USER CALL Tobacco Use History This section includes a history of the smoking, or tobacco-related health factors, that were collected on or before the date of the Encounter. The data comes from the [place] facility where the Encounter took place. Date/Time Smoking Status/Tobacco Use Comment F acility Nov 17, 2022 01:30 PM VA-TOBACCO QUIT 15 YRS OR MORE CALL Jun 19, 2021 11:00 AM VA-TOBACCO FORMER USER CALL Jun 19, 2021 11:00 AM VA-TOBACCO QUIT 5 TO < 15 YRS CALL Encounter Notes: All associated encounter notes This [...] source for the followin. Impaired Fasting Glucose ([facility] [id number])-stable 2. Vitamin D Deficiency ([facility] [id number]) now on 1000 iu daily 3. Leukopenia-chronic, stable 4. Long-term current use of anticoagulant- denies s/s bleeding 8. CAD - Coronary Artery Disease ([facility] [id number])- stable 9. HTN - Hypertension ([facility] 66636603) managed by Renal 11. Anemia ([facility] 416594646)- presumed due to CKD 12. AF- Atrial Fibrillation ([facility] 16380850) stable 13. Hyperlipidemia ([facility] 31017258)- controlled on meds 14. Vitamin B Def- [...]
[2024-12-30 11:25] LABS: Anion Gap 15 (12-20); Blood Urea Nitrogen 59 mg/dL (9-16); Carbon Dioxide 30 mmol/L (22-29); Chloride 100 mmol/L (96-108); Estimated Glomerular Filt Rate 27; Potassium 4.4 mmol/L (3.3-5.1); Sodium 141 mmol/L (135-145)
== END 2024-12-30 09:14 | disposition home or self-care (01) ==
LOC: HO.10HDL 09:13
PROVIDERS: Visit Provider Internal Medicine Nephrology
DX: N18.32 Chronic kidney disease, stage 3b (principal); I10 Essential (primary) hypertension; D63.1 Anemia in chronic kidney disease; Z90.5 Acquired absence of kidney
CPT/HCPCS: 36415; 80051; 82565; 84520

== ENCOUNTER 2025-01-03 13:43 | Outpatient (REF) | payer MEDICARE, OTHER, SELFPAY ==
[2025-01-03 17:59] LABS: Urine Cytology See Pathology rpt
[2025-01-03 18:04] LABS: Appearance Urine Clear; Color Urine Dark Yellow; Glucose Urine UA Negative (Negative); Leukocyte Esterase Urine Negative (Negative); Nitrite Urine Negative (Negative); PH 5.5 (5.0-9.0); Urine Blood Negative (Negative); Urine Ketones Negative (Negative); Urine Protein Negative (Neg-Trace)
== END 2025-01-03 13:44 | disposition home or self-care (01) ==
LOC: HO.HKASLDS 13:43
PROVIDERS: PCP Internal Medicine Interventional Cardiology; Visit Provider Internal Medicine Nephrology
DX: R31.0 Gross hematuria (principal); N18.32 Chronic kidney disease, stage 3b; I10 Essential (primary) hypertension; D63.1 Anemia in chronic kidney disease; Z90.5 Acquired absence of kidney
CPT/HCPCS: 81003; 87086; 88112; 99212

== ENCOUNTER 2025-01-03 13:43 | Outpatient (AMB) | payer MEDICARE, OTHER, SELFPAY ==
--- NOTE | 2025-01-03 14:04 | HO.NEPHOV_ITS ---
Vital Signs 01/03/25 14:09 Height 6 ft Weight 164 lb 8 oz BMI 22.3 BP 110/60 Blood Pressure Location Lt brachial Position Sitting Pulse 60 Pulse Source Pulse Oximeter Pulse Oximetry (%) 91 L Oxygen Delivery Method Room Air Intake Visit Reasons: Blood in urine Certified Phlebotomist Required: No Accompanied by: Spouse Allergies No Known Allergies [No Known Allergies*] Allergy (Verified 01/03/25 14:09) HPI Comments Details: Basilio who was accompanied by his in the office today as an urgent visit for Hematuria. He has chronic kidney disease on a background of acquired solitary kidney following nephrectomy. He has been on Eliquis for A Fib. He himself has reduced the dose of Elquis with resolution of hematuria. He has had Procrit injections in the past. He has no orthostatic symptoms, chest tightness, abdominal distention, weight gain, shortness of breath, paroxysmal nocturnal dyspnea, orthopnea, pedal edema or urinary symptoms. He does not consume excessive sodium in the diet. He has no hematuria, night sweats or weight loss. He feels well except for vision issues. 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 He had H/O low BP with mild hyperkalemia and his Spironolactone was D/Carlos & his carvedilol was reduced, with resolution of symptom. [facility] Medical History (Updated 01/03/25 @ 22:37 by Camden Sharif MD) Iron deficiency Acquired solitary kidney Anemia in chronic kidney disease Renal cell cancer Hypertension Chronic kidney disease, stage 3b Review of Systems Const All systems reviewed & are unremarkable except as noted in HPI and below Physical Exam Vital Signs: Last Vital Signs Pulse 60 01/03/25 14:09 BP 110/60 01/03/25 14:09 Pulse Ox 91 L 01/03/25 14:09 Oxygen Delivery Method Room Air 01/03/25 14:09 BMI result Body Mass Index 22.3 Const General: comfortable and no acute distress Orientation/consciousness: patient oriented x3 HEENT Head: Yes normocephalic Mouth: Normal oral and palatal mucosa present Eyes EOM: EOMs intact bilaterally Neck Neck: Yes supple Resp Auscultation: clear to auscultation bilaterally Cardio Jugular venous distension: no JVD Rate: regular rate GI Palpation (GI): Soft to palpation Auscultation: normal bowel sounds General: Yes no CVA tenderness Back/Spine/Pelvis Back: no CVA tenderness Skin General skin exam: no rashes or lesions noted Neuro General: patient oriented x3 and moves all extremities Extrem General: Yes no pedal edema Results Reviewed Nephrology Results: Hgb 13.6 g/dl (14.0-18.0) L 07/15/24 WBC 3.1 X10*3/uL (4.8-10.8) L 07/15/24 Plt Count 107 X10*3/uL (160-400) L 07/15/24 Sodium 141 mmol/L (135-145) 12/30/24 Potassium 4.4 mmol/L (3.3-5.1) 12/30/24 Chloride 100 mmol/L (96-108) 12/30/24 Carbon Dioxide 30 mmol/L (22-29) H 12/30/24 BUN 59 mg/dL (9-16) H 12/30/24 Creatinine 2.27 mg/dL (0.5-1.4) H 12/30/24 Calcium 8.9 mg/dL (8.4-10.2) 11/20/23 Phosphorus 4.2 mg/dL (2.7-4.5) 11/20/23 Urine Protein Negative mg/dL (Neg-Trace) 01/03/25 Assessment & Plan Assessment & Plan (1) Hematuria: Code(s): R31.9 - Hematuria, unspecified Category: Medical Qualifiers: Hematuria type: gross Qualified Code(s): R31.0 - Gross hematuria (2) Chronic kidney disease, stage 3b: Code(s): N18.32 - Chronic kidney disease, stage 3b Category: Medical (3) Hypertension: Code(s): I10 - Essential (primary) hypertension Category: Medical Qualifiers: Hypertension type: primary hypertension Qualified Code(s): I10 - Essential (primary) hypertension (4) Anemia in chronic kidney disease: Code(s): N18.9 - Chronic kidney disease, unspecified; D63.1 - Anemia in chronic kidney disease Category: Medical Qualifiers: Chronic kidney disease stage: stage 3 (moderate) Chronic kidney disease stage 3 subtype: stage 3b (GFR 30-44) Qualified Code(s): N18.32 - Chronic kidney disease, stage 3b; D63.1 - Anemia in chronic kidney disease (5) Acquired solitary kidney: Code(s): Z90.5 - Acquired absence of kidney Category: Medical Plan Basilio had undergone nephrectomy for renal cell cancer. His renal functions had been stable for a long time. He does not have any clinical signs of heart failure. He does not consume excessive sodium in the diet. We shall avoid ZULEMA inhibitor or ARB for now( BP borderline with serum creatinine of 2). He had gotten Procrit injections in the past. He is hemodynamically stable and clinically euvolemic. I ordered urinalysis, urine culture and urine cytology. I also ordered CT scan as well. If his symptoms persists and the rest of W/U is negative, he may need cystoscopy. I did not make any medication changes today. Follow-up appointment given Orders: Orders UA and rflx microscopic Today R31.9 - Hematuria, unspecified Urine Culture Today R31.9 - Hematuria, unspecified Urine Cytology Today R31.9 - Hematuria, unspecified CT abdomen pelvis wo IV con Today R31.9 - Hematuria, unspecified Coding Level of Care Code Est Pt Level 4 (42109) Diagnoses Gross hematuria R31.0 Hematuria type: gross Chronic kidney disease, stage 3b N18.32 Primary hypertension I10 Hypertension type: primary hypertension Anemia in stage 3b chronic kidney disease N18.32; D63.1 Chronic kidney disease stage: stage 3 (moderate) Chronic kidney disease stage 3 subtype: stage 3b (GFR 30-44) Acquired solitary kidney Z90.5
[2025-01-03 14:09] VITALS: BP 110/60; PULSE 60; O2SAT 91; BMI 22.3
== END 2025-01-03 14:44 | disposition home or self-care (01) ==
LOC: HO.HKAS 13:43
PROVIDERS: PCP Internal Medicine Interventional Cardiology; Visit Provider Internal Medicine Nephrology
DX: R31.0 Gross hematuria (principal); N18.32 Chronic kidney disease, stage 3b; I10 Essential (primary) hypertension; D63.1 Anemia in chronic kidney disease; Z90.5 Acquired absence of kidney
CPT/HCPCS: 99214

== ENCOUNTER 2025-01-10 09:21 | Outpatient (REF) | payer MEDICARE, OTHER, SELFPAY ==
--- NOTE | ~2025-01-10 | CT_ITS ---
EXAMINATION: CT ABDOMEN PELVIS WITHOUT IV CONTRAST HISTORY: R31.9 - Hematuria, unspecified COMPARISON: Comparison is made with the prior examination dated 06/03/2015. TECHNIQUE: CT scan of the abdomen and pelvis was performed without contrast using standard departmental protocol. Coronal and sagittal reformatted images were generated and reviewed. Oral contrast material was not administered per department protocol. This CT exam was performed with one or more of the following dose reduction techniques: automated exposure control, adjustment of the mA and/or kV according to patient size, use of iterative reconstruction technique. DLP: 442 mGy-cm FINDINGS: LOWER CHEST: The visualized lung bases are clear. There is a small right pleural effusion. CARDIOVASCULATURE: The heart is enlarged. There is no pericardial effusion. LIVER: The liver has a nodular contour, suggestive of cirrhosis. No mass is identified on this unenhanced examination. GALLBLADDER / BILE DUCTS: The gallbladder is contracted, without evidence of calcified stones. There is no intra or extrahepatic biliary ductal dilatation. SPLEEN: The spleen is normal in size and has an unremarkable unenhanced appearance. PANCREAS: The pancreas has an unremarkable unenhanced appearance. ADRENAL GLANDS: Unremarkable. KIDNEYS/RETROPERITONEUM: The patient is status post right nephrectomy. There is a 2.3 cm cyst at the upper pole of the left kidney and a 3.2 cm cyst at the lower pole. When compared to the prior examination, there is fullness of the upper pole region of the left kidney and a mass is not excluded. Evaluation is limited unenhanced examination. No renal or ureteral calculi are identified. There is no hydronephrosis or hydroureter. LYMPH NODES: No retroperitoneal lymphadenopathy is identified in the abdomen or pelvis. VASCULATURE: The abdominal aorta demonstrates atherosclerotic calcification, but is normal in caliber. MESENTERY/PERITONEUM: There is trace ascites in the pelvis. No masses. There is no free intraperitoneal gas. STOMACH: There is a moderate amount of debris in the stomach. SMALL BOWEL: The small bowel is normal in caliber. COLON: There is extensive colonic diverticulosis without evidence of diverticulitis. APPENDIX: Normal. URINARY BLADDER/PELVIC ORGANS: The urinary bladder is unremarkable. The prostate is enlarged. BONES / SOFT TISSUES: There is degenerative disc disease of the spine. CT/CT abdomen pelvis wo IV con IMPRESSION: 1. Status post right nephrectomy. No evidence of left nephrolithiasis or ureteral obstruction. 2. New fullness of the upper pole of the left kidney. A mass in this region is not excluded on this unenhanced examination. Renal protocol CT or MRI is recommended. 3. Findings were communicated to Dr. Camden Sharif by secure text message on 01/10/2025 at 10:26 AM. Electronically signed by: Joaquin Paz MD 01/10/2025 10:27 AM EDT
== END 2025-01-10 09:22 | disposition home or self-care (01) ==
LOC: HO.CT 09:21
PROVIDERS: PCP Hospitalist; Visit Provider Internal Medicine Nephrology
DX: R31.9 Hematuria, unspecified (principal)
CPT/HCPCS: 74176

== ENCOUNTER → 2025-01-10 09:23 | Outpatient (BNV) | payer MEDICARE, OTHER, SELFPAY | PROVIDERS: PCP Hospitalist; Visit Provider Radiology Diagnostic Radiology | DX: N28.89 Other specified disorders of kidney and ureter (principal); Z90.5 Acquired absence of kidney | CPT/HCPCS: 74176 ==

== ENCOUNTER → 2025-01-11 14:58 | Outpatient (BNV) | payer MEDICARE, OTHER, SELFPAY | PROVIDERS: PCP Hospitalist; Visit Provider Radiology Diagnostic Radiology | DX: K74.60 Unspecified cirrhosis of liver (principal); N28.1 Cyst of kidney, acquired; R18.8 Other ascites; Z90.5 Acquired absence of kidney | CPT/HCPCS: 74183 ==

== ENCOUNTER 2025-01-11 15:01 | Outpatient (REF) | payer MEDICARE, OTHER, SELFPAY ==
--- NOTE | ~2025-01-11 | MR_ITS ---
EXAMINATION: MR ABDOMEN WITHOUT THEN WITH IV CONTRAST HISTORY: R31.0 - Gross hematuria COMPARISON: Correlation is made with an unenhanced CT of the abdomen and pelvis dated 01/10/2025. TECHNIQUE: Axial in and out of phase T1-weighted gradient echo, axial diffusion weighted, and axial and coronal HASTE T2 with fat saturation images were obtained through the abdomen. Subsequently, fat suppressed axial and coronal T1-weighted images were obtained after the intravenous administration of 7.5 mL Gadavist. FINDINGS: There is no significant loss of signal intensity within the liver on opposed phase imaging to suggest steatosis. The liver demonstrates a nodular contour, consistent with cirrhosis. No enhancing liver mass is identified. The hepatic and portal veins are patent. The gallbladder is unremarkable. There is no intra or extrahepatic biliary ductal dilatation. The spleen and pancreas are unremarkable. The adrenals are unremarkable. The patient is status post right nephrectomy. There is a multiseptated cystic mass at the upper pole of the left kidney measuring 6.0 x 5.0 x 5.2 cm. The mass demonstrates thick enhancing septations. This represents a Bosniak III lesion. There is a 1.9 cm simple cyst at the upper pole of the left kidney and a 3.2 cm cyst at the posterior aspect of the interpolar region. Additional smaller cysts are noted. There is no hydronephrosis. The renal vein is patent. No retroperitoneal lymphadenopathy is identified. There is a small amount of ascites around the liver. There is a small right pleural effusion. The visualized bones demonstrate normal marrow signal intensity. MR/MR abdomen wo/w con IMPRESSION: 1. Status post right nephrectomy. 6.0 x 5.0 x 5.2 cm multiseptated cystic mass at the upper pole of the left kidney demonstrating enhancing septations. This represents a Bosniak III lesion with an intermediate probability of malignancy. Urology consult is recommended. 2. 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 3. A text message was sent to Dr. Stan Mercado covering for Dr. Sharif on 01/12/2025 at 7:24 am, and was immediately acknowledged. Electronically signed by: Joaquin Paz MD 01/12/2025 07:26 AM EDT
[2025-01-11] MEDS: gadobutroL 7.5 ML VIAL IVPUSH (15:30)
== END 2025-01-11 15:02 | disposition home or self-care (01) ==
LOC: HO.MRI 15:01
PROVIDERS: PCP Hospitalist; Visit Provider Internal Medicine Nephrology
DX: R31.0 Gross hematuria (principal); N18.32 Chronic kidney disease, stage 3b
CPT/HCPCS: 74183; A9585

== ENCOUNTER 2025-02-14 10:56 | Outpatient (AMB) | payer OTHER, MEDICARE, SELFPAY ==
--- OUTSIDE RECORDS SUMMARY | 2024-03-08 16:05 | XMS_ITS ---
Author Name [facility] [place] [facility] [place] Address [address] [place] [address] Care Team Providers Care Pump Oiler Name Role Phone SAUL PEREZ Primary Care Provider Unavailabl e Insurance Providers: All historical and current Section Date Range: From patient's date of to the date document was created. This section includes the names of all active insurance providers for the patient. Insurance Provider Type of Coverage Plan Name Start of Policy Coverage End of Policy Coverage Group Number Member ID Insurance Provider's Telephone Number Policy Curran's Name Patient's Relationship to Policy Curran MEDICARE (WNR) MEDICARE (M) PART A Sep 10, 2001 PART A [id number] YENIFER CUI PATIENT MEDICARE (WNR) MEDICARE (M) PART B Sep 10, 2001 PART B [id number] YENIFER CUI PATIENT MEDICARE (WNR) MEDICARE (M) PART A Sep 10, 2001 PART A [id number] YENIFER CUI PATIENT MEDICARE (WNR) MEDICARE (M) PART B Sep 10, 2001 PART B [id number] YENIFER CUI PATIENT [employer] MEDICAL EXPENSE (OPT/PROF ) [employer] Feb 08, 2012 [id number] RONA CUI SPOUSE [employer] EXP[employer] (OPT/PROF ) [place] [employer] INDEM N Feb 08, 2012 [id number] RONA CUI SPOUSE [employer] (OPT/PROF ) [employer] Feb 08, 2012 [id number] RONA CUI SPOUSE Selected Encounter This section includes the information on record at [place] for the Encounter. Date/Time Encounter Type Encounter Description Reason Pro vider Source Mar 08, 2024 08:05 PM Outpatient Encounter ADMIN PAT ACTIVTIES (MASNONCT) IHE Encounter Template Text not used by [place] Plan of Treatment: Future Appointments (+ 6 months) and Future Tests (+/- 45 days) The Plan of Treatment section includes future care activities for the patient from all [place] treatmentfacilities. This section includes future appointments and future orders which are active, pending or scheduled. Future Appointments This section includes appointments that were scheduled to occur 6 months from the date of the Encounter, up to a maximum of 20 appointments. The data comes from all [place] treatment facilities. Appointment Date/Time Appointment Type Appointme nt Facility Name Jun 03, 2024 10:00 AM AMBULATORY - MEDICINE [facility] Aug 08, 2024 11:00 AM [facility] Aug 08, 2024 01:00 PM [facility] Sep 05, 2024 12:30 PM [facility] Sep 05, 2024 01:00 PM AMBULAT[facility] - MEDICINE [facility] Social History: Smoking Status (Most current) and Tobacco Use (All prior to encounter date) This section includes the most current, and the historical, smoking and tobacco- related health factors from the [place] facility where the Encounter took place. Current Smoking Status This section includes the most current smoking, or tobacco-related health factor, from the [place] facility where the Encounter took place. Date/Time Current Smoking Status Lazaro lopez Nov 20, 2023 10:11 AM [place]-TOBACCO FORMER USER [facility] Tobacco Use History This section includes a history of the smoking, or tobacco-related health factors, that were collected on or before the date of the Encounter. The data comes from the [place] facility where the Encounter took place. Date/Time Smoking Status/Tobacco Use Comment Mg estevez Nov 20, 2023 10:11 AM [place]-TOBACCO QUIT 15 YRS OR MORE [facility] May 27, 2011 12:54 PM QUIT TOBACCO USE 1 -7 YEARS AGO quit 2006 [facility] May 09, 2010 03:17 PM QUIT TOBACCO USE 1 -7 YEARS AGO [facility] Encounter Notes: All associated encounter notes This section contains the clinical notes associated to the Encounter. Date/Time Encounter Note(s) Provider Source Mar 08, 2024 08:05 PM PHARMACY NOTE: LOCAL TITLE: PHARMACY CUSTOMER CARE MEDICATION RENEWAL STANDARD TITLE: PHARMACY NOTE DATE OF NOTE: MAR 08, 2024@20:05 ENTRY DATE: MAR 08, 2024@20:06 AUTHOR: LALITHA COX EXP COSIGNER: URGENCY: STATUS: COMPLETED Date: Feb Division: [place] Pt referred by Pharmacy Call Center for medication renewal: Non-controlled/maintenance medication Medications requested: [id number] CARBOXYMETHYLCELLULOSE NA 0.5% OPH SOLN Defer to specialty clinic To be mailed . Please review and renew if appropriate. *This note was generated by [facility]/[place] Pharmacy Customer Care. If you have any questions or need assistance, do not contact this author. Please refer all questions to your local, on-site pharmacy departments. /damien/ LALITHA COX CPhT Barbering Teacher, [place]/Pharmacy Customer Care Signed: 03/08/2024 20:06 Receipt Acknowledged By: 03/09/2024 07:56 /damien/ Nathan Taylor OD CHIEF OF OPTOMETRY for LALITHA GONZALEZ [facility]
--- NOTE | 2025-02-14 10:53 | MHC.OFFVIS ---
Intake Visit Reasons: kidney cyst/hematuria Intake Note: New Patient is present for Kidney Cyst/ Hematuria Urology Rx:none Blood Thinners:eliquis Imaging completed: 01/2025 Technical Research Scientist Required: No Accompanied by: Spouse Allergies No Known Allergies (No Known Allergies*) Allergy (Verified 02/14/25 10:54) HPI Comments Details: Basilio is an 89-year-old male presenting with hematuria. he is a patient of Dr. Calderón. He is seen for the following urologic conditions. - Complex renal cyst - hematuria After episode of recent hematuria underwent imaging with Nephrology. MRI performed. A complex cyst on the left kidney was identified, with a 25% chance of malignancy. The patient is on Eliquis, which may contribute to bleeding. - 6.0 x 5.0 x 5.2 cm multiseptated cystic mass at the upper pole of the left kidney demonstrating enhancing septations. This represents a Bosniak III lesion with an intermediate probability of malignancy The patient has an enlarged prostate, potentially contributing to bleeding. No current evidence of active bleeding; one Eliquis dose stopped. 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 Hypertension Chronic kidney disease, stage 3b Review of Systems Const Denies chills and Denies fever(s) Card Reports no additional complaints and Denies syncope Resp Denies cough GI Denies abdominal pain and Denies heartburn Reports as per HPI and Denies change in libido Neuro Denies syncope Psych Denies change in libido Endo Denies change in libido Physical Exam Const General: cooperative, healthy appearing, comfortable and no acute distress Orientation/consciousness: patient oriented x3 HEENT Face and sinus: Yes normal facial exam Mouth: moist mucous membranes Neck Neck: Yes normal visual inspection, Yes full ROM and Yes trachea midline Chest Chest palpation & inspection: normal inspection of the chest Resp Effort & Inspection: normal respiratory effort, able to speak in complete sentences and no respiratory distress GI Inspection: Yes normal to inspection Back/Spine/Pelvis Cervical Spine: normal cervical lordosis Thoracic/Lumbar Spine: thoracic and lumbar spine normal to inspection Skin General skin exam: no rashes or lesions noted Neuro General: patient oriented x3, gait normal, tone normal and moves all extremities Extrem General: Yes normal to inspection and Yes capillary refill normal Assessment & Plan Assessment & Plan (1) Hematuria: Code(s): R31.9 - Hematuria, unspecified Category: Medical Qualifiers: Hematuria type: gross Qualified Code(s): R31.0 - Gross hematuria (2) Complex renal cyst: Code(s): N28.1 - Cyst of kidney, acquired Category: Medical Plan Patient informed verbally consented to the use of an ambient scribe 1. Hematuria - Cystoscopy planned to identify bladder bleeding source. - Eliquis considered as a bleeding factor. 2. Complex Renal Cyst - Monitor cyst with MRI in six months. - Biopsy not advised due to cystic nature. 3. Enlarged Prostate - Enlarged prostate considered as bleeding source. Discussion Notes I discussed with the patient the presence of a complex cyst on the left kidney, which has a 25% chance of malignancy. We agreed to monitor it with an MRI in six months. I explained that a biopsy might not be conclusive due to the cystic nature. We also discussed performing a cystoscopy to check for bladder bleeding, considering Eliquis as a potential factor. The patient understood the plan and agreed to follow up accordingly. Patient Instructions - Schedule a follow-up MRI in six months to monitor the kidney cyst. - Prepare for a cystoscopy to check for bladder bleeding. - Monitor for any signs of bleeding and report them immediately. Patient Instructions: This note is constructed using voice recognition software. While every effort has been made to ensure accuracy motorboat mechanic helper errors may have been included. Imaging studies, laboratory and physical exam results were discussed and reviewed in detail. No major barriers to patient understanding were identified. An opportunity to ask questions regarding the treatment plan was provided. All questions were answered. The patient expressed understanding and agreement with the above treatment plan. The patient is aware they should contact our office by phone for worsening of their current condition or the appearance of new urologic symptoms. Compliance is encouraged with any medications and followup testing that is ordered. It is a privilege to participate in the urologic care of your patient. If you have any questions or concerns regarding treatment for the above conditions, or other urologic issues, please do not hesitate to contact me. The office telephone contact is [phone]. Sincerely, Dr Doug Bearden MD, [facility] - Urology Compassionate Specialist Care for the Genitourinary System Coding Level of Care Code New Pt Level 4 (49376) Diagnoses Gross hematuria R31.0 Hematuria type: gross Complex renal cyst N28.1
--- OUTSIDE RECORDS SUMMARY | 2025-02-14 12:00 | XMS_ITS | Clinical Summary ---
Author Organization [facility] Address [address] [facility] [address] [place] [address] Phone Care Team Providers Care Sample Maker Hand Name Role Phone Duong Pradhan Primary Care [...] failure,Stage 3b chronic kidney disease (HCC),Hypertension,Hyperk alemia 71228 Units IJ Every 14 days 05/16/2021 Active Epoetin Adolfo-epbx solution 40,000 UnitsIndications:Anemia of chronic renal failure 63868 Units IJ Once 02/24/2022 Active Active Problems [...] disturbance 08/10/2009 07/17/2023 Undiagnosed cardiac murmurs 08/10/2009 120 03/2023 Resolved Problems Problem Noted Date Diagnosed [...] Due Date Last Done Comments Pneumococcal Vaccine: 50+ Ye ars (1 of 2 - PCV) 1954 06/10/2008 Influenza Vaccine (#1) 2025 04/10/2011 Pneumococcal Vaccine: Peds ( 0 to 5 Years) and At-Risk Patients (6 to 49 Years) Discontinued 06/10/2008 Hepatitis B Vaccine Aged Out No longe r eligible based on patient's age to complete this topic Insurance Medicare [employer] Medicare [employer] Care Teams Sample Maker Hand Relationship Specialty Start Date End Date Duong Pradhan PCP - General Family Medicine 11/18/22
== END 2025-02-14 11:30 | disposition home or self-care (01) ==
LOC: HO.HUSH 10:56
PROVIDERS: PCP Hospitalist; Visit Provider Urology
DX: R31.0 Gross hematuria (principal); N28.1 Cyst of kidney, acquired; Z13.9 Encounter for screening, unspecified
CPT/HCPCS: 99204

== ENCOUNTER → 2025-02-14 10:56 | Outpatient (BNVA) | payer MEDICARE, OTHER, SELFPAY | PROVIDERS: PCP Hospitalist; Visit Provider Urology | DX: R31.0 Gross hematuria (principal); N28.1 Cyst of kidney, acquired; N40.0 Benign prostatic hyperplasia without lower urinary tract symptoms | CPT/HCPCS: 81003; 99202 ==

== ENCOUNTER 2025-02-15 14:57 | Outpatient (AMB) | payer MEDICARE, OTHER, SELFPAY ==
[2025-02-15 14:58] VITALS: BP 148/72; PULSE 55; O2SAT 96; BMI 23.1
--- NOTE | 2025-02-15 14:58 | HO.NEPHOV_ITS ---
Vital Signs 02/15/25 14:58 Height 6 ft Weight 170 lb BMI 23.1 BP 148/72 H Blood Pressure Location Rt brachial Position Sitting Pulse 55 Pulse Source Pulse Oximeter Pulse Oximetry (%) 96 Oxygen Delivery Method Room Air Intake Visit Reasons: FU-Conf Product Manager Required: No Accompanied by: Family/Other Allergies No Known Allergies (No Known Allergies*) Allergy (Verified 02/15/25 15:01) HPI Comments Details: Basilio who was accompanied by his in the office today for follow up of CKD and Hematuria. He has chronic kidney disease on a background of acquired solitary kidney following nephrectomy. He has been on Eliquis for A Fib. He himself has reduced the dose of Elquis with resolution of hematuria. He has had Procrit injections in the past. He has no orthostatic symptoms, chest tightness, abdominal distention, weight gain, shortness of breath, paroxysmal no cturnal dyspnea, orthopnea, pedal edema or urinary symptoms. He does not consume excessive sodium in the diet. He has no hematuria, night sweats or weight loss. He feels well except for vision issues. 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 He had CT scan abdomen followed by MRI which showed complex cyst and had seen Urology. 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 Hypertension Chronic kidney disease, stage 3b Review of Systems Const All systems reviewed & are unremarkable except as noted in HPI and below Physical Exam Vital Signs: Last Vital Signs Pulse 55 02/15/25 14:58 BP 148/72 H 02/15/25 14:58 Pulse Ox 96 02/15/25 14:58 Oxygen Delivery Method Room Air 02/15/25 14:58 BMI result Body Mass Index 23.1 Const General: comfortable and no acute distress Orientation/consciousness: patient oriented x3 HEENT Head: Yes normocephalic Mouth: Normal oral and palatal mucosa present Eyes EOM: EOMs intact bilaterally Neck Neck: Yes supple Resp Auscultation: clear to auscultation bilaterally Cardio Jugular venous distension: no JVD Rate: regular rate GI Palpation (GI): Soft to palpation Auscultation: normal bowel sounds General: Yes no CVA tenderness Back/Spine/Pelvis Back: no CVA tenderness Skin General skin exam: no rashes or lesions noted Neuro General: patient oriented x3 and moves all extremities Extrem General: Yes no pedal edema Results Reviewed Nephrology Results: Sodium, (135-145) 141 mmol/L 12/30/24 Potassium, (3.3-5.1) 4.4 mmol/L 12/30/24 Chloride, (96-108) 100 mmol/L 12/30/24 Carbon Dioxide, (22-29) 30 mmol/L H 12/30/24 BUN, (9-16) 59 mg/dL H 12/30/24 Creatinine, (0.5-1.4) 2.27 mg/dL H 12/30/24 Urine Protein, (Neg-Trace) Negative mg/dL 01/03/25 Assessment & Plan Assessment & Plan (1) Acquired solitary kidney: Code(s): Z90.5 - Acquired absence of kidney Category: Medical (2) Chronic kidney disease, stage 3b: Code(s): N18.32 - Chronic kidney disease, stage 3b Category: Medical (3) Left kidney mass: Code(s): N28.89 - Other specified disorders of kidney and ureter Category: Medical (4) Complex renal cyst: Code(s): N28.1 - Cyst of kidney, acquired Category: Medical Plan Basilio had undergone nephrectomy for renal cell cancer. His renal functions had been stable for a long time. He does not have any clinical signs of heart failure. He does not consume excessive sodium in the diet. We shall avoid ZULEMA inhibitor or ARB for now( BP borderline with serum creatinine of 2). He had gotten Procrit injections in the past. He is hemodynamically stable and clinically euvolemic. If his symptoms persists and the rest of W/U is negative, he may need cystoscopy. He will need F/U MRI in a 6 months. I did not make any medication changes today. Follow-up appointment given Orders: Orders PSA,Total (Free>4and<10) 3 Months N18.32 - Chronic kidney disease, stage 3b, N28.1 - Cyst of kidney, acquired, N28.89 - Other specified disorders of kidney and ureter, Z90.5 - Acquired absence of kidney Creatinine 3 Months N18.32 - Chronic kidney disease, stage 3b, N28.1 - Cyst of kidney, acquired, N28.89 - Other specified disorders of kidney and ureter, Z90.5 - Acquired absence of kidney Blood Urea Nitrogen 3 Months N18.32 - Chronic kidney disease, stage 3b, N28.1 - Cyst of kidney, acquired, N28.89 - Other specified disorders of kidney and ureter, Z90.5 - Acquired absence of kidney Electrolytes 3 Months N18.32 - Chronic kidney disease, stage 3b, N28.1 - Cyst of kidney, acquired, N28.89 - Other specified disorders of kidney and ureter, Z90.5 - Acquired absence of kidney Coding Level of Care Code Est Pt Level 4 (84286) Diagnoses Acquired solitary kidney Z90.5 Chronic kidney disease, stage 3b N18.32 Left kidney mass N28.89 Complex renal cyst N28.1
--- OUTSIDE RECORDS SUMMARY | 2025-02-15 15:24 | XMS_ITS | Clinical Summary ---
Author Organization [facility] Address [address] [facility] [address] [place] [address] Phone Care Team Providers Care Glass Carrier Name Role Phone Duong Pradhan Primary Care Provider [phone] Allergies No known active allergies Medications apixaban [...] failure,Stage 3b chronic kidney disease (HCC),Hypertension,Hyperk alemia 65812 Units IJ Every 14 days 05/16/2021 Active Epoetin Adolfo-epbx solution 40,000 UnitsIndications:Anemia of chronic renal failure 58220 Units IJ Once 02/24/2022 Active Active Problems [...] age to complete this topic Insurance Medicare [facility] Medicare [facility] Care Teams Glass Carrier Relationship Specialty Start Date End Date Duong Pradhan PCP - General Family Medicine 11/18/22
== END 2025-02-15 15:50 | disposition home or self-care (01) ==
LOC: HO.HKA 14:58
PROVIDERS: PCP Hospitalist; Visit Provider Internal Medicine Nephrology
DX: Z90.5 Acquired absence of kidney (principal); N18.32 Chronic kidney disease, stage 3b; N28.89 Other specified disorders of kidney and ureter; N28.1 Cyst of kidney, acquired
CPT/HCPCS: 99214

== ENCOUNTER → 2025-02-15 14:57 | Outpatient (BNVA) | payer MEDICARE, OTHER, SELFPAY | PROVIDERS: PCP Hospitalist; Visit Provider Internal Medicine Nephrology | DX: I12.9 Hypertensive chronic kidney disease with stage 1 through stage 4 chronic kidney disease, or unspecified chronic kidney disease (principal); N18.32 Chronic kidney disease, stage 3b; N28.1 Cyst of kidney, acquired; N28.89 Other specified disorders of kidney and ureter; Z90.5 Acquired absence of kidney | CPT/HCPCS: 99212 ==

== ENCOUNTER 2025-05-12 10:45 | Outpatient (REF) | payer MEDICARE, OTHER, SELFPAY ==
--- OUTSIDE RECORDS SUMMARY | 2025-05-12 11:47 | XMS_ITS | Clinical Summary ---
Author Organization [facility] Address [address] [facility] [address] [place] [address] Phone Care Team Providers Care Software Recruiter Name Role Phone Duong Pradhan Primary Care [...] failure,Stage 3b chronic kidney disease (HCC),Hypertension,Hyperk alemia 84312 Units IJ Every 14 days 05/16/2021 Active Epoetin Adlofo-epbx solution 40,000 UnitsIndications:Anemia of chronic renal failure 40889 Units IJ Once 02/24/2022 Active Active Problems [...] age to complete this topic Insurance Medicare [facility] Medicare [facility] Care Teams Software Recruiter Relationship Specialty Start Date End Date Duong Pradhan PCP - General Family Medicine 11/18/22
[2025-05-12 14:32] LABS: Anion Gap 12 (12-20); Blood Urea Nitrogen 71 mg/dL (9-16); Carbon Dioxide 30 mmol/L (22-29); Chloride 103 mmol/L (96-108); Estimated Glomerular Filt Rate 21; Potassium 5.0 mmol/L (3.3-5.1); Sodium 140 mmol/L (135-145)
[2025-05-12 14:56] LABS: PSA,Total (Free>4and<10) 1.67 ng/mL (0.00-4.00)
== END 2025-05-12 10:46 | disposition home or self-care (01) ==
LOC: HO.10HDL 10:45
PROVIDERS: Visit Provider Internal Medicine Nephrology
DX: N18.32 Chronic kidney disease, stage 3b (principal); N28.1 Cyst of kidney, acquired; N28.89 Other specified disorders of kidney and ureter; Z90.5 Acquired absence of kidney; Z12.5 Encounter for screening for malignant neoplasm of prostate
CPT/HCPCS: 36415; 80051; 82565; 84153; 84520

== ENCOUNTER 2025-05-24 14:33 | Outpatient (AMB) | payer MEDICARE, OTHER, SELFPAY ==
--- NOTE | 2025-05-24 14:39 | HO.NEPHOV_ITS ---
Vital Signs 05/24/25 14:41 Height 6 ft Weight 176 lb 2 oz BMI 23.9 BP 130/66 Blood Pressure Location Rt brachial Position Sitting Pulse 57 Pulse Source Pulse Oximeter Pulse Oximetry (%) 97 Oxygen Delivery Method Room Air Intake Visit Reasons: 3mon follow-up w/labs-Conf Mill Operator Head Required: No Accompanied by: Spouse Allergies No Known Allergies (No Known Allergies*) Allergy (Verified 05/24/25 14:41) HPI Comments Details: Basilio who was accompanied by his in the office today for follow up of CKD and Hematuria. He has chronic kidney disease on a background of acquired solitary kidney following nephrectomy. He has been on Eliquis for A Fib. He himself has reduced the dose of Elquis with resolution of hematuria in the past but has been having recurrence of the hematuria. He has had Procrit injections in the past. He has no orthostatic symptoms, chest tightness, abdominal distention, weight gain, shortness of breath, paroxysmal nocturnal dyspnea, orthopnea, pedal edema or urinary symptoms. He does not consume excessive sodium in the diet. He has no night sweats or weight loss. He feels well except for vision issues. 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 He had CT scan abdomen followed by MRI which showed complex cyst and had seen Urology. His serum creatinine has gone up recently and his torsemide was cut back at that time. 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 Hypertension Chronic kidney disease, stage 3b Review of Systems Const All systems reviewed & are unremarkable except as noted in HPI and below Physical Exam Vital Signs: Last Vital Signs Pulse 57 05/24/25 14:41 BP 130/66 05/24/25 14:41 Pulse Ox 97 05/24/25 14:41 Oxygen Delivery Method Room Air 05/24/25 14:41 BMI result Body Mass Index 23.9 Const General: comfortable and no acute distress Orientation/consciousness: patient oriented x3 HEENT Head: Yes normocephalic Mouth: Normal oral and palatal mucosa present Eyes EOM: EOMs intact bilaterally Neck Neck: Yes supple Resp Auscultation: clear to auscultation bilaterally Cardio Jugular venous distension: no JVD Rate: regular rate GI Palpation (GI): Soft to palpation Auscultation: normal bowel sounds General: Yes no CVA tenderness Back/Spine/Pelvis Back: no CVA tenderness Skin General skin exam: no rashes or lesions noted Neuro General: patient oriented x3 and moves all extremities Extrem General: Yes no pedal edema Results Reviewed Nephrology Results: Sodium, (135-145) 140 mmol/L 05/12/25 Potassium, (3.3-5.1) 5.0 mmol/L 05/12/25 Chloride, (96-108) 103 mmol/L 05/12/25 Carbon Dioxide, (22-29) 30 mmol/L H 05/12/25 BUN, (9-16) 71 mg/dL H 05/12/25 Creatinine, (0.5-1.4) 2.85 mg/dL H 05/12/25 Assessment & Plan Assessment & Plan (1) AMBER (acute kidney injury): Code(s): N17.9 - Acute kidney failure, unspecified Category: Medical (2) Chronic kidney disease, stage 3b: Code(s): N18.32 - Chronic kidney disease, stage 3b Category: Medical (3) Acquired solitary kidney: Code(s): Z90.5 - Acquired absence of kidney Category: Medical (4) Complex renal cyst: Code(s): N28.1 - Cyst of kidney, acquired Category: Medical (5) Hematuria: Code(s): R31.9 - Hematuria, unspecified Category: Medical Qualifiers: Hematuria type: gross Qualified Code(s): R31.0 - Gross hematuria (6) Hypertension: Code(s): I10 - Essential (primary) hypertension Category: Medical Qualifiers: Hypertension type: primary hypertension Qualified Code(s): I10 - Essential (primary) hypertension Plan Basilio had undergone nephrectomy for renal cell cancer. His renal functions had been stable until he recently had AMBER. His torsemide dose was reduced to 3 times a week which he could continue at the current dose. He does not have any clinical signs of heart failure. He does not consume excessive sodium in the di et. We shall avoid ZULEMA inhibitor or ARB for now. He had gotten Procrit injections in the past. He is hemodynamically stable and clinically euvolemic. He needs cystoscopy and is going to discuss with Urologist . He will need F/U MRI as well. I did not make any medication changes today. Follow-up appointment given Orders: Orders Electrolytes 6 Weeks N17.9 - Acute kidney failure, unspecified Creatinine 6 Weeks N17.9 - Acute kidney failure, unspecified Blood Urea Nitrogen 6 Weeks N17.9 - Acute kidney failure, unspecified Coding Level of Care Code Est Pt Level 4 (32466) Diagnoses AMBER (acute kidney injury) N17.9 Chronic kidney disease, stage 3b N18.32 Acquired solitary kidney Z90.5 Complex renal cyst N28.1 Gross hematuria R31.0 Hematuria type: gross Primary hypertension I10 Hypertension type: primary hypertension
[2025-05-24 14:41] VITALS: BP 130/66; PULSE 57; O2SAT 97; BMI 23.9
== END 2025-05-24 15:06 | disposition home or self-care (01) ==
LOC: HO.HKA 14:33
PROVIDERS: PCP Hospitalist; Visit Provider Internal Medicine Nephrology
DX: N17.9 Acute kidney failure, unspecified (principal); N18.32 Chronic kidney disease, stage 3b; Z90.5 Acquired absence of kidney; N28.1 Cyst of kidney, acquired; R31.0 Gross hematuria; I10 Essential (primary) hypertension
CPT/HCPCS: 99214

== ENCOUNTER → 2025-05-24 14:33 | Outpatient (BNVA) | payer MEDICARE, OTHER, SELFPAY | PROVIDERS: PCP Hospitalist; Visit Provider Internal Medicine Nephrology | DX: I12.9 Hypertensive chronic kidney disease with stage 1 through stage 4 chronic kidney disease, or unspecified chronic kidney disease (principal); N18.32 Chronic kidney disease, stage 3b; N17.9 Acute kidney failure, unspecified; N28.1 Cyst of kidney, acquired; R31.0 Gross hematuria; Z90.5 Acquired absence of kidney | CPT/HCPCS: 99212 ==

== ENCOUNTER 2025-06-21 09:01 | Outpatient (AMB) | payer MEDICARE, OTHER, SELFPAY ==
--- NOTE | 2025-06-21 09:11 | MHC.OFFVIS ---
Intake Visit Reasons: Cystoscopy Intake Note: Patient is present for Cystoscopy Urology Med: None Antibiotic Allergy: None Blood Thinner: Eliquis PSA 05/12/2025- 1.67 URO G-HD LOT: [id number] EXP:01/17/2028 Desktop Support Engineer Required: No Dry Press Operator: Dry Press Operator Present Accompanied by: Spouse Allergies No Known Allergies (No Known Allergies*) Allergy (Verified 06/21/25 09:11) HPI Comments Details: Basilio is an 89-year-old male presenting with hematuria. he is a patient of Dr. Calderón. He is seen for the following urologic conditions. - Complex renal cyst - hematuria - bladder outlet obstruction Here for cystoscopy Mildly enlarged prostate No evidence of any lower tract lesions Hematuria After episode of recent hematuria underwent imaging with Nephrology. MRI performed. A complex cyst on the left kidney was identified, with a 25% chance of malignancy. The patient is on Eliquis, which may contribute to bleeding. - 6.0 x 5.0 x 5.2 cm multiseptated cystic mass at the upper pole of the left kidney demonstrating enhancing septations. 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 Hypertension Chronic kidney disease, stage 3b Surgical History History of nephrectomy Review of Systems Const Denies chills and Denies fever(s) Card Reports no additional complaints and Denies syncope Resp Denies cough GI Denies abdominal pain and Denies heartburn Reports as per HPI and Denies change in libido Neuro Denies syncope Psych Denies change in libido Endo Denies change in libido Physical Exam Const General: cooperative, healthy appearing, comfortable and no acute distress Orientation/consciousness: patient oriented x3 HEENT Face and sinus: Yes normal facial exam Mouth: moist mucous membranes Neck Neck: Yes normal visual inspection, Yes full ROM and Yes trachea midline Chest Chest palpation & inspection: normal inspection of the chest Resp Effort & Inspection: normal respiratory effort, able to speak in complete sentences and no respiratory distress GI Inspection: Yes normal to inspection Back/Spine/Pelvis Cervical Spine: normal cervical lordosis Thoracic/Lumbar Spine: thoracic and lumbar spine normal to inspection Skin General skin exam: no rashes or lesions noted Neuro General: patient oriented x3, gait normal, tone normal and moves all extremities Extrem General: Yes normal to inspection and Yes capillary refill normal Office Procedures Cystoscopy Consent Discussed risk and benefit or proposed procedure with the patient. Information consent for procedure given to the patient. Discussed technical aspects, risks, benefits and alternatives in full. Addressed all of the patient's questions and concerns regarding the procedure. The patient demonstrated knowledge and understanding. They wish to proceed with this procedure. Preparation The patient was prepped in the usual manner. A nurse practitioner hospitalist was present and in the room. Genitalia was prepped with betadine solution in a sterile manner. Lidocaine Jelly 2% was placed into the urethra and 16Fr flexible Olympus cystoscope was inserted into the meatus after adequate lubrication. Procedure Consent confirmed Cystoscopy performed using a disposable Urovue digital 16 Wolof cystoscope. Meatus uncircumcised Urethra anterior and posterior urethra normal Prostatic Urethra unremarkable mild enlargement bilateral lobe Bladder examination with retroflexion of cystoscope Bladder Orifices normal shape and position Bladder Capacity Normal Trabeculations grade 2 Cellule Formation yes Diverticulum Formation small Mucosal Erythema None Bladder Tumor None 68043-[id number] DISPOSABLE SCOPE URO-G FLEXIBLE SCOPE Procedure code (CPT) selection complete Office Meds lidocaine HCl 2 % mucosal jelly in applicator Performing Provider: Doug Bearden MD Performing Location: [facility] [place] [facility] Administered by: Kandis English RN on 06/21/25 09:36 Dose Route Admin Location Dispensed Lot Number Expiration Date ND Interlacer 10 mL intra-urethral 10 mL nitrofurantoin monohydrate/macrocrystals 100 mg capsule Performing Provider: Doug Bearden MD Performing Location: [facility] [place] [facility] Administered by: Kandis English RN on 06/21/25 09:36 Dose Route Admin Location Dispensed Lot Number Expiration Date ND Interlacer 100 mg PO 1 cap Results AMB Urinalysis, Automated UA Leukoctes 0 Lexa/uL Last Edit by ITZEL Taylor on 06/21/25 09:30 UA Nitrite Negative Last Edit by ITZEL Taylor on 06/21/25 09:30 UA Urobilinogen 0.2 mg/dL Last Edit by ITZEL Taylor on 06/21/25 09:30 UA Protein 30 mg/dL Last Edit by Re Irwin, RMA on 06/21/25 09:30 UA pH 5.5 Last Edit by Re Irwin, RMA on 06/21/25 09:30 UA Blood 10 Rodney/uL Last Edit by Re Irwin, RMA on 06/21/25 09:30 UA Specific [place] 1.015 Last Edit by Re Irwin, RMA on 06/21/25 09:30 UA Ketone Negative Last Edit by Re Irwin, RMA on 06/21/25 09:30 UA Bilirubin 0 mg/dL Last Edit by Re Irwin, RMA on 06/21/25 09:30 UA Glucose 0 mg/dL Last Edit by Re Irwin, RMA on 06/21/25 09:30 Results Reviewed Results Reviewed: Laboratory Last Values Urine pH (Auto) 5.5 06/21/25 09:30 Specific [place] (Auto) 1.015 06/21/25 09:30 Urine Protein (Auto) 30 mg/dL 06/21/25 09:30 Glucose (UA)(Auto) 0 mg/dL 06/21/25 09:30 Urine Ketones (Auto) Negative 06/21/25 09:30 Urine Blood (Auto) 10 Rodney/uL 06/21/25 09:30 Urine Nitrite (Auto) Negative 06/21/25 09:30 Urine Bilirubin (Auto) 0 mg/dL 06/21/25 09:30 Urine Urobilinogen (Auto) 0.2 mg/dL 06/21/25 09:30 Leukocyte Esterase (Auto) 0 Lexa/uL 06/21/25 09:30 Assessment & Plan Assessment & Plan (1) Hematuria: Code(s): R31.9 - Hematuria, unspecified Category: Medical Qualifiers: Hematuria type: gross Qualified Code(s): R31.0 - Gross hematuria Plan Six-month follow-up check UA Orders: Orders AMB Cystoscopy Today R31.0 - Gross hematuria AMB Urinalysis Automated Today Z13.9 - Encounter for screening, unspecified Patient Instructions: This note is constructed using voice recognition software. While every effort has been made to ensure accuracy social organization professor errors may have been included. Imaging studies, laboratory and physical exam results were discussed and reviewed in detail. No major barriers to patient understanding were identified. An opportunity to ask questions regarding the treatment plan was provided. All questions were answered. The patient expressed understanding and agreement with the above treatment plan. The patient is aware they should contact our office by phone for worsening of their current condition or the appearance of new urologic symptoms. Compliance is encouraged with any medications and followup testing that is ordered. It is a privilege to participate in the urologic care of your patient. If you have any questions or concerns regarding treatment for the above conditions, or other urologic issues, please do not hesitate to contact me. The office telephone contact is [phone]. Sincerely, Dr Doug Bearden MD, [facility] - Urology Compassionate Specialist Care for the Genitourinary System Coding Level of Care Code Est Pt Level 3 (28112) Diagnoses Gross hematuria R31.0 Hematuria type: gross CPT Codes Cystoscopy - CPT: 87283-Avhljzeewg ([id number])
--- OUTSIDE RECORDS SUMMARY | 2025-06-21 09:36 | XMS_ITS | Clinical Summary ---
Author Organization [facility] Address [address] [place] [address] Phone Care Team Providers Care Engineering Program Manager Name Role Phone Duong Pradhan Primary Care [...] failure,Stage 3b chronic kidney disease (HCC),Hypertension,Hyperk alemia 08825 Units IJ Every 14 days 05/16/2021 Active Epoetin Adolfo-epbx solution 40,000 UnitsIndications:Anemia of chronic renal failure 00474 Units IJ Once 02/24/2022 Active Active Problems Problem Noted Date Diagnosed Date Unqualified visual loss, both eyes 07/17/2023 07/17/2023 Long-term current use of anticoagulant 3 07/17/2023 Localized swelling, mass and lump, left lower li mb 07/17/2023 07/17/2023 Lipomatosis 07/17/2023 07/17/2023 Lipoma of knee and popliteal area 07/17/2023 07/17/2023 Hyperlipidemia 07/17/2023 07/17/2023 History of artificial heart valve 07/17/2023 Overview (07/17/2023): Jun 20, 2021 Entered By: [...] Visual disturbance 08/10/2009 07/17/2023 Undiagnosed cardiac murmurs 08/10/200903/2023 Resolved Problems Problem Noted Date Diagnosed Date [...] age to complete this topic Insurance Medicare [facility] Medicare Unicare Care Teams Engineering Program Manager Relationship Specialty Start Date End Date Duong Pradhan PCP - General Family Medicine 11/18/22
== END 2025-06-21 10:08 | disposition home or self-care (01) ==
LOC: HO.HUSH 09:01
PROVIDERS: PCP Hospitalist; Visit Provider Urology
DX: R31.0 Gross hematuria (principal)
CPT/HCPCS: 52000; 99213

== ENCOUNTER → 2025-06-21 09:01 | Outpatient (BNVA) | payer MEDICARE, OTHER, SELFPAY | PROVIDERS: PCP Hospitalist; Visit Provider Urology | DX: R31.0 Gross hematuria (principal); N28.1 Cyst of kidney, acquired; I12.9 Hypertensive chronic kidney disease with stage 1 through stage 4 chronic kidney disease, or unspecified chronic kidney disease; N18.32 Chronic kidney disease, stage 3b; D63.1 Anemia in chronic kidney disease; Z90.5 Acquired absence of kidney; Z13.9 Encounter for screening, unspecified; Z79.01 Long term (current) use of anticoagulants | CPT/HCPCS: 52000; 81003; 99212 ==

== ENCOUNTER 2025-07-25 12:07 | Outpatient (REF) | payer MEDICARE, OTHER, SELFPAY ==
[2025-07-25 13:32] LABS: Anion Gap 17 (12-20); Blood Urea Nitrogen 113 mg/dL (9-16); Carbon Dioxide 23 mmol/L (22-29); Chloride 107 mmol/L (96-108); Estimated Glomerular Filt Rate 14; Potassium 4.7 mmol/L (3.3-5.1); Sodium 142 mmol/L (135-145)
== END 2025-07-25 12:08 | disposition home or self-care (01) ==
LOC: HO.LAB 12:07
PROVIDERS: PCP Hospitalist; Visit Provider Internal Medicine Nephrology
DX: N17.9 Acute kidney failure, unspecified (principal)
CPT/HCPCS: 36415; 80051; 82565; 84520

== ENCOUNTER 2025-07-27 13:52 | Outpatient (AMB) | payer MEDICARE, OTHER, SELFPAY ==
--- NOTE | 2025-07-27 14:11 | HO.NEPHOV ---
Vital Signs 07/27/25 14:18 Height 6 ft Weight 182 lb 2 oz BMI 24.7 BP 110/60 Blood Pressure Location Lt brachial Position Sitting Intake Visit Reasons: 6 WKS F/U W/ LABS-Conf Subject Scientific Research Required: No Accompanied by: Self / Same As Patient Allergies No Known Allergies (No Known Allergies*) Allergy (Verified 07/27/25 14:18) HPI Comments Details: Basilio who was accompanied by his in the office today for follow up of CKD and Hematuria. He has chronic kidney disease on a background of acquired solitary kidney following nephrectomy. He has been on Eliquis for A Fib. He himself has reduced the dose of Elquis with resolution of hematuria in the past but has been having recurrence of the hematuria. He has had Procrit injections in the past. He has no orthostatic symptoms, chest tightness, abdominal distention, paroxysmal nocturnal dyspnea, orthopnea, urinary symptoms but has been having weight gain and edema. He does not consume excessive sodium in the diet. He has no night sweats or weight loss. 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 He had CT scan abdomen followed by MRI in the past which showed complex cyst and had seen Urology. 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 Hypertension Chronic kidney disease, stage 3b Surgical History History of nephrectomy Review of Systems Const All systems reviewed & are unremarkable except as noted in HPI and below Physical Exam Const General: comfortable and no acute distress Orientation/consciousness: patient oriented x3 HEENT Head: Yes normocephalic Mouth: Normal oral and palatal mucosa present Eyes EOM: EOMs intact bilaterally Neck Neck: Yes supple Resp Auscultation: clear to auscultation bilaterally Cardio Jugular venous distension: JVD Rate: regular rate Heart sounds: Murmur heart sound present GI Palpation (GI): Soft to palpation Auscultation: normal bowel sounds General: Yes no CVA tenderness Back/Spine/Pelvis Back: no CVA tenderness Skin General skin exam: no rashes or lesions noted Neuro General: patient oriented x3 and moves all extremities Extrem General: Yes edema Results Reviewed Nephrology Results: Sodium, (135-145) 142 mmol/L 07/25/25 Potassium, (3.3-5.1) 4.7 mmol/L 07/25/25 Chloride, (96-108) 107 mmol/L 07/25/25 Carbon Dioxide, (22-29) 23 mmol/L 07/25/25 BUN, (9-16) 113 mg/dL H 07/25/25 Creatinine, (0.5-1.4) 3.99 mg/dL H 07/25/25 Assessment & Plan Assessment & Plan (1) Chronic kidney disease, stage 3b: Code(s): N18.32 - Chronic kidney disease, stage 3b Category: Medical (2) Hypertension: Code(s): I10 - Essential (primary) hypertension Category: Medical Qualifiers: Hypertension type: primary hypertension Qualified Code(s): I10 - Essential (primary) hypertension (3) Anemia in chronic kidney disease: Code(s): N18.9 - Chronic kidney disease, unspecified; D63.1 - Anemia in chronic kidney disease Category: Medical Qualifiers: Chronic kidney disease stage: stage 3 (moderate) Chronic kidney disease stage 3 subtype: stage 3b (GFR 30-44) Qualified Code(s): N18.32 - Chronic kidney disease, stage 3b; D63.1 - Anemia in chronic kidney disease (4) Acquired solitary kidney: Code(s): Z90.5 - Acquired absence of kidney Category: Medical (5) AMBER (acute kidney injury): Code(s): N17.9 - Acute kidney failure, unspecified Category: Medical Plan Basilio has AMBER on CKD. He had undergone nephrectomy for renal cell cancer. He is hypervolemic with weight gain and AMBER. DDX- CR syndrome vs progression of renal disease. I increased his torsemide to 40 mg daily and added spironolactone 12.5 mg daily. Repeat labs ordered in a week. He likely will need hospitalization, IV diuretics and ECHO. He does not consume excessive sodium in the diet. We shall avoid ZULEMA inhibitor or ARB for now. He had gotten Procrit injections in the past. He will need F/U MRI as well. Follow-up appointment given Orders: Orders Albumin Level 1 Week D63.1 - Anemia in chronic kidney disease, I10 - Essential (primary) hypertension, N17.9 - Acute kidney failure, unspecified, N18.32 - Chronic kidney disease, stage 3b, Z90.5 - Acquired absence of kidney Blood Urea Nitrogen 1 Week D63.1 - Anemia in chronic kidney disease, I10 - Essential (primary) hypertension, N17.9 - Acute kidney failure, unspecified, N18.32 - Chronic kidney disease, stage 3b, Z90.5 - Acquired absence of kidney Aspartate Amino Transferase 1 Week D63.1 - Anemia in chronic kidney disease, I10 - Essential (primary) hypertension, N17.9 - Acute kidney failure, unspecified, N18.32 - Chronic kidney disease, stage 3b, Z90.5 - Acquired absence of kidney Alanine Aminotransferase 1 Week D63.1 - Anemia in chronic kidney disease, I10 - Essential (primary) hypertension, N17.9 - Acute kidney failure, unspecified, N18.32 - Chronic kidney disease, stage 3b, Z90.5 - Acquired absence of kidney Protein Creatinine Ratio, Ur 1 Week D63.1 - Anemia in chronic kidney disease, I10 - Essential (primary) hypertension, N17.9 - Acute kidney failure, unspecified, N18.32 - Chronic kidney disease, stage 3b, Z90.5 - Acquired absence of kidney Electrolytes 1 Week D63.1 - Anemia in chronic kidney disease, I10 - Essential (primary) hypertension, N17.9 - Acute kidney failure, unspecified, N18.32 - Chronic kidney disease, stage 3b, Z90.5 - Acquired absence of kidney Creatinine 1 Week D63.1 - Anemia in chronic kidney disease, I10 - Essential (primary) hypertension, N17.9 - Acute kidney failure, unspecified, N18.32 - Chronic kidney disease, stage 3b, Z90.5 - Acquired absence of kidney Medications: New spironolactone 12.5 mg (1/2 x 25 mg) PO DAILY 2 weeks 10 tabs 0RF spironolactone 12.5 mg (1/2 x 25 mg) PO DAILY 10 tabs 0RF 2 weeks Coding Level of Care Code Est Pt Level 4 (75143) Diagnoses Chronic kidney disease, stage 3b N18.32 Primary hypertension I10 Hypertension type: primary hypertension Anemia in stage 3b chronic kidney disease N18.32; D63.1 Chronic kidney disease stage: stage 3 (moderate) Chronic kidney disease stage 3 subtype: stage 3b (GFR 30-44) Acquired solitary kidney Z90.5 AMBER (acute kidney injury) N17.9
[2025-07-27 14:18] VITALS: BP 110/60; BMI 24.7
--- OUTSIDE RECORDS SUMMARY | 2025-07-27 18:06 | XMS_ITS | Clinical Summary ---
Author Organization [facility] Address [address] [facility] [address] [place] [address] Phone Care Team Providers Care Hand Stapler Name Role Phone Duong Pradhan Primary Care Provider [phone] Allergies No known active allergies Medications apixaban [...] failure,Stage 3b chronic kidney disease (HCC),Hypertension,Hyperk alemia 01602 Units IJ Every 14 days 05/16/2021 Active Epoetin Adolfo-epbx solution 40,000 UnitsIndications:Anemia of chronic renal failure 93515 Units IJ Once 02/24/2022 Active Active Problems [...] age to complete this topic Insurance Medicare [facility] Medicare Unicare Care Teams Hand Stapler Relationship Specialty Start Date End Date Duong Pradhan PCP - General Family Medicine 11/18/22
== END 2025-07-27 14:45 | disposition home or self-care (01) ==
LOC: HO.HKAS 13:53
PROVIDERS: PCP Hospitalist; Visit Provider Internal Medicine Nephrology
DX: N18.32 Chronic kidney disease, stage 3b (principal); I10 Essential (primary) hypertension; D63.1 Anemia in chronic kidney disease; Z90.5 Acquired absence of kidney; N17.9 Acute kidney failure, unspecified
CPT/HCPCS: 99214

== ENCOUNTER → 2025-07-27 13:52 | Outpatient (BNVA) | payer MEDICARE, OTHER, SELFPAY | PROVIDERS: PCP Hospitalist; Visit Provider Internal Medicine Nephrology | DX: I12.9 Hypertensive chronic kidney disease with stage 1 through stage 4 chronic kidney disease, or unspecified chronic kidney disease (principal); N18.32 Chronic kidney disease, stage 3b; Z90.5 Acquired absence of kidney; D63.1 Anemia in chronic kidney disease; Z85.528 Personal history of other malignant neoplasm of kidney; N17.9 Acute kidney failure, unspecified | CPT/HCPCS: 99212 ==

== ENCOUNTER 2025-07-31 10:35 | Inpatient (IN) | payer MEDICARE, OTHER, SELFPAY ==
[2025-07-31] VITALS (7 sets, daily range): BP systolic 113–141; BP diastolic 58–84; PULSE 55–62; RESP 14–18; TEMP 36.4–36.8; O2SAT 97–100; BMI 23.5
--- NOTE | ~2025-07-31 | XR_ITS ---
EXAMINATION: XR CHEST 1 VIEW HISTORY: Fluid overload? legs swollen COMPARISON: Comparison is made with the prior examination dated 10/10/2017. FINDINGS: Two AP portable views of the chest performed at 11:07 AM are submitted. There is a calcified granuloma in the left upper lobe. There is scarring at the right lung base. There are no focal airspace opacities. There is no pleural effusion, pneumothorax, or pulmonary vascular congestion. The heart is enlarged. The patient is status post median sternotomy. The aorta is calcified. There is degenerative disc disease of the spine. XR/XR chest 1V IMPRESSION: Cardiomegaly. No acute cardiopulmonary abnormality. Electronically signed by: Joaquin Paz MD 07/31/2025 11:12 AM [facility]
--- NOTE | ~2025-07-31 | US_ITS ---
EXAMINATION: US GUIDED PARACENTESIS CLINICAL INFORMATION: Of ascites. COMPARISON: Ultrasound abdomen 08/01/2025. TECHNIQUE: Following explaining ultrasound-guided paracentesis procedure, benefits and risk, a written consent was obtained. Patient was placed supine on fluoroscopy table and preliminary ultrasound imaging was obtained through the abdomen. An optimal site was selected along the right lower quadrant and marker placed on the skin. The marked site was cleaned and draped in usual sterile manner. 1% lidocaine was injected puncture site. Through a small skin incision a 5 La[place] GupShupeh catheter was advanced from the skin into the peritoneal space. After observing fluid return, stylet was withdrawn and catheter connected to vacuum bottle via connecting cannula. After obtaining all fluid and observing normal fluid return, catheter was withdrawn and complete hemostasis achieved at puncture site. Sterile dressing applied post procedure. Patient tolerated procedure extremely well. FINDINGS: On preliminary ultrasound imaging there is moderate ascites noted. Approximately 3 L of fluid was drained from the right lower quadrant. US/US paracentesis abd w/image IMPRESSION: Successful ultrasound-guided therapeutic paracentesis performed. None of this fluid was sent to lab. Electronically signed by: Carson Huang MD 08/15/2025 12:56 PM EST
--- NOTE | ~2025-07-31 | US_ITS ---
EXAMINATION: US KIDNEY BILATERAL HISTORY: Acute on CKD TECHNIQUE: Real-time grayscale ultrasound imaging of the kidneys was performed and images were reviewed. COMPARISON: Correlation is made with an unenhanced CT of the abdomen dated 01/27/2025 and an MRI of the abdomen dated 01/11/2025. FINDINGS: Right kidney: The right kidney is surgically absent. Left Kidney: The left kidney measures 17.3 x 6.3 x 7.1 cm. Renal parenchymal echotexture and thickness are normal. There is a 3.9 x 2.8 x 2.6 cm cortical cyst. The upper pole mass noted on CT and MRI is not well-defined by ultrasound. No calculi are identified. There is mild hydronephrosis. Incidental note is made of a small amount of abdominal ascites and a small left pleural effusion. US/US renal BI IMPRESSION: 1. Status post right nephrectomy. 2. Mild left hydronephrosis. 3. The left upper pole renal mass noted on prior imaging is poorly visualized by ultrasound. Electronically signed by: Joaquin Paz MD 08/01/2025 07:02 AM [facility]
--- NOTE | ~2025-07-31 | CT_ITS ---
EXAMINATION: CT ABDOMEN PELVIS WITHOUT IV CONTRAST HISTORY: solitary kidney, AMBER COMPARISON: Comparison is made with the prior examination dated 01/10/2025. TECHNIQUE: CT scan of the abdomen and pelvis was performed without contrast using standard departmental protocol. Coronal and sagittal reformatted images were generated and reviewed. Oral contrast material was not administered per department protocol. This CT exam was performed with one or more of the following dose reduction techniques: automated exposure control, adjustment of the mA and/or kV according to patient size, use of iterative reconstruction technique. DLP: 393 mGy-cm FINDINGS: LOWER CHEST: There is subsegmental atelectasis at the right lung base.. There is us small right pleural effusion and a trace left pleural effusion. CARDIOVASCULATURE: The heart is enlarged. There is no pericardial effusion. LIVER: The liver demonstrates a nodular contour, consistent with cirrhosis. There is a recannulized paraumbilical vein. GALLBLADDER / BILE DUCTS: The gallbladder is unremarkable. There is no intra or extrahepatic biliary ductal dilatation. SPLEEN: The spleen is normal in size and has an unremarkable unenhanced appearance. PANCREAS: The pancreas has an unremarkable unenhanced appearance. ADRENAL GLANDS: Unremarkable. KIDNEYS/RETROPERITONEUM: The patient is status post right nephrectomy. Again seen is an ill-defined mass at the upper pole of the left kidney, previously evaluated with MRI. There is a 3.5 cm cyst at the upper pole of the lobe left kidney. There is mild hydronephrosis. The ureter is normal in caliber. No obstructing calculus is identified. LYMPH NODES: No retroperitoneal lymphadenopathy is identified in the abdomen or pelvis. VASCULATURE: The abdominal aorta demonstrates atherosclerotic calcification, but is normal in caliber. MESENTERY/PERITONEUM: There is a small to moderate amount of abdominal ascites. There is no free intraperitoneal gas. STOMACH: The stomach is collapsed, limiting evaluation. SMALL BOWEL: The small bowel is normal in caliber. COLON: There is extensive diverticulosis of the colon, without evidence of diverticulitis. APPENDIX: The appendix is not seen, however no inflammatory changes are seen adjacent to the cecum. URINARY BLADDER/PELVIC ORGANS: The urinary bladder is unremarkable. The prostate is mildly enlarged. BONES / SOFT TISSUES: There is degenerative disc disease of the spine. CT/CT kidney stone IMPRESSION: 1. Mild left hydronephrosis without hydroureter. No obstructing calculus is identified. 2. Ill-defined mass at the upper pole of the left kidney as seen on prior imaging. 3. Cirrhosis of the liver with a small to moderate amount of abdominal ascites. Electronically signed by: Joaquin Paz MD 08/02/2025 07:48 AM [facility] [place]
--- NOTE | ~2025-07-31 | US_ITS ---
EXAMINATION: US ABDOMEN HISTORY: hepatic cirrhosis/ portal htn/ ascites? TECHNIQUE: Real-time grayscale ultrasound imaging of the 4 quadrants of the abdomen was performed to assess for ascites. COMPARISON: Correlation is made with a CT of the abdomen dated 01/10/2025. FINDINGS: There is a moderate amount of abdominal ascites. US/US abdomen complete IMPRESSION: Moderate amount of abdominal ascites. Electronically signed by: Joaquin Paz MD 08/01/2025 11:33 AM [facility]
--- NOTE | ~2025-07-31 | XR_ITS ---
EXAMINATION: XR CHEST CLINICAL INFORMATION: b/l le edema, lateral view only COMPARISON: Frontal x-ray from earlier same day and October 10, 2017 TECHNIQUE: Lateral view of the chest was obtained. FINDINGS: There is an aortic valve prosthesis. There is minimal blunting of posterior costophrenic angles. There is trace thickening or fluid along the major fissure. Atherosclerotic calcification is visible in the aorta. There are mediastinal wires. Surgical clips are demonstrated anterior to the root of the aorta likely related to prior CABG. Moderate degenerative changes are evident in the thoracic spine. XR/XR chest 1V IMPRESSION: Mild blunting of posterior costophrenic angles could be related to trace effusions or pleural thickening. Aortic valve prosthesis. Electronically signed by: Deon Charles MD 07/31/2025 11:35 AM [facility]
--- NOTE | 2025-07-31 10:58 | ECG_ITS ---
Test Reason : swelling Blood Pressure : */* mmHG Vent. Rate : 59 BPM Atrial Rate : * BPM P-R Int : * ms QRS Dur : 128 ms QT Int : 460 ms P-R-T Axes : * -57 123 degrees QTcB Int : 455 ms Atrial fibrillation with slow ventricular response Left axis deviation Non-specific intra-ventricular conduction block Minimal voltage criteria for LVH, may be normal variant ( Lynch product ) T wave abnormality, consider lateral ischemia Abnormal ECG When compared with ECG of 10-Oct-2017 14:22, No significant change was found Referred By: Michael Villalobos Electronically Signed By: LAVINIA MENENDEZ MD
--- NOTE | 2025-07-31 10:58 | ED_ITS ---
HPI - General Adult General Chief complaint: General Medical Stated complaint: Kidney Care Time Seen by Provider: 07/31/25 11:04 Source: patient, RN notes reviewed and old records reviewed Mode of arrival: ambulatory History of Present Illness ED Provider: Yenifer Schmid PA-C HPI narrative: 89-year-old male with a past medical history HTN, iron deficiency anemia, CKD, acquired solitary kidney, renal cell carcinoma s/p nephrectomy, AFib on Eliquis, presenting to the ED complaining of worsening diffuse swelling since Thanksgiving - admit to started on 40 mg Lasix by Nephrology on 07/27 without improvement. Denies SOB, CP, fevers/chills Related Data Home Medications ?Medication ?Instructions ?Recorded ?Confirmed apixaban 5 mg tablet (Eliquis) 2.5 mg PO BID 11/25/23 07/31/25 carboxymethylcellulose sodium 0.5 1 drp ophthalmic (ey e) QID PRN Dry 11/16/24 07/31/25 % eye drops in a dropperette Eye(S) carvedilol 12.5 mg tablet 6.25 mg PO BID 11/16/2407/11 cyclosporine 0.05 % eye drops in a 1 drp ophthalmic (e ye) BID 11/16/24 07/31/25 dropperette ipratropium bromide 42 mcg (0.06 1 spray intranasal DA AILYN 11/16/24 07/31/25 %) nasal spray vitamin B complex 1 tab PO DAILY 11/16/2407/11 cholecalciferol (vitamin D3) 25 25 mcg PO DAILY 07/31/25 mcg (1,000 unit) capsule isosorbide mononitrate 30 mg 90 mg PO DAILY 07/31/25 1 10/01/24 tablet,extended release 24 hr vit C 250 mg-vit E 90 mg-zinc 40 1 tab PO BID 07/31/25 07/31/25 mg-copper 1 [id number] capsule (PreserVision AREDS-2) Previous Rx's ?Medication ?Instructions ?Recorded spironolactone 25 mg tablet 12.5 mg (1/2 x 25 mg) PO D AILY 2 07/27/25 weeks #10 tabs empagliflozin 10 mg tablet 10 mg PO DAILY 30 days #30 tabs 08/02/25 (Jardiance) torsemide 20 mg tablet 20 mg PO DAILY 30 days #30 t abs 08/02/25 Allergies Allergy/AdvReac Type Severity Reaction Status Date / Time No Known Allergies (No Known Allergy Verified 07/31/25 10:50 Allergies*) Review of Systems 2 Review of Systems: Yes all other systems are reviewed and are negative Constitutional: Constitutional: Reports as per [facility] Past Medical History Attestation statement: The following information was validated with the patient. Source: old records reviewed Medical History Left kidney mass Iron deficiency Acquired solitary kidney Anemia in chronic kidney disease Renal cell cancer Hypertension Chronic kidney disease, stage 3b Surgical History History of nephrectomy Social History Social History Household Members: Spouse Housing: House Do you presently have visiting nurse or other home services: No Patient Tobacco Use Status: Never used Tobacco service: Yes Physical Exam ED Vital Signs: Vital Signs - 24 hr 07/31/25 10:47 07/31/25 11:43 07/31/25 12:11 Temperature 97.5 F 97.9 F Pulse Rate 55 62 Respiratory Rate 16 14 Blood Pressure 113/58 L 141/72 H 129/64 Pulse Oximetry 99 100 Oxygen Delivery Method Room Air Room Air BMI result Body Mass Index 23.5 Const General: cooperative, healthy appearing and no acute distress Orientation/consciousness: patient oriented x3 Limitations: no limitations [facility] Head: Yes normal to inspection and Yes atraumatic Ears: hearing grossly normal bilaterally General nose exam: Normal external nose present Face and sinus: Yes normal facial exam Eyes General: appearance normal, both eyes and all related structures EOM: EOMs intact bilaterally Neck Neck: Yes normal visual inspection and Yes no meningeal signs Resp Effort & Inspection: normal respiratory effort and no respiratory distress Auscultation: clear to auscultation bilaterally Cardio Rate: regular rate Heart sounds: S1 normal heart sound present and S2 normal heart sound present GI Other: + anasarca Inspection: Yes normal to inspection and Yes distended Palpation (GI): Soft to palpation, nontender, no guarding and not rigid General: Yes no CVA tenderness Back/Spine/Pelvis Back: no CVA tenderness Skin Rashes: no rashes Wounds: no wounds Neuro General: patient oriented x3, tone normal and no meningeal signs Cranial nerves: Yes CN's II-XII intact bilaterally Gait exam (Neuro): Normal gait present Extrem General: Yes edema (4+ bilateral LE pitting edema) Course Course Course Narrative: RME: 89 year male presents to ED for generalized swelling especially in bilateral lower extremities without any shortness of breath. Patient is placed on what to put by PCP but with no improvement. Patient states history of kidney disease but not on dialysis. Labs imaging EKG ordered 12:22 PM 07/31/2025 (Yenifer Schmid PA-C): + AMBER on CKD with a BUN of 123 / creatinine of 4.15 - troponin 63.3 likely from renal dysfunction. BNP elevated to 21,541 XR chest 1V IMPRESSION: Cardiomegaly. No acute cardiopulmonary abnormality. XR chest 1V IMPRESSION: Mild blunting of posterior costophrenic angles could be related to trace effusions or pleural thickening. Aortic valve prosthesis. > plan to admit for further management Medications Administered Discontinued Medications Generic Name Dose Route Start Last Admin Trade Name Freq PRN Reason Stop Dose Admin Empagliflozin 10 mg 08/02/25 12:45 08/02/25 12:56 Empagliflozin 10 Mg Tablet PO 10 mg DAILY RENE Administration Furosemide 80 mg 07/31/25 11:17 07/31/25 11:43 Furosemide 100 Mg/10 Ml Vial IVPUSH 07/31/25 11:18 80 mg ONCE ONE Administration Protocol Furosemide 200 mg/ Sodium 100 mls @ 2.5 mls/hr 07/31/25 14:00 08/02/25 11:10 Chloride IVCONT 0 mg/hr .Q24H RENE 0 mls/hr 5 MG/HR Infusion Lidocaine HCl 5 ml 08/01/25 16:33 08/01/25 16:34 Lidocaine Hcl 1 % Mpf 5 Ml Vial SUBCUT 08/01/25 16:34 5 ml ONCE ONE Administration Metolazone 2.5 mg 07/31/25 13:23 07/31/25 14:46 Metolazone 2.5 Mg Tablet PO 07/31/25 13:24 2.5 mg ONCE ONE Administration Sodium Chloride 3 ml 07/31/25 16:00 08/02/25 08:48 0.9 % Sodium Chloride Flush 3 Ml Syringe IVFLUSH Not Given QSHIFT REPLACED BY [facility] Medical Decision Making Medical Decision Making [facility] Narrative: 89-year-old male with a past medical history HTN, iron deficiency anemia, CKD, acquired solitary kidney, renal cell carcinoma s/p nephrectomy, AFib on Eliquis, presenting to the ED complaining of worsening diffuse swelling since Thanksgiving - admit to started on 40 mg Lasix by Nephrology on 07/27 without improvement. on exam vital signs stable, NAD, nontoxic. For physical exam as noted above with diffuse anasarca /abdominal distention and 4+ bilateral LE pitting edema. Concern for anasarca covers AMBER on CKD vs CHF. Low suspicion for DVT/PE - patient is anticoagulated and asymptomatic in that regard. Plan: EKG, labs, CXR, admission Please refer to course for remaining clinical decision making, interpretation of labs/imaging results, and discussions with consultants and/or family members. Differential Diagnosis Differential Diagnoses: The differential diagnosis associated with the presentation includes As above Admission/Observation Consideration of admission/observation: Escalation of care including admission/observation considered Lab Data [facility] Lab Attestation statement: I reviewed the patient's lab results. 08/02/25 08:09 08/02/25 06:09 Labs: Lab Results 07/31/25 Range/Units 11:19 WBC 3.2 L (4.8-10.8) X10*3/uL RBC 3.57 L D (4.60-5.80) X10*6/uL Hgb 10.2 L D (14.0-18.0) g/dl Hct 32.2 L D (42.0-52.0) % MCV 90.2 (80.0-98.0) fL MCH 28.6 (27.0-33.0) pg MCHC 31.7 (31.0-36.0) g/dl RDW 16.3 H (11.0-16.0) % Plt Count 87 L (160-400) X10*3/uL MPV 11.2 (9.4-12.4) fL Immature Gran % (Auto) 0.6 H (0.0-0.4) % Neut % (Auto) 71.7 (45-73) % Lymph % (Auto) 12.3 L (20-40) % Rolette % (Auto) 12.9 H (2-11) % Eos % (Auto) 2.2 (0-4) % Baso % (Auto) 0.3 (0-2) % Lymph # (Auto) 0.4 L (1.2-4.9) X10*3/uL Rolette # (Auto) 0.4 (0.1-1.2) X10*3/uL Eos # (Auto) 0.1 (0.0-0.4) X10*3/uL Baso # (Auto) 0.0 (0.0-0.2) X10*3/uL Abs Immat Gran (auto) 0.02 (0.00-0.03) X10*3/uL Absolute Neuts (auto) 2.3 (2.0-8.3) x10*3/uL Absolute Nucleated RBC 0.000 (0.0-0.012) X10*3/uL Nucleated RBC % (auto) 0.0 (0.0-0.2) /100WBC PT 19.3 H (11.2-13.5) SEC INR 1.6 H (0.9-1.1) Sodium 142 (135-145) mmol/L Potassium 4.4 (3.3-5.1) mmol/L Chloride 107 (96-108) mmol/L Carbon Dioxide 24 (22-29) mmol/L Anion Gap 15 (12-20) BUN 123 H (9-16) mg/dL Creatinine 4.15 H* (0.5-1.4) mg/dL Estim Creat Clear Calc 13.5 Estimated GFR 14 Random Glucose 106 (60-115) mg/dL Calcium 8.9 (8.4-10.2) mg/dL Magnesium 2.2 (1.6-2.6) mg/dL Total Bilirubin 0.8 (0.0-1.0) mg/dL AST 20 (5-37) U/L ALT 8 (0-40) U/L Alkaline Phosphatase 58 (39-117) U/L Troponin I High Sens 63.3 H (<3.5-35.0) ng/L NT-Pro-B Natriuret Pep 45879.2 H (<300) pg/mL Total Protein 7.1 (6.5-8.0) g/dL Albumin 3.9 (3.5-5.0) g/dL Independent Interpretation I performed an independent interpretation of an: EKG and Plain X-Ray Radiology Impression Discussion of test interpretation with radiology: I have reviewed the radiologist's reading. Independent Historian Clinical information obtained from an independent historian. History obtained from or confirmed by: Spouse External Record Review External record reviewed: Inpatient record, Office record, Outpatient record, Prior outpatient labs, Prior outpatient radiology, Primary care record and Outside ED record Tests considered The following testing was considered but not selected: As above Prescription Management I considered prescription management with: Other Chronic Conditions Patient?s care impacted by: Cancer and Other ( CKD, HTN) Social Determinants Patient?s care significantly limited by Social Determinants of Health including: Other Social Determinant of Health Critical Care Time Critical Care Time Critical Care Time: Yes Total Critical Care Time: 40 Attestation: I have personally provided critical care time exclusive of time spent on separately billable procedures. Time includes review of lab data, radiology results, discussion with consultants, and monitoring for potential decompensation. Intervention performed as documented. Discharge Plan Discharge Clinical Impression: Anasarca, Acute kidney injury superimposed on CKD, CHF (congestive heart failure) Patient Disposition: Admitted As Inpatient Interventions: Admission Worksheet (ED) Last Done: 07/31/25 15:06 Discharge Date/Time: 07/31/25 17:08
[2025-07-31 11:24] LABS: MANUAL DIFF FLAG NO
[2025-07-31 11:31] LABS: INTERNATIONAL NORM RATIO 1.6 (0.9-1.1); Prothrombin Time 19.3 SEC (11.2-13.5)
[2025-07-31 11:34] LABS: Hematocrit 32.2 % (42.0-52.0); Hemoglobin 10.2 g/dl (14.0-18.0); Imm Gran Abs Auto 0.02 X10*3/uL (0.00-0.03); Imm Gran Pct Auto 0.6 % (0.0-0.4); Lymphocytes Absolute Auto 0.4 X10*3/uL (1.2-4.9); Mean Corpuscular HGB Conc 31.7 g/dl (31.0-36.0); Mean Corpuscular Hemoglobin 28.6 pg (27.0-33.0); Mean Corpuscular Volume 90.2 fL (80.0-98.0); NRBC Abs Auto 0.000 X10*3/uL (0.0-0.012); NRBC Pct Auto 0.0 /100WBC (0.0-0.2); Red Blood Count 3.57 X10*6/uL (4.60-5.80); White Blood Count 3.2 X10*3/uL (4.8-10.8)
[2025-07-31 11:39] LABS: Platelet Count 87 X10*3/uL (160-400)
[2025-07-31 11:40] LABS: Magnesium 2.2 mg/dL (1.6-2.6)
[2025-07-31] MEDS: Furosemide 100 MG/10 ML VIAL 80 MG IVPUSH (11:43)
[2025-07-31 11:47] LABS: Troponin-I High Sensitivity 63.3 ng/L (<3.5-35.0)
[2025-07-31 11:48] LABS: Alanine Aminotransferase 8 U/L (0-40); Albumin Level 3.9 g/dL (3.5-5.0); Alkaline Phosphatase 58 U/L (39-117); Anion Gap 15 (12-20); Aspartate Amino Transferase 20 U/L (5-37); Blood Urea Nitrogen 123 mg/dL (9-16); Calcium 8.9 mg/dL (8.4-10.2); Carbon Dioxide 24 mmol/L (22-29); Chloride 107 mmol/L (96-108); Potassium 4.4 mmol/L (3.3-5.1); Sodium 142 mmol/L (135-145); Total Protein 7.1 g/dL (6.5-8.0)
[2025-07-31 11:49] LABS: Creatinine Clr Calc Pharmacy 13.5; Estimated Glomerular Filt Rate 14
--- NOTE | 2025-07-31 12:00 | CA_ITS ---
Transthoracic Echocardiogram Patient (Last, First, Middle): Basilio Wilson J Gender: Male Date of : 1935 Age: 89 Procedure Date: 07/31/2025 Procedure Type: Transthoracic Echocardiogram Location: ER Height: 182. cm Weight: 78.47 kg BSA: 2.00 m2 Heart Rate: 62 bpm BP: 121 / 64 mmHg Brand Strategy Manager: MOLLY Machuca MD: Al Adler MD Brand Designer: Gavino Pond MD Symptoms: Heart Failure Study Quality: Adequate ECG Rhythm: Atrial Fibrillation Conclusions: - 1. Normal LV ejection fraction of 55-60% with restrictive filling pattern 2. Dilated right ventricle with mildly to moderately reduced RV systolic function 3. Moderate left and severe right atrial enlargement 4. Bioprosthetic aortic valve with slightly increased mean gradient which may suggest mild stenosis 5. Mild mitral regurgitation 6. Severely elevated right ventricular systolic pressure with significantly elevated right atrial pressures with severe tricuspid regurgitation 7. No gross pericardial effusion Findings Left Ventricle Normal left ventricular size, thickness, and systolic function. The visually estimated ejection fraction is between 55-60%. There is a flattened septum in systole consistent with right ventricular pressure overload. Spectral Doppler is indicative of a restrictive filling pattern. There is mild septal asymmetric hypertrophy. Right Ventricle Moderately increased right ventricular cavity size. There is mildly decreased right ventricular systolic function. Atria The left atrium is moderately dilated. There is no evidence of interatrial shunt. The right atrium is severely dilated. Aortic Valve A bioprosthetic aortic valve is present. There is a doming trileaflet aortic valve. There is moderate calcification of the aortic valve. There is mild aortic valve stenosis. The peak aortic gradient is 26 mmHg.The mean gradient is 14 mmHg. The aortic valve area is 1.38 cm2. There is no aortic valve regurgitation. Mitral Valve There is mild anterior and posterior mitral leaflet thickening. There is mild mitral annular calcification. There is mild mitral valve regurgitation. There is no mitral valve stenosis. Pulmonic Valve The pulmonic valve is likely normal. There is trace to mild pulmonic valve regurgitation. Tricuspid Valve There is severe tricuspid valve regurgitation. The right ventricular systolic pressure is 72 mmHg. Significantly elevated right atrial pressure. Severe pulmonary hypertension is present. Great Vessels All visible segments of the aorta are normal in size. The pulmonary artery was not well visualized. There is no dilatation of the ascending aorta measuring 3.20 cm. Small plaque is seen in the sino tubular ridge. Venous The inferior vena cava is severely dilated and collapses less than 50% with inspiration. Pericardium/Pleural There is no evidence of pericardial effusion. Prior Study Comparison Changes noted compared to prior study dated: 08/19/2017. RV systolic and right atrial pressures are increased Measurements 2D Linear Measurements IVSd: 1.42 0.6-0.9/0.6-1.0 cm LVIDd: 4.45 3.9-5.3/4.2-5.9 cm LVIDd Index: 2.23 2.4-3.2/2.2-3.1 cm/m2 LVIDs: 2.99 2.0-3.6 cm LVPWd: 1.06 0.7-1.1 cm LA Diam: 4.20 2.7-3.8/3.0-4.0 cm LAIDs Index: 2.10 1.5-2.3 cm/m2 LV Mass: 254.48 67-162/88-224 g LV Mass Index: 127.24 43-95/49-115 g/m2 LVOT Diam: 2.20 3.0+(-)1.3 cm 2D Systolic Function EF 4C: 56.60 >55% EF 2C: 59.00 >55% EF BiP: 56.80 >55% Mitral Valve MV Pk E: 1.62 MV PK A: 0.51 MV Decel Time: 139.00 E/A: 3.20 E'Lateral: 12.90 E'Medial: 6.64 E/E' Med: 24.40 E/E' Lat: 12.60 PHT: 41.00 MVA PHT: 5.37 Decel Lincoln: 11.63 Aortic Valve AoV Pk Griffin: 2.57 AoV Mn Griffin: 1.73 AoV VTI: 0.56 AoV Pk Grad: 26.00 Aov Mn Grad: 14.00 OLY Cont.VTI: 1.38 AI Pk Griffin: 2.99 AI Lincoln: 1.49 LVOT LVOT Pk Griffin: 0.90 LVOT Mn Griffin: 0.66 LVOT VTI: 0.21 LVOT Pk Grad: 3.00 LVOT Mn Grad: 2.00 LVOT Diam: 2.20 LVOT Area: 3.80 Diastolic Function MV Pk E: 1.62 MV Pk A: 0.51 E/A: 3.20 E'Medial: 6.64 E/E' Med: 24.40 E' Laterial: 12.90 E/E' Lat: 12.60 Right Ventricle TAPSE (mm): 15.10 TVS' Griffin: 6.96 Tricuspid Valve TR Pk Griffin: 3.78 TR Pk Grad: 57.00 RA Press: 15.00 RVSP: 72.00 Great Vessels Aorta Sinus of Valsalva: 4.00 2.0-3.5 cm Ao Asc: 3.20 2.1-3.4 cm Pulmonary Valve PV Pk Griffin: 1.10 Peak PV Grad: 5.00 Updated in Other Vendor System with Status of Final Gavino Pond MD electronically signed on 08/01/2025 2:36:49 PM with status of Final
--- NOTE | 2025-07-31 12:50 | PM.IMHP ---
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 He presents with approximately one month of progressively worsening, diffuse edema. 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 At his ?s recommendation, he presented to the emergency department for further evaluation. ED evaluation:?BUN 123 mg/dL, creatinine 4.15 mg/dL, troponin 63, BNP 21,541. Chest X-ray demonstrates blunting of the costophrenic angles. ED treatment:?Received furosemide (Lasix) 80 mg IV once with minimal urine output to date Review of Systems Review of Systems: Gen: no fever Resp: no sob, no cough CV: no chest, no SEYMOUR, no leg edema GI: No n/v, no abd pain Neuro: No confusion Yes all other systems are reviewed and are negative [facility] Medical History Left kidney mass Iron deficiency Acquired solitary kidney Anemia in chronic kidney disease Renal cell cancer Hypertension Chronic kidney disease, stage 3b Surgical History History of nephrectomy Social History Household Members: Spouse Housing: House Do you presently have visiting nurse or other home services: No Patient Tobacco Use Status: Never used Tobacco Smoked in Last 30 Days: No Use of substances other than those prescribed or required for medical reasons: No Currently Displaying Signs/Symptoms of Drug Intoxication Withdrawal: No Have you been hit, kicked, punched, or otherwise hurt by someone within the past year? If so, by whom?: No Do you feel safe in your current relationship?: Yes Is there a partner from a previous relationship who is making you feel unsafe now?: No Are you made to feel afraid or neglected: No Advance Directives: No Advance Directives Information Provided: Yes Do you have a plan to hurt others: No Plan Recently lost weight without trying: No Nutrition Risks: No Nutritional Risk service: Yes Meds Allergies Allergy/AdvReac Type Severity Reaction Status Date / Time No Known Allergies (No Known Allergy Verified 07/31/25 10:50 Allergies*) Home Medications ?Medication ?Instructions ?Recorded ?Confirmed ?Last Taken ?Type apixaban 5 mg tablet (Eliquis) 2.5 mg PO BID 11/25/23 07/31/25 Unknown History carboxymethylcellulose sodium 0.5 1 drp ophthalmic (eye) QID PRN Dry 11/16/24 07/31/25 Unknown History % eye drops in a dropperette Eye(S) carvedilol 12.5 mg tablet 6.25 mg PO BID 11/16/24 07/31/25 Unknown History cyclosporine 0.05 % eye drops in a 1 drp ophthalmic (eye) BID 11/16/24 07/31/25 Unknown History dropperette ipratropium bromide 42 mcg (0.06 1 spray intranasal DAILY 11/16/24 07/31/25 Unknown History %) nasal spray vitamin B complex 1 tab PO DAILY 11/16/24 07/31/25 Unknown History cholecalciferol (vitamin D3) 25 25 mcg PO DAILY 01/03/25 07/31/25 Unknown History mcg (1,000 unit) capsule torsemide 10 mg tablet 20 mg PO DAILY 01/03/25 07/31/25 Unknown History isosorbide mononitrate 30 mg 90 mg PO DAILY 07/31/25 07/31/25 Unknown History tablet,extended release 24 hr vit C 250 mg-vit E 90 mg-zinc 40 1 tab PO BID 07/31/25 07/31/25 Unknown History mg-copper 1 [id number] capsule (PreserVision AREDS-2) Physical Exam Vital Signs and Narrative: Vital Signs: Last Vital Signs Temp 97.9 F 07/31/25 12:11 Pulse 62 07/31/25 12:11 Resp 14 07/31/25 12:11 BP 129/64 07/31/25 12:11 Pulse Ox 100 07/31/25 12:11 O2 Del Method Room Air 07/31/25 12:11 BMI result Body Mass Index 23.5 Const: Other: General:?Fully alert, no acute distress Cardiovascular:?Irregularly irregular rhythm, no murmurs,?positive JVD Pulmonary:?Bibasilar rales Abdomen:?Soft, non-tender, no ascites appreciated Extremities:?3+ bilateral lower extremity edema Neurologic:?Alert and oriented, no focal deficits Results Labs 08/01/25 05:54 08/01/25 05:54 Labs: Laboratory Results - last 24 hr 07/31/25 11:19 MCV 90.2 MCH 28.6 MCHC 31.7 RDW 16.3 H Plt Count 87 L MPV 11.2 Immature Gran % (Auto) 0.6 H Neut % (Auto) 71.7 Lymph % (Auto) 12.3 L Bowie % (Auto) 12.9 H Eos % (Auto) 2.2 Baso % (Auto) 0.3 Lymph # (Auto) 0.4 L Bowie # (Auto) 0.4 Eos # (Auto) 0.1 Baso # (Auto) 0.0 Abs Immat Gran (auto) 0.02 Absolute Neuts (auto) 2.3 Absolute Nucleated RBC 0.000 Nucleated RBC % (auto) 0.0 PT 19.3 H INR 1.6 H Anion Gap 15 Estim Creat Clear Calc 13.5 Estimated GFR 14 Random Glucose 106 Calcium 8.9 Magnesium 2.2 Total Bilirubin 0.8 AST 20 ALT 8 Alkaline Phosphatase 58 Troponin I High Sens 63.3 H NT-Pro-B Natriuret Pep 45741.2 H Total Protein 7.1 Albumin 3.9 Imaging Radiologist's Impressions: Impressions Chest X-Ray 07/31/25 11:06 IMPRESSION: Cardiomegaly. No acute cardiopulmonary abnormality. Electronically signed by: Joaquin Paz MD 07/31/2025 11:12 AM EST RP Chest X-Ray 07/31/25 11:20 IMPRESSION: Mild blunting of posterior costophrenic angles could be related to trace effusions or pleural thickening. Aortic valve prosthesis. Electronically signed by: Deon Charles MD 07/31/2025 11:35 AM EST RP Assessment and Plan (1) Cardiorenal syndrome: Status: Acute (2) Acquired solitary kidney: Status: Acute (3) Chronic kidney disease, stage 3b: Status: Acute (4) AMBER (acute kidney injury): Status: Acute Plan 89-year-old male with a history of HTN, iron deficiency anemia, CKD stage 4 with acquired solitary kidney, renal cell carcinoma status post nephrectomy, atrial fibrillation on apixaban, and prior hematuria presents with approximately one month of progressively worsening, diffuse edema. He is found to have decompensated Heart failure/Cardiorenal syndrome/anasarca. Acute decompensated heart failure / volume overload/Cardiorenal syndrome Evidence includes progressive edema, JVD, bibasilar rales, elevated BNP, and pleural effusions on CXR with poor response to oral diuretics. start Lasix drip, +/- metolazone Strict I/O, daily weights Low sodium diet, fluid restriction Monitor electrolytes and renal function closely Cardiology consult and echocardiogram Acute kidney injury on CKD stage 4 (cardiorenal syndrome) Likely multifactorial, including venous congestion and poor renal perfusion in the setting of heart failure. Optimize volume status with cautious diuresis Avoid nephrotoxins Nephrology consultation--discussed with Nat in person Monitor for need for renal replacement therapy if refractory or worsening Atrial fibrillation, chronic Rate controlled, irregularly irregular on exam. Continue apixaban if no active bleeding and renal dosing appropriate Monitor heart rate and telemetry Reassess anticoagulation if renal function worsens or bleeding occurs Elevated troponin d/t CKD Likely demand ischemia in the setting of volume overload and renal dysfunction. Trend troponins Monitor for ischemic symptoms No acute coronary intervention unless clinical change Hypertension Winthin normal, review meds and continue as needed Iron deficiency anemia, anemia of chronic diseae Stable by history. Monitor hemoglobin May need epo in the future History of renal cell carcinoma status post nephrectomy No evidence of acute oncologic issue. Continue routine surveillance as outpatient Disposition: at least 2 midnight admit for management of acute decompensated heart failure with cardiorenal syndrome, close renal and cardiac monitoring, and IV diuresis. Full code DVT prophylaxis: [employer] Stroke Does the patient have a stroke diagnosis?: No VTE Prior VTE?: No VTE Risk Level:: Medical - moderate - high VTE Device Contraindication: Treatment Not Indicated VTE Drug Contraindication: N/A - Med Ordered
[2025-07-31] MEDS: Furosemide 200 MG in 0.9 % Sodium Chloride 80 ML IVCONT (13:50)
--- OUTSIDE RECORDS SUMMARY | 2025-07-31 14:44 | XMS_ITS | Clinical Summary ---
Author Organization [facility] Address [address] [place] [address] Phone Care Team Providers Care Vulnerability Assessment Analyst Name Role Phone Duong Pradhan Primary Care [...] failure,Stage 3b chronic kidney disease (HCC),Hypertension,Hyperk alemia 04774 Units IJ Every 14 days 05/16/2021 Active Epoetin Adolfo-epbx solution 40,000 UnitsIndications:Anemia of chronic renal failure 36340 Units IJ Once 02/24/2022 Active Active Problems [...] age to complete this topic Insurance Medicare Counts Include [facility] Medicare [employer] Care Teams Vulnerability Assessment Analyst Relationship Specialty Start Date End Date Duong Pradhan PCP - General Family Medicine 11/18/22
--- NOTE | 2025-07-31 16:05 | PHA.MEDREC ---
Pharmacy Consult ? Medication Reconciliation Pharmacy has completed the medication reconciliation. Med list obtained from [place]
--- NOTE | 2025-07-31 20:47 | PM.CNNEP ---
History of Present Illness Reason for Consult Consult date: 08/01/25 Reason for consult: Acute on CKD Chief Complaint Chief complaint: CHF History of Present Illness Narrative: 89-year-old gentleman with history of CKD stage 5, status post right nephrectomy, atrial fibrillation on anticoagulation was seen by Dr. Diaz in the clinic where he was grossly edematous so was sent to the ED. He was found to have pulmonary edema, across anasarca renal ultrasound showed mild left-sided hydronephrosis, status post nephrectomy on the right. Labs showing creatinine up to 3.99. Review of Systems Review of Systems Const : no body aches, no chills, no excessive sweating and no fatigue Eyes: no blurry vision and no change in vision ENT: no bleeding gums and no change in voice, no dizziness Card: no chest pain, no shortness of breath, no orthopnea, no PND Resp: no cough, no excessive phlegm production, no SOB GI: no abdominal pain and no nausea, no vomiting : no hematuria, no urinary frequency and no difficulty voiding Musc: no abnormal gait, no bone pain Neuro: no abnormal movements, no weakness, no dizziness, no abnormal gait and no behavioral changes Psych: no behavioral changes and no change in appetite Endo: no change in body appearance, no cold intolerance, no excessive sweating and no fatigue PMFSH Past Medical History Medical History Left kidney mass Iron deficiency Acquired solitary 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 If so, by whom?: No Do you feel safe in your current relationship?: Yes Is there a partner from a previous relationship who is making you feel unsafe now?: No Are you made to feel afraid or neglected: No Advance Directives: No Advance Directives Information Provided: Yes Do you have a plan to hurt others: No Plan Recently lost weight without trying: No Nutrition Risks: No Nutritional Risk service: Yes Meds Allergies Allergy/AdvReac Type Severity Reaction Status Date / Time No Known Allergies (No Known Allergy Verified 07/31/25 10:50 Allergies*) Active Medications: Current Medications Acetaminophen (Acetaminophen 325 Mg Tablet) 650 mg PO Q6H PRN PRN Reason: Pain, Mild 1-3,fever,headache Al Hydroxide/Mg Hydroxide (Magnesium Hydrox/Alum Hydrox 30 Ml Oral.Susp) 30 ml PO Q4H PRN PRN Reason: Heartburn Calcium Carbonate (Calcium Carbonate 750 Mg Tab.Chew) 750 mg PO Q4H PRN PRN Reason: Heartburn Furosemide 200 mg/ Sodium (Chloride) 100 mls @ 2.5 mls/hr IVCONT .Q24H [facility] Last Admin: 07/31/25 13:50 Dose: 5 mg/hr, 2.5 mls/hr Magnesium Hydroxide (Milk Of Magnesia 30 Ml Oral.Susp) 30 ml PO DAILY PRN PRN Reason: Constipation Melatonin (Melatonin 3 Mg Tablet) 6 mg PO BEDTIME PRN PRN Reason: Insomnia Ondansetron HCl (Ondansetron Hcl 4 Mg/2 Ml Vial) 4 mg IVPUSH Q8H PRN PRN Reason: Nausea and Vomiting Polyethylene Glycol (Polyethylene Glycol 3350 17 Gm Powd.Pack) 17 gm PO DAILY PRN PRN Reason: Constipation Sodium Chloride (0.9 % Sodium Chloride Flush 3 Ml Syringe) 3 [facility] Last Admin: 07/31/25 15:40 Dose: Not Given Home Medications ?Medication ?Instructions ?Recorded ?Confirmed ?Last Taken ?Type apixaban 5 mg tablet (Eliquis) 2.5 mg PO BID 11/25/23 07/31/25 Unknown History carboxymethylcellulose sodium 0.5 1 drp ophthalmic (eye) QID PRN Dry 11/16/24 07/31/25 Unknown History % eye drops in a dropperette Eye(S) carvedilol 12.5 mg tablet 6.25 mg PO BID 11/16/24 07/31/25 Unknown History cyclosporine 0.05 % eye drops in a 1 drp ophthalmic (eye) BID 11/16/24 07/31/25 Unknown History dropperette ipratropium bromide 42 mcg (0.06 1 spray intranasal DAILY 11/16/24 07/31/25 Unknown History %) nasal spray vitamin B complex 1 tab PO DAILY 11/16/24 07/31/25 Unknown History cholecalciferol (vitamin D3) 25 25 mcg PO DAILY 01/03/25 07/31/25 Unknown History mcg (1,000 unit) capsule torsemide 10 mg tablet 20 mg PO DAILY 01/03/25 07/31/25 Unknown History isosorbide mononitrate 30 mg 90 mg PO DAILY 07/31/25 07/31/25 Unknown History tablet,extended release 24 hr vit C 250 mg-vit E 90 mg-zinc 40 1 tab PO BID 07/31/25 07/31/25 Unknown History mg-copper 1 [id number] capsule (PreserVision AREDS-2) Physical Exam Vital Signs: Last Vital Signs Temp 98.0 F 07/31/25 20:00 Pulse 62 07/31/25 20:00 Resp 18 07/31/25 20:00 BP 123/75 07/31/25 20:00 Pulse Ox 97 07/31/25 20:00 O2 Del Method Room Air 07/31/25 20:00 BMI result Body Mass Index 23.5 General: not in any acute distress, ill appearing Nutritional Appearance: well nourished and overweight Eyes: appearance normal, both eyes and all related structures; Alignment and Position: alignment normal and position normal Neck: No lymphadenopathy, no thyromegaly Resp: bilateral air entry equal, no added sounds present Cardio: Regular rate, regular rhythm; Heart sounds: S1 normal heart sound present and S2 normal heart sound present GI: soft, nontender, no guarding, no hepatosplenomegaly : bladder normal to inspection, bladder normal to palpation, no renal angle tenderness Skin: no rashes or lesions noted and elasticity normal Neuro: alert, oriented x 3, moves all extremities Results Lab Results 08/01/25 05:54 08/01/25 05:54 Lab results: Chemistry 07/31/25 11:19 Sodium 142 Potassium 4.4 Carbon Dioxide 24 BUN 123 H Creatinine 4.15 H* Calcium 8.9 Hematology 07/31/25 11:19 WBC 3.2 L Hgb 10.2 L D Plt Count 87 L Assessment and Plan (1) Hypertension: Qualifiers: Hypertension type: primary hypertension Qualified Code(s): I10 - Essential (primary) hypertension Status: Acute (2) Cardiorenal syndrome: Status: Acute (3) Acquired solitary kidney: Status: Acute (4) Acute kidney injury superimposed on CKD: Status: Acute (5) Hematuria: Qualifiers: Hematuria type: gross Qualified Code(s): R31.0 - Gross hematuria Status: Acute Plan Acute on chronic kidney disease: Patient is status post right nephrectomy and left single kidney with CKD currently progressing to stage 5 Admitted due to concerns for volume overload, agree with Lasix drip we will which he has a good urine output We will get renal ultrasound to look for any obstruction We will get urinalysis Closely monitor I's and os Anemia of CKD: Hb stable Procedures Date of Service Date of Service: 08/01/25
[2025-08-01 03:18] VITALS: BP 134/76; PULSE 65; RESP 16; TEMP 36.5; O2SAT 94
[2025-08-01 06:28] LABS: MANUAL DIFF FLAG NO
[2025-08-01] MEDS: Furosemide 200 MG in 0.9 % Sodium Chloride 80 ML IVCONT (06:31)
[2025-08-01 06:32] LABS: Hematocrit 29.6 % (42.0-52.0); Hemoglobin 9.7 g/dl (14.0-18.0); Imm Gran Abs Auto 0.01 X10*3/uL (0.00-0.03); Imm Gran Pct Auto 0.3 % (0.0-0.4); Lymphocytes Absolute Auto 0.5 X10*3/uL (1.2-4.9); Mean Corpuscular HGB Conc 32.8 g/dl (31.0-36.0); Mean Corpuscular Hemoglobin 29.0 pg (27.0-33.0); Mean Corpuscular Volume 88.6 fL (80.0-98.0); NRBC Abs Auto 0.000 X10*3/uL (0.0-0.012); NRBC Pct Auto 0.0 /100WBC (0.0-0.2); Red Blood Count 3.34 X10*6/uL (4.60-5.80); White Blood Count 3.8 X10*3/uL (4.8-10.8)
[2025-08-01 06:37] LABS: Platelet Count 83 X10*3/uL (160-400)
[2025-08-01 07:00] LABS: Alanine Aminotransferase 6 U/L (0-40); Albumin Level 3.6 g/dL (3.5-5.0); Alkaline Phosphatase 53 U/L (39-117); Anion Gap 18 (12-20); Aspartate Amino Transferase 21 U/L (5-37); Calcium 8.9 mg/dL (8.4-10.2); Carbon Dioxide 24 mmol/L (22-29); Chloride 105 mmol/L (96-108); Creatinine Clr Calc Pharmacy 13.2; Estimated Glomerular Filt Rate 13; Potassium 5.1 mmol/L (3.3-5.1); Sodium 142 mmol/L (135-145); Total Protein 6.8 g/dL (6.5-8.0)
[2025-08-01 07:05] LABS: Blood Urea Nitrogen 126 mg/dL (9-16)
[2025-08-01 07:14] VITALS: BP 115/56; PULSE 62; RESP 18; TEMP 37; O2SAT 96
[2025-08-01 08:25] LABS: EOS Counted 0 CELLS; EOS QC POS YES; EOS Stain Quality OK YES; WBC, Counted 0 CELLS
--- NOTE | 2025-08-01 08:56 | MHC.CM.PN ---
Addendum entered by Amie Winter 08/01/25 09:02: CM spoke with /HCP/Bella @ [phone], with Patient's permission; she is agreeable to bring in a copy of the HCP(she confirmed that she is the Agent) . Original Note: IMM was addressed with Patient. Patient lives in a house with his /HCP/Bella who will transport at dc. 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 CM has initiated and will follow for dc planning. PCP/PA is Nader Calderón
[2025-08-01] MEDS: 0.9 % Sodium Chloride Flush 3 ML SYRINGE IVFLUSH ×3 (10:00→20:29)
--- NOTE | 2025-08-01 11:09 | PM.CNCAR ---
History of Present Illness History of Present Illness Date of Service: 08/01/25 [facility] Consult reason: congestive heart failure Chief complaint: CHF Narrative: I was consulted to see Basilio in cardiology consultation today for decompensated congestive heart failure. Patient is not a very good historian. History was obtained from [facility] records as well as medical records here. Patient is 89-year-old male with prior history of advanced diastolic dysfunction is noted in his [facility] notes with advanced kidney dysfunction as well as severe pulmonary hypertension as significant risk factors for heart failure hospitalization. Patient says he came to the hospital because he had generalized swelling. When he came in he was noted to have elevated creatinine and that has a concern for cardiorenal syndrome. He has put on Lasix drip and since yesterday has diuresed significantly. He says get his abdominal distention has improved. He is still has leg edema all. He had no shortness of breath as per him. He said he takes his torsemide daily as given by his . However he does not take additional torsemide. He has prior history of chronic atrial fibrillation in his on oral anticoagulation therapy with Eliquis. 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 He denies any chest pain. Review of Systems Constitutional: Constitutional: Reports no additional constitutional complaints Eyes: Eyes: Reports no additional eye complaints Cardiovascular: Cardiovascular: Reports Abdominal Distension, Denies chest pain, Denies rapid heart rate, Reports leg edema, Denies lightheadedness, Denies Loss of Consciousness, Denies palpitations and Denies dyspnea Respiratory: Respiratory: Reports no additional respiratory complaints and Denies dyspnea Genitourinary: Genitourinary: Reports no additional male genitourinary complaints Musculoskeletal: Musculoskeletal: Reports no additional musculoskeletal complaints Neurologic: Reports system reviewed and no additional complaints, except as documented Psychiatric: Psychiatric: Reports no additional psychiatric complaints Endocrine: Endocrine: Reports no additional endocrine complaints and Denies palpitations Hematologic/Lymphatic: Hematologic/Lymphatic: Reports no additional hematologic/lymphatic complaints Allergic/Immunologic: Allergic/Immunologic: Reports no additional allergic/immunologic complaints [facility] Past Medical History Medical History Left kidney mass Iron deficiency 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 If so, by whom?: No Do you feel safe in your current relationship?: Yes Is there a partner from a previous relationship who is making you feel unsafe now?: No Are you made to feel afraid or neglected: No Advance Directives: No Advance Directives Information Provided: Yes Do you have a plan to hurt others: No Plan Recently lost weight without trying: No Nutrition Risks: No Nutritional Risk service: Yes Meds Allergies Allergy/AdvReac Type Severity Reaction Status Date / Time No Known Allergies (No Known Allergy Verified 07/31/25 10:50 Allergies*) Active Medications: Current Medications Acetaminophen (Acetaminophen 325 Mg Tablet) 650 mg PO Q6H PRN PRN Reason: Pain, Mild 1-3,fever,headache Al Hydroxide/Mg Hydroxide (Magnesium Hydrox/Alum Hydrox 30 Ml Oral.Susp) 30 ml PO Q4H PRN PRN Reason: Heartburn Calcium Carbonate (Calcium Carbonate 750 Mg Tab.Chew) 750 mg PO Q4H PRN PRN Reason: Heartburn Furosemide 200 mg/ Sodium (Chloride) 100 mls @ 2.5 mls/hr IVCONT .Q24H [facility] Last Admin: 08/01/25 06:31 Dose: 5 mg/hr, 2.5 mls/hr Magnesium Hydroxide (Milk Of Magnesia 30 Ml Oral.Susp) 30 ml PO DAILY PRN PRN Reason: Constipation Melatonin (Melatonin 3 Mg Tablet) 6 mg PO BEDTIME PRN PRN Reason: Insomnia Ondansetron HCl (Ondansetron Hcl 4 Mg/2 Ml Vial) 4 mg IVPUSH Q8H PRN PRN Reason: Nausea and Vomiting Polyethylene Glycol (Polyethylene Glycol 3350 17 Gm Powd.Pack) 17 gm PO DAILY PRN PRN Reason: Constipation Sodium Chloride (0.9 % Sodium Chloride Flush 3 Ml Syringe) 3 ml IVFLUSH QSHIFT [facility] Last Admin: 08/01/25 10:00 Dose: 3 ml Home Medications ?Medication ?Instructions ?Recorded ?Confirmed ?Last Taken ?Type apixaban 5 mg tablet (Eliquis) 2.5 mg PO BID 11/25/23 07/31/25 Unknown History carboxymethylcellulose sodium 0.5 1 drp ophthalmic (eye) QID PRN Dry 11/16/24 07/31/25 Unknown History % eye drops in a dropperette Eye(S) carvedilol 12.5 mg tablet 6.25 mg PO BID 11/16/24 07/31/25 Unknown History cyclosporine 0.05 % eye drops in a 1 drp ophthalmic (eye) BID 11/16/24 07/31/25 Unknown History dropperette ipratropium bromide 42 mcg (0.06 1 spray intranasal DAILY 11/16/24 07/31/25 Unknown History %) nasal spray vitamin B complex 1 tab PO DAILY 11/16/24 07/31/25 Unknown History cholecalciferol (vitamin D3) 25 25 mcg PO DAILY 01/03/25 07/31/25 Unknown History mcg (1,000 unit) capsule torsemide 10 mg tablet 20 mg PO DAILY 01/03/25 07/31/25 Unknown History isosorbide mononitrate 30 mg 90 mg PO DAILY 07/31/25 07/31/25 Unknown History tablet,extended release 24 hr vit C 250 mg-vit E 90 mg-zinc 40 1 tab PO BID 07/31/25 07/31/25 Unknown History mg-copper 1 [id number] capsule (PreserVision AREDS-2) Physical Exam Vital Signs: Vital Signs: Last Vital Signs Temp 98.6 F 08/01/25 07:14 Pulse 62 08/01/25 07:14 Resp 18 08/01/25 07:14 BP 115/56 L 08/01/25 07:14 Pulse Ox 96 08/01/25 07:14 O2 Del Method Room Air 08/01/25 07:14 BMI result Body Mass Index 23.5 Const: General: cooperative, comfortable, alert and awake Nutritional Appearance: thin Orientation/consciousness: patient oriented x3 HEENT: Head: Yes normocephalic and Yes atraumatic Neck: Neck: Yes trachea midline, Yes supple and Yes JVD Resp: Effort & Inspection: normal respiratory effort Auscultation: no rales, no wheezes and breath sounds absent bilateral (Basis) Cardio: Jugular venous distension: JVD Rhythm: abnormal rhythm irregularly irregular Heart sounds: S1 normal heart sound present, S2 normal heart sound present, no click, no gallops and Murmur heart sound present systolic GI: Inspection: Yes distended Auscultation: normal bowel sounds Skin: General skin exam: no rashes or lesions noted Neuro: General: patient oriented x3 and no focal motor deficits Extrem: General: No clubbing, No cyanosis and Yes edema Psych: Appearance: grossly normal Objective Labs and Meds 08/01/25 05:54 08/01/25 05:54 Lab results: Laboratory Results - last 24 hr 07/31/25 07/31/25 08/01/25 11:19 22:40 05:54 WBC 3.2 L 3.8 L RBC 3.57 L D 3.34 L Hgb 10.2 L D 9.7 L Hct 32.2 L D 29.6 L MCV 90.2 88.6 MCH 28.6 29.0 MCHC 31.7 32.8 RDW 16.3 H 16.3 H Plt Count 87 L 83 L MPV 11.2 11.2 Immature Gran % (Auto) 0.6 H 0.3 Neut % (Auto) 71.7 72.0 Lymph % (Auto) 12.3 L 12.8 L [place] % (Auto) 12.9 H 12.2 H Eos % (Auto) 2.2 2.4 Baso % (Auto) 0.3 0.3 Lymph # (Auto) 0.4 L 0.5 L [place] # (Auto) 0.4 0.5 Eos # (Auto) 0.1 0.1 Baso # (Auto) 0.0 0.0 Abs Immat Gran (auto) 0.02 0.01 Absolute Neuts (auto) 2.3 2.7 Absolute Nucleated RBC 0.000 0.000 Nucleated RBC % (auto) 0.0 0.0 PT 19.3 H INR 1.6 H Sodium 142 142 Potassium 4.4 5.1 Chloride 107 105 Carbon Dioxide 24 24 Anion Gap 15 18 BUN 123 H 126 H Creatinine 4.15 H* 4.24 H* Estim Creat Clear Calc 13.5 13.2 Estimated GFR 14 13 Random Glucose 106 105 Calcium 8.9 8.9 Magnesium 2.2 Total Bilirubin 0.8 0.7 AST 20 21 ALT 8 6 Alkaline Phosphatase 58 53 Troponin I High Sens 63.3 H NT-Pro-B Natriuret Pep 29878.2 H Total Protein 7.1 6.8 Albumin 3.9 3.6 Urine Eosinophils % 0.0 Urine Osmolality 368 L Ur Random Sodium 116.0 Imaging Radiologist's impression: Impressions Chest X-Ray 07/31/25 11:06 IMPRESSION: Cardiomegaly. No acute cardiopulmonary abnormality. Electronically signed by: Joaquin Paz MD 07/31/2025 11:12 AM EST RP Chest X-Ray 07/31/25 11:20 IMPRESSION: Mild blunting of posterior costophrenic angles could be related to trace effusions or pleural thickening. Aortic valve prosthesis. Electronically signed by: Deon Charles MD 07/31/2025 11:35 AM EST RP Renal Ultrasound 07/31/25 21:05 IMPRESSION: 1. Status post right nephrectomy. 2. Mild left hydronephrosis. 3. The left upper pole renal mass noted on prior imaging is poorly visualized by ultrasound. Electronically signed by: Joaquin Paz MD 08/01/2025 07:02 AM EST RP Assessment and Plan (1) Decompensated heart failure: Status: Acute Decompensated congestive heart failure, advanced heart failure in this elderly gentleman with multiple comorbidities including advanced age and frailty, advanced renal dysfunction as well as liver dysfunction came with generalized anasarca consistent with right heart failure. He has underlying significant pulmonary hypertension as well as atrial fibrillation that contributes to his risk for recurrent heart failure syndrome. Clinically still appears to be fluid overloaded. He has overall poor understanding of his heart failure management with his current diuretic regimen. This needs to be addressed with his . Overall outcome and prognosis remains poor given his multisystem organ failure. Management would be more conservative. It is possibility with his remote surgery that he might have constrictive pericarditis although treatment of this would not be possible given his advanced age and multiple comorbidities and recurrent surgery that would put him at extremely high/prohibitive risk for surgery. Continue current medical therapy. Only thing that I would stop probably would be his spironolactone given his advanced kidney dysfunction. I would consider adding Jardiance 10 mg to his regimen. Continue IV diuresis with Lasix for 1 more day, he is responding well. I would trend his renal function tomorrow along with his NT pro BNP. Continue carvedilol for rate control which is currently well optimized. Continue full oral anticoagulation for his atrial fibrillation. Will follow with you Procedures Date of Service Date of Service: 08/01/25
[2025-08-01 11:43] VITALS: BP 113/56; PULSE 95; RESP 18; TEMP 36.8; O2SAT 96
--- NOTE | 2025-08-01 14:22 | P.PNIM_ITS ---
Subjective Subjective Date of Service: 08/01/25 Interval History: No new complaints this morning. The patient reports his breathing has improved compared to yesterday. Denies chest pain, palpitations, dizziness or diaphoresis Patient does endorse abdominal distention and bloating; ongoing for the past few months. Review of Systems Review of Systems: Yes all other systems are reviewed and are negative Physical Exam 2 Exam: Exam: General: A&O x3, oriented to time place person and situation, comfortable, no pain Cardiac: S1, S2 auscultated with no S3/4, no MRG. Well perfused. Elevated JVP bilaterally to the angle of the mandibles. Respiratory: Normal breath sounds auscultated throughout all lung zones, without wheezing, rales. Normal rate. GI/ : Abdominal distention noted, generalized, with reduced percussion in the lower quadrants with fluid shift, consistent with ascites, mild caput medusae noted MSK: Normal ambulation without pain at bony prominences or musculature Neurological: Normal neurological examination on overview, without obvious CN II-XII abnormalities. Vital Signs: Vital Signs: Last Vital Signs Temp 98.3 F 08/01/25 11:43 Pulse 95 08/01/25 11:43 Resp 18 08/01/25 11:43 BP 113/56 L 08/01/25 11:43 Pulse Ox 96 08/01/25 11:43 O2 Del Method Room Air 08/01/25 11:43 BMI result Body Mass Index 23.5 Objective Data Active Medications Acetaminophen (Acetaminophen 325 Mg Tablet) 650 mg PO Q6H PRN PRN Reason: Pain, Mild 1-3,fever,headache Al Hydroxide/Mg Hydroxide (Magnesium Hydrox/Alum Hydrox 30 Ml Oral.Susp) 30 ml PO Q4H PRN PRN Reason: Heartburn Calcium Carbonate (Calcium Carbonate 750 Mg Tab.Chew) 750 mg PO Q4H PRN PRN Reason: Heartburn Furosemide 200 mg/ Sodium (Chloride) 100 mls @ 2.5 mls/hr IVCONT .Q24H [facility] Last Admin: 08/01/25 06:31 Dose: 5 mg/hr, 2.5 mls/hr Documented By: ELIZABETH Magnesium Hydroxide (Milk Of Magnesia 30 Ml Oral.Susp) 30 ml PO DAILY PRN PRN Reason: Constipation Melatonin (Melatonin 3 Mg Tablet) 6 mg PO BEDTIME PRN PRN Reason: Insomnia Ondansetron HCl (Ondansetron Hcl 4 Mg/2 Ml Vial) 4 mg IVPUSH Q8H PRN PRN Reason: Nausea and Vomiting Polyethylene Glycol (Polyethylene Glycol 3350 17 Gm Powd.Pack) 17 gm PO DAILY PRN PRN Reason: Constipation Sodium Chloride (0.9 % Sodium Chloride Flush 3 Ml Syringe) 3 ml IVFLUSH QSHIFT [facility] Last Admin: 08/01/25 10:00 Dose: 3 ml Documented By: ERIN Labs 08/01/25 05:54 08/01/25 05:54 Labs: Laboratory Results - last 24 hr 07/31/25 08/01/25 22:40 05:54 MCV 88.6 MCH 29.0 MCHC 32.8 RDW 16.3 H Plt Count 83 L MPV 11.2 Immature Gran % (Auto) 0.3 Neut % (Auto) 72.0 Lymph % (Auto) 12.8 L [place] % (Auto) 12.2 H Eos % (Auto) 2.4 Baso % (Auto) 0.3 Lymph # (Auto) 0.5 L [place] # (Auto) 0.5 Eos # (Auto) 0.1 Baso # (Auto) 0.0 Abs Immat Gran (auto) 0.01 Absolute Neuts (auto) 2.7 Absolute Nucleated RBC 0.000 Nucleated RBC % (auto) 0.0 Anion Gap 18 Estim Creat Clear Calc 13.2 Estimated GFR 13 Random Glucose 105 Calcium 8.9 Total Bilirubin 0.7 AST 21 ALT 6 Alkaline Phosphatase 53 Total Protein 6.8 Albumin 3.6 Urine Eosinophils % 0.0 Urine Osmolality 368 L Ur Random Sodium 116.0 Assessment and Plan (1) CHF (congestive heart failure): Status: Acute (2) Cardiorenal syndrome: Status: Acute (3) Decompensated heart failure: Status: Acute (4) Chronic kidney disease, stage 3b: Status: Acute (5) AMBER (acute kidney injury): Status: Acute (6) Acute kidney injury superimposed on CKD: Status: Acute (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 Acute decompensated heart failure / volume overload/Cardiorenal syndrome Cardiac cirrhosis Severe RV failure Evidence includes progressive edema, JVD, bibasilar rales, elevated BNP, and pleural effusions on CXR with poor response to oral diuretics. Patient has elevated JVP is also a false +ve finding, 2/2 patient's hepatic cirrhosis in the setting of RV failure - cardiac cirrhosis PLAN - Continue Lasix drip, +/- metolazone - Strict I/O, daily weights - Low sodium diet, fluid restriction - Monitor electrolytes and renal function closely - Cardiology consult; recommendations greatly appreciate - Echocardiography Acute kidney injury on CKD stage 4 (cardiorenal syndrome) ?Hepatorenal syndrome Likely multifactorial, including venous congestion and poor renal perfusion in the setting of heart failure. Optimize volume status with cautious diuresis Avoid nephrotoxins PLAN - Nephrology consultation placed - Monitor for need for renal replacement therapy if refractory or worsening - Urine sodium - Urine urea - Urine creatinine Hepatic cirrhosis Cardiac cirrhosis Abdominal ascites Patient also has superimposed hepatic cirrhosis 2/2 severe RV failure with congestion Discussed with Cardiology-we will continue furosemide drip Ultrasound abdomen ordered to evaluate quantity of ascites PLAN - abdominal ultrasound - possible need for therapeutic paracentesis - gastroenterology consultation to be placed Atrial fibrillation, chronic Rate controlled, irregularly irregular on exam. Reassess anticoagulation if renal function worsens or bleeding occurs PLAN - Continue apixaban if no active bleeding and renal dosing appropriate - Monitor heart rate and telemetry Elevated troponin d/t CKD Likely demand ischemia in the setting of volume overload and renal dysfunction. Trend troponins Monitor for ischemic symptoms No acute coronary intervention unless clinical change Hypertension Within normal, review meds and continue as needed Iron deficiency anemia, anemia of chronic diseae Stable by history. Monitor hemoglobin May need epo in the future History of renal cell carcinoma status post nephrectomy No evidence of acute oncologic issue. Continue routine surveillance as outpatient [facility] - VTE: Apixaban - CODE STATUS: Full code - GOC discussion needs to be held with the patient - DIET: Cardiac - DISPOSITION: at least 2 midnight admit for management of acute decompensated heart failure with cardiorenal syndrome, close renal and cardiac monitoring, and IV diuresis. Total time managing care of this patient today: 45 minutes. Quality Stroke Does the patient have a stroke diagnosis?: No VTE Prior VTE?: No VTE Risk Level:: Medical - moderate - high VTE Device Contraindication: Treatment Not Indicated VTE Drug Contraindication: N/A - Med Ordered
[2025-08-01 14:31] VITALS: BP 105/49; PULSE 61; RESP 20; TEMP 36.6; O2SAT 97
[2025-08-01 15:47] LABS: Appearance Urine Clear; Glucose Urine UA Negative (Negative); PH 5.0 (5.0-9.0); Specific Gravity - Urine 1.010 (1.005-1.025)
--- NOTE | 2025-08-01 16:17 | P.PNNP_ITS ---
Subjective Subjective Date of Service: 08/01/25 Interval history: No new complaints this morning. Good urine output with Lasix drip. States he told his that all he wants for Melly is an apple pie Physical Exam 2 Vital Signs: Vital Signs: Last Vital Signs Temp 97.9 F 08/01/25 14:31 Pulse 61 08/01/25 14:31 Resp 20 08/01/25 14:31 BP 105/49 L 08/01/25 14:31 Pulse Ox 97 08/01/25 14:31 O2 Del Method Room Air 08/01/25 14:31 BMI result Body Mass Index 23.5 General: not in any acute distress, ill appearing Nutritional Appearance: well nourished and overweight Eyes: appearance normal, both eyes and all related structures; Alignment and Position: alignment normal and position normal Neck: No lymphadenopathy, no thyromegaly Resp: bilateral air entry equal, no added sounds present Cardio: Regular rate, regular rhythm; Heart sounds: S1 normal heart sound present and S2 normal heart sound present GI: soft, nontender, no guarding, no hepatosplenomegaly : bladder normal to inspection, bladder normal to palpation, no renal angle tenderness Skin: no rashes or lesions noted and elasticity normal Neuro: alert, oriented x 3, moves all extremities Objective Data Labs 08/01/25 05:54 08/01/25 05:54 Labs: Laboratory Results - last 24 hr 07/31/25 08/01/25 08/01/25 22:40 05:54 14:51 WBC 3.8 L RBC 3.34 L Hgb 9.7 L Hct 29.6 L MCV 88.6 MCH 29.0 MCHC 32.8 RDW 16.3 H Plt Count 83 L MPV 11.2 Immature Gran % (Auto) 0.3 Neut % (Auto) 72.0 Lymph % (Auto) 12.8 L [place] % (Auto) 12.2 H Eos % (Auto) 2.4 Baso % (Auto) 0.3 Lymph # (Auto) 0.5 L [place] # (Auto) 0.5 Eos # (Auto) 0.1 Baso # (Auto) 0.0 Abs Immat Gran (auto) 0.01 Absolute Neuts (auto) 2.7 Absolute Nucleated RBC 0.000 Nucleated RBC % (auto) 0.0 Sodium 142 Potassium 5.1 Chloride 105 Carbon Dioxide 24 Anion Gap 18 BUN 126 H Creatinine 4.24 H* Estim Creat Clear Calc 13.2 Estimated GFR 13 Random Glucose 105 Calcium 8.9 Total Bilirubin 0.7 AST 21 ALT 6 Alkaline Phosphatase 53 Total Protein 6.8 Albumin 3.6 Urine Color Yellow Urine Appearance Clear Urine pH 5.0 Ur Specific [place] 1.010 Urine Protein Negative Urine Glucose (UA) Negative Urine Ketones Negative Urine Blood Negative Urine Nitrite Negative Ur Leukocyte Esterase Negative Urine Eosinophils % 0.0 Urine Osmolality 368 L Ur Random Sodium 116.0 119.0 Urine Creatinine 27.88 Procedures Date of Service Date of Service: 08/01/25 Assessment & Plan Assessment and plan (1) Acute kidney injury superimposed on CKD: Status: Acute (2) Acquired solitary kidney: Status: Acute Plan Acute on chronic kidney disease: Patient is status post right nephrectomy and left single kidney with CKD currently progressing to stage 5 Admitted due to concerns for volume overload, very good urine output with Lasix drip, net negative 2.3 L yesterday, negative 500 cc since morning. If the patient continues to have very good urine output can stop the Lasix drip tomorrow and be transitioned to oral medications. If the patient requests can be discharged home for [place]. Renal ultrasound showing single left kidney with mild left hydronephrosis, we will consult Urology Closely monitor I's and os Anemia of CKD: We will give him a dose of erythropoietin if the hemoglobin remains below 10 tomorrow Blood pressure is controlled Time Spent With Patient Time: Total time managing care of this patient today ____ minutes. Progress Note: Quality Stroke Does the patient have a stroke diagnosis?: No
[2025-08-01] MEDS: Lidocaine HCl 1 % MPF 5 ML VIAL SUBCUT (16:34)
--- NOTE | 2025-08-01 17:00 | P.CNUR_ITS ---
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 He presents with approximately one month of progressively worsening, diffuse edema. His transit planning director started furosemide (Lasix) 40 mg daily on 07/27 without clinical improvement. He presented to the emergency department for further evaluation. ED evaluation:?BUN 123 mg/dL, creatinine 4.15 mg/dL. Renal US--Status post right nephrectomy. Mild left hydronephrosis. The left upper pole renal mass noted on prior imaging is poorly visualized by ultrasound. Review of Systems 2 Review of Systems: Yes all other systems are reviewed and are negative Constitutional: Constitutional: Reports no additional constitutional complaints Eyes: Eyes: Reports no additional eye complaints ENT: Reports system reviewed and no additional complaints, except as documented Cardiovascular: Cardiovascular: Reports no additional cardiovascular complaints Respiratory: Respiratory: Reports no additional respiratory complaints Gastrointestinal: Gastrointestinal: Reports no additional gastrointestinal complaints Genitourinary: Genitourinary: Reports as per HPI Musculoskeletal: Musculoskeletal: Reports no additional musculoskeletal complaints Integumentary/Breasts: Skin/Breast: Reports system reviewed and no additional complaints, except as docu Neurologic: Reports system reviewed and no additional complaints, except as documented Psychiatric: Psychiatric: Reports no additional psychiatric complaints Endocrine: Endocrine: Reports no additional endocrine complaints Hematologic/Lymphatic: Hematologic/Lymphatic: Reports no additional hematologic/lymphatic complaints Allergic/Immunologic: Allergic/Immunologic: Reports no additional allergic/immunologic complaints [facility] Past Medical History Medical History Left kidney mass Iron deficiency Acquired solitary kidney Anemia in chronic kidney disease Renal cell cancer Hypertension Chronic kidney disease, stage 3b Surgical History Surgical History History of nephrectomy Social History Social History Household Members: Spouse Housing: House Do you presently have visiting nurse or other home services: No Patient Tobacco Use Status: Never used Tobacco service: Yes Meds Allergies Allergy/AdvReac Type Severity Reaction Status Date / Time No Known Allergies (No Known Allergy Verified 08/04/25 10:34 Allergies*) Active Medications: Current Medications Acetaminophen (Acetaminophen 325 Mg Tablet) 650 mg PO Q6H PRN PRN Reason: Pain, Mild 1-3,fever,headache Al Hydroxide/Mg Hydroxide (Magnesium Hydrox/Alum Hydrox 30 Ml Oral.Susp) 30 ml PO Q4H PRN PRN Reason: Heartburn Calcium Carbonate (Calcium Carbonate 750 Mg Tab.Chew) 750 mg PO Q4H PRN PRN Reason: Heartburn Furosemide 200 mg/ Sodium (Chloride) 100 mls @ 2.5 mls/hr IVCONT .Q24H [facility] Last Infusion: 08/01/25 16:43 Dose: 5 mg/hr, 2.5 mls/hr Magnesium Hydroxide (Milk Of Magnesia 30 Ml Oral.Susp) 30 ml PO DAILY PRN PRN Reason: Constipation Melatonin (Melatonin 3 Mg Tablet) 6 mg PO BEDTIME PRN PRN Reason: Insomnia Ondansetron HCl (Ondansetron Hcl 4 Mg/2 Ml Vial) 4 mg IVPUSH Q8H PRN PRN Reason: Nausea and Vomiting Polyethylene Glycol (Polyethylene Glycol 3350 17 Gm Powd.Pack) 17 gm PO DAILY PRN PRN Reason: Constipation Sodium Chloride (0.9 % Sodium Chloride Flush 3 Ml Syringe) 3 ml IVFLUSH QSHIFT [facility] Last Admin: 08/01/25 10:00 Dose: 3 ml Home Medications ?Medication ?Instructions ?Recorded ?Confirmed ?Last Taken ?Type apixaban 5 mg tablet (Eliquis) 2.5 mg PO BID 11/25/23 07/31/25 Unknown History carboxymethylcellulose sodium 0.5 1 drp ophthalmic (ey e) QID PRN Dry 11/16/24 07/31/25 Unknown History % eye drops in a dropperette Eye(S) carvedilol 12.5 mg tablet 6.25 mg PO BID 11/16/2407/11 Unknown History cyclosporine 0.05 % eye drops in a 1 drp ophthalmic (e ye) BID 11/16/24 07/31/25 Unknown History dropperette ipratropium bromide 42 mcg (0.06 1 spray intranasal DA AILYN 11/16/24 07/31/25 Unknown History %) nasal spray vitamin B complex 1 tab PO DAILY 11/16/2407/11 Unknown History cholecalciferol (vitamin D3) 25 25 mcg PO DAILY 07/31/25 Unknown History mcg (1,000 unit) capsule isosorbide mononitrate 30 mg 90 mg PO DAILY 07/31/25 1 10/01/24 Unknown History tablet,extended release 24 hr vit C 250 mg-vit E 90 mg-zinc 40 1 tab PO BID 07/31/25 07/31/25 Unknown History mg-copper 1 [id number] capsule (PreserVision AREDS-2) Physical Exam 2 Vital Signs: Vital Signs: Last Vital Signs Temp 97.9 F 08/01/25 14:31 Pulse 61 08/01/25 14:31 Resp 20 08/01/25 14:31 BP 105/49 L 08/01/25 14:31 Pulse Ox 97 08/01/25 14:31 O2 Del Method Room Air 08/01/25 14:31 BMI result Body Mass Index 23.5 Const: General: no acute distress Orientation/consciousness: patient oriented x3 HEENT: Head: Yes normocephalic and Yes atraumatic Neck: Neck: Yes normal visual inspection Chest: Chest palpation & inspection: normal inspection of the chest Resp: Effort & Inspection: normal respiratory effort GI: Inspection: Yes normal to inspection Neuro: General: patient oriented x3 Psych: Appearance: grossly normal Results Labs 08/02/25 08:09 08/02/25 06:09 Labs: Abnormal lab results 07/31/25 08/01/25 Range/Units 22:40 05:54 WBC 3.8 L (4.8-10.8) X10*3/uL RBC 3.34 L (4.60-5.80) X10*6/uL Hgb 9.7 L (14.0-18.0) g/dl Hct 29.6 L (42.0-52.0) % RDW 16.3 H (11.0-16.0) % Plt Count 83 L (160-400) X10*3/uL Lymph % (Auto) 12.8 L (20-40) % [place] % (Auto) 12.2 H (2-11) % Lymph # (Auto) 0.5 L (1.2-4.9) X10*3/uL BUN 126 H (9-16) mg/dL Creatinine 4.24 H* (0.5-1.4) mg/dL Urine Osmolality 368 L (373-1093) mosm/kg Short CBC 08/01/25 Range/Units 05:54 WBC 3.8 L (4.8-10.8) X10*3/uL Hgb 9.7 L (14.0-18.0) g/dl Hct 29.6 L (42.0-52.0) % Plt Count 83 L (160-400) X10*3/uL BMP 08/01/25 05:54 Sodium 142 Potassium 5.1 Chloride 105 Carbon Dioxide 24 BUN 126 H Creatinine 4.24 H* Calcium 8.9 Liver Function 08/01/25 Range/Units 05:54 Total Bilirubin 0.7 (0.0-1.0) mg/dL AST 21 (5-37) U/L ALT 6 (0-40) U/L Alkaline Phosphatase 53 (39-117) U/L Albumin 3.6 (3.5-5.0) g/dL Urine 08/01/25 Range/Units 14:51 Urine Color Yellow Urine Appearance Clear Urine pH 5.0 (5.0-9.0) Ur Specific [place] 1.010 (1.005-1.025) Urine Protein Negative (Neg-Trace) mg/dL Urine Glucose (UA) Negative (Negative) mg/dL Imaging Additional studies: Date of Service: 08/01/25 EXAMINATION: US ABDOMEN HISTORY: hepatic cirrhosis/ portal htn/ ascites? TECHNIQUE: Real-time grayscale ultrasound imaging of the 4 quadrants of the abdomen was performed to assess for ascites. COMPARISON: Correlation is made with a CT of the abdomen dated 01/10/2025. FINDINGS: There is a moderate amount of abdominal ascites. IMPRESSION: Moderate amount of abdominal ascites. ---- Date of Service: 07/31/25 EXAMINATION: US KIDNEY BILATERAL HISTORY: Acute on CKD TECHNIQUE: Real-time grayscale ultrasound imaging of the kidneys was performed and images were reviewed. COMPARISON: Correlation is made with an unenhanced CT of the abdomen dated 01/27/2025 and an MRI of the abdomen dated 01/11/2025. FINDINGS: Right kidney: The right kidney is surgically absent. Left Kidney: The left kidney measures 17.3 x 6.3 x 7.1 cm. Renal parenchymal echotexture and thickness are normal. There is a 3.9 x 2.8 x 2.6 cm cortical cyst. The upper pole mass noted on CT and MRI is not well-defined by ultrasound. No calculi are identified. There is mild hydronephrosis. Incidental note is made of a small amount of abdominal ascites and a small left pleural effusion. IMPRESSION: 1. Status post right nephrectomy. 2. Mild left hydronephrosis. 3. The left upper pole renal mass noted on prior imaging is poorly visualized by ultrasound. Assessment and Plan (1) CHF (congestive heart failure): Status: Acute (2) Acquired solitary kidney: Status: Acute (3) CKD (chronic kidney disease): Status: Acute (4) AMBER (acute kidney injury): Status: Resolved Plan Mild hydro on renal US, not clear obstruction Recommend CTAP without IV contrast Procedures Date of Service Date of Service: 08/10/25
[2025-08-01 19:29] VITALS: BP 127/62; PULSE 68; RESP 18; TEMP 37.4; O2SAT 99
[2025-08-02] VITALS: BP 116/56; PULSE 65; RESP 18; TEMP 36.9; O2SAT 96
[2025-08-02 04:00] VITALS: BP 118/54; PULSE 64; RESP 18; TEMP 36.5; O2SAT 96
[2025-08-02 07:05] LABS: Alanine Aminotransferase 7 U/L (0-40); Albumin Level 3.4 g/dL (3.5-5.0); Alkaline Phosphatase 51 U/L (39-117); Anion Gap 17 (12-20); Aspartate Amino Transferase 19 U/L (5-37); Calcium 8.7 mg/dL (8.4-10.2); Carbon Dioxide 24 mmol/L (22-29); Chloride 106 mmol/L (96-108); Creatinine Clr Calc Pharmacy 13.8; Estimated Glomerular Filt Rate 14; Potassium 4.1 mmol/L (3.3-5.1); Sodium 143 mmol/L (135-145); Total Protein 6.4 g/dL (6.5-8.0)
[2025-08-02 07:14] LABS: Blood Urea Nitrogen 126 mg/dL (9-16)
[2025-08-02 08:00] VITALS: BP 155/67; PULSE 63; RESP 18; TEMP 36.3; O2SAT 99
[2025-08-02 08:49] LABS: MANUAL DIFF FLAG NO
[2025-08-02 08:52] LABS: Hematocrit 32.2 % (42.0-52.0); Hemoglobin 10.5 g/dl (14.0-18.0); Imm Gran Abs Auto 0.01 X10*3/uL (0.00-0.03); Imm Gran Pct Auto 0.3 % (0.0-0.4); Lymphocytes Absolute Auto 0.6 X10*3/uL (1.2-4.9); Mean Corpuscular HGB Conc 32.6 g/dl (31.0-36.0); Mean Corpuscular Hemoglobin 29.3 pg (27.0-33.0); Mean Corpuscular Volume 89.9 fL (80.0-98.0); NRBC Abs Auto 0.000 X10*3/uL (0.0-0.012); NRBC Pct Auto 0.0 /100WBC (0.0-0.2); Red Blood Count 3.58 X10*6/uL (4.60-5.80); White Blood Count 3.2 X10*3/uL (4.8-10.8)
[2025-08-02 08:53] LABS: Platelet Count 89 X10*3/uL (160-400)
--- NOTE | 2025-08-02 10:47 | MHC.CM.PN ---
Patient is not yet medically cleared for dc (Lasix Drip, needs Cardiology & Nephrology Consults).
[2025-08-02 11:37] VITALS: BP 125/65; PULSE 65; RESP 18; TEMP 36.3; O2SAT 98
--- NOTE | 2025-08-02 12:15 | PM.PNCARD ---
Subjective Subjective Date of Service: 08/02/25 Principal diagnosis: Decompensated congestive heart failure Interval history: Patient is feeling a lot better. He has diuresed overall 5 L since admission. He is feeling better. He says belly is less distended. He is less short of breath. His leg edema has improved significantly. His creatinine has only marginally bumped up. Review of Systems Review of Systems Yes all other systems are reviewed and are negative Physical Exam Vital Signs: Last Vital Signs Temp 97.4 F 08/02/25 11:37 Pulse 65 08/02/25 11:37 Resp 18 08/02/25 11:37 BP 125/65 08/02/25 11:37 Pulse Ox 98 08/02/25 11:37 O2 Del Method Room Air 08/02/25 11:37 BMI result Body Mass Index 23.5 Const General: cooperative, comfortable, alert and awake Nutritional Appearance: thin Orientation/consciousness: patient oriented x3 HEENT Head: Yes normocephalic and Yes atraumatic Neck Neck: Yes trachea midline, Yes supple and Yes JVD Resp Effort & Inspection: normal respiratory effort Auscultation: no rales, no wheezes and breath sounds absent bilateral (Basis) Cardio Jugular venous distension: JVD Rhythm: abnormal rhythm irregularly irregular Heart sounds: S1 normal heart sound present, S2 normal heart sound present, no click, no gallops and Murmur heart sound present systolic GI Inspection: Yes distended Auscultation: normal bowel sounds Skin General skin exam: no rashes or lesions noted Neuro General: patient oriented x3 and no focal motor deficits Extrem General: No clubbing, No cyanosis and Yes edema Psych Appearance: grossly normal Objective Labs and Meds 08/02/25 08:09 08/02/25 06:09 Lab results: Laboratory Results - last 24 hr 08/01/25 08/02/25 08/02/25 14:51 06:09 08:09 WBC 3.2 L RBC 3.58 L Hgb 10.5 L Hct 32.2 L MCV 89.9 MCH 29.3 MCHC 32.6 RDW 15.9 Plt Count 89 L MPV 11.0 Immature Gran % (Auto) 0.3 Neut % (Auto) 63.9 Lymph % (Auto) 18.2 L [place] % (Auto) 13.6 H Eos % (Auto) 3.7 Baso % (Auto) 0.3 Lymph # (Auto) 0.6 L [place] # (Auto) 0.4 Eos # (Auto) 0.1 Baso # (Auto) 0.0 Abs Immat Gran (auto) 0.01 Absolute Neuts (auto) 2.1 Absolute Nucleated RBC 0.000 Nucleated RBC % (auto) 0.0 Sodium 143 Potassium 4.1 Chloride 106 Carbon Dioxide 24 Anion Gap 17 BUN 126 H Creatinine 4.05 H* Estim Creat Clear Calc 13.8 Estimated GFR 14 Random Glucose 101 Calcium 8.7 Total Bilirubin 0.7 AST 19 ALT 7 Alkaline Phosphatase 51 Total Protein 6.4 L Albumin 3.4 L Urine Color Yellow Urine Appearance Clear Urine pH 5.0 Ur Specific [place] 1.010 Urine Protein Negative Urine Glucose (UA) Negative Urine Ketones Negative Urine Blood Negative Urine Nitrite Negative Ur Leukocyte Esterase Negative Ur Random Sodium 119.0 Urine Creatinine 27.88 Imaging Radiologist's impression: Impressions Abdomen/Pelvis CT 08/02/25 07:29 IMPRESSION: 1. Mild left hydronephrosis without hydroureter. No obstructing calculus is identified. 2. Ill-defined mass at the upper pole of the left kidney as seen on prior imaging. 3. Cirrhosis of the liver with a small to moderate amount of abdominal ascites. 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 Also possible social factors. Recommend to increase torsemide at home to 20 mg daily. Need to provide education to both patient and patient's about additional diuretics at home when he has early stages of decompensation. Consider adding Jardiance as long as there are no contraindication. Continue isosorbide therapy. Discontinue spironolactone therapy. (2) Atrial fibrillation: Status: Acute Assessment and Plan: Atrial fibrillation rate controlled. Continue carvedilol therapy. Currently on oral anticoagulation with Eliquis at 2.5 mg b.i.d.. Advised to follow up with his purchase order checker at [facility] in 1-2 weeks. Time Spent With Patient Time: Total time managing care of this patient today ____ minutes. Progress Note: Quality Stroke Does the patient have a stroke diagnosis?: No Procedures Date of Service Date of Service: 08/02/25
--- NOTE | 2025-08-02 12:46 | P.DS_ITS ---
DS: Providers Provider Date of admission: 07/31/25 12:47 Date of discharge: 08/02/25 Primary care physician: Nader Calderón PA-C Consults: 07/31/25 12:46 Consult to Cardiology Routine Consulting Provider: [facility] Reason for consultation: Heart failure exacerbation Has provider been notified: Yes 07/31/25 12:48 Consult to Nephrology Routine Consulting Provider: [facility] Reason for consultation: CKD 4, cardiorenal syndrome Has provider been notified: No 08/01/25 11:23 Consult to Urology Routine Consulting Provider: [facility] Reason for consultation: single kidney and mild hydronephrosis DS: Diagnosis Discharge Diagnosis (1) Decompensated heart failure: Status: Acute (2) Atrial fibrillation: Status: Acute DS: Summary Hospital Course Hospital Course: HOSPITAL COURSE 89-year-old male?with a history of?HFpEF with RV failure, CKD stage 4 with solitary kidney (s/p nephrectomy for RCC), atrial fibrillation on apixaban, hypertension, and cardiac cirrhosis, presented with?one month of progressive anasarca and abdominal distention?refractory to outpatient oral diuretics. He wa s admitted for?acute decompensated heart failure complicated by cardiorenal syndrome. On admission, labs were notable for?BUN >120, creatinine 4.2, NT-proBNP >21,000, and exam demonstrated?marked volume overload with JVD, ascites, and lower extremity edema. He was started on?IV furosemide drip?with close renal and electrolyte monitoring, resulting in?>5 L net diuresis?and significant clinical improvement. Given persistent abdominal distention in the setting of cardiac cirrhosis (secondary to RV failure/ pulmonary HTN), he underwent?therapeutic paracentesis on 08/01/25 with removal of 3 L of ascitic fluid, without complications. Renal function remained stable overall despite aggressive diuresis. Cardiology and Nephrology were consulted and co-managed care. Prior to discharge, IV diuretics were transitioned to?oral torsemide, and?empagliflozin (Jardiance)?was initiated for HFpEF benefit. Patient and spouse received counseling regarding heart failure management and diuretic adherence. He was discharged in?stable condition, euvolemic, breathing comfortably on room air, and tolerating oral medications. PROBLEM LIST Acute Decompensated HFpEF with Severe RV Failure Presented with progressive edema, ascites, JVD, markedly elevated NT?proBNP (>21,000), and poor response to outpatient oral diuretics. Responded well to IV furosemide drip with >5 L net diuresis and symptomatic improvement. Cardiology consulted; course consistent with advanced right?sided failure. Plan: * Transition IV diuresis ??torsemide 20 mg PO daily * Start empagliflozin (Jardiance) 10 mg PO daily * Continue?carvedilol?and?isosorbide mononitrate * Low?sodium diet * Daily weights at home * Cardiology follow?up in 1?2 weeks * Education provided to patient and spouse regarding early signs of d ecompensation and diuretic adherence 2. Cardiorenal Syndrome / AMBER on CKD Stage 4 (Acquired Solitary Kidney) Baseline CKD with solitary left kidney; creatinine ?4.1?4.2 on admission with BUN >120, attributed to venous congestion and poor renal perfusion. Renal function remained overall stable despite aggressive diuresis. Renal ultrasound and CT showed mild left hydronephrosis without obstruction. Plan: * Avoid nephrotoxins * Continue cautious oral diuresis * BMP within 1 week?post?discharge (especially after starting Jardiance) * Nephrology follow?up outpatient * Monitor urine output and volume status 3. Cardiac Cirrhosis with Moderate Ascites Abdominal distention and imaging consistent with congestive hepatopathy. Underwent?therapeutic paracentesis on 08/01/25 with removal of 3 L, no complic ations, with symptomatic relief. Plan: * Volume control via optimized heart failure management * No routine repeat paracentesis unless recurrent symptomatic ascites * Monitor abdominal girth and weight * Outpatient follow?up as needed if ascites recurs 4. Chronic Atrial Fibrillation Rate controlled throughout hospitalization. No bleeding events. Remains high thromboembolic risk. Plan: * Continue?apixaban 2.5 mg PO BID * Continue?carvedilol?for rate control * Monitor renal function for anticoagulation dosing appropriateness 5. Anemia of CKD / Iron Deficiency Anemia Chronic, stable anemia (Hgb ?9.7?10.5) without evidence of acute bleeding. No transfusion requirement during admission. Plan: * Monitor hemoglobin outpatient * Consider PRICILA therapy per nephrology if Hgb persistently <10 * No inpatient intervention required 6. History of Renal Cell Carcinoma s/p Nephrectomy No evidence of acute oncologic process during admission. Known left renal mass seen on prior imaging. Plan: * Continue routine outpatient surveillance * Follow with nephrology/urology as previously established 7. Hypertension Blood pressures stable during hospitalization. Plan: * Continue home antihypertensive regimen * Monitor BP outpatient, especially with ongoing diuresis Status at Discharge Functional status at discharge: independent ambulation Overall status at discharge: patient is back to baseline Time Attestation Total time managing care of this patient today: 45 mintues. Discharge Coordination Time (in mins): 45 Quality: Safe Use of Opioids Does Pt have an Active Cancer Diagnosis on the Problem List?: No Quality: Stroke Does the patient have a stroke diagnosis?: No Physical Exam Exam: Exam: General:?Alert and oriented ?3, comfortable, no acute distress. HEENT:?Normocephalic, atraumatic. Mucous membranes moist. Neck:?Jugular venous distention bilaterally to the angle of the mandible.?No lymphadenopathy. Cardiovascular:?Irregularly irregular rhythm. S1 and S2 present. No S3 or S4. No murmurs, rubs, or gallops. Peripheral pulses palpable. Respiratory:?Clear to auscultation bilaterally. No wheezes or rales. Normal respiratory effort. Abdomen:?Soft, non?tender, no longer distended.?No guarding or rebound. Bowel sounds present. Extremities:?Bilateral lower extremity edema, improved from admission. No cyanosis or clubbing. Neurologic:?Alert, oriented ?3. No focal deficits. Skin:?Warm, dry, intact. No rashes or lesions. Vital Signs: Vital Signs: Last Vital Signs Temp 97.4 F 08/02/25 11:37 Pulse 65 08/02/25 11:37 Resp 18 08/02/25 11:37 BP 125/65 08/02/25 11:37 Pulse Ox 98 08/02/25 11:37 O2 Del Method Room Air 08/02/25 11:37 BMI result Body Mass Index 23.5 DS: Data Data Completed and Pending Labs on day of discharge: Laboratory Results - last 24 hr 08/01/25 08/02/25 08/02/25 14:51 06:09 08:09 WBC 3.2 L RBC 3.58 L Hgb 10.5 L Hct 32.2 L MCV 89.9 MCH 29.3 MCHC 32.6 RDW 15.9 Plt Count 89 L MPV 11.0 Immature Gran % (Auto) 0.3 Neut % (Auto) 63.9 Lymph % (Auto) 18.2 L [place] % (Auto) 13.6 H Eos % (Auto) 3.7 Baso % (Auto) 0.3 Lymph # (Auto) 0.6 L [place] # (Auto) 0.4 Eos # (Auto) 0.1 Baso # (Auto) 0.0 Abs Immat Gran (auto) 0.01 Absolute Neuts (auto) 2.1 Absolute Nucleated RBC 0.000 Nucleated RBC % (auto) 0.0 Sodium 143 Potassium 4.1 Chloride 106 Carbon Dioxide 24 Anion Gap 17 BUN 126 H Creatinine 4.05 H* Estim Creat Clear Calc 13.8 Estimated GFR 14 Random Glucose 101 Calcium 8.7 Total Bilirubin 0.7 AST 19 ALT 7 Alkaline Phosphatase 51 Total Protein 6.4 L Albumin 3.4 L Urine Color Yellow Urine Appearance Clear Urine pH 5.0 Ur Specific [place] 1.010 Urine Protein Negative Urine Glucose (UA) Negative Urine Ketones Negative Urine Blood Negative Urine Nitrite Negative Ur Leukocyte Esterase Negative Ur Random Sodium 119.0 Urine Creatinine 27.88 Discharge Plan Discharge Anticipated Discharge Date/Time: 08/02/25 12:59 Patient Disposition: Home Health Service Discharge Diagnosis: Acute decompensated heart failure with preserved EF (HFpEF) with severe RV dysfunction Referrals: Nader Calderón PA-C [Primary Care Provider, Medical] - 1 Week Discharge Medications: New torsemide 20 mg Tablet 20 mg PO DAILY 30 Days Qty: 30 0RF Protocol: Hold for SBP< HOLD for SBP < : 90 Jardiance 10 mg Tablet 10 mg PO DAILY 30 Days Qty: 30 0RF Continued isosorbide mononitrate 30 mg Tablet Extended Release 24 Hr 90 mg PO DAILY PreserVision AREDS-2 250-90-40-1 mg Capsule 1 tab PO BID Eliquis 5 mg tablet 2.5 mg PO BID carvedilol 12.5 mg tablet 6.25 mg PO BID carboxymethylcellulose sodium 0.5 % dropperette 1 drp ophthalmic (eye) QID PRN (Reason: Dry Eye(S)) cyclosporine 0.05 % dropperette 1 drp ophthalmic (eye) BID ipratropium bromide 42 mcg (0.06 %) spray,non-aerosol 1 spray intranasal DAILY Rx Instructions: administer into each nostril vitamin B complex Tablet 1 tab PO DAILY cholecalciferol (vitamin D3) 25 mcg (1,000 unit) capsule 25 mcg PO DAILY spironolactone 25 mg tablet 12.5 mg PO DAILY 14 Days Qty: 10 0RF Discontinued torsemide 10 mg tablet 20 mg PO DAILY Discharge Orders: Discharge Order (Routine); Ordered 08/02/25 Ordered By: Lolita Ortiz Diet: Advance to usual diet Activity on Discharge: As tolerated Stand Alone Forms: Patient Portal Discharge page Print Language: Kyrgyz Care Plan Goals: as above Health Concerns: as above Plan of Treatment: As per plan above Assessment: haemodynamically stable for discharge
--- NOTE | 2025-08-02 13:22 | MHC.CM.PN ---
Patient is medically cleared for dc to home today, with services; [facility] is aware of today's dc.
--- NOTE | 2025-08-02 13:25 | W.MHC.F2F ---
Service Date Service Date: 08/02/25 Encounter Date of encounter: 08/02/25 Reasons for Services Signs and symptoms assessed: anasarca, muscular atrophy upper and lower extremities, weakness, CHF, cirrhosis, renal failure Reason for chcf: medication management, medication treatment and teach disease management Reason for physical therapy: home safety and mobility, therapeutic exercises, restore joint function, gait/transfer training, assess need for DME, ADL training and energy conservation Homebound: Leaving the home is medically contraindicated at this time without the asist of a device and/or another person due th the listed conditions above and below. Reason homebound: unsteady gait / fall risk, leg weakness, poor balance / fall risk and weakness related to hospital stay Certification: Based on the above findings, I certify that this patient is confined to the home and needs intermittent chcf care, physical therapy and/or speech therapy, or continues to need occupational therapy. The patient is under my care, and I have initiated the establishment of the plan of care. The patient will be followed by a physician who will periodically review the plan of care. Time Spent With Patient Time: Total time managing care of this patient today 35 minutes.
[2025-08-03 20:09] LABS: Urea, Random Urine 289 mg/dL
== END 2025-08-02 14:34 | disposition home health service (06) | DRG 291 ==
LOC: HO.ED 12:24 → HO.EDOVER 13:00 → HO.IMC 16:29
PROVIDERS: Internal Medicine Critical Care Medicine; Physician Assistant; Admitting Provider Internal Medicine; Emergency Provider Emergency Medicine; PCP Hospitalist; Visit Provider Hospitalist
DX: I13.0 Hypertensive heart and chronic kidney disease with heart failure and stage 1 through stage 4 chronic kidney disease, or unspecified chronic kidney disease (principal); I50.33 Acute on chronic diastolic (congestive) heart failure; K76.7 Hepatorenal syndrome; N18.4 Chronic kidney disease, stage 4 (severe); I48.20 Chronic atrial fibrillation, unspecified; N13.30 Unspecified hydronephrosis; I50.813 Acute on chronic right heart failure; I27.29 Other secondary pulmonary hypertension; D50.9 Iron deficiency anemia, unspecified; D63.1 Anemia in chronic kidney disease; K74.69 Other cirrhosis of liver; Z90.5 Acquired absence of kidney; Z85.528 Personal history of other malignant neoplasm of kidney; Z79.01 Long term (current) use of anticoagulants; Z79.899 Other long term (current) drug therapy
CPT/HCPCS: 36415; 49083; 71045; 74176; 76700; 76775; 80053; 81003; 82570; 83735; 83880; 83935; 84300; 84484; 84540; 85025; 85610; 85999; 93005; 93306; 97162; 99285; J1938; J2003; Q9957

== ENCOUNTER → 2025-07-31 10:58 | Outpatient (BNV) | payer MEDICARE, OTHER, SELFPAY | PROVIDERS: Admitting Provider Internal Medicine; Emergency Provider Emergency Medicine; PCP Hospitalist; Visit Provider Internal Medicine Cardiovascular Disease | DX: I48.91 Unspecified atrial fibrillation (principal); I45.4 Nonspecific intraventricular block | CPT/HCPCS: 93010 ==

== ENCOUNTER → 2025-07-31 10:58 | Outpatient (BNV) | payer MEDICARE, OTHER, SELFPAY | PROVIDERS: Emergency Provider Emergency Medicine; PCP Hospitalist; Visit Provider Radiology Diagnostic Radiology | DX: N17.9 Acute kidney failure, unspecified (principal); N18.9 Chronic kidney disease, unspecified; N13.30 Unspecified hydronephrosis; N28.89 Other specified disorders of kidney and ureter; Z90.5 Acquired absence of kidney | CPT/HCPCS: 71045; 76775 ==

== ENCOUNTER 2025-07-31 12:47 | Outpatient (BNV) | payer MEDICARE, OTHER, SELFPAY | END 2025-08-02 07:00 | PROVIDERS: Admitting Provider Internal Medicine; Emergency Provider Emergency Medicine; PCP Hospitalist; Visit Provider Radiology Diagnostic Radiology | DX: N18.32 Chronic kidney disease, stage 3b (principal); N17.9 Acute kidney failure, unspecified; Z90.5 Acquired absence of kidney | CPT/HCPCS: 74176 ==

== ENCOUNTER 2025-07-31 12:47 | Outpatient (BNV) | payer MEDICARE, OTHER, SELFPAY | END 2025-08-01 10:51 | PROVIDERS: Admitting Provider Internal Medicine; Emergency Provider Emergency Medicine; PCP Hospitalist; Visit Provider Radiology Diagnostic Radiology | DX: R18.8 Other ascites (principal) | CPT/HCPCS: 76700 ==

== ENCOUNTER → 2025-07-31 12:47 | Outpatient (BNV) | payer MEDICARE, OTHER, SELFPAY | PROVIDERS: Admitting Provider Internal Medicine; Emergency Provider Emergency Medicine; PCP Hospitalist; Visit Provider Urology | DX: I50.9 Heart failure, unspecified (principal); Z90.5 Acquired absence of kidney; N18.9 Chronic kidney disease, unspecified; N17.9 Acute kidney failure, unspecified | CPT/HCPCS: 99222 ==

== ENCOUNTER → 2025-07-31 12:47 | Outpatient (BNV) | payer MEDICARE, OTHER, SELFPAY | PROVIDERS: Admitting Provider Internal Medicine; Emergency Provider Emergency Medicine; PCP Hospitalist; Visit Provider Internal Medicine Cardiovascular Disease | DX: I50.9 Heart failure, unspecified (principal) | CPT/HCPCS: 99222; 99233 ==

== ENCOUNTER → 2025-07-31 12:47 | Outpatient (BNV) | payer MEDICARE, OTHER, SELFPAY | PROVIDERS: Admitting Provider Internal Medicine; Emergency Provider Emergency Medicine; PCP Hospitalist; Visit Provider Internal Medicine Critical Care Medicine | DX: I12.9 Hypertensive chronic kidney disease with stage 1 through stage 4 chronic kidney disease, or unspecified chronic kidney disease (principal); I13.10 Hypertensive heart and chronic kidney disease without heart failure, with stage 1 through stage 4 chronic kidney disease, or unspecified chronic kidney disease; Z90.5 Acquired absence of kidney; N17.9 Acute kidney failure, unspecified; N18.9 Chronic kidney disease, unspecified; R31.0 Gross hematuria | CPT/HCPCS: 99222; 99232 ==

== ENCOUNTER 2025-08-04 10:28 | Outpatient (AMB) | payer MEDICARE, OTHER, SELFPAY ==
[2025-08-04 10:31] VITALS: BP 108/52; BMI 21.7
--- NOTE | 2025-08-04 10:31 | HO.NEPHOV ---
Vital Signs 08/04/25 10:31 Height 6 ft Weight 160 lb BMI 21.7 BP 108/52 L Blood Pressure Location Rt brachial Position Sitting Intake Visit Reasons: 1 week follow up Patient Financial Services Specialist Required: No Accompanied by: Spouse Allergies No Known Allergies (No Known Allergies*) Allergy (Verified 08/04/25 10:34) HPI Comments Details: Basilio who was accompanied by his & son in the office today for follow up of AMBER on CKD. He has chronic kidney disease on a background of acquired solitary kidney following nephrectomy. He has been on Eliquis for A Fib. He himself has reduced the dose of Elquis with resolution of hematuria in the past but has been having recurrence of the hematuria. He has had Procrit injections in the past. He had cardio renal syndrome and was admitted in hospital recently needing IV diuretics and paracentesis. 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 Hypertension Chronic kidney disease, stage 3b Surgical History History of nephrectomy Social History Household Members: Spouse Housing: House Do you presently have visiting nurse or other home services: No Patient Tobacco Use Status: Never used Tobacco service: Yes Review of Systems Const All systems reviewed & are unremarkable except as noted in HPI and below Physical Exam Vital Signs: Last Vital Signs BP 108/52 L 08/04/25 10:31 BMI result Body Mass Index 21.7 Const General: comfortable and no acute distress Orientation/consciousness: patient oriented x3 HEENT Head: Yes normocephalic Mouth: Normal oral and palatal mucosa present Eyes EOM: EOMs intact bilaterally Neck Neck: Yes supple Resp Auscultation: clear to auscultation bilaterally Cardio Jugular venous distension: no JVD Rate: regular rate GI Palpation (GI): Soft to palpation Auscultation: normal bowel sounds General: Yes no CVA tenderness Back/Spine/Pelvis Back: no CVA tenderness Skin General skin exam: no rashes or lesions noted Neuro General: patient oriented x3 and moves all extremities Results Reviewed Nephrology Results: Hgb, (14.0-18.0) 10.5 g/dl L 08/02/25 WBC, (4.8-10.8) 3.2 X10*3/uL L 08/02/25 Plt Count, (160-400) 89 X10*3/uL L 08/02/25 Sodium, (135-145) 143 mmol/L 08/02/25 Potassium, (3.3-5.1) 4.1 mmol/L 08/02/25 Chloride, (96-108) 106 mmol/L 08/02/25 Carbon Dioxide, (22-29) 24 mmol/L 08/02/25 BUN, (9-16) 126 mg/dL H 08/02/25 Creatinine, (0.5-1.4) 4.05 mg/dL H* 08/02/25 Calcium, (8.4-10.2) 8.7 mg/dL 08/02/25 Urine Protein, (Neg-Trace) Negative mg/dL 08/01/25 Urine Creatinine 27.88 mg/dL 08/01/25 Renal US 07/31/25 Assessment & Plan Assessment & Plan (1) Chronic kidney disease, stage 3b: Code(s): N18.32 - Chronic kidney disease, stage 3b Category: Medical (2) Anemia in chronic kidney disease: Code(s): N18.9 - Chronic kidney disease, unspecified; D63.1 - Anemia in chronic kidney disease Category: Medical Qualifiers: Chronic kidney disease stage: stage 3 (moderate) Chronic kidney disease stage 3 subtype: stage 3b (GFR 30-44) Qualified Code(s): N18.32 - Chronic kidney disease, stage 3b; D63.1 - Anemia in chronic kidney disease (3) Acquired solitary kidney: Code(s): Z90.5 - Acquired absence of kidney Category: Medical (4) Acute kidney injury superimposed on CKD: Code(s): N17.9 - Acute kidney failure, unspecified; N18.9 - Chronic kidney disease, unspecified Category: Medical Plan 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 He can continue current dose of torsemide & hold his spironolactone 12.5 mg daily for now. Repeat labs ordered in 2 weeks. He does not consume excessive sodium in the diet. We shall avoid ZULEMA inhibitor or ARB for now. He had gotten Procrit injections in the past. He does not need renal replacement now but I discussed it in the even if his renal functions decline further. He will need F/U MRI as well. Follow-up appointment given Orders: Orders Creatinine 1 Week D63.1 - Anemia in chronic kidney disease, N17.9 - Acute kidney failure, unspecified, N18.32 - Chronic kidney disease, stage 3b, Z90.5 - Acquired absence of kidney Electrolytes 2 Weeks N17.9 - Acute kidney failure, unspecified, N18.9 - Chronic kidney disease, unspecified Blood Urea Nitrogen 2 Weeks N17.9 - Acute kidney failure, unspecified, N18.9 - Chronic kidney disease, unspecified Electrolytes 1 Week D63.1 - Anemia in chronic kidney disease, N17.9 - Acute kidney failure, unspecified, N18.32 - Chronic kidney disease, stage 3b, Z90.5 - Acquired absence of kidney Blood Urea Nitrogen 1 Week D63.1 - Anemia in chronic kidney disease, N17.9 - Acute kidney failure, unspecified, N18.32 - Chronic kidney disease, stage 3b, Z90.5 - Acquired absence of kidney Creatinine 2 Weeks N17.9 - Acute kidney failure, unspecified, N18.9 - Chronic kidney disease, unspecified Coding Level of Care Code Est Pt Level 4 (60078) Diagnoses Chronic kidney disease, stage 3b N18.32 Anemia in stage 3b chronic kidney disease N18.32; D63.1 Chronic kidney disease stage: stage 3 (moderate) Chronic kidney disease stage 3 subtype: stage 3b (GFR 30-44) Acquired solitary kidney Z90.5 Acute kidney injury superimposed on CKD N17.9; N18.9
--- OUTSIDE RECORDS SUMMARY | 2025-08-04 10:32 | XMS_ITS | Clinical Summary ---
Author Organization [facility] Address [address] [place] [address] Phone Care Team Providers Care Jordan Man Name Role Phone Duong Pradhan Primary Care [...] failure,Stage 3b chronic kidney disease (HCC),Hypertension,Hyperk alemia 98736 Units IJ Every 14 days 05/16/2021 Active Epoetin Adolfo-epbx solution 40,000 UnitsIndications:Anemia of chronic renal failure 51565 Units IJ Once 02/24/2022 Active Active Problems [...] age to complete this topic Insurance Medicare Count Includes [facility] Medicare Unicare Care Teams Jordan Man Relationship Specialty Start Date End Date Duong Pradhan PCP - General Family Medicine 11/18/22
== END 2025-08-04 11:19 | disposition home or self-care (01) ==
LOC: HO.HKA 10:29
PROVIDERS: PCP Hospitalist; Visit Provider Internal Medicine Nephrology
DX: N18.32 Chronic kidney disease, stage 3b (principal); D63.1 Anemia in chronic kidney disease; Z90.5 Acquired absence of kidney; N17.9 Acute kidney failure, unspecified; N18.9 Chronic kidney disease, unspecified
CPT/HCPCS: 99214

== ENCOUNTER → 2025-08-04 10:28 | Outpatient (BNVA) | payer MEDICARE, OTHER, SELFPAY | PROVIDERS: PCP Hospitalist; Visit Provider Internal Medicine Nephrology | DX: I12.9 Hypertensive chronic kidney disease with stage 1 through stage 4 chronic kidney disease, or unspecified chronic kidney disease (principal); N18.32 Chronic kidney disease, stage 3b; D63.1 Anemia in chronic kidney disease; N17.9 Acute kidney failure, unspecified; Z90.5 Acquired absence of kidney; Z79.01 Long term (current) use of anticoagulants; Z85.528 Personal history of other malignant neoplasm of kidney | CPT/HCPCS: 99212 ==